=== PATIENT | male | born 1950 | race Two or more races ===

== ENCOUNTER 2019-02-07 06:52 | Day surgery (SDC) | payer OTHER ==
[2019-02-06 11:21] LABS: Absolute Lymphocytes (CBC) 2.3 K/uL (0.7-4.9); Basophils % 0.6 % (0-1.3); Eosinophils % 2.6 % (0-4.4); Hematocrit 40.2 % (39.6-49.0); Lymphocytes % 31.4 % (15.3-44.8); MPV 10.3 fL (7.6-11.3); Monocytes % 8.2 % (3.3-12.3); RBC Red Blood Cell Count 4.73 M/uL (4.33-5.43)
--- OUTSIDE RECORDS SUMMARY | 2019-02-07 06:57 | XMS REPORT | Clinical Summary ---
:1950 Author Organization [facility] Address [address] [place] [address] Care Team Providers Name Role Phone Aster Monique DO Primary Care Provider Allergies Active Allergy Reactions Severity Noted Date Comments Aspirin GI Intolerance Low 10/31/2018 Medications Medication Sig Dispensed Refills Start Date End Date Status ranitidine Take 150 mg by 0 Active (ZANTAC) 150 MG mouth 2 (two) tablet times a day. fluPHENAZine Inject 0.5 mg 0 10/21/2018 Active (PROLIXIN) 2.5 into the mg/mL injection shoulder, thigh, or buttocks every 30 (thirty) days. psyllium seed, Take 5 mL by 0 Active with dextrose, mouth 2 (two) (FIBER ORAL) times a day. Mix in 8 ounce of water magnesium Take by mouth 0 12/24/2018 Discontinued hydroxide 400 mg/5 as needed. mL suspension diltiazem Take 1 tablet 120 tablet 0 11/07/2018 11/07/2018 Discontinued (CardIZEM) 60 MG (60 mg total) tablet by mouth every 6 (six) hours for 30 days. polyethylene Take 17 g by 30 packet 0 11/08/2018 12/08/2018 glycol (MIRALAX) mouth daily 17 gram packet for 30 days. amoxicillin-pot Take 1 tablet 8 tablet 0 11/07/2018 11/11/2018 clavulanate by mouth 2 (AUGMENTIN) (two) times a 875-125 mg per day for 4 tablet days. aspirin (ECOTRIN) Take 1 tablet 30 tablet 0 11/07/2018 12/07/2018 81 MG enteric (81 mg total) coated tablet by mouth daily for 30 days. diltiazem Take 1 tablet 120 tablet 0 11/07/2018 12/07/2018 (CardIZEM) 60 MG (60 mg total) tablet by mouth every 6 (six) hours for 30 days. Active Problems Problem Noted Date Adenomatous polyp of transverse colon 11/19/2018 Acute respiratory failure with hypoxia 11/02/2018 Colonic mass 11/02/2018 Atrial fibrillation with RVR 11/02/2018 Sepsis 11/01/2018 Schizophrenia Encounters Date Type Specialty Care Team Description 01/06/2019 Office Visit General Surgery Alon Marie, Adenomatous polyp of transverse colon (Primary Dx) 12/24/2018 Anesthesia Event General Surgery Nilam Mondragon MD 12/24/2018 Surgery General Surgery Alon Marie, LAPAROSCOPIC RIGHT MD COLECTOMY 12/24/2018 - Hospital Encounter General Internal Alon Marie, Adenomatous polyp 12/29/2018 Medicine MD delong transverse colon 12/24/2018 Prep for Surgery General Surgery Alon Marie MD 12/18/2018 Transcribe Orders General Surgery Alon Marie, Adenomatous polyp of transverse colon (Primary Dx) 11/19/2018 Office Visit General Surgery Alon Marie, Adenomatous polyp of transverse colon (Primary Dx) 11/07/2018 Patient Outreach Quality Ashlie Wei RN 11/05/2018 Surgery Gastroenterology Angella, COLONOSCOPY with MD Jose A biopsy 11/05/2018 Anesthesia Event Gastroenterology Yaa Zimmerman MD 10/31/2018 - Hospital Encounter General Internal WaliKaitlin Colonic mass 11/07/2018 Medicine MD Rick (Primary Dx) after 02/06/2018 Family History Medical History Relation Name Comments No Known Problems Brother No Known Problems Father No Known Problems Maternal Grandfather No Known Problems Maternal Grandmother No Known Problems Mother No Known Problems Other No Known Problems Paternal Grandfather No Known Problems Paternal Grandmother No Known Problems Sister Relation Name Status Comments Brother Father Maternal Grandfather Maternal Grandmother Mother Other Paternal Grandfather Paternal Grandmother Sister Social History Tobacco Use Types Packs/Day Years Used Date Never Smoker Smokeless Tobacco: Never Used Alcohol Use Drinks/Week oz/Week Comments No Alcohol Habits Answer Date Recorded How often do you have a drink containing alcohol? Never 11/01/2018 How many drinks containing alcohol do you have on a typical Not asked day when you are drinking? How often do you have six or more drinks on one occasion? Not asked Sex Assigned at Date Recorded Not on file Job Start Date Occupation Industry Not on file Not on file Not on file Travel History Travel Start Travel End No recent travel history available. Last Filed Vital Signs Vital Sign Reading Time Taken Blood Pressure 132/79 12/29/2018 11:56 AM CDT Pulse 73 12/29/2018 11:56 AM CDT Temperature 36.1 C (97 F) 12/29/2018 11:56 AM CDT Respiratory Rate 18 12/29/2018 11:56 AM CDT Oxygen Saturation 97% 12/29/2018 11:56 AM CDT Inhaled Oxygen Concentration - - Weight 55.4 kg (122 lb 1.6 oz) 12/29/2018 4:05 AM CDT Height 160 cm (5' 3") 12/24/2018 12:19 PM CDT Body Mass Index 21.63 12/24/2018 12:19 PM CDT Plan of Treatment Date Type Specialty Care Team Description 02/10/2019 Office [place] [address] [address] [phone] Health Maintenance Due Date Last Done Comments COLONOSCOPY SCREENING 2000 SHINGLES VACCINES (#1) 2000 65+ PNEUMOCOCCAL VACCINE (1 of 2 - PCV13) 2015 INFLUENZA VACCINE 03/20/2019 Implants Implanted Type Area Tightening Machine Operator Device Shelf Model / Identifier Expiration Serial / Date Lot Kit Tour Counselor Cath Xpnsn Local Anes 5x6in On-Q Tour Counselor - [id number] Surgical Right: [facility] 12/18/2019 PM020 A / Implanted: Qty: 1 on 12/24/2018 by Alon Marie MD Implants; Abdomen / Expanders; Extenders; Surgical Wires Explanted Type Area Tightening Machine Operator Device Shelf Model / Identifier Expiration Serial / Date Lot Kit Tour Counselor Cath Xpnsn Local Anes 5x6in On-Q Tour Counselor - [id number] Surgical Left : [facility] 12/18/2019 PM020 A / Implanted: Qty: 1 Implants; Abdomen / Explanted: Qty: 1 on 12/24/2018 by Alon Marie MD Expanders; Extenders; Surgical Wires Procedures Procedure Name Priority Date/Time Associated Comments Diagnosis ESTIMATED GFR Routine 12/28/2018 5:35 Results for this AM CDT procedure are in the results section. PHOSPHORUS LEVEL Routine 12/28/2018 5:35 Results for this AM CDT procedure are in the results section. MAGNESIUM LEVEL Routine 12/28/2018 5:35 Results for this AM CDT procedure are in the results section. IONIZED CALCIUM Routine 12/28/2018 5:35 Results for this AM CDT procedure are in the results section. HC COMPLETE BLD COUNT Routine 12/28/2018 5:35 Results for this W/AUTO DIFF AM CDT procedure are in the results section. BASIC METABOLIC PANEL Routine 12/28/2018 5:35 Results for this AM CDT procedure are in the results section. B NATRIURETIC PEPTIDE Routine 12/27/2018 9:15 Results for this PM CDT procedure are in the results section. CARCINOEMBRYONIC ANTIGEN Routine 12/27/2018 8:45 Results for this (CEA) PM CDT procedure are in the results section. XR CHEST 1 VW PORTABLE Routine 12/27/2018 5:50 Results for this PM CDT procedure are in the results section. ESTIMATED GFR Routine 12/27/2018 5:40 Results for this AM CDT procedure are in the results section. IONIZED CALCIUM Routine 12/27/2018 5:40 Results for this AM CDT procedure are in the results section. PHOSPHORUS LEVEL Routine 12/27/2018 5:40 Results for this AM CDT procedure are in the results section. MAGNESIUM LEVEL Routine 12/27/2018 5:40 Results for this AM CDT procedure are in the results section. BASIC METABOLIC PANEL Routine 12/27/2018 5:40 Results for this AM CDT procedure are in the results section. HC COMPLETE BLD COUNT Routine 12/27/2018 5:40 Results for this W/AUTO DIFF AM CDT procedure are in the results section. THYROID STIMULATING STAT 12/26/2018 1:20 Results for this HORMONE AM CDT procedure are in the results section. HEPATIC FUNCTION PANEL STAT 12/26/2018 1:20 Results for this AM CDT procedure are in the results section. ECG 12-LEAD STAT 12/26/2018 1:01 Results for this AM CDT procedure are in the results section. TROPONIN Routine 12/26/2018 12:54 Results for this AM CDT procedure are in the results section. ESTIMATED GFR Routine 12/26/2018 12:54 Results for this AM CDT procedure are in the results section. IONIZED CALCIUM Routine 12/26/2018 12:54 Results for this AM CDT procedure are in the results section. PHOSPHORUS LEVEL Routine 12/26/2018 12:54 Results for this AM CDT procedure are in the results section. MAGNESIUM LEVEL Routine 12/26/2018 12:54 Results for this AM CDT procedure are in the results section. BASIC METABOLIC PANEL Routine 12/26/2018 12:54 Results for this AM CDT procedure are in the results section. CBC WITH PLATELET AND Routine 12/26/2018 12:54 Results for this DIFFERENTIAL AM CDT procedure are in the results section. POC GLUCOSE Routine 12/25/2018 10:24 Results for this AM CDT procedure are in the results section. ESTIMATED GFR Routine 12/25/2018 6:05 Results for this AM CDT procedure are in the results section. PHOSPHORUS LEVEL Routine 12/25/2018 6:05 Results for this AM CDT procedure are in the results section. MAGNESIUM LEVEL Routine 12/25/2018 6:05 Results for this AM CDT procedure are in the results section. BASIC METABOLIC PANEL Routine 12/25/2018 6:05 Results for this AM CDT procedure are in the results section. POC GLUCOSE Routine 12/25/2018 4:38 Results for this AM CDT procedure are in the results section. MANUAL DIFFERENTIAL Routine 12/25/2018 4:35 Results for this AM CDT procedure are in the results section. CBC WITH PLATELET AND Routine 12/25/2018 4:35 Results for this DIFFERENTIAL AM CDT procedure are in the results section. POC GLUCOSE Routine 12/25/2018 12:29 Results for this AM CDT procedure are in the results section. POC GLUCOSE Routine 12/24/2018 9:05 Results for this PM CDT procedure are in the results section. HEMOGLOBIN & HEMATOCRIT Routine 12/24/2018 5:28 Results for this PM CDT procedure are in the results section. POC GLUCOSE Routine 12/24/2018 4:36 Results for this PM CDT procedure are in the results section. POC GLUCOSE Routine 12/24/2018 12:57 Results for this PM CDT procedure are in the results section. BRAF, PCR Routine 12/24/2018 10:18 Results for this AM CDT procedure are in the results section. SURGICAL PATHOLOGY Routine 12/24/2018 9:28 Results for this REQUEST AM CDT procedure are in the results section. SURGICAL PATHOLOGY Routine 12/24/2018 9:28 Results for this REQUEST AM CDT procedure are in the results section. SURGICAL PATHOLOGY Routine 12/24/2018 9:28 Results for this REQUEST AM CDT procedure are in the results section. SURGICAL PATHOLOGY Routine 12/24/2018 9:28 Results for this REQUEST AM CDT procedure are in the results section. URINALYSIS SCREEN AND Timed 12/24/2018 8:01 Adenomatous polyp Results for this MICROSCOPY, WITH REFLEX AM CDT of transverse colon procedure are in TO CULTURE the results section. URINE CULTURE Timed 12/24/2018 8:01 Results for this AM CDT procedure are in the results section. IN AN ELECTIVE Routine 12/24/2018 7:59 ENDOTRACHEAL AIRWAY AM CDT Procedure Note - Nate Colón CRNA - 12/24/2018 7:59 AM CDT Airway Date/Time: 12/24/2018 7:47 AM Performed by: Nate Colón CRNA Authorized by: Familia Sen MD Location: OR Urgency: Elective Difficult Airway: No Anesthesiologist: Familia Sen MD Resident/BUILDING AND CONSTRUCTION MANAGER/AA: Nate Colón CRNA Performed by: resident/BUILDING AND CONSTRUCTION MANAGER/AA Preoxygenated with 100% O2: Yes C-spine Precautions Maintained Throughout: Yes Mask Ventilation: Easy mask Final Airway Type: Endotracheal airway Final Endotracheal Airway: ETT Cuffed: Yes Technique Used: Direct laryngoscopy Devices/Methods Used in Placement: Intubating stylet Insertion Site: Oral Blade Type: Wagner Laryngoscope Blade/Videolaryngoscope Blade Size: 2 ETT Size (mm): 7.5 Cuff at minimum occlusion pressure: Yes Measured from: Lips ETT to Lips (cm): 23 Placement Verified by: CO2 detection, direct visualization and equal breath sounds Laryngoscopic view: Grade I - full view of glottis Rapid Sequence Induction (RSI): No Modified RSI: No Number of Attempts at Approach: 1 Atraumatic intubation. All oral structures intact and unchanged. POC GLUCOSE Routine 12/24/2018 6:43 AM Results for this CDT procedure are in the results section. ESTIMATED GFR Routine 12/24/2018 6:40 AM Results for this CDT procedure are in the results section. TYPE AND SCREEN Routine 12/24/2018 6:40 AM Results for this CDT procedure are in the results section. PROTHROMBIN TIME WITH INR Routine 12/24/2018 6:40 AM Results for this CDT procedure are in the results section. PARTIAL THROMBOPLASTIN Routine 12/24/2018 6:40 AM Results for this TIME (PTT) CDT procedure are in the results section. COMPREHENSIVE METABOLIC Routine 12/24/2018 6:40 AM Results for this PANEL CDT procedure are in the results section. HC COMPLETE BLD COUNT Routine 12/24/2018 6:40 AM Results for this W/AUTO DIFF CDT procedure are in the results section. ESTIMATED GFR Routine 11/07/2018 4:47 AM Results for this CDT procedure are in the results section. BASIC METABOLIC PANEL Routine 11/07/2018 4:47 AM Results for this CDT procedure are in the results section. HC COMPLETE BLD COUNT Routine 11/07/2018 4:47 AM Results for this W/AUTO DIFF CDT procedure are in the results section. POC GLUCOSE Routine 11/06/2018 8:52 PM Results for this CDT procedure are in the results section. POC GLUCOSE Routine 11/06/2018 4:05 PM Results for this CDT procedure are in the results section. POC GLUCOSE Routine 11/06/2018 12:03 PM Results for this CDT procedure are in the results section. POC GLUCOSE Routine 11/06/2018 8:31 AM Results for this CDT procedure are in the results section. POC GLUCOSE Routine 11/05/2018 8:37 PM Results for this CDT procedure are in the results section. POC GLUCOSE Routine 11/05/2018 3:58 PM Results for this CDT procedure are in the results section. CARCINOEMBRYONIC ANTIGEN Routine 11/05/2018 12:25 PM Results for this (CEA) CDT procedure are in the results section. POC GLUCOSE Routine 11/05/2018 11:23 AM Results for this CDT procedure are in the results section. SURGICAL PATHOLOGY REQUEST Routine 11/05/2018 9:48 AM Results for this CDT procedure are in the results section. COLONOSCOPY 11/05/2018 8:25 AM Colonic mass CDT ECG 12-LEAD STAT 11/05/2018 6:44 AM Results for this CDT procedure are in the results section. MANUAL DIFFERENTIAL Routine 11/05/2018 6:25 AM Results for this CDT procedure are in the results section. ESTIMATED GFR Routine 11/05/2018 6:25 AM Results for this CDT procedure are in the results section. MAGNESIUM LEVEL Routine 11/05/2018 6:25 AM Results for this CDT procedure are in the results section. PHOSPHORUS LEVEL Routine 11/05/2018 6:25 AM Results for this CDT procedure are in the results section. CBC WITH PLATELET AND Routine 11/05/2018 6:25 AM Results for this DIFFERENTIAL CDT procedure are in the results section. BASIC METABOLIC PANEL Routine 11/05/2018 6:25 AM Results for this CDT procedure are in the results section. CARCINOEMBRYONIC ANTIGEN Routine 11/05/2018 6:25 AM Results for this (CEA) CDT procedure are in the results section. POC GLUCOSE Routine 11/04/2018 9:09 PM Results for this CDT procedure are in the results section. POC GLUCOSE Routine 11/04/2018 4:19 PM Results for this CDT procedure are in the results section. POC GLUCOSE Routine 11/04/2018 11:40 AM Results for this CDT procedure are in the results section. POC GLUCOSE Routine 11/04/2018 7:49 AM Results for this CDT procedure are in the results section. MANUAL DIFFERENTIAL Routine 11/04/2018 6:01 AM Results for this CDT procedure are in the results section. ESTIMATED GFR Routine 11/04/2018 6:01 AM Results for this CDT procedure are in the results section. MAGNESIUM LEVEL Routine 11/04/2018 6:01 AM Results for this CDT procedure are in the results section. IONIZED CALCIUM Routine 11/04/2018 6:01 AM Results for this CDT procedure are in the results section. PROTHROMBIN TIME WITH INR Routine 11/04/2018 6:01 AM Results for this CDT procedure are in the results section. PHOSPHORUS LEVEL Routine 11/04/2018 6:01 AM Results for this CDT procedure are in the results section. BASIC METABOLIC PANEL Routine 11/04/2018 6:01 AM Results for this CDT procedure are in the results section. CBC WITH PLATELET AND Routine 11/04/2018 6:01 AM Results for this DIFFERENTIAL CDT procedure are in the results section. XR CHEST 1 VW PORTABLE Routine 11/04/2018 5:36 AM Results for this CDT procedure are in the results section. POC GLUCOSE Routine 11/03/2018 8:29 PM Results for this CDT procedure are in the results section. POC GLUCOSE Routine 11/03/2018 3:29 PM Results for this CDT procedure are in the results section. POC GLUCOSE Routine 11/03/2018 11:46 AM Results for this CDT procedure are in the results section. POC GLUCOSE Routine 11/03/2018 7:24 AM Results for this CDT procedure are in the results section. XR CHEST 1 VW PORTABLE Routine 11/03/2018 6:41 AM Results for this CDT procedure are in the results section. MANUAL DIFFERENTIAL Routine 11/03/2018 5:35 AM Results for this CDT procedure are in the results section. ESTIMATED GFR Routine 11/03/2018 5:35 AM Results for this CDT procedure are in the results section. MAGNESIUM LEVEL Routine 11/03/2018 5:35 AM Results for this CDT procedure are in the results section. IONIZED CALCIUM Routine 11/03/2018 5:35 AM Results for this CDT procedure are in the results section. PROTHROMBIN TIME WITH INR Routine 11/03/2018 5:35 AM Results for this CDT procedure are in the results section. PHOSPHORUS LEVEL Routine 11/03/2018 5:35 AM Results for this CDT procedure are in the results section. VITAMIN B12 LEVEL Routine 11/03/2018 5:35 AM Results for this CDT procedure are in the results section. TOTAL IRON BINDING Routine 11/03/2018 5:35 AM Results for this CAPACITY CDT procedure are in the results section. RETICULOCYTE COUNT Routine 11/03/2018 5:35 AM Results for this CDT procedure are in the results section. SERUM ELECTROPHORESIS Routine 11/03/2018 5:35 AM Results for this CDT procedure are in the results section. FOLATE LEVEL Routine 11/03/2018 5:35 AM Results for this CDT procedure are in the results section. FERRITIN LEVEL Routine 11/03/2018 5:35 AM Results for this CDT procedure are in the results section. COMPREHENSIVE METABOLIC Routine 11/03/2018 5:35 AM Results for this PANEL CDT procedure are in the results section. CBC WITH PLATELET AND Routine 11/03/2018 5:35 AM Results for this DIFFERENTIAL CDT procedure are in the results section. POC GLUCOSE Routine 11/02/2018 4:15 PM Results for this CDT procedure are in the results section. ECHOCARDIOGRAM 2D COMPLETE Routine 11/02/2018 3:25 PM Results for this W MMODE SPECTRAL COLOR CDT procedure are in DOPPLER ([id number]) the results section. POC GLUCOSE Routine 11/02/2018 11:13 AM Results for this CDT procedure are in the results section. PARTIAL THROMBOPLASTIN Routine 11/02/2018 8:15 AM Results for this TIME (PTT) CDT procedure are in the results section. POC GLUCOSE Routine 11/02/2018 7:04 AM Results for this CDT procedure are in the results section. ECG 12-LEAD STAT 11/02/2018 5:41 AM Results for this CDT procedure are in the results section. PARTIAL THROMBOPLASTIN Routine 11/02/2018 4:20 AM Results for this TIME (PTT) CDT procedure are in the results section. ESTIMATED GFR Routine 11/02/2018 4:20 AM Results for this CDT procedure are in the results section. PROTHROMBIN TIME WITH INR Routine 11/02/2018 4:20 AM Results for this CDT procedure are in the results section. PHOSPHORUS LEVEL Routine 11/02/2018 4:20 AM Results for this CDT procedure are in the results section. BASIC METABOLIC PANEL Routine 11/02/2018 4:20 AM Results for this CDT procedure are in the results section. HC COMPLETE BLD COUNT Routine 11/02/2018 4:20 AM Results for this W/AUTO DIFF CDT procedure are in the results section. IONIZED CALCIUM Routine 11/02/2018 4:20 AM Results for this CDT procedure are in the results section. MAGNESIUM LEVEL Routine 11/02/2018 4:20 AM Results for this CDT procedure are in the results section. XR CHEST 1 VW PORTABLE Routine 11/02/2018 2:57 AM Results for this CDT procedure are in the results section. PARTIAL THROMBOPLASTIN Routine 11/02/2018 12:20 AM Results for this TIME (PTT) CDT procedure are in the results section. POC GLUCOSE Routine 11/01/2018 9:04 PM Results for this CDT procedure are in the results section. ANTI XA, UNFRACTIONATED Routine 11/01/2018 6:15 PM Results for this CDT procedure are in the results section. PARTIAL THROMBOPLASTIN Routine 11/01/2018 6:15 PM Results for this TIME (PTT) CDT procedure are in the results section. POC GLUCOSE Routine 11/01/2018 5:35 PM Results for this CDT procedure are in the results section. TROPONIN Routine 11/01/2018 1:50 PM Results for this CDT procedure are in the results section. CREATINE KINASE, TOTAL Routine 11/01/2018 1:50 PM Results for this (CPK) CDT procedure are in the results section. LACTIC ACID LEVEL Routine 11/01/2018 1:50 PM Results for this CDT procedure are in the results section. POC GLUCOSE Routine 11/01/2018 12:33 PM Results for this CDT procedure are in the results section. GRAM STAIN Routine 11/01/2018 9:50 AM Results for this CDT procedure are in the results section. URINE CULTURE Routine 11/01/2018 9:50 AM CDT PARTIAL THROMBOPLASTIN Routine 11/01/2018 9:40 AM Results for this TIME (PTT) CDT procedure are in the results section. STREPTOCOCCUS PNEUMONIAE Routine 11/01/2018 9:40 AM Results for this URINARY ANTIGEN CDT procedure are in the results section. POC GLUCOSE Routine 11/01/2018 8:03 AM Results for this CDT procedure are in the results section. POC GLUCOSE Routine 11/01/2018 7:01 AM Results for this CDT procedure are in the results section. MANUAL DIFFERENTIAL STAT 11/01/2018 6:26 AM Results for this CDT procedure are in the results section. CBC WITH PLATELET AND STAT 11/01/2018 6:26 AM Results for this DIFFERENTIAL CDT procedure are in the results section. PARTIAL THROMBOPLASTIN Routine 11/01/2018 6:26 AM Results for this TIME (PTT) CDT procedure are in the results section. TROPONIN Timed 11/01/2018 6:26 AM Results for this CDT procedure are in the results section. POC GLUCOSE Routine 11/01/2018 4:57 AM Results for this CDT procedure are in the results section. XR CHEST 1 VW PORTABLE Routine 11/01/2018 4:25 AM Results for this CDT procedure are in the results section. GRAM STAIN Routine 11/01/2018 4:21 AM Results for this CDT procedure are in the results section. URINE CULTURE Routine 11/01/2018 4:21 AM Results for this CDT procedure are in the results section. URINALYSIS SCREEN AND Routine 11/01/2018 4:00 AM Results for this MICROSCOPY, WITH REFLEX TO CDT procedure are in CULTURE the results section. LIPID PANEL Routine 11/01/2018 3:38 AM Results for this CDT procedure are in the results section. AMYLASE LEVEL Routine 11/01/2018 3:38 AM Results for this CDT procedure are in the results section. PHOSPHORUS LEVEL Routine 11/01/2018 3:38 AM Results for this CDT procedure are in the results section. T4, FREE Routine 11/01/2018 3:38 AM Results for this CDT procedure are in the results section. THYROID STIMULATING Routine 11/01/2018 3:38 AM Results for this HORMONE CDT procedure are in the results section. ESTIMATED GFR Routine 11/01/2018 3:38 AM Results for this CDT procedure are in the results section. TROPONIN STAT 11/01/2018 3:38 AM Results for this CDT procedure are in the results section. MAGNESIUM LEVEL Routine 11/01/2018 3:38 AM Results for this CDT procedure are in the results section. COMPREHENSIVE METABOLIC Routine 11/01/2018 3:38 AM Results for this PANEL CDT procedure are in the results section. PREALBUMIN LEVEL Routine 11/01/2018 3:38 AM Results for this CDT procedure are in the results section. URIC ACID LEVEL Routine 11/01/2018 3:38 AM Results for this CDT procedure are in the results section. PARTIAL THROMBOPLASTIN Routine 11/01/2018 3:38 AM Results for this TIME (PTT) CDT procedure are in the results section. PROTHROMBIN TIME WITH INR Routine 11/01/2018 3:38 AM Results for this CDT procedure are in the results section. BLOOD CULTURE, AEROBIC & Routine 11/01/2018 3:38 AM Results for this ANAEROBIC CDT procedure are in the results section. ESTIMATED GFR Routine 11/01/2018 3:10 AM Results for this CDT procedure are in the results section. AMYLASE LEVEL Routine 11/01/2018 3:10 AM Results for this CDT procedure are in the results section. B NATRIURETIC PEPTIDE Routine 11/01/2018 3:10 AM Results for this CDT procedure are in the results section. CREATINE KINASE, TOTAL Routine 11/01/2018 3:10 AM Results for this (CPK) CDT procedure are in the results section. COMPREHENSIVE METABOLIC Routine 11/01/2018 3:10 AM Results for this PANEL CDT procedure are in the results section. HEMOGLOBIN A1C Routine 11/01/2018 3:10 AM Results for this CDT procedure are in the results section. LACTIC ACID LEVEL Routine 11/01/2018 3:10 AM Results for this CDT procedure are in the results section. LIPASE LEVEL Routine 11/01/2018 3:10 AM Results for this CDT procedure are in the results section. LIPID PANEL Routine 11/01/2018 3:10 AM Results for this CDT procedure are in the results section. MAGNESIUM LEVEL Routine 11/01/2018 3:10 AM Results for this CDT procedure are in the results section. PHOSPHORUS LEVEL Routine 11/01/2018 3:10 AM Results for this CDT procedure are in the results section. POC GLUCOSE Routine 11/01/2018 12:47 AM Results for this CDT procedure are in the results section. URINALYSIS SCREEN AND STAT 11/01/2018 12:25 AM Results for this MICROSCOPY, WITH REFLEX TO CDT procedure are in CULTURE the results section. URINE CULTURE STAT 11/01/2018 12:25 AM Results for this CDT procedure are in the results section. PREPARE RBC Routine 11/01/2018 12:20 AM CDT PARTIAL THROMBOPLASTIN STAT 11/01/2018 12:20 AM Results for this TIME (PTT) CDT procedure are in the results section. TYPE AND SCREEN Routine 11/01/2018 12:20 AM Results for this CDT procedure are in the results section. CARCINOEMBRYONIC ANTIGEN Routine 11/01/2018 12:20 AM Results for this (CEA) CDT procedure are in the results section. B NATRIURETIC PEPTIDE Routine 11/01/2018 12:20 AM Results for this CDT procedure are in the results section. BETA HYDROXYBUTYRATE STAT 11/01/2018 12:20 AM Results for this CDT procedure are in the results section. LACTIC ACID LEVEL Timed 11/01/2018 12:20 AM Results for this CDT procedure are in the results section. POC GLUCOSE Routine 10/31/2018 10:41 PM Results for this CDT procedure are in the results section. CT CHEST WO CONTRAST STAT 10/31/2018 10:15 PM Results for this ABDOMEN WO CONTRAST PELVIS CDT procedure are in WO CONTRAST the results section. POC GLUCOSE Routine 10/31/2018 9:42 PM Results for this CDT procedure are in the results section. XR ABDOMEN 1 VW STAT 10/31/2018 9:29 PM Results for this CDT procedure are in the results section. XR CHEST 1 VW PORTABLE STAT 10/31/2018 9:29 PM Results for this CDT procedure are in the results section. ECG 12-LEAD STAT 10/31/2018 9:22 PM Results for this CDT procedure are in the results section. MANUAL DIFFERENTIAL STAT 10/31/2018 8:55 PM Results for this CDT procedure are in the results section. TROPONIN STAT 10/31/2018 8:55 PM Results for this CDT procedure are in the results section. ESTIMATED GFR STAT 10/31/2018 8:55 PM Results for this CDT procedure are in the results section. LACTIC ACID LEVEL Timed 10/31/2018 8:55 PM Results for this CDT procedure are in the results section. ARTERIAL BLOOD GAS STAT 10/31/2018 8:55 PM Results for this CDT procedure are in the results section. PROTHROMBIN TIME WITH INR STAT 10/31/2018 8:55 PM Results for this CDT procedure are in the results section. COMPREHENSIVE METABOLIC STAT 10/31/2018 8:55 PM Results for this PANEL CDT procedure are in the results section. CBC WITH PLATELET AND STAT 10/31/2018 8:55 PM Results for this DIFFERENTIAL CDT procedure are in the results section. BLOOD CULTURE, AEROBIC & Routine 10/31/2018 8:55 PM Results for this ANAEROBIC CDT procedure are in the results section. after 02/06/2018 Results Estimated GFR (12/28/2018 5:35 AM CDT)Only the most recent of13 resultswithin the time period is included. Pathologist [facility] Estimated GFR >=90 mL/min/1.73 [facility] Comment: m2 [place] CatergoryUnitsInterpretation [facility] G1 >=90 Normal or high G2 60-89Mildly decreased [id number] to moderately decreased [id number] to severely decreased G4 15-29Severely decreased G5 <15Kidney failure The eGFR was calculated using the Chronic Kidney Disease Epidemiology Collaboration (CKD-EPI) equation. Interpretation is based on recommendations of the National Kidney Foundation-Kidney Disease Outcomes Quality Initiative (NKF-KDOQI) published in 2014. Specimen Plasma specimen Performing Organization Address City/State/Zipcode Phone Number [facility] DEPARTMENT OF PATHOLOGY [address] [place] [address] AND GENOMIC MEDICINE [facility] [address] CBC with platelet and differential (12/28/2018 5:35 AM CDT)Only the most recent of12 resultswithin the time period is included. WBC 6.7 4.5 - 11.0 k/uL [facility] RBC 4.44 4.40 - 6.00 [facility] m/uL [facility] HGB 11.9 (L) 14.0 - 18.0 [facility] g/dL [facility] HCT 37.0 (L) 41.0 - 51.0 % [facility] MCV 83.3 82.0 - 100.0 fL [facility] MCH 26.8 (L) 27.0 - 34.0 pg [facility] MCHC 32.2 31.0 - 37.0 [facility] g/dL [facility] RDW - SD 42.7 37.0 - 55.0 fL [facility] MPV 11.6 (H) 6.9 - 11.0 fL [facility] Platelet count 190 150 - 400 K/uL [facility] Nucleated RBC 0.00 /100 WBC [facility] Neutrophils 70.2 (H) 39.0 - 69.0 % [facility] Lymphocytes 19.6 (L) 25.0 - 45.0 % [facility] Monocytes 8.2 0.0 - 10.0 % [facility] Eosinophils 1.5 0.0 - 5.0 % [facility] Basophils 0.1 0.0 - 1.0 % [facility] Immature granulocytes 0.4 0.0 - 1.0 % [facility] Specimen Blood Performing Organization Address City/State/Zipcode Phone Number [facility] DEPARTMENT OF PATHOLOGY [address] [place] [address] [place] [address] HOSPITAL Phosphorus level (12/28/2018 5:35 AM CDT)Only the most recent of10 resultswithin the time period is included. Phosphorus 2.6 2.4 - 4.5 mg/dL [facility] Specimen Plasma specimen Performing Organization Address City/State/Zipcode Phone Number [facility] DEPARTMENT OF PATHOLOGY [address] [place] [address] [place] [address] HOSPITAL Magnesium level (12/28/2018 5:35 AM CDT)Only the most recent of10 resultswithin the time period is included. Magnesium 2.0 1.6 - 2.4 mg/dL [facility] Specimen Plasma specimen Performing Organization Address City/State/Zipcode Phone Number [facility] DEPARTMENT OF PATHOLOGY [address] [place] [address] Ionized calcium (12/28/2018 5:35 AM CDT)Only the most recent of6 resultswithin the time period is included. pH 7.40 [facility] Ionized calcium 1.09 (L) 1.11 - 1.32 [facility] mmol/L [facility] Specimen Plasma specimen Performing Organization Address City/[facility] Phone Number [facility] DEPARTMENT OF PATHOLOGY [address] [place] [address] Basic metabolic panel (12/28/2018 5:35 AM CDT)Only the most recent of8 resultswithin the time period is included. Sodium 138 135 - 148 mEq/L [facility] Potassium 3.4 (L) 3.5 - 5.0 mEq/L [facility] Chloride 101 98 - 112 mEq/L [facility] CO2 25 24 - 31 mEq/L [facility] Anion gap 12@ANIO 7 - 15 mEq/L [facility] BUN 7 (L) 8 - 23 mg/dL [facility] Creatinine 0.62 (L) 0.70 - 1.20 mg/dL [facility] Glucose 106 (H) 65 - 99 mg/dL [facility] Calcium 8.3 (L) 8.8 - 10.2 mg/dL [facility] Specimen Plasma specimen Performing Organization Address City/[facility]ode Phone Number [facility] DEPARTMENT OF PATHOLOGY [address] [place] [address] [place] [address] HOSPITAL B natriuretic peptide (12/27/2018 9:15 PM CDT)Only the most recent of3 resultswithin the time period is included. BNP 128 (H) 0 - 100 pg/mL [facility] Specimen Blood Performing Organization Address City/State/Zipcode Phone Number [facility] DEPARTMENT OF PATHOLOGY [address] [place] [address] AND GENOMIC MEDICINE [facility] [address] [place] [address] HOSPITAL Carcinoembryonic antigen (CEA) (12/27/2018 8:45 PM CDT)Only the most recent of4 resultswithin the time period is included. CEA 43.0 (H) 0.0 - 3.8 [facility] Comment: ng/mL [facility] Reference range for heavy smokers:0.0 - 5.5 ng/mL The ADOP Kenia 8000 CEA immunoassay was used. Results obtained with different assay methods or kits should not be used interchangeably and may be different. Specimen Serum Performing Organization Address [facility] Cent[facility]ode Phone Number [facility] DEPARTMENT OF PATHOLOGY AND [address] [place] [id number] [place] [address] XR Chest 1 Vw Portable (12/27/2018 5:50 PM CDT)Only the most recent of6 resultswithin the time period is included. Specimen Narrative Performed At EXAMINATION:XR CHEST 1 VW PORTABLE [facility] CLINICAL HISTORY:sob COMPARISON:November 04 IMPRESSION: 1. The heart and pulmonary vasculature are within normal limits. 2. No infiltrate or effusion is demonstrated. 3. There is no acute osseous pathology. 4. If suspicion persists, follow-up nonportable PA and lateral imaging may be helpful. [id number] Procedure Note Interface, Radiology Results Incoming - 12/27/2018 5:55 PM CDT EXAMINATION: XR CHEST 1 VW PORTABLE CLINICAL HISTORY: sob COMPARISON: November 04 IMPRESSION: 1. The heart and pulmonary vasculature are within normal limits. 2. No infiltrate or effusion is demonstrated. 3. There is no acute osseous pathology. 4. If suspicion persists, follow-up nonportable PA and lateral imaging may be helpful. [id number] Performing Organization Address City/State/Zipcode Phone Number [facility] [address] [place] [phone] Thyroid stimulating hormone (12/26/2018 1:20 AM CDT)Only the most recent of2 resultswithin the time period is included. Pathologist [facility] TSH 0.88 0.27 - 4.20 uIU/mL [facility] Specimen Plasma specimen Performing Organization Address City/[facility] Centercode Phone Number [facility] DEPARTMENT OF PATHOLOGY [id number] [place] [address] Hepatic function panel (12/26/2018 1:20 AM CDT) [facility] Albumin 3.2 (L) 3.5 - 5.0 g/dL [facility] Total bilirubin 0.5 0.2 - 1.2 mg/dL [facility] Bilirubin direct <0.2 0.0 - 0.3 mg/dL [facility] Alkaline phosphatase 45 40 - 129 U/L [facility] Protein 6.1 (L) 6.3 - 8.3 g/dL [facility] ALT 21 5 - 50 U/L [facility] AST 29 10 - 50 U/L [facility] Specimen Plasma specimen Performing Organization Address City/[facility]/Zipcode Phone Number [facility] DEPARTMENT OF PATHOLOGY [id number] [place] [address] ECG 12 lead (12/26/2018 1:01 AM CDT)Only the most recent of4 resultswithin the time period is included. Pathologist [facility] Ventricular rate 159 [facility] Atrial rate 163 [facility] QRSD interval 82 [facility] QT interval 270 [facility] QTC interval 439 [facility] QRS axis 1 84 [facility] T wave axis -70 [facility] EKG impression Atrial fibrillation with rapid ventricular response-Marked ST abnormality, possible inferior subendocardial injury-Abnormal ECG-In automated comparison with ECG of 05-NOV-2018 06:44,-Atrial fibrillation [facility] MUSE has replaced Sinus rhythm-Vent. rate has increased BY72 BPM-ST now depressed in Inferior leads-ST now depressed in Anterolateral leads-T wave inversion now evident in Inferior leads-Nonspecific T wave abnormality now evident in Lateral leads-Electro nically Signed By Rene Hinkle MD ([id number]) on 12/27/2018 9:38:43 AM Specimen Narrative Performed At Performing Organization Address City/State/Zipcode Phone Number [facility] [address] [place] [address] Troponin (12/26/2018 12:54 AM CDT)Only the most recent of5 resultswithin the time period is included. Troponin 0.006 0.000 - 0.040 [facility] Comment: ng/mL [facility] changed methodology effective: HOSPITAL 12/24/2018 at 10:00 am The new method has a 99th percentile cutoff of 0.040 ng/mL Specimen Plasma specimen Performing Organization Address City/[facility]/Zipcode Phone Number [facility] DEPARTMENT OF PATHOLOGY [id number] [place] [address] POC glucose (12/25/2018 10:24 AM CDT)Only the most recent of34 resultswithin the time period is included. Pathologist [facility] POC glucose 125 (H) 65 - 99 mg/dL [facility] Comment: [facility] RN Notified Meter ID: [id number] Occupational Hygienist: Fidencio Zhang Specimen Performing Organization Address City/[facility] Centercode Phone Number [facility] DEPARTMENT OF PATHOLOGY [address] [place] [address] [place] [address] HOSPITAL Manual differential (12/25/2018 4:35 AM CDT)Only the most recent of6 resultswithin the time period is included. Manual differential PERFORMED [facility] Neutrophils 91.0 (H) 39.0 - 69.0 % [facility] Lymphocytes 8.0 (L) 25.0 - 45.0 % [facility] Monocytes 2.0 0.0 - 10.0 % [facility] Eosinophils 0.0 0.0 - 5.0 % [facility] Basophils 0.0 0.0 - 1.0 % [facility] Reactive lymphocytes Few [facility] Platelet slide review Kareen adequate [facility] Ovalocytes Moderate [facility] Specimen Performing Organization Address City/State/Zipcode Phone Number [facility] DEPARTMENT OF PATHOLOGY [address] [place] [address] AND GENOMIC MEDICINE [facility] [id number] [place] [address] HOSPITAL Hemoglobin & hematocrit (12/24/2018 5:28 PM CDT) HGB 12.5 (L) 14.0 - 18.0 g/dL [facility] HCT 38.6 (L) 41.0 - 51.0 % [facility] Specimen Blood Performing Organization Address City/State/Zipcode Phone Number [facility] DEPARTMENT OF PATHOLOGY [phone] [place] [address] BRAF, PCR (12/24/2018 10:18 AM CDT) BRAF, PCR Wild Type [facility] BRAF, PCR See link below for [facility] Lab HOSPITAL ReportComment: Specimen Narrative Performed At METHODOLOGY: [facility] For surgical specimens, manual microdissection was performed on block B4 (50% tumor). Specimens with the minimum of 50% tumor cells in a microdissection target are accepted for the analysis. DNA was amplified with primers flanking the reported gene sequences. DNA sequences were determined on the Lazarus Effect MassARRAY using MALDI-TOF mass spectrometry. Performing Organization Address City/State/Zipcode Phone Number [facility] DEPARTMENT OF PATHOLOGY AND [id number] Surgical pathology request (12/24/2018 9:28 AM CDT)Only the most recent of5 resultswithin the time period is included. [facility] DEPARTMENT OF PATHOLOGY AND GENOMIC MEDICINE Surgical pathology See link below for [facility] DEPARTMENT OF report PDF Lab Report PATHOLOGY AND GENOMIC MEDICINE Result status This is Supplemental [facility] DEPARTMENT OF Report for PATHOLOGY AND [id number] GENOMIC MEDICINE Specimen Performing Organization Address City/State/Zipcode Phone Number [facility] DEPARTMENT OF PATHOLOGY [phone] [place] [address] AND [facility] Urinalysis screen and microscopy, with reflex to culture (12/24/2018 8:01 AM CDT)Only the most recent of3 resultswithin the time period is included. Specimen site Catheterized [facility] Color, UA Straw [facility] Appearance, UA Clear [facility] Specific gravity, 1.003 1.001 - 1.030 [facility] pH, UA 7.0 5.0 - 9.0 [facility] Protein, UA Negative Negative [facility] Glucose, UA Negative Negative [facility] Ketones, UA Trace (A) Negative [facility] Bilirubin, UA Negative Negative [facility] Blood, UA Large (A) Negative [facility] Nitrite, UA Negative Negative [facility] Urobilinogen, UA <2.0 <2.0 E.U./dL [facility] Leukocyte esterase, Negative Negative [facility] WBC, UA 2 (H) 0 - 1 /HPF [facility] RBC, UA 31 (H) 0 - 5 /HPF [facility] Bacteria, UA None seen None seen [facility] Yeast, UA None seen [facility] Yeast with None seen [facility] pseudohyphae, UA [facility] Specimen Urine - Urine, catheter Performing Organization Address City/[facility]/Zipcode Phone Number [facility] DEPARTMENT OF PATHOLOGY [address] [place] [address] [place] [address] HOSPITAL Urine culture (12/24/2018 8:01 AM CDT)Only the most recent of3 resultswithin the time period is included. Urine culture SEE COMMENTComment: [facility] Bacteriuria screen [facility] negative. Specimen Performing Organization Address City/State/Zipcode Phone Number [facility] DEPARTMENT OF PATHOLOGY [address] [place] [address] Partial thromboplastin time, activated (12/24/2018 6:40 AM CDT)Only the most recent of9 resultswithin the time period is included. PTT 31.8 23.0 - 36.0 [facility] Comment: [facility] PTT therapeutic range for unfractionated heparin is HOSPITAL 61.0-112.0 seconds which corresponds to Anti-Xa 0.3-0.7 U/ml. Specimen Blood Performing Organization Address City/[facility]/Zipcode Phone Number [facility] DEPARTMENT OF PATHOLOGY [address] [place] [address] Prothrombin time with INR (12/24/2018 6:40 AM CDT)Only the most recent of6 resultswithin the time period is included. Pathologist [facility] Prothrombin time 12.9 11.5 - 14.5 [facility] INR 1.0 [facility] Comment: [facility] International Normalized Ratio (INR) is a [facility] monitoring tool for patients who are stable on oral anticoagulant therapy. An INR of 2.0-3.0 is suggested for deep vein thrombosis/pulmonary embolism. Specimen Blood Performing Organization Address City/[facility] Cent[facility]ode Phone Number [facility] DEPARTMENT OF PATHOLOGY [address] [place] [address] [place] [address] HOSPITAL Type and screen (12/24/2018 6:40 AM CDT)Only the most recent of2 resultswithin the time period is included. Pathologist [facility] ABO grouping O [facility] Rh type POS [facility] Antibody screen (gel) NEG [facility] Specimen Blood Performing Organization Address City/[facility]/Zipcode Phone Number [facility] DEPARTMENT OF PATHOLOGY [address] [place] [address] Comprehensive metabolic panel (12/24/2018 6:40 AM CDT)Only the most recent of5 resultswithin the time period is included. Sodium 131 (L) 135 - 148 mEq/L [facility] Potassium 4.0 3.5 - 5.0 mEq/L [facility] Chloride 94 (L) 98 - 112 mEq/L [facility] CO2 24 24 - 31 mEq/L [facility] Anion gap 13@ANIO 7 - 15 mEq/L [facility] BUN 8 8 - 23 mg/dL [facility] Creatinine 0.71 0.70 - 1.20 [facility] mg/dL [facility] Glucose 105 (H) 65 - 99 mg/dL [facility] Calcium 9.1 8.8 - 10.2 mg/dL [facility] Protein 7.9 6.3 - 8.3 g/dL [facility] Albumin 4.4 3.5 - 5.0 g/dL [facility] A/G ratio 1.3 0.7 - 3.8 [facility] Alkaline phosphatase 66 40 - 129 U/L [facility] AST 36 10 - 50 U/L [facility] ALT 27 5 - 50 U/L [facility] Total bilirubin 0.7 0.2 - 1.2 mg/dL [facility] Specimen Plasma specimen Performing Organization Address City/[facility]/Zipcode Phone Number [facility] DEPARTMENT OF PATHOLOGY [address] [place] [address] Total iron binding capacity (11/03/2018 5:35 AM CDT) Iron level 50 (L) 59 - 158 ug/dL [facility] Iron binding capacity 162 (L) 260 - 460 ug/dL [facility] % Saturation 30.9 20.0 - 40.0 % [facility] Specimen Plasma specimen Performing Organization Address City/[facility]/Zipcode Phone Number [facility] DEPARTMENT OF PATHOLOGY [address] [place] [address] Reticulocyte count (11/03/2018 5:35 AM CDT) Retic %, auto 0.6 0.5 - 2.1 % [facility] Retic absolute, auto 0.0241 0.0220 - 0.1260 [facility] m/uL [facility] Specimen Blood Performing Organization Address City/State/Zipcode Phone Number [facility] DEPARTMENT OF PATHOLOGY [address] [place] [address] AND GENOMIC MEDICINE [facility] [address] [place] [address] HOSPITAL Serum electrophoresis (11/03/2018 5:35 AM CDT) Protein 5.9 (L) 6.3 - 8.3 [facility] Comment: g/dL [facility] 4.6-7.0 g/dL [facility]OSPITAL 1 week 4.4-7.6 g/dL 7 months-1year5.1-7.3 g/dL 1-2 years5.6-7.5 g/dL >3 years6.0-8.0 g/dL 18-150 6.3-8.3 g/dL [facility] albumin 3.07 (L) 4.00 - 5.30 [facility] g/dL [facility] SPE alpha 1 0.36 (H) 0.10 - 0.25 [facility] g/dL [facility] SPE alpha 2 0.98 (H) 0.58 - 0.84 [facility] g/dL [facility] SPE beta 0.73 0.50 - 1.10 [facility] g/dL [facility] SPE gamma 0.76 0.60 - 1.30 [facility] g/dL [facility] SPE extended See Comment [facility] interpretation Comment: [facility] Total protein and albumin are decreased while the concentrations of [facility] alpha-1 globulins and alpha-2 globulins are increased indicating an acute phase response to infection, inflammation or tissue injury. SPE interpretation See CommentComment: [facility] Santosh Ledbetter, PhD; [facility] Howard Wagner, PhD; [facility] Arnold Greene MD, PhD Specimen Serum Performing Organization Address City/[facility]/Zipcode Phone Number [facility] DEPARTMENT OF PATHOLOGY AND [address] [place] [address] [address] Folate level (11/03/2018 5:35 AM CDT) Folate >20.0 4.8 - 24.2 ng/mL [facility] Specimen Serum Performing Organization Address City/[facility] Cent[facility]ode Phone Number [facility] DEPARTMENT OF PATHOLOGY AND [address] [place] [address] [address] Ferritin level (11/03/2018 5:35 AM CDT) Ferritin level 756 (H) 30 - 400 ng/mL [facility] Specimen Plasma specimen Performing Organization Address City/[facility]/Zipcode Phone Number [facility] DEPARTMENT OF PATHOLOGY AND [address] [place] [address] [address] Vitamin B12 level (11/03/2018 5:35 AM CDT) Vitamin B12 >1600 (H) 211 - 946 [facility] Comment: pg/mL HOSPITAL Significant overlap exists between normal and deficiency states. However, most patients with deficiencies will have Serum B12 <200 pg/mL. Specimen Serum Performing Organization Address [facility] Centercode Phone Number [facility] DEPARTMENT OF PATHOLOGY AND [address] [place] [phone] [address] Echocardiogram complete w contrast and 3D if needed (11/02/2018 3:25 PM CDT) Velocity Ratio (V1/V2) 0.90 m/s [facility] IVS,d 0.85 cm [facility] EF 84.07 % [facility] Ascending aorta 2.30 cm [facility] LVPWD,d 1.08 cm [facility] AoV Mean PG 2.61 mmHg [facility] AV LVOT peak gradient 3.44 mmHg [facility] MV valve area p 1/2 method 7.51 cm2 [facility] PV Pk Grad 0.94 mmHg [facility] E/A ratio 44.00 [facility] E wave decelartion time 101.06 msec [facility] LVOT Vmax 0.93 m/s [facility] LVOT VTI 0.16 m [facility] RVOT Vmax 0.56 m/s [facility] AoV Peak PG 4.20 mmHg [facility] MV Peak E Lonnie 0.88 m/s [facility] MV stenosis pressure 1/2 time 29.31 ms [facility] MV Peak A Lonnie 0.02 m/s [facility] Ao Root Diameter 3.38 cm [facility] AoV Vmax 1.03 m/s HM [facility] IVS/LVPW,2D 0.78 HM [facility] Left Atrium Dimension Anterior 3.88 cm HM [facility] LA Area d A4C 10.83 cm2 HM [facility] LV,d 4.43 cm HM [facility] LV,s 2.09 cm HM [facility] PV VMAX 0.48 m/s HM [facility] RVSP (TR) 27.74 mmHg HM [facility] TR Vpeak 2.38 mm/s HM [facility] MV E A ratio 39.91 [facility] TR pk grad 19.60 mmHg HM [facility] RVSP 27.74 mmHg HM [facility] Ao Root Diameter 3.38 cm [facility] LV SYS VOL 14.22 ml HM [facility] LV REYES VOL 89.28 ml HM [facility] LV SV Teich 2D 75.06 ml [facility] LV Vol s Teich PSAX 14.22 ml HM [facility] RVOT pk grad 1.25 mmHg HM [facility] AoV Vmn 0.78 [facility] LV FS Cube 2D 52.88 [facility] LV FS Teich 2D 52.88 [facility] AoV VTI 0.19 m [facility] LV EF,2D 89.54 % [facility] MV AE ratio 0.03 [facility] LVOT Vmn 0.51 [facility] LA Vol d MOD A4C 25.40 ml HM [facility] LVOT mean grad 1.37 mmHg HM [facility] MAX Pred HR 151.90 [facility] 85 of MPHR 129.11 [facility] Calc MPHR 151.90 bpm [facility] LV SV Cube 2D 78.04 ml HM [facility] LV vol d cube 2D 87.16 ml [facility] LV vol s cube 2D 9.12 ml [facility] MV Decel slope 8.67 m/s2 [facility] Pred Exer Dur R1 7.46 [facility] Pred METS R1 7.78 [facility] Specimen Narrative Performed At HM [facility] 1.Left ventricular size is normal and Left ventricular systolic function is normal 2.Left ventricular ejection fraction is approximately 50 - 55%. 3.Normal right ventricular size and function. 4.Mild mitral valve regurgitation. 5.Mild tricuspid valve regurgitation. 6.No pericardial effusion seen 7.All standard echocardiographic views were obtained. Study quality is adequate. 8 . Underlying rhythm is atrial fibrillation Performing Organization Address City/State/Zipcode Phone Number [facility] [address] [place] [address] Anti Xa, unfractionated (11/01/2018 6:15 PM CDT) Anti Xa, <0.10Comment: U/mL [place] unfractionated Therapeutic Range: [facility] 0.30 - 0.70 U/mL [facility] Specimen Blood Performing Organization Address City/[facility]/Zipcode Phone Number [facility] DEPARTMENT OF PATHOLOGY [address] [place] [address] Lactic acid level (11/01/2018 1:50 PM CDT)Only the most recent of4 resultswithin the time period is included. [facility] Lactic acid 2.4 (H) 0.5 - 2.2 mmol/L [facility] Specimen Plasma specimen Performing Organization Address City/[facility]/Zipcode Phone Number [facility] DEPARTMENT OF PATHOLOGY [address] [place] [address] Creatine kinase, total (CPK) (11/01/2018 1:50 PM CDT)Only the most recent of2 resultswithin the time period is included. [facility] Creatine kinase 826 (H) 39 - 308 U/L [facility] Specimen Plasma specimen Performing Organization Address [facility] Phone Number [facility] DEPARTMENT OF PATHOLOGY [address] [place] [address] [place] [address] HOSPITAL Gram stain (11/01/2018 9:50 AM CDT)Only the most recent of2 resultswithin the time period is included. [facility] Gram stain result No WBC's or organisms seen. [facility] Comment: [facility] Specimen Information Specimen Source: Urine Specimen Site: Clean catch Specimen Urine Performing Organization Address City/[facility]/Zipcode Phone Number [facility] DEPARTMENT OF PATHOLOGY AND [address] [place] [phone] [address] Streptococcus pneumoniae urinary antigen (11/01/2018 9:40 AM CDT) Strep pneumo Negative for Streptococcus pneumoniae antigen. [facility] urinary Ag Comment: HOSPITAL Specimen Information Specimen Source: Urine Specimen Site: Random void Specimen Urine - Random void Performing Organization Address City/[facility]/Zipcode Phone Number [facility] DEPARTMENT OF PATHOLOGY AND [address] [place] [phone] [address] Blood culture, aerobic & anaerobic (11/01/2018 3:38 AM CDT)Only the most recent of2 resultswithin the time period is included. [facility] Blood culture No growth after 5 days of incubation. [facility] isolate Comment: HOSPITAL Specimen Information Specimen Source: Blood Specimen Site: Hand, right Specimen Blood - Hand, right Performing Organization Address City/[facility]ode Phone Number [facility] DEPARTMENT OF PATHOLOGY AND [address] [place] [address] [address] Uric acid level (11/01/2018 3:38 AM CDT) [facility] Uric acid 2.6 (L) 3.4 - 7.0 mg/dL [facility] Specimen Plasma specimen Performing Organization Address City/[facility]ode Phone Number [facility] DEPARTMENT OF PATHOLOGY [address] [place] [address] T4, free (11/01/2018 3:38 AM CDT) Pathologist [facility] T4, free 1.3 0.9 - 1.7 ng/dL [facility] Specimen Plasma specimen Performing Organization Address City/[facility]/Zipcode Phone Number [facility] DEPARTMENT OF PATHOLOGY [id number] [place] [address] AND [facility] [phone] [place] [address] Prealbumin level (11/01/2018 3:38 AM CDT) [facility] Prealbumin 6 (L) 16 - 32 mg/dL [facility] Specimen Serum Performing Organization Address City/[facility]/Zipcode Phone Number [facility] DEPARTMENT OF PATHOLOGY AND [address] [place] [phone] [address] Amylase level (11/01/2018 3:38 AM CDT)Only the most recent of2 resultswithin the time period is included. Amylase 27 13 - 73 U/L [facility] Specimen Plasma specimen Performing Organization Address City/State/Zipcode Phone Number [facility] DEPARTMENT OF PATHOLOGY [phone] [place] [address] [place] [address] HOSPITAL Lipid panel (11/01/2018 3:38 AM CDT)Only the most recent of2 resultswithin the time period is included. Cholesterol 93 0 - 199 [place] mg/dL [facility] Triglycerides 62 0 - 149 [place] mg/dL [facility] HDL cholesterol 34 (L) 40 - 99,999 [place] mg/dL [facility] LDL cholesterol 52 0 - 99 mg/dL [facility] Lipid panel See below [place] interpretation Comment: [facility] Total Cholesterol (mg/dL) [facility] <200 Desirable 581-325Cpmawwuvjy-fahf >=240High Triglycerides (mg/dL) <150 Normal 946-515Klgmoenvlf-rcsp 200-499High >=500Very high HDL Cholesterol (mg/dL) <40Low (male) <50Low (female) LDL Cholesterol (mg/dL) <100 Optimal 100-129Near or above optimal 461-138Tdqvrzqhbh-yjtb 160-189High >=190Very high Risk Catergories that modify LDL goals. Risk CatergoriesLDL goal (mg/dL) CHD and CHD risk equivalent<100 (10-year risk >20%) Multiple (2+) risk factors <130 (10-year risk=<20%) 0-1 risk factors <160 (<10-year risk) Defining levels of lipids in metabolic syndrome Triglycerides>=150 mg/dL HDL Cholesterol Men<40 mg/dL Women<50 mg/dL Non-HDL cholesterol is a second target for therapy in persons with high triglycerides (>=200 mg/dL) Specimen Plasma specimen Performing Organization Address [facility]/Zipcode Phone Number [facility] DEPARTMENT OF PATHOLOGY [address] [place] [address] AND [facility] [phone] [place] [address] Lipase level (11/01/2018 3:10 AM CDT) Lipase 23 13 - 60 U/L [facility] Specimen Plasma specimen Performing Organization Address City/[facility]/Zipcode Phone Number [facility] DEPARTMENT OF PATHOLOGY [phone] [place] [address] Hemoglobin A1c (11/01/2018 3:10 AM CDT) Hemoglobin A1C 5.6 4.0 - 6.0 % [facility] Comment: [facility] Less than 6% - Goal of therapy for Type II Diabetes Less than 7%-Goal of therapy for Type I Diabetes Less than 8%-Acceptable control for Type I or Type II Diabetes Greater than 8%-Unacceptable control; action indicated. ([id number]) Specimen Blood Performing Organization Address City/[facility]/Zipcode Phone Number [facility] DEPARTMENT OF PATHOLOGY [address] [place] [address] Beta hydroxybutyrate (11/01/2018 12:20 AM CDT) Beta hydroxybutyrate 0.53 (H) 0.02 - 0.27 [facility] mmol/L [facility] Specimen Blood Performing Organization Address City/[facility]/Zipcode Phone Number [facility] DEPARTMENT OF PATHOLOGY [address] [place] [address] Chest Wo Contrast Abdomen Wo Contrast Pelvis Wo Contrast (10/31/2018 10:15 PM CDT) Specimen Narrative Performed At EXAMINATION:CT CHEST WO CONTRAST ABDOMEN WO CONTRAST PELVIS WO [facility] CONTRAST CLINICAL HISTORY:sepsisabd pain and distension severe constipationpls obtain include lung TECHNIQUE: Multiple axial images of the chest, abdomen, and pelvis were obtained without intravenous contrast. The lack of intravenous contrast reduces the sensitivity of detecting solid organ disease. Sagittal and coronal computerized reformatted images were obtained. CT imaging was performed with iterative reconstruction techniques and/or automated exposure control to reduce radiation dose. COMPARISON:None. FINDINGS: Chest: 1. There are bilateral symmetric areas of septal smooth interstitial thickening primarily in the upper lungs, peribronchial thickening (likely thickening of the axial interstitium), mild bibasilar dependent compressive atelectasis, and small bilateral symmetric pleural effusions. 2.There are mildly prominent mediastinal lymph nodes, for example a precarinal 2.2 x 1.4 cm node and additional paratracheal nodes. Mildly prominent but generally subcentimeter supraclavicular lymph nodes are present. 3.The heart size is normal. There is no pericardial effusion. Abdomen and Pelvis: 1. There is excreted contrast in the kidneys and urinary bladder, which implies recent contrast administration although no contrast enhanced examination is seen in the patient's electronic medical chart. This may have been done at an outside institution. There is no hydronephrosis. Some areas of cortical contrast retention in the left kidney are present. There is a 3.5 cm exophytic cyst in the anterior left upper renal pole. The urinary bladder is decompressed. 2.There is a cluster of enlarged lymph nodes in the ileocolic mesentery (images 159-167). There is masslike thickening of the cecum. This is suspicious for an underlying neoplasm, although assessment is suboptimal without contrast. 3.The unenhanced liver, spleen, pancreas, gallbladder, and adrenals are grossly normal. 4.No bowel obstruction is seen. The stomach is unremarkable. The appendix is not seen. 5.There is no ascites. Skeletal: No acute or aggressive skeletal finding. 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 Consider repeat examination with IV and oral contrast when feasible. 2.Pulmonary interstitial edema and small bilateral pleural effusions. 3.Nonspecific mediastinal lymphadenopathy. [facility]-[id number] Procedure Note [facility], Radiology Results - 10/31/2018 10:37 PM CDT EXAMINATION: CT CHEST WO CONTRAST ABDOMEN WO CONTRAST PELVIS WO CONTRAST CLINICAL HISTORY: sepsis abd pain and distension severe constipation pls obtain include lung TECHNIQUE: Multiple axial images of the chest, abdomen, and pelvis were obtained without intravenous contrast. The lack of intravenous contrast reduces the sensitivity of detecting solid organ disease. Sagittal and coronal computerized reformatted images were obtained. CT imaging was performed with iterative reconstruction techniques and/or automated exposure control to reduce radiation dose. COMPARISON: None. FINDINGS: Chest: 1. There are bilateral symmetric areas of septal smooth interstitial thickening primarily in the upper lungs, peribronchial thickening (likely thickening of the axial interstitium), mild bibasilar dependent compressive atelectasis, and small bilateral symmetric pleural effusions. 2. There are mildly prominent mediastinal lymph nodes, for example a precarinal 2.2 x 1.4 cm node and additional paratracheal nodes. Mildly prominent but generally subcentimeter supraclavicular lymph nodes are present. 3. The heart size is normal. There is no pericardial effusion. Abdomen and Pelvis: 1. There is excreted contrast in the kidneys and urinary bladder, which implies recent contrast administration although no contrast enhanced examination is seen in the patient's electronic medical chart. This may have been done at an outside institution. There is no hydronephrosis. Some areas of cortical contrast retention in the left kidney are present. There is a 3.5 cm exophytic cyst in the anterior left upper renal pole. The urinary bladder is decompressed. 2. There is a cluster of enlarged lymph nodes in the ileocolic mesentery ( images 159-167). There is masslike thickening of the cecum. This is suspicious for an underlying neoplasm, although assessment is suboptimal without contrast. 3. The unenhanced liver, spleen, pancreas, gallbladder, and adrenals are grossly normal. 4. No bowel obstruction is seen. The stomach is unremarkable. The appendix is not seen. 5. There is no ascites. Skeletal: No acute or aggressive skeletal finding. IMPRESSION: 1. 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 Consider repeat examination with IV and oral contrast when feasible. 2. Pulmonary interstitial edema and small bilateral pleural effusions. 3. Nonspecific mediastinal lymphadenopathy. [facility]-[id number] Performing Organization Address City/State/Zipcode Phone Number [facility] [address] [place] [address] XR Abdomen 1 Vw (10/31/2018 9:29 PM CDT) Specimen Narrative Performed At EXAMINATION:XR ABDOMEN 1 VW [facility] CLINICAL HISTORY:Abd painunspecified COMPARISON:None. IMPRESSION: Nonspecific bowel gas pattern. Mildly prominent loops both small bowel and colon. No evidence of obstruction. [facility]-[id number] Procedure Note Hm Interface, Radiology Results Incoming - 10/31/2018 9:37 PM CDT EXAMINATION: XR ABDOMEN 1 VW CLINICAL HISTORY: Abd pain unspecified COMPARISON: None. IMPRESSION: Nonspecific bowel gas pattern. Mildly prominent loops both small bowel and colon. No evidence of obstruction. [facility]-[id number] Performing Organization Address City/[facility]/Zipcode Phone Number [facility] [address] [place] [address] Arterial blood gas (10/31/2018 8:55 PM CDT) pH, arterial 7.43 7.35 - 7.45 [facility] pCO2, arterial 26 (L) 35 - 45 mmHg [facility] pO2, arterial 73 (L) 80 - 90 mmHg [facility] Bicarbonate, 17.1 (L) 21.0 - 28.0 [facility] arterial mmol/L [facility] Base excess, -6 (L) -2 - 2 mEq/L [facility] O2 saturation, 95 95 - 100 % [facility] Specimen Blood Performing Organization Address City/[facility] Phone Number [facility] DEPARTMENT OF PATHOLOGY [address] [place] [address] AND [facility] [address] [place] [address] HOSPITAL after 02/06/2018 Insurance Payer Benefit Plan / Subscriber ID Effective Dates Phone Address Type Group MEDICARE MEDICARE PART A xxxxxxxxxxx 2012-Present [place], [place] Medicare AND B Advance Directives Patient has advance care planning documents, and code status on file. For more information, please contact:[place] [address] Code Status Date Activated Date Inactivated Comments Full Code 12/24/2018 10:42 AM 12/29/2018 8:16 PM Code Status decision reached by: Patient
--- OUTSIDE RECORDS SUMMARY | 2019-02-07 06:57 | XMS REPORT ---
:1950 [facility] Address [address] [place] [address] Care Team Providers Name Role Phone Unavailable Unavailable Unavailable Problems This patient has no known problems. Allergies, Adverse Reactions, Alerts This patient has no known allergies or adverse reactions. Medications This patient has no known medications. Encounters Start End Encounter Admission Attending Care Care Encounter Date/Time Date/Time Type Type Clinicians Facility Department ID 2018-12-05 2018-12-05 Outpatient [facility] [id number] 12:40:00 12:40:00
--- OUTSIDE RECORDS SUMMARY | 2019-02-07 06:57 | XMS REPORT | Continuity of Care Document ---
:1950 Author Organization Interface Problems Problem Status Onset Classification Date Comments Source Date Reported NEW Active [facility] PT/CLEARANCE/ [facility] Mass of colon Active Problem 12/07/2018 [facility] Preoperative Active Problem 12/07/2018 [facility] ENCNTR FOR Active [facility] GENERAL ADULT Medical MEDICAL EXAM W/ Center Medications Medication Details Route Status Patient Ordering Order Source Instructions Provider Date fluPHENAZine 12.5 Active 12/06/19 [facility] decanoate 25 mg=0.5 mL, 19 Medical mg/mL IM, every Center injectable month., 0 solution Refill(s) Ranitidine 0 Active 12/06/19 [facility] Refill(s) [facility] Allergies, Adverse Reactions, Alerts Substance Category Reaction Severity Reaction Status Date Comments Source type Reported Immunizations Immunization Date Given Site Status Last Updated Comments Source Results Order Results Value Reference Date Interpretation Comments Source Name Range Vital Signs Vital Sign Value Date Comments Source Encounters Location Location Encounter Encounter Reason Attending ADM DC Status Source Details Type Number For Provider Date Date Visit Outpatient [id number] [place] 12/05 12/06 [facility] [place] Procedures Procedure Code Date Perfomer Comments Source
[2019-02-07] MEDS ORDERED: Ringers Lactate 1,000 ML IV ONE (07:29)
[2019-02-07] MEDS ORDERED: CEFAZOLIN/SWI 1gm 1 GM/10 ML SYR ONE (07:30)
[2019-02-07] MEDS: HEPARIN 5000 UNIT/ML 1 ML VIAL ONE ×2 (07:33→09:09)
[2019-02-07] MEDS ORDERED: NS 0.9% VIAL 20 ML ONE (07:34)
[2019-02-07] MEDS ORDERED: LIDOCAINE 1% 20 ML MDV ONE (07:35)
[2019-02-07] MEDS ORDERED: PROPOFOL 200 MG/20 ML VIAL IV ONE ×2 (07:46→09:25)
[2019-02-07] MEDS ORDERED: MIDAZOLAM HCL 2 MG/2 ML INJ ONE (07:46)
[2019-02-07] MEDS ORDERED: FENTANYL CITR 100 MCG/2 ML ONE (07:46)
[2019-02-07] MEDS ORDERED: LIDOCAINE 2% MPF 5 ML VIAL ONE (07:46)
--- NOTE | 2019-02-07 09:52 | RAD REPORT ---
EXAM DESCRIPTION: RAD - Fluoroscopy <1 Hour - 02/07/2019 9:31 am FINDINGS: A total of 4 portable C-arm views were submitted from a fluoroscopic assisted right-sided venous access catheter placement. No suspicious or unexpected finding. Fluoro time was 0.5 minutes.
--- NOTE | 2019-02-07 10:24 | RAD REPORT ---
EXAM DESCRIPTION: RAD - Chest Single View - 02/07/2019 10:02 am CLINICAL HISTORY: Right-sided Port-A-Cath COMPARISON: None. TECHNIQUE: AP portable chest image was obtained 0959 hours . FINDINGS: Right-sided Port-A-Cath has been placed. Tip is in good position mid SVC. There is no pneu mothorax. No acute lung parenchymal process. Heart and vasculature are normal. No pleural fluid collection. No acute bony abnormality seen. No acute aortic findings suspected. IMPRESSION: Right-sided Port-A-Cath in good position. No pneumothorax.
--- NOTE | 2019-02-07 13:17 | OP ---
Date of Procedure: 02/07/2019 Surgeon: Boaz Keene MD Able Bodied Watchman: ALEX Hall. Preoperative Diagnosis: Colon cancer. Postoperative Diagnosis: Colon cancer. Procedures: Placement of right internal jugular Port-A-Cath, interpretation of fluoroscopy, and util ization of Doppler device to locate the internal jugular vein. Estimated Blood Loss: Minimal. Specimen: None. Findings: Normal anatomy. Anesthesia: MAC. Complications: None. Disposition: The patient tolerated the procedure in stable condition, taken to the Recovery in good general condition. Procedure In Detail: The patient was brought to the OR and placed in supine position. MAC anesthesi a was begun. The patient was prepped and draped in usual sterile fashion. Doppler device was used t o identify the right internal jugular vein. An 18-gauge needle was used to access it after lidocaine 1% was infiltrated locally, and then guide wire passed, position confirmed with fluoroscopy. Then, a 3 cm counterincision was made. Pocket created and tunneling device was used to tunnel the catheter between the 2 wounds and catheter attached to the Port-A-Cath device. Port-A-Cath device attached t o the subcutaneous tissue with the 3-0 Vicryl, then tip of the catheter was in the SVC region close t o the atrium. Subsequently, the catheter was flushed with heparin and packed with heparin with good blood flow and then 3-0 chromic was used to approximate the subcutaneous tissue and close the skin. Sterile dressing was applied. The patient was awakened and recovery room in good general condition. Chest x-ray has been ordered. If the chest x-ray is okay, the patient will be discharged to home. EUN/TRICIA Voice ID: [id number] Report ID: [id number]
--- NOTE | 2019-02-07 13:20 | DS ---
Date of Discharge: 02/07/2019 Disposition: Home. Condition: Stable. Discharge Instructions: Resume home medications and diet. Activity as tolerated. No heavy lifting. Remove outer dressing in 2 days. Shower. Keep wound clean and dry. Keep Steri-Strips on at all t imes. [facility]. Follow up in my office in 2 weeks. Tylenol No. 3 on e tablet p.o. q.4 p.r.n. pain. EUN/TRICIA Voice ID: [id number] Report ID: [id number]
== END 2019-02-07 11:20 | disposition home or self-care (01) ==
LOC: OR 06:52
PROVIDERS: ATTEND Surgery
PROC: 02HV33Z Insertion of Infusion Device into Superior Vena Cava, Percutaneous Approach (ICD-10-PCS; 2019-02-07)
PROC: 0JH63XZ Insertion of Tunneled Vascular Access Device into Chest Subcutaneous Tissue and Fascia, Percutaneous Approach (ICD-10-PCS; principal; 2019-02-07 08:45)
DX: C18.9 Malignant neoplasm of colon, unspecified (principal)
CPT/HCPCS: 36561; 85025; 36415; 71045; J2704 ×2; J1644 ×2; J2250; J3010; J0690; C1788; 76000

== ENCOUNTER 2022-09-08 01:49 | Inpatient (IN) | payer OTHER ==
--- OUTSIDE RECORDS SUMMARY | 2022-09-08 01:52 | XMS REPORT | Continuity of Care Document ---
:[address] [facility] t Address 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 4-02 st transverse transverse 00:00: Ho spita colon colon 00 l Acute Acute Disease Active Methodi respirator respirator 3-16 st y failure y failure 00:00: Hosp fransico with with 00 l hypoxia hypoxia Colonic Colonic Disease Active Methodi mass mass 3-16 st 00:00: Hospita 00 l Atrial Atrial Disease Active Methodi fibrillati fibrillati 3-16 st on with on with 00:00: Hospita RVR RVR 00 l Sepsis Sepsis Disease Active Methodi 3-15 st 00:00: Hospita 00 l Preoperati Problem Active 2018-12-07 M emoria ve state Preoperati 22:15:19 l (finding) ve state Yoselyn nn (finding) Active Problem 12/07/2018 [facility] ENCNTR FOR ENCNTR Diagnosis Active 2018-12-05 Memoria GENERAL FOR 12:52:00 l ADULT [facility] MEDICAL ADULT EXAM W/ MEDICAL EXAM W/ Active [facility] Schizophre Schizophre Disease Active M ethodi maryana maryana st Hospita l Allergies, Adverse Reactions, Alerts Allergy Allergy Status Severity Reaction(s) Onset Inactive Treating Comm ents Source Name Type Date Date Clinician Aspirin Propensi Active GI Methodi ty to Intolerance 3-14 st adverse 00:00: Hospita reaction 00 l s to drug Family History Family Member Diagnosis Comments Start Date Stop Date Source Paternal grandmother No Known Problems [facility] Natural sister No Known Problems Met [facility] Natural brother No Known Problems [facility] Natural father No Known Problems Met [facility] Maternal grandfather No Known Problems [facility] Maternal grandmother No Known Problems [facility] Natural mother No Known Problems Met [facility] Other No Known Problems [facility] Paternal grandfather No Known Problems [facility] Social History Social Habit Start Date Stop Date Quantity Comments Source History [facility] Drinks History [facility] Alcohol intake 2018-12-27 2018-12-27 Current Buddhist 00:00:00 00:00:00 non-drinker of Hospital alcohol (finding) History [facility] 2018-12-24 2018-12-24 1 Buddhist Alcohol Frequency 00:00:00 00:00:00 Hospita l Tobacco use and 2018-11-01 2018-11-01 Smokeless tobacco Me [facility]od[facility] exposure 00:00:00 00:00:00 non-user Hospital Sex Ass[birth year] At [birth year] [facility] 00:00:00 00:00:00 Hospital Smoking Status Start Date Stop Date Source Social History [facility] Medications Ordered Filled Start Stop Current Ordering Indication Dosage Frequency Signature Comments Components Source Medication Medication Date Date Medication? Clinician (SIG) Name Name ranitidine Yes 150mg Q.5D Take 150 Me thodi (ZANTAC) 5-[address] 150 MG 16:16: mouth 2 Hospita tablet 53 (two) l times a day. psyllium Yes 5mL Q.5D Take 5 mL Meth aurelio seed, with 5-[address] dextrose, 16:16: (two) Hospita (FIBER 53 times a l ORAL) day. Mix in 8 ounce of water fluPHENAZin 2019-0 Yes 12.5 mg = M emoria e decanoate 4-18 0.5 mL, l 25 mg/mL 18:00: IM, every Herm miriam injectable 00 month., 0 solution Refill(s) Ranitidine 2019-0 Yes 0 Memoria 4-18 Refill(s) l 18:00: [address] 00 fluPHENAZin 2019-0 Yes .5mg Q30D Inject 0.5 Methodi e 3-[address] (PROLIXIN) 00:00: the Hospita 2.5 mg/mL 00 shoulder, l injection thigh, or buttocks every 30 (thirty) days. Procedures This patient has no known procedures. Plan of Care Planned Activity Planned Date Details Comments Source Future Scheduled 2022-08-05 COVID-19 VACCINE (#1) [facility] Test 21:14:43 [code = COVID-19 VACCINE (#1)] Future Scheduled 2022-08-05 COLONOSCOPY SCREENING [facility] Test 21:14:43 [code = COLONOSCOPY SCREENING] Future Scheduled 2022-08-05 SHINGLES VACCINES (1 [facility] Test 21:14:43 of 2) [code = SHINGLES VACCINES (1 of 2)] Future Scheduled 2022-08-05 65+ PNEUMOCOCCAL [facility] Test 21:14:43 VACCINE (1 - PCV) [code = 65+ PNEUMOCOCCAL VACCINE (1 - PCV)] Future Scheduled 2022-08-05 INFLUENZA VACCINE [facility] Test 21:14:43 [code = INFLUENZA VACCINE] Encounters Start End Encounter Admission Attending Care Care Encounter Source Date/Time Date/Time Type Type Clinicians Facility Department ID 2018-12-05 2018-12-06 Outpatient nullFlavo [id number] Memoria 17:40:00 04:59:00 r Community 00 l Cardiology Yoselyn nn [place] 2018-12-05 2018-12-05 Outpatient Wickramasin [facility] [id number] 12:40:00 23:59:00 ghe, 00 Sasrutha Adela 2018-12-05 2018-12-05 Outpatient [facility] CAR [id number] [facility] 12:40:00 12:40:00 Results This patient has no known results.
[2022-09-08] MEDS ORDERED: METOPROLOL TARTRATE 5 MG/5 ML INJ IV ONE (02:24)
[2022-09-08 02:29] LABS: Urine Blood Trace-lysed (Negative); Urine Glucose Negative (Negative); Urine Protein 3+ (Negative); Urine Specific Gravity 1.015 (1.005-1.030)
[2022-09-08 02:34] LABS: Absolute Lymphocytes (CBC) 2.2 K/uL (0.7-4.9); Hematocrit 33.6 % (39.6-49.0); Lymphocytes % 38.3 % (15.3-44.8); MCV 85.5 fL (80-100); MPV 7.5 fL (7.6-11.3); Protime INR 0.86; RBC Red Blood Cell Count 3.93 M/uL (4.33-5.43)
[2022-09-08 02:42] LABS: Calcium Oxalate Crystals- Ur Few /HPF (None Seen); Urine Bacteria <20 /HPF (<20); Urine Mucus Slight /HPF (None Seen); Urine RBC <5 /HPF (None Seen)
[2022-09-08 02:55] LABS: Albumin 2.6 g/dL (3.4-5.0); Bilirubin Direct 0.1 mg/dL (0-0.2); Bilirubin Total 0.3 mg/dL (0.2-1.0); Magnesium 2.5 mg/dL (1.6-2.4); Potassium 3.8 mmol/L (3.5-5.1); Protein, Total 6.3 g/dL (6.4-8.2); Troponin High Sensitivity 13.8 pg/mL (<58.9)
[2022-09-08 03:04] LABS: Thyroid Stimulating Hormone 4.63 uIU/mL (0.358-3.740)
[2022-09-08 03:13] LABS: SARS-COV-2 RT PCR NEGATIVE (NEGATIVE)
[2022-09-08] MEDS ORDERED: DIGOXIN 0.25 MG/ML AMP ONE (03:24)
--- NOTE | 2022-09-08 03:30 | ER ---
Nurse's Notes [facility] Name: Nir Spangler Age: 71 yrs Sex: Male : 1950 Arrival Date: 09/08/2022 Time: 01:51 Bed 7 Private MD: Diagnosis: Persistent atrial fibrillation-new onset, with RVR;Aphasia;Cerebral infarction, unspecified-NOT A TnK CANDIDATE;Weakness-ON CHEMO, COLON CANCER;Acute kidney failure, unspecified-ON CHRONIC Presentation: 09/08 02:06 Chief complaint: EMS states: Pt called EMS for being altered and high heart rate. jb4 Initial heart rate was in the 180's. Was given 24mg of Adenosine in total, and a total of 15mg of Diltiazem and 350ml on NS. Coronavirus screen: At this time, the client does not indicate any symptoms associated with coronavirus-19. Ebola Screen: No symptoms or risks identified at this time. Initial Sepsis Screen: Does the patient meet any 2 criteria? Altered Mental Status. HR > 90 bpm. Yes Does the patient have a suspected source of infection? No. Patient's initial sepsis screen is negative. Risk Assessment: Do you want to hurt yourself or someone else? Patient reports no desire to harm self or others. Onset of symptoms was September 08, 2022. Transition of care: patient was not received from another setting of care. 02:06 Method Of Arrival: EMS: [facility] jb4 02:06 Acuity: AWAIS 2 jb4 Historical: - Allergies: 02:09 Aspirin; jb4 - PMHx: 02:09 Colon Cancer; jb4 - Family history:: not pertinent. Assessment: 02:09 General: Appears in no apparent distress. comfortable, Behavior is calm, cooperative, jb4 appropriate for age. Pain: Denies pain. Neuro: Level of Consciousness is awake, alert, obeys commands, Oriented to person, place. Cardiovascular: Patient's skin is warm and dry. Respiratory: Airway is patent Respiratory effort is even, unlabored, Respiratory pattern is regular, symmetrical. GI: : No signs and/or symptoms were reported regarding the genitourinary system. EENT: No signs and/or symptoms were reported regarding the EENT system. Derm: Skin is intact, Skin is pink, warm \T\ dry. Musculoskeletal: Circulation, motion, and sensation intact. Range of motion: intact in all extremities. Vital Signs: 02:06 BP 140 / 107; Pulse 135; Resp 19; Temp 97.1(TE); Pulse Ox 100% on R/A; Weight 55.79 kg jb4 (R); Height 5 ft. 4 in. (162.56 cm); 02:30 BP 134 / 102; Pulse 92; Resp 24; Pulse Ox 100% on R/A; jb4 03:47 Weight 54.07 kg (M); jb4 03:47 Body Mass Index 20.46 (54.07 kg, 162.56 cm) jb4 ED Course: 01:51 Patient arrived in ED. la1 01:58 Luis Dolan MD is Attending Physician. chucky 02:08 Triage completed. jb4 02:09 Arm band placed on right wrist. jb4 02:14 Inserted saline lock: 20 gauge in right forearm, using aseptic technique. Blood pf1 collected. 02:24 XRAY Chest (1 view) In Process Unspecified. EDMS 03:09 Head Brain Wo Cont CT In Process Unspecified. EDMS 03:20 Jaime Eastman, QUAN is Primary Nurse. jb4 03:26 Randy Madison MD is Hospitalizing Provider. chucky Administered Medications: 02:24 Drug: Lopressor (metoprolol) 5 mg Route: IVP; Site: right forearm; pf1 03:44 Follow up: Response: No adverse reaction; Marked relief of symptoms jb4 02:31 Drug: Lopressor (metoprolol) 5 mg Route: IVP; Site: right forearm; pf1 03:44 Follow up: Response: No adverse reaction; Marked relief of symptoms jb4 03:31 Drug: Digoxin 0.5 mg Route: IVP; Site: left antecubital; jb4 03:58 Drug: Heparin (DE Drip) 12 units/kg/hr - (HEParin 43385 units, D5W 500 ml) jb4 {Co-Signature: pf1 (Yoli dubois RN).} Route: IV; Rate: calculated rate; Site: right forearm; 03:58 Drug: Lopressor (metoprolol TARTRATE) 50 mg Route: PO; jb4 04:06 Drug: NS 0.9% 1000 ml Route: IV; Rate: 1 bolus; Site: left forearm; jb4 04:06 Drug: foLIC Acid 1 mg Route: IVPB; Site: left femoral; jb4 Outcome: 03:30 Decision to Hospitalize by Provider. chucky 09:18 Patient left the ED. Signatures: Dispatcher [employer] EDLuis Cabrera MD MD cha Smirch, Shelby, RN RN ss Bruno Albright, SUPERVISOR PAIRING AND INSPECTING-C SUPERVISOR PAIRING AND INSPECTING-Cla1 Jaime Eastman RN RN jb4 Yoli dubois RN RN pf1 Yoli dubois RN pf1
--- NOTE | 2022-09-08 03:31 | EDPHYS ---
Physician Documentation [facility] Name: Nir Spangler Age: 71 yrs Sex: Male : 1950 Arrival Date: 09/08/2022 Time: 01:51 Bed 7 Private MD: ED Physician Luis Dolan HPI: 09/08 03:16 This 71 yrs old Male presents to ER via EMS with complaints of speech changes chucky 8pm, fast hr. 03:16 The patient presents with a history of irregular heart beat, heart racing. Context: The chucky symptoms occur at rest. Onset: The symptoms/episode began/occurred just prior to arrival. Duration: The patient or guardian reports a single episode, that is still ongoing. Modifying factors: The symptoms are aggravated by nothing. The symptoms are alleviated by nothing. The patient presents with confusion, decreased mental status. Onset: The symptoms/episode began/occurred at 20:00. Possible causes: CVA or TIA. Associated signs and symptoms: Pertinent positives: confusion, gait abnormality, lightheadedness. Current symptoms: In the emergency department the patient's symptoms are unchanged from the initial presentation. Historical: - Allergies: 02:09 Aspirin; jb4 - PMHx: 02:09 Colon Cancer; jb4 - Family history:: not pertinent. ROS: 03:16 Constitutional: Negative for fever, chills, and weight loss, Eyes: Negative for injury, chucky pain, redness, and discharge, ENT: Negative for injury, pain, and discharge, Neck: Negative for injury, pain, and swelling, Respiratory: Negative for shortness of breath, cough, wheezing, and pleuritic chest pain, Abdomen/GI: Negative for abdominal pain, nausea, vomiting, diarrhea, and constipation, Back: Negative for injury and pain, : Negative for injury, bleeding, discharge, and swelling, MS/Extremity: Negative for injury and deformity, Skin: Negative for injury, rash, and discoloration, Allergy/Immunology: Negative for hives, rash, and allergies, Endocrine: Negative for neck swelling, polydipsia, polyuria, polyphagia, and marked weight changes, Hematologic/Lymphatic: Negative for swollen nodes, abnormal bleeding, and unusual bruising. 03:16 Cardiovascular: Positive for palpitations. 03:16 Neuro: Positive for hearing loss, speech changes, weakness. 03:22 Neuro: Positive for left side weak per when he woke up at minnight, when he woke chucky up at 8pm from prior nap , speech wsa not right and wasn't acting right , ate ok abd went back to bed. Exam: 03:16 Constitutional: This is a well developed, well nourished patient who is awake, alert, chucky and in no acute distress. Head/Face: Normocephalic, atraumatic. Eyes: Pupils equal round and reactive to light, extra-ocular motions intact. Lids and lashes normal. Conjunctiva and sclera are non-icteric and not injected. Cornea within normal limits. Periorbital areas with no swelling, redness, or edema. ENT: Nares patent. No nasal discharge, no septal abnormalities noted. Tympanic membranes are normal and external auditory canals are clear. Oropharynx with no redness, swelling, or masses, exudates, or evidence of obstruction, uvula midline. Mucous membranes moist. Neck: Trachea midline, no thyromegaly or masses palpated, and no cervical lymphadenopathy. Supple, full range of motion without nuchal rigidity, or vertebral point tenderness. No Meningismus. Chest/axilla: Normal chest wall appearance and motion. Nontender with no deformity. No lesions are appreciated. Respiratory: Lungs have equal breath sounds bilaterally, clear to auscultation and percussion. No rales, rhonchi or wheezes noted. No increased work of breathing, no retractions or nasal flaring. Abdomen/GI: Soft, non-tender, with normal bowel sounds. No distension or tympany. No guarding or rebound. No evidence of tenderness throughout. Back: No spinal tenderness. No costovertebral tenderness. Full range of motion. Skin: Warm, dry with normal turgor. Normal color with no rashes, no lesions, and no evidence of cellulitis. MS/ Extremity: Pulses equal, no cyanosis. Neurovascular intact. Full, normal range of motion. Psych: Awake, alert, with orientation to person, place and time. Behavior, mood, and affect are within normal limits. 03:16 Cardiovascular: Rate: tachycardic, actual rate is 129 bpm, Rhythm: irregularly irregular, Pulses: Pulses are 4+ in bilateral radial, brachial, femoral, popliteal, posterior tibial and and dorsalis pedis arteries.. Edema: is not appreciated, JVD: is not appreciated. 03:16 ECG was reviewed by the Attending Physician. 06:04 ECG was reviewed by the Attending Physician. chucky Vital Signs: 02:06 BP 140 / 107; Pulse 135; Resp 19; Temp 97.1(TE); Pulse Ox 100% on R/A; Weight 55.79 kg jb4 (R); Height 5 ft. 4 in. (162.56 cm); 02:30 BP 134 / 102; Pulse 92; Resp 24; Pulse Ox 100% on R/A; jb4 03:47 Weight 54.07 kg (M); jb4 03:47 Body Mass Index 20.46 (54.07 kg, 162.56 cm) jb4 MDM: 01:58 Patient medically screened. chucky 06:02 Differential diagnosis: arrythmia, dehydration. Differential Diagnosis: CVA, chucky electrolyte abnormality, alcohol intoxication, hypoglycemia, pneumonia, sepsis, TIA, volume depletion. Data reviewed: vital signs, nurses notes, lab test result(s), EKG, radiologic studies, CT scan, plain films. Consideration of Admission/Observation Patient was admitted/placed on observation. Management of patient was discussed with the following: Hospitalist: CHIQUIS zapata. Independent interpretation of the following test(s) in the Emergency Department EKG: See my EKG interpretation above Rhythm Strip Interpretation Rate: 124BPM Rhythm: irregularly irregular. Test considered but Not performed: MRI: na. Care significantly affected by the following chronic conditions: colon cancer, deaf. 09/08 01:51 Order name: Basic Metabolic Panel; Complete Time: 03:24 09/08 01:51 Order name: CBC with Diff; Complete Time: 03:24 09/08 01:51 Order name: LFT's; Complete Time: 03:24 09/08 01:51 Order name: Magnesium; Complete Time: 03:24 09/08 01:51 Order name: NT PRO-BNP; Complete Time: 03:24 09/08 01:51 Order name: PT-INR; Complete Time: 03:24 09/08 01:51 Order name: Troponin HS; Complete Time: 03:24 09/08 01:51 Order name: TSH; Complete Time: 03:24 09/08 01:51 Order name: Blood Culture Adult (2) 09/08 01:51 Order name: Lactate w/ 2H reflex if indic.; Complete Time: 03:24 09/08 01:51 Order name: Urine Microscopic Only; Complete Time: 03:24 ne09/08 01:57 Order name: COVID-19/FLU A+B; Complete Time: 03:24 ne09/08 02:29 Order name: Urine Dipstick-Ancillary; Complete Time: 03:24 [facility] 09/08 03:07 Order name: T4 Free; Complete Time: 03:24 [facility] 09/08 01:51 Order name: XRAY Chest (1 view) ne09/08 01:52 Order name: Head Brain Wo Cont CT [facility] 09/08 06:15 Order name: Urinalysis [facility] 09/08 07:08 Order name: Ptt, Activated [facility] 09/08 07:15 Order name: Troponin High Sensitivity [facility] 09/08 07:15 Order name: Lipid Profile [facility] 09/08 07:42 Order name: [facility] 09/08 07:43 Order name: [facility] 09/08 08:43 Order name: PTT, Activated Partial Thromb [facility] 09/08 01:51 Order name: EKG; Complete Time: 01:52 09/08 01:51 Order name: Cardiac monitoring; Complete Time: 02:10 09/08 01:51 Order name: EKG - Nurse/Tech; Complete Time: 02:10 09/08 01:51 Order name: IV Saline Lock; Complete Time: 02:10 09/08 01:51 Order name: Labs collected and sent; Complete Time: 02:17 ne09/08 01:51 Order name: O2 Per Protocol; Complete Time: 02:10 09/08 01:51 Order name: O2 Sat Monitoring; Complete Time: 02:10 09/08 01:51 Order name: Urine Dipstick-Ancillary (obtain specimen); Complete Time: 02:37 ne EC:16 Rate is 129 beats/min. Rhythm is irregularly irregular. QRS [place] is Normal. NC interval chucky is normal. QRS interval is normal. QT interval is normal. No Q waves. T waves are Normal. Clinical impression: Atrial Fibrillation and No evidence of ischemia. Interpreted by me. Reviewed by me. 06:04 Rate is 73 beats/min. Rhythm is regular. QRS [place] is Normal. NC interval is normal. QRS chucky interval is normal. QT interval is normal. T waves are Normal. No ST changes noted. Clinical impression: Normal ECG and No evidence of ischemia. Interpreted by me. Reviewed by me. Administered Medications: 02:24 Drug: Lopressor (metoprolol) 5 mg Route: IVP; Site: right forearm; pf1 03:44 Follow up: Response: No adverse reaction; Marked relief of symptoms jb4 02:31 Drug: Lopressor (metoprolol) 5 mg Route: IVP; Site: right forearm; pf1 03:44 Follow up: Response: No adverse reaction; Marked relief of symptoms jb4 03:31 Drug: Digoxin 0.5 mg Route: IVP; Site: left antecubital; jb4 03:58 Drug: Heparin (MO Drip) 12 units/kg/hr - (HEParin 57270 units, D5W 500 ml) jb4 {Co-Signature: pf1 (Yoli dubois RN).} Route: IV; Rate: calculated rate; Site: right forearm; 03:58 Drug: Lopressor (metoprolol TARTRATE) 50 mg Route: PO; jb4 04:06 Drug: NS 0.9% 1000 ml Route: IV; Rate: 1 bolus; Site: left forearm; jb4 04:06 Drug: foLIC Acid 1 mg Route: IVPB; Site: left femoral; jb4 Disposition Summary: 09/08/22 03:30 Hospitalization Ordered Hospitalization Status: Inpatient Admission chucky Provider: Randy Madison cha Condition: Fair chucky Problem: new chucky Symptoms: have improved chucky Bed/Room Type: Standard chucky Location: Telemetry/MedSurg (Inpatient)(09/08/22 07:44) eb Room Assignment: 201(09/08/22 07:44) eb Diagnosis - Persistent atrial fibrillation - new onset, with RVR chucky - Aphasia chucky - Cerebral infarction, unspecified - NOT A TnK CANDIDATE chucky - Weakness - ON CHEMO, COLON CANCER chucky - Acute kidney failure, unspecified - ON CHRONIC chucky Forms: - Medication Reconciliation Form chucky - SBAR form chucky Signatures: Dispatcher [employer] Luis Welsh MD MD cha Attema, Lee, FNP-C FNP-Cla1 Dacia Feldman RN RN Jaime Eastman RN RN jb4 Shital Garay Pamala, RN RN pf1 Yoli dubois RN pf1 Corrections: (The following items were deleted from the chart) : 03:30 Telemetry/MedSurg (Inpatient) [facility] cg 04: 03:30 [facility] cg 07:44 04:14 [facility] ER [facility] cg eb :44 04:14 [facility]
[2022-09-08] MEDS ORDERED: METOPROLOL TAR 50 MG TAB ONE (03:44)
[2022-09-08] MEDS ORDERED: HEPARIN/D5W 25,000 UNIT/500 ML BAG IV ONE (03:44)
[2022-09-08] MEDS: HEPARIN/D5W 25,000 UNIT/500 ML BAG IV SCH ×2 (03:58→10:00)
[2022-09-08] MEDS ORDERED: FOLIC ACID 5 MG/ML VIAL ONE (04:03)
[2022-09-08] MEDS ORDERED: NA CHLORIDE 0.9% 1,000 ML ONE ×2 (04:03→05:55)
--- NOTE | 2022-09-08 04:23 | P.HP ---
Certification for Inpatient Patient admitted to: Inpatient With expected LOS: >2 Midnights Patient will require the following post-hospital care: None Practitioner: I am a practitioner with admitting privileges, knowledge of patient current condition, hospital course, and medical plan of care. Services: Services provided to patient in accordance with Admission requirements found in Title 42 Section 412.3 of the Code of Federal Regulations Patient History Date of Service: 09/08/22 Reason for admission: New onset A. fib, AMS History of Present Illness: 71-year-old male with history of colon cancer on chemotherapy, schizophrenia presents emergency department with rapid heart rate, altered mental status. His reports that he was last normal at 6 PM on 09/07/2022, he took a nap and when he woke up at 8 she noticed that his speech was different, he ate some food and went back to sleep, woke up again around midnight and she noticed that he was having difficulty understanding what was going on, speech was different and he was having trouble walking, she feels as if she noted some left-sided weakness at that time. EMS was called and patient was brought to the emergency department, during transport it was noted that patient was in A. fib RVR, he was given a total of 12 of adenosine and 15 mg of Cardizem IV. Further evaluation in the emergency department revealed labs significant for creatinine 2.16 GFR 32 magnesium 2.5 BNP 2763 TSH 4[address] head showed no acute intracranial hemorrhage or large territorial infarction, moderate supratentorial ventriculomegaly disproportionate to background volume loss with mild sulcal crowding at the vertex, findings can be seen in the setting of normal pressure hydrocephalus in the appropriate clinical setting, extensive chronic microvascular ischemic changes. Chest x-ray is negative for acute findings. Patient still in A. fib but rate has improved to around 110-120. ED provider wishes treatment for further evaluation and management of new onset A. fib, suspected ischemic CVA, acute kidney injury. He was started on heparin drip in the ED, also received IV metoprolol, p.o. metoprolol. Allergies aspirin Adverse Reaction (Verified 02/06/19 09:25) stomach problems Home Medications: Fluphenazide 25 mg IM ONCE 02/06/19 raNITIdine HCl [Acid Control] 150 mg PO DAILY 02/06/19 - Past Medical/Surgical History -: Colon cancer on chemo -: Schizophrenia -: Anemia -: Colon cancer surgery Psychosocial/ Personal History: Patient lives at home with his - Family History Family History: Reviewed- Non-Contributory - Social History Smoking Status: Never smoker Alcohol use: No CD- Drugs: No Caffeine use: Yes Place of Residence: Home Review of Systems is unable to be obtained (Patient unable to understand, hearing aid not working very hard of hearing.) Physical Examination - Physical Exam General: Alert, In no apparent distress, Other (Unable to assess orientation, patient hearing aid malfunctioning, unable to understand.) HEENT: Atraumatic, PERRLA, Mucous membr. moist/pink, EOMI, Sclerae nonicteric Neck: Supple, 2+ carotid pulse no bruit, No LAD, Without JVD or thyroid abnormality Respiratory: Clear to auscultation bilaterally, Normal air movement Cardiovascular: Regular rate/rhythm, Normal S1 S2 Capillary refill: <2 Seconds Gastrointestinal: Normal bowel sounds, No tenderness Musculoskeletal: No tenderness Integumentary: No rashes Neurological: Normal speech ( reports speech is back to baseline), Normal strength at 5/5 x4 extr (Moving all extremities), Normal tone, Normal affect - Studies Laboratory Data (last 24 hrs) 09/08/22 02:14: PT 9.5, INR 0.86 09/08/22 02:14: WBC 5.80, Hgb 10.8 L, Hct 33.6 L, Plt Count 259 09/08/22 02:14: Sodium 140, Potassium 3.8, BUN 30 H, Creatinine 2.16 H, Glucose 118 H, Magnesium 2.5 H, Total Bilirubin 0.3, AST 25, ALT 33, Alkaline Phosphatase 89 Assessment and Plan - Plan Assessment: New onset atrial fibrillation with rapid ventricular response AMS, aphasia, gait instability-rule out CVA BILLIE on CKD 3 Hypertension History of colon cancer on chemotherapy Schizophrenia Plan: New onset atrial fibrillation with rapid ventricular response Continue heparin drip, echocardiogram ordered. Continue oral Lopressor, monitor on telemetry. TSH elevated, free T4 normal. No known history of atrial fibrillation. [id number] is 2. AMS, aphasia, gait instability-rule out CVA Difficult to assess fully given his inability to hear currently, it appears that his hearing aid is malfunctioning. He is moving all of his extremities, passed his swallow screen. MRI, echo, carotid Doppler, PT/OT, speech therapy ordered. BILLIE on CKD 3 Nephrology consult, renal ultrasound, continue IV fluids Hypertension Continue home medications, hold losartan given BILLIE History of colon cancer on chemotherapy Outpatient management with Dr. Cardona, last chemo was on Sunday the per . Schizophrenia Continue home meds. DVT PPX: Heparin drip Code status: Full Discharge Plan: Home Plan to discharge in: Greater than 2 days - Advance Directives Does patient have a Living Will: No Does patient have a Durable POA for Healthcare: No - Code Status/Comfort Care Code Status Assessed: Yes (Full code) Critical Care: No Time Spent Managing Pts Care (In Minutes): 70
[2022-09-08] MEDS ORDERED: ONDANSETRON 4 MG/2 ML VIAL IV PRN (04:39)
[2022-09-08] MEDS: NA CHLORIDE 0.9% 1,000 ML IV SCH ×4 (05:00→23:24)
[2022-09-08 05:15] VITALS: BMI 20.5
[2022-09-08 06:14] LABS: Specific Gravity 1.006 (1.005-1.030); Urine Bacteria <20 /HPF (<20); Urine Bilirubin NEGATIVE (Negative); Urine Blood Negative (Negative); Urine Clarity Clear (Clear); Urine Color Colorless (Yellow); Urine Glucose TRACE (Negative); Urine Protein 3+ (Negative); Urine RBC <5 /HPF (None Seen); Urine Urobilinogen Normal (Normal); Urine pH 7.5 (5.0-7.0)
[2022-09-08 07:15] LABS: Troponin High Sensitivity 31.7 pg/mL (<58.9)
--- NOTE | 2022-09-08 07:41 | RAD REPORT ---
EXAM DESCRIPTION: US - Renal Ultrasound-Complete - 09/08/2022 5:36 am CLINICAL HISTORY: Acute renal insufficiency COMPARISON: None FINDINGS: The right kidney measures 11 cm with a normal echotexture. A 1.2 centimeter cyst The left kidney measures cm with a normal echotexture. 3.6 centimeter cyst extends off of the left ki dney Mild right hydronephrosis. No gross abnormality of bladder IMPRESSION: Mild right hydronephrosis.
--- NOTE | 2022-09-08 07:43 | RAD REPORT ---
EXAM DESCRIPTION: USCarotid Artery Bilateral09/08/2022 5:36 am CLINICAL HISTORY: Confusion/possible CVA COMPARISON: None FINDINGS: The velocity of the right internal carotid artery equals 113 cm/sec. The right ICA/CCA rat io 2.3 The velocity of the left internal carotid artery equals 115 cm/sec. The left ICA/CCA ratio 1.4 Minimal plaque in the carotid arteries The vertebral arteries demonstrate antegrade flow IMPRESSION: Mild plaque within the carotid arteries without evidence of a hemodynamically significan t stenosis NASCET criteria used. Mild 0-49% stenosis Moderate 50-69% stenosis Severe 70-99% stenosis
[2022-09-08] MEDS ORDERED: POTASSIUM 25 MEQ EFFERV TAB PO ONE (08:00)
[2022-09-08] MEDS ORDERED: LOSARTAN POTASSIUM 50 MG TABLET PO SCH (09:00)
[2022-09-08 09:23] VITALS: O2SAT 100
[2022-09-08] MEDS: FOLIC ACID 1 MG TABLET PO SCH (09:59)
--- NOTE | 2022-09-08 10:20 | RAD REPORT ---
EXAM DESCRIPTION: MRI - Brain Wo Cont - 09/08/2022 7:50 am CLINICAL HISTORY: Confusion/alteration of consciousness COMPARISON: Head CT September 08, 2022 TECHNIQUE: Axial, sagittal, and coronal magnetic resonance images of the brain were obtained. FINDINGS: Moderate signal within periventricular and deep white matter matter. Diffusion-weighted/ADC mapping does not reveal evidence of acute infarction. Mild prominence of the ventricles. An extra-axial fluid collection is not noted. Fluid within the sinuses/mastoids is not seen IMPRESSION: Moderate signal within periventricular and deep white matter may indicate ischemic bunn es secondary to small vessel disease Mild prominence of the ventricles probably related to cerebral atrophy. Normal pressure hydrocephalus is considered less likely but should be correlated clinically.
--- NOTE | 2022-09-08 15:02 | P.CNS ---
Date of Consult: 09/08/22 Reason for Consult: BILLIE Requesting Physician: Randy Madison Chief Complaint: New onset A. fib, AMS History of Present Illness: 71M w/ PMHx of CKD2, baseline SCr 1.2 as of Mar 2022, colon cancer on chemotherapy, Htn, & schizophrenia who p/w palpitations & AMS found to be in new-onset rapid afib. Head CT showed no acute intracranial hemorrhage, r/o normal pressure hydrocephalus. HF now better controlled. BP on high side. Receiving IV fluid. Referred to Nephrology for BILLIE. SCr on adm at 2.2. Urinalysis showed heavy proteinuria. Has massive proteinuria 17g on random UPCR. Urine chem non-prerenal. Renal US unremarkable. Allergies aspirin Adverse Reaction (Verified 02/06/19 09:25) stomach problems Home Medications: Fluphenazide 25 mg IM ONCE 02/06/19 Docusate Sodium [Stool Softener] 1 tab PO DAILY 09/08/22 Esomeprazole Magnesium 1 tab PO DAILY 09/08/22 Hydralazine HCl 1 tab PO BID 09/08/22 Losartan Potassium 1 tab PO DAILY 09/08/22 Metoprolol Succinate 1 tab PO DAILY 09/08/22 Potassium Chloride 1 tab PO DAILY 09/08/22 - Past Medical/Surgical History -: Colon cancer on chemo -: Schizophrenia -: Anemia -: Colon cancer surgery Psychosocial/ Personal History: Patient lives at home with his - Social History Alcohol use: No CD- Drugs: No Caffeine use: Yes Place of Residence: Home Review of Systems General: Unremarkable Eyes: Unremarkable ENT: Unremarkable Respiratory: Unremarkable Cardiovascular: Palpitations Gastrointestinal: Unremarkable Genitourinary: Unremarkable Musculoskeletal: Unremarkable Integumentary: Unremarkable Neurological: Unremarkable Lymphatics: Unremarkable Physical Examination Temp Pulse Resp BP Pulse Ox 97.6 F 67 16 182/96 H 99 09/08/22 11:46 09/08/22 11:46 09/08/22 11:46 09/08/22 11:46 09/08/22 11:46 General: Other (Appears as his stated age) HEENT: Atraumatic, Normocephalic Neck: Supple Respiratory: Other (Symmetric chest expansion) Cardiovascular: No rubs, No murmurs Gastrointestinal: Soft and benign Musculoskeletal: No clubbing Integumentary: No warmth Neurological: Normal tone Lymphatics: No axilla or inguinal lymphadenopathy Urinary: Other (No bladder distention) External genitalia: Deferred Rectal: Deferred Laboratory Data (last 24 hrs) 09/08/22 02:14: PT 9.5, INR 0.86 09/08/22 02:14: WBC 5.80, Hgb 10.8 L, Hct 33.6 L, Plt Count 259 09/08/22 02:14: Sodium 140, Potassium 3.8, BUN 30 H, Creatinine 2.16 H, Glucose 118 H, Magnesium 2.5 H, Total Bilirubin 0.3, AST 25, ALT 33, Alkaline Phosphatase 89 Conclusions/Impression: # BILLIE 2/2 CRS1 from rapid afib SCr on adm at 2.2 Urinalysis showed heavy proteinuria Has massive proteinuria 17g on random UPCR Urine chem non-prerenal Renal US unremarkable BNP sig elevated CPK wnl, no rhabo Roebling po fluid intake, strictly low Na diet < 2g/d HR control # Proteinuric CKD2 Baseline SCr 1.2 as of Mar 2022 CKD likely 2/2 Htn nephrosclerosis. Proteinuria likely r/t underlying malignancy # Massive proteinuria No hx of DM. Hx of colon cancer on chemotherapy. F/u Dr. Cardona. F/u proteinuria workup # Afib w/ RVR, new onset On heparin gtt & lopressor Per other services # Htn BP above goal BP meds adjusted Dc IV fluid # AMS, aphasia Head CT no bleed, ? normal pressure hydrocephalus Stroke workup ongoing # Schizophrenia Cont home meds
[2022-09-08 16:32] LABS: UR PROTEIN 406.6 mg/dL (<11.9); Urine Protein/Creatinine Ratio 16.94 ratio (<0.15)
--- NOTE | 2022-09-08 17:31 | EKG ---
Test Date: 2022-09-08 Test Time: 02:00:59 Tipping Machine Operator Automatic: LEE ANN MEASUREMENT RESULTS: Intervals: Rate: 129 TX: QRSD: 86 QT: 264 QTc: 386 [place]: P: TX: QRS: 57 T: -3 INTERPRETIVE STATEMENTS: Atrial fibrillation with rapid ventricular response with premature ventricular or aberrantly conducted complexes Nonspecific ST abnormality, probably digitalis effect Abnormal QRS-T angle, consider primary T wave abnormality Abnormal ECG No previous ECG available for comparison Electronically Signed On 09-08-22 17:30:10 MEASURER MACHINE by Roberto Tillman
--- NOTE | 2022-09-08 17:31 | EKG ---
Test Date: 2022-09-08 Test Time: 05:36:19 Saddle Stitcher: RV MEASUREMENT RESULTS: Intervals: Rate: 73 NM: 134 QRSD: 76 QT: 338 QTc: 372 [place]: P: 59 NM: 134 QRS: 73 T: 62 INTERPRETIVE STATEMENTS: Normal sinus rhythm Normal ECG Compared to ECG 09/08/2022 02:00:59 Atrial fibrillation no longer present Ventricular premature complex(es) no longer present ST (T wave) deviation no longer present T-wave abnormality no longer present Electronically Signed On 09-08-22 17:29:57 MILK COLLECTOR by Roberto Tillman
--- NOTE | 2022-09-08 18:57 | CON ---
Reason For Consultation: Consultation called because of altered mental status. History Of Present Illness: Mr. Spangler is a 71-year-old patient with history of colon canc er, currently on chemotherapy. Last dose was 2 days ago. He is being seen by Dr. Danielson. A lso, history of hypertension, comes in with confusion. The patient's daughter is at the bedside and gave information. [place] is not the primary language, and she provided translation. The patient ap parently took a nap on the afternoon of , woke up around 8 and his son noted speech was different . He was able to eat, go back to sleep and woke up again around midnight and had more difficulty wit h comprehension and trouble with his balance and there was left-sided weakness. [facility] brought the patient to [facility], where he was found to be in atrial fibrillation wi th rapid ventricular response. He was treated with adenosine and Cardizem intravenously. He was als o found to be dehydrated and elevated creatinine of 2.16. His head CT scan showed no acute ischemic or hemorrhagic change. However, the study did show significant small-vessel ischemic disease with ve ntriculomegaly in proportion to the increase to the loss of volume. However, the radiologist did sug gest possibility of NPH. Subsequent brain MRI ruled out the presence of an acute ischemic stroke and showed extensive chronic small-vessel ischemic disease with most likely cause of the ventriculomegal y and much less likely normal-pressure hydrocephalus. The patient's daughter reports he did not have any gait difficulties or bladder control problems, whi ch would have been hallmarks of normal-pressure hydrocephalus, but he has had no significant problems with his ability to communicate and no significant dementia aside from mild memory loss. Since hosp italization, he did receive IV hydration and has noticed that he is back to his baseline level of fun ction. Laboratory Data: His blood count with differential is essentially unremarkable except for slightly l ow hemoglobin. INR 0.86. Chemistries did show today creatinine 2.16. Beta natriuretic peptide elev ated to 2763, calcium slightly low at 8.3, magnesium is slightly elevated at 2.5. Lactic acid 1.2. His TSH is slightly elevated of 4.63 with normal free T4 of 1.34. HDL cholesterol 76, LDL 73. His c holesterol to HDL ratio is 2.18. Urinalysis showed a trace blood, 3+ protein, trace glucose. COVID- 19 test plus influenza A RNA testing negative. Past Medical History: As noted above, in addition to the possibility of schizophrenia, although the patient's daughter denies any psychiatric history. He does have colon cancer and is on chemo. Surgical History: Colon cancer, partial resection. Social History: The patient lives at home with . He does drink tea and coffee, but 1 cup a day and does drink water during the day. Denies tobacco per the daughter. Family History: Noncontributory. Review of Systems: He did not have fevers, chills, nausea, vomiting, myalgias, arthralgias, rash, headache, weight bunn e. Physical Examination: Vital Signs: Blood pressure 182/96, pulse 67, respiratory rate 16, temperature 97.9, oxygen saturati on 99% to 100%. Weight 119 pounds, height 5 feet 4 inches, BMI 20. General: Mr. Spangler is resting in bed. He is in no significant distress. HEENT: He is normocephalic, atraumatic. His sclerae are anicteric. Oropharynx is moist. Neck: Supple. Chest: Clear. Heart: Irregularly irregular. Abdomen: Soft. Extremities: Show no significant edema or cyanosis. Neurological: On cranial nerves, he has no obvious deficits there. Motor: He is symmetric in the a nam and legs. Sensation is symmetric. Coordination is intact. He is being evaluated for his gait b y the physical therapist. In terms of his ability to follow instructions, he did require some repeat ed instructions because of poor hearing to eventually do tasks that crossed the midline such as take the right index finger and touch his left ear, which he eventually did once he heard what was instruc lashanda. Also, he was instructed to move both arms and legs, and he did so equally well without any rest rictions, and he was oriented to place and situation. Assessment: Mr. Spangler is a 71-year-old patient with atrial fibrillation with rapid ventricular resp onse, possible etiology for his transient altered mental status. He also is dehydrated with elevated creatinine as one of the possibility there. He does not have any evidence of an ongoing infection. Plan: 1.Continue with hydration. 2.He should be on aspirin 81 mg daily as he has significant small-vessel ischemic disease, which cou ld be a contributing factor to early vascular dementia. 3.May consider donepezil or memantine or galantamine. 4.After discharge from the hospital, he needs followup with Dr. Treviño for a formal cognitive eval uation. TENISHA/TRICIA Voice ID: [id number] Report ID: [id number]
--- NOTE | 2022-09-08 19:48 | CON ---
Date of Consultation: 09/08/2022 Reason For Consultation: New onset atrial fibrillation and altered mental status. History Of Present Illness: This is a 71-year-old male with history of colon cancer and chemotherapy and acid reflux disease who presented to the emergency room due to altered mental status that starte d yesterday and shuffling gait and slurred speech. In the ER, he was found to be in atrial fibrillat ion with rapid ventricular response. He was given adenosine and Cardizem and he apparently converted into sinus rhythm. He has no known cardiac history or cardiac disease before. Past Medical History: As outlined above in HPI. Medications: Refer to reconciliation sheet for detailed list. Allergies: ASPIRIN. Family History: No premature coronary artery disease or cancer. Social History: He does not smoke or drink. Does not use any drugs. Review of Systems: All systems reviewed and they were negative except as mentioned in HPI. Physical Examination: Vital Signs: Temperature is 97.6, pulse 67, breathing at 16, blood pressure 182/96, and saturating 9 9%. General: A pleasant elderly male, in no apparent distress. Head And Neck: Pupils are equal and reactive to light. Intact eye movements. No JVD. No cervical lymphadenopathy. Neck is supple. Thyroid is not enlarged. Lungs: Clear to auscultation bilaterally. No rhonchi, wheezing, or crackles. No accessory muscle u se. Heart: Regular rate and rhythm. No extra sounds. Abdomen: Soft, nontender. Bowel sounds positive. No organomegaly. No masses or hernia. No rigidi ty or rebound. Extremities: No clubbing or cyanosis. Intact pulses. Skin: No rash noted. Neuro: Alert, awake, and oriented x3. No new focal deficits appreciated. Lymph Nodes: No cervical or axillary lymphadenopathy. Investigations: His BUN is 30 and creatinine is 2.1. Troponin x3 are negative and NT-proBNP is 2763 . His hemoglobin is 10.8 and brain MRI showed questionable ischemic changes due to small vessel dise ase. Assessment/recommendation: 1.Atrial fibrillation with rapid ventricular response. At this moment, he is in sinus rhythm. I re commend to continue metoprolol and recommend full anticoagulation as he just had a stroke, which coul d be atrial fibrillation related or likely it is atrial fibrillation related. I agree with IV hepari n. However, his creatinine is elevated, so he will need Coumadin unless the creatinine elevation is transient and it improves. Please obtain echocardiogram. 2.Acute renal failure. On reviewing his previous labs, back in April, his creatinine was normal , so this patient's altered mental condition could be due to infectious etiology and this is being wo rked up. Recommend gentle IV fluid hydration and reassess labs in the morning. 3.Elevated NT-proBNP, suggestive of history of congestive heart failure. Obtain an echo. SR/MODL Voice ID: [id number] Report ID: [id number]
--- NOTE | 2022-09-08 20:37 | RAD REPORT ---
EXAM DESCRIPTION: RAD - Chest Single View - 09/08/2022 2:22 am CLINICAL HISTORY: 71 years, Male, SOB COMPARISON: None. FINDINGS: Single view of the chest was obtained portable. No prior films are available for compariso n. There is a right IJ venous port in place. The lung volume is slightly decreased. The heart is in t he upper normal size. There is intimal aortic arch ossification. The pulmonary vasculature is normal distribution. Slight prominence of the right hilum could be vascular in nature lymphadenopathy cannot be excluded. No significant pleural effusions. The rest of the soft tissue and bony structures dem onstrate to be unremarkable. IMPRESSION: Slight prominence of the right hilum could be vascular in nature lymphadenopathy cannot be excluded. Right IJ venous port in place. Electronically signed by: Guilherme Monroe MD 09/08/2022 2:32 AM EVENTS AND PROMOTIONS ASSISTANT Due to temporary technical issues with the PACS/Fluency reporting system, reports are being signed by the in house radiologists without review as a courtesy to insure prompt reporting. The interpreting radiologist is fully responsible for the content of the report.
--- NOTE | 2022-09-08 20:38 | RAD REPORT ---
EXAM DESCRIPTION: CT - Head Brain Wo Cont - 09/08/2022 6:14 am CLINICAL HISTORY: 71 years Male Mental status change, unknown cause COMPARISON: None TECHNIQUE: Noncontrast CT head. This exam was performed according to our departmental dose-optimization program, which includes autom ated exposure control, adjustment of the mA and/or kV according to patient size and/or use of iterati ve reconstruction technique.. FINDINGS: Parenchyma: No acute hemorrhage, large territorial infarction, or mass effect. Scattered a nd confluent hypodense lesions are present in the white matter, likely chronic small vessel ischemic changes. Mild diffuse cortical volume loss. Bilateral basal ganglia mineralization. Ventricles and extra-axial spaces: Moderate supratentorial ventriculomegaly, disproportionate to back ground of volume loss. Mild sulcal crowding at the vertex. Visualized paranasal sinuses: Clear. Mastoid air cells: Clear. Bones: No acute focal abnormality. Additional comment: Bilateral lens surgery. IMPRESSION: 1. No acute intracranial hemorrhage or large territorial infarction. 2. Moderate supratentorial ventriculomegaly, disproportionate to background of volume loss, with mi ld sulcal crowding at the vertex. Findings can be seen in setting of normal pressure hydrocephalus in the appropriate clinical setting. 3. Extensive chronic microvascular ischemic changes. If concern for acute infarct exists, recommend dedicated MRI. Electronically signed by: Tammy Barney MD 09/08/2022 3:23 AM [facility] Due to temporary technical issues with the PACS/Fluency reporting system, reports are being signed by the in house radiologists without review as a courtesy to insure prompt reporting. The interpreting radiologist is fully responsible for the content of the report.
[2022-09-08] MEDS: ATORVASTATIN 40 MG TAB PO SCH (21:53)
[2022-09-08] MEDS: DOCUSATE NA 100 MG CAP PO SCH (21:53)
[2022-09-08] MEDS: METOPROLOL TAR 50 MG TAB PO SCH (21:53)
[2022-09-09 04:48] LABS: Absolute Lymphocytes (CBC) 1.9 K/uL (0.7-4.9); Hematocrit 27.8 % (39.6-49.0); Lymphocytes % 39.1 % (15.3-44.8); MCV 86.1 fL (80-100); MPV 7.9 fL (7.6-11.3); RBC Red Blood Cell Count 3.23 M/uL (4.33-5.43)
[2022-09-09 05:20] LABS: Magnesium 2.2 mg/dL (1.6-2.4); Potassium 4.1 mmol/L (3.5-5.1)
--- NOTE | 2022-09-09 07:28 | P.PN ---
Date of Service: 09/09/22 Subjective: no acute events overnight feels better, closer to normal no new/worsening complaints ROS: A complete review of systems was performed and is negative except as mentioned above Physical Exam: Gen: NAD, hard of hearing, pleasant HEENT: normal conjunctiva, sclera anicteric CV: regular rate & rhythm, no edema Pulm: non-labored respirations, clear bilaterally Abd: soft, non-tender, non-distended Neuro: normal speech, normal affect, moves all extremities, hard of hearing vitals reviewed Problem List New onset atrial fibrillation with rapid ventricular response AMS, aphasia, gait instability-rule out CVA BILLIE on CKD 3 Hypertension History of colon cancer on chemotherapy Schizophrenia New onset atrial fibrillation with rapid ventricular response back to sinus rhythm heparin drip -> eliquis on 09/09 contine PO lopressor cardiology consulted BILLIE on CKD improved nephrology consulted renal U/S with right hydronephrosis, no obvious obstruction HTN titrate meds as needed h/o colon cancer on chemotherapy; carcinomatous Outpatient management with Dr. Cardona, last chemo was on Sunday the per . Schizophrenia Continue home meds. VTE: eliquis Code: full Dispo: home, ~24hrs
[2022-09-09] MEDS: NA CHLORIDE 0.9% 1,000 ML IV SCH (07:40)
[2022-09-09] MEDS: FOLIC ACID 1 MG TABLET PO SCH (09:06)
[2022-09-09] MEDS: HYDRALAZINE HCL 25 MG TABLET PO SCH ×2 (09:06→21:05)
[2022-09-09] MEDS: METOPROLOL TAR 50 MG TAB PO SCH ×2 (09:06→21:05)
[2022-09-09 17:36] LABS: Hepatitis B Core Ab, Total Nonreactive (Nonreactive); Hepatitis B surface AG Interp. Nonreactive (Nonreactive); Hepatitis C Virus Ab Nonreactive (Nonreactive)
[2022-09-09 17:40] LABS: Hepatitis B Surface Ab - Quant < 3.10 mIU/mL (<8.0)
[2022-09-09] MEDS: APIXABAN 2.5 MG TABLET PO SCH ×2 (17:55→21:05)
--- NOTE | 2022-09-09 18:45 | PN ---
Date of Progress Note: 09/09/2022 Subjective: Seen by bedside. Doing clinically well. No tachycardia. Review of Systems: No chest pain, shortness of breath, orthopnea, cough, nausea, vomiting, diarrhea. All other systems reviewed and they were negative. Physical Examination: Vital Signs: Reviewed. Head and Neck: Pupils are equal, reactive to light. Intact eye movements. No JVD. No cervical lym phadenopathy. Neck is supple. Thyroid is not enlarged. Lungs: Clear to auscultation bilaterally. No rhonchi, wheezing, or crackles. No accessory muscle u se. Heart: Regular rate and rhythm. No extra sounds. Abdomen: Soft, nontender. Bowel sounds positive. No organomegaly. No masses or hernia. No rigidi ty or rebound. Extremities: No edema, clubbing, or cyanosis. Intact pulses. Skin: No rash. Neurologic: Alert, awake, oriented x3. No acute focal deficits appreciated. Investigations: BUN is 29, creatinine 1.98, and 3 sets of cardiac enzymes are negative. Assessment And Recommendations: 1.Atrial fibrillation, paroxysmal, converted to sinus rhythm. Continues to be in sinus rhythm. Con tinue metoprolol 50 mg twice a day and full anticoagulation. 2.Acute altered mental status, possible cerebrovascular accident due to atrial fibrillation. The pa tient needs to be fully anticoagulated. Once creatinine improves, to be placed on Eliquis. 3.Dyslipidemia. Continue statin. SR/MODL Voice ID: [id number] Report ID: [id number]
--- NOTE | 2022-09-09 19:44 | RAD REPORT ---
EXAM DESCRIPTION: CT - Stone Protocol - 09/09/2022 7:13 pm CLINICAL HISTORY: hydronephrosis BILLIE COMPARISON: Abdomen Pelvis W Contrast dated 07/31/2022; Renal Ultrasound-Complete dated 09/08/2022; Abdomen Pelvis W Contrast dated 01/31/2022 TECHNIQUE: Axial 3 mm thick images were obtained without oral or IV contrast. The [id number] span s the entirety of the system including uppermost abdomen and lung bases. All CT scans are performed using dose optimization technique as appropriate and may include automated exposure control or mA/KV adjustment according to patient size. FINDINGS: No obstructive hydrocephalus is present. No calcifications in the collecting systems. Ther e is fullness of each renal pelvis is believed to be variant and matches the July 31 imaging. N o suspicious renal masses. Isodense masses and pyelonephritis are not excluded on a stone protocol CT scan. Exophytic 4.6 centimeter upper pole left renal cyst seen. No adrenal masses are identified. Ur inary bladder shows no asymmetric wall thickening or mass. No bladder calculi. Liver is abnormal with date nodular capsule contour. Ascites is present adjacent to the liver capsule a focal lesion is not seen on noncontrast imaging. No pancreatic process seen. A small splenule is. Gallbladder is mostly contracted. The small gallstones present. No biliary tree dilatation. Large amount of fluid is present filling the stomach. No gastric wall thickening or mass identifiable . No dilated large or small bowel loop. Colon stool volume is moderate. Motion limits detail. No bulky lymphadenopathy or suspicious mass lesion. No omental thickening identifiable. No free air o r pneumatosis. Additional small amounts of free fluid are seen in the low pelvis. Disc and bone degenerative changes are present. No clearly pathologic bone process. IMPRESSION: No obstructing calculi are present. Dilatation of each renal pelvis dates back to at [facility] January 2022 the may be normal variation for the patient. Nodular liver capsule contour with adjacent ascites. This has been reported previously to be carcinom atosis. Cirrhosis or diffuse hepatic parenchymal disease can also give this appearance. Isodense masses and pyelonephritis are not excluded on stone protocol technique.
[2022-09-09] MEDS ORDERED: AMLODIPINE 5 MG TAB PO ONE (20:18)
[2022-09-09] MEDS: DOCUSATE NA 100 MG CAP PO SCH (21:04)
[2022-09-09] MEDS: ATORVASTATIN 40 MG TAB PO SCH (21:05)
[2022-09-09] MEDS ORDERED: ALBUTEROL 2.5 MG/3 ML NEB SOL NEB PRN (22:00)
--- NOTE | 2022-09-10 01:42 | PN ---
Date of Progress Note: 09/09/2022 Subjective: Acute kidney injury, nonoliguric, associated with multiple medical problems including hi story of angiotensin receptor elder. The patient has nonoliguric urine output. Electrolytes are s table. There is no metabolic acidosis. He is 71-year-old man with history of chronic kidney disease stage 2, baseline serum creatinine of 1.2 as of March 2022, history of colon cancer on chemotherapy , hypertension, schizophrenia. The patient is admitted because of altered mental status and was foun d to have new onset of rapid atrial fibrillation. CT scan of the head showed no acute intracranial c hanges. Heart failure now is better controlled and blood pressure is somewhat elevated. Patient rec eived IV fluids for acute kidney injury. On arrival to the hospital, serum creatinine level was 2.2 and over last 24 hours has slightly improved, although there is no significant improvement of renal f unction. Review of Systems: Patient denies fever, chills. Physical Examination: Lungs: Clear to auscultation bilaterally. Heart: S1, S2. Abdomen: Soft. Extremities: No edema. Impression And Plan: 1.Acute kidney injury, cardiorenal syndrome from rapid atrial fibrillation. Serum creatinine was up to 2.2. Urinalysis showed severe proteinuria, which may correspond with monoclonal gammopathy of un known significance versus severe nephrotic syndrome secondary to glomerulonephritis. The patient may need a kidney biopsy when stable. Patient will need to be off anticoagulation when biopsy is to be done. Currently, patient may need anticoagulation for atrial fibrillation, so biopsy may be schedule d outpatient. Plan is to check urine protein electrophoresis, immunofixation. 2.Proteinuric chronic kidney disease stage 2. Possible etiology includes hypertensive nephroscleros is and likely proteinuria is related to underlying malignancy and may be a manifestation from membran ous glomerulonephritis in setting of underlying malignancy. Massive proteinuria. 3.History of colon cancer on chemotherapy. The patient will follow up with Hematology. 4.Atrial fibrillation, on heparin drip and Lopressor. Further recommendation by primary team. 5.Altered mental status, aphasia, there is no bleeding on the CT scan of the head. 6.Hypertension. Continue blood pressure medication. Discontinue IV fluids and monitor fluid intake and fluid balance. EB/MODL Voice ID: [id number] Report ID: [id number]
[2022-09-10 06:19] LABS: Absolute Lymphocytes (CBC) 1.6 K/uL (0.7-4.9); Hematocrit 28.5 % (39.6-49.0); Lymphocytes % 37.9 % (15.3-44.8); MCV 85.9 fL (80-100); MPV 7.4 fL (7.6-11.3); RBC Red Blood Cell Count 3.32 M/uL (4.33-5.43)
[2022-09-10 06:40] LABS: Albumin 1.8 g/dL (3.4-5.0); Bilirubin Total 0.3 mg/dL (0.2-1.0); Phosphorus 3.1 mg/dL (2.5-4.9); Potassium 3.6 mmol/L (3.5-5.1); Protein, Total 4.8 g/dL (6.4-8.2); Uric Acid 4.3 mg/dL (3.5-7.2)
[2022-09-10] MEDS: HYDRALAZINE HCL 25 MG TABLET PO SCH (08:12)
[2022-09-10] MEDS: METOPROLOL TAR 50 MG TAB PO SCH (08:12)
[2022-09-10] MEDS: FOLIC ACID 1 MG TABLET PO SCH (08:12)
[2022-09-10] MEDS: APIXABAN 2.5 MG TABLET PO SCH (08:12)
[2022-09-10] MEDS ORDERED: AMLODIPINE 5 MG TAB PO SCH (09:00)
[2022-09-10] MEDS ORDERED: POTASSIUM CL SA 10 MEQ TAB PO ONE (09:00)
[2022-09-10 09:19] VITALS: BP 162/86; TEMP 98.4
[2022-09-10 23:18] LABS: RPR (Rapid Plasma Reagin) NON-REACT (NON-REACT)
--- NOTE | 2022-09-11 08:06 | ECHO ---
HEIGHT: 5 ft 4 in WEIGHT: 119 lb 3.263 oz DATE OF STUDY: 09/08/[address]: Bruno Albright NP 2-DIMENSIONAL: YES M.MODE: YES DOPPLER: YES COLOR FLOW: YES TDS: PORTABLE: YES DEFINITY: BUBBLE STUDY: DIAGNOSIS: NEW ONSET ATRIAL FIBRILLATION CARDIAC HISTORY: CATHERIZATION: NO SURGERY: NO PROSTHETIC VALVE: NO PACEMAKER: NO MEASUREMENTS (cm) DIASTOLIC (NORMALS) SYSTOLIC (NORMALS) IVSd 1.0 (0.6-1.2) LA Diam 2.0 (1.9-4.0) LVEF 54% LVIDd 3.6 (3.5-5.7) LVIDs 2.6 (2.0-3.5) %FS 27% LVPWd 1.2 (0.6-1.2) Ao Diam 3.0 (2.0-3.7) 2 DIMENSIONAL ASSESSMENT: RIGHT ATRIUM: NORMAL LEFT ATRIUM: NORMAL RIGHT VENTRICLE: NORMAL LEFT VENTRICLE: NORMAL TRICUSPID VALVE: MILD TRICUSPID REGURGITATION MITRAL VALVE: MILD MITRAL REGURGITATION PULMONIC VALVE: NORMAL AORTIC VALVE: NORMAL PERICARDIAL EFFUSION: NONE AORTIC ROOT: NORMAL LEFT VENTRICULAR WALL MOTION: NORMAL DOPPLER/COLOR FLOW: SEE BELOW COMMENTS: 1. NORMAL LEFT VENTRICULAR EJECTION FRACTION 55-60% 2. NORMAL WALL MOTION 3. NORMAL DIASTOLIC FUNCTION 4. MILD MITRAL REGURGITATION 5. MILD TRICUSPID REGURGITATION TECHNOLOGIST: NATHAN CAMERON
[2022-09-12 12:21] LABS: KAPPA LIGHT CHAIN, FREE SERUM 37.7 mg/L (3.3-19.4)
[2022-09-12 12:48] LABS: HIV AG/AB 4TH GEN Non-reactive (Non-reactive)
== END 2022-09-10 11:30 | disposition home or self-care (01) | DRG 309 ==
LOC: ER 01:49 → ERHOLD 04:03 → 2ND 08:32
PROVIDERS: ADMIT Hospitalist; ATTEND Hospitalist
DX: I48.19 Other persistent atrial fibrillation (principal); C18.9 Malignant neoplasm of colon, unspecified; N17.9 Acute kidney failure, unspecified; R47.01 Aphasia; I12.9 Hypertensive chronic kidney disease with stage 1 through stage 4 chronic kidney disease, or unspecified chronic kidney disease; N18.30 Chronic kidney disease, stage 3 unspecified; F20.9 Schizophrenia, unspecified; E86.0 Dehydration; E78.5 Hyperlipidemia, unspecified; K21.9 Gastro-esophageal reflux disease without esophagitis; R80.9 Proteinuria, unspecified; Z88.6 Allergy status to analgesic agent; Z90.49 Acquired absence of other specified parts of digestive tract; Z85.038 Personal history of other malignant neoplasm of large intestine; Z79.899 Other long term (current) drug therapy; Z20.822 Contact with and (suspected) exposure to COVID-19
CPT/HCPCS: 0240U; 36415; 70450; 70551; 71045; 74176; 76377; 76770; 80048; 80053; 80061; 80076; 81001; 81003; 81015; 82306; 82550; 82570; 83036; 83520; 83605; 83735; 83880; 83935; 83970; 84100; 84132; 84156; 84165; 84166; 84300; 84439; 84443; 84484; 84550; 85025; 85610; 85730; 86038; 86334; 86592; 86704; 86706; 86803; 87040; 87340; 87389; 92523; 92610; 93005; 93306; 93880; 97112; 97116; 97161; 97165; 97530; 99285; A4216; J0461; J0640; J1100; J1160; J1200; J1453; J1642; J1644; J2469; J7030; J7050; J7060; J7613; J9190; J9206; Q5118

== ENCOUNTER 2022-09-21 16:00 | Inpatient (IN) | payer OTHER ==
--- OUTSIDE RECORDS SUMMARY | 2022-09-21 16:04 | XMS REPORT | Continuity of Care Document ---
:1950 Author Organization [facility] t Address [address] [place] [address] Care Team Providers Name Role Phone Aster Monique DO Primary Care Physician Alex Felipe Attending Clinician [phone] Problems Condition Condition Condition Status Onset Resolution Last Treating Co mments Source Name Details Category Date Date Treatment Clinician Date NEW NEW Diagnosis Active 2018-12-05 Mem oria PT/CLEARAN PT/CLEARAN 4-05 12:52:00 l CE/ CE/ 00:00: Rolando Active 00 11/22/2018 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 ENCNTR FOR ENCNTR Diagnosis Active 2018-12-05 [facility] GENERAL FOR 12:52:00 l ADULT [facility] MEDICAL ADULT EXAM W/ MEDICAL EXAM W/ Active [facility] Allergies, Adverse Reactions, Alerts Allergy Allergy Status Severity Reaction(s) Onset Inactive Treating Comm ents Source Name Type Date Date Clinician Aspirin Propensi Active GI Methodi ty to Intolerance 3-14 st adverse 00:00: Hospita reaction 00 l s to drug Family History Family Member Diagnosis Comments Start Date Stop Date Source Natural sister No Known Problems Met [facility] Natural brother No Known Problems [facility] Natural father No Known Problems Met [facility] Maternal grandfather No Known Problems [facility] Maternal grandmother No Known Problems [facility] Natural mother No Known Problems Met [facility] Other No Known Problems [facility] Paternal grandfather No Known Problems [facility] Paternal grandmother No Known Problems [facility] Social History Social Habit Start Date Stop Date Quantity Comments Source History [facility] Drinks History [facility] Alcohol intake 2018-12-27 2018-12-27 Current Islam 00:00:00 00:00:00 non-drinker of Hospital alcohol (finding) History [facility] 2018-12-24 2018-12-24 1 Islam Alcohol Frequency 00:00:00 00:00:00 Hospita l Tobacco use and 2018-11-01 2018-11-01 Smokeless tobacco [facility] exposure 00:00:00 00:00:00 non-user Hospital Sex Ass[birth year] At [birth year] [facility] 00:00:00 00:00:00 Hospital Smoking Status Start Date Stop Date Source Social History [facility] Medications Ordered Filled Start Stop Current Ordering [...] day. Mix in 8 ounce of water ranitidine 2019-0 Yes 150mg Q.5D Take 150 Me thodi (ZANTAC) 5-[address] 150 MG 16:16: mouth 2 Hospita tablet 53 (two) l times a day. psyllium 2019-0 Yes 5mL Q.5D Take 5 mL Meth [...] 0 Memoria 4-18 Refill(s) l 18:00: Rolando fluPHENAZin 2019-0 Yes 12.5 mg = M [...] thigh, or buttocks every 30 (thirty) days. fluPHENAZin 2019-0 Yes .5mg Q30D Inject 0.5 Methodi e 3-[address] (PROLIXIN) 00:00: the Hospita 2.5 mg/mL 00 shoulder, l injection thigh, or buttocks every 30 (thirty) days. Procedures This patient has no known procedures. Plan of Care Planned Activity Planned Date Details Comments Source Future Scheduled 2022-09-21 COVID-19 VACCINE (#1) [facility] Test 16:03:25 [code = COVID-19 VACCINE (#1)] Future Scheduled 2022-09-21 COLONOSCOPY SCREENING [facility] Test 16:03:25 [code = COLONOSCOPY SCREENING] Future Scheduled 2022-09-21 SHINGLES VACCINES (1 Met [facility] Test 16:03:25 of 2) [code = SHINGLES VACCINES (1 of 2)] Future Scheduled 2022-09-21 65+ PNEUMOCOCCAL [facility] Hospital Test 16:03:25 VACCINE (1 - PCV) [code = 65+ PNEUMOCOCCAL VACCINE (1 - PCV)] Future Scheduled 2022-09-21 INFLUENZA VACCINE [facility] Test 16:03:25 [code = INFLUENZA VACCINE] Future Scheduled 2022-08-05 COVID-19 VACCINE (#1) [facility] Hospital Test 21:14:43 [code = COVID-19 VACCINE (#1)] Future Scheduled 2022-08-05 COLONOSCOPY SCREENING [facility] Test 21:14:43 [code = COLONOSCOPY SCREENING] Future Scheduled 2022-08-05 SHINGLES VACCINES (1 Met [facility] Test 21:14:43 of 2) [code = SHINGLES VACCINES (1 of 2)] Future Scheduled 2022-08-05 65+ PNEUMOCOCCAL Methodi [facility] Test 21:14:43 VACCINE (1 - PCV) [code = 65+ PNEUMOCOCCAL VACCINE (1 - PCV)] Future Scheduled 2022-08-05 INFLUENZA VACCINE [facility] Test 21:14:43 [code = INFLUENZA VACCINE] Encounters Start End Encounter Admission Attending Care Care Encounter Source Date/Time Date/Time Type Type Clinicians Facility Department ID 2018-12-05 2018-12-06 Outpatient nullFlavo [id number] Memoria 17:40:00 04:59:00 r Community 00 l Cardiology [facility] 2018-12-05 2018-12-06 Outpatient nullFlavo [id number] Memoria 17:40:00 04:59:00 r Community 00 l Cardiology [facility] 2018-12-05 2018-12-05 Outpatient Wickramasin [facility] [id number] 12:40:00 23:59:00 ghe, 00 Alex Chapman 2018-12-05 2018-12-05 Outpatient [facility] [id number] [facility] 12:40:00 12:40:00 Results This patient has no known results.
--- NOTE | 2022-09-21 16:40 | RAD REPORT ---
EXAM DESCRIPTION: RAD - Chest Single View - 09/21/2022 4:33 pm CLINICAL HISTORY: generalized weakness Chest pain. COMPARISON: Chest Single View dated 09/08/2022; Chest Single View dated 02/07/2019 FINDINGS: Portable technique limits examination quality. Mildly prominent interstitial lung markings. The heart is normal in size. No displaced fractures.Righ t port catheter in place. IMPRESSION: Mild interstitial pulmonary edema or viral infection suspected.
[2022-09-21 16:42] LABS: Absolute Lymphocytes (CBC) 1.5 K/uL (0.7-4.9); Hematocrit 29.1 % (39.6-49.0); Lymphocytes % 23.2 % (15.3-44.8); MCV 83.8 fL (80-100); MPV 8.4 fL (7.6-11.3); RBC Red Blood Cell Count 3.47 M/uL (4.33-5.43)
[2022-09-21 16:46] LABS: Protime INR 0.99
[2022-09-21] MEDS ORDERED: PROMETHAZINE INJ 25 MG/ML AMP ONE (16:48)
[2022-09-21] MEDS ORDERED: FUROSEMIDE 20 MG/ 2ML VIAL ONE (16:49)
[2022-09-21 17:04] LABS: ALT/SGPT 40 U/L (16-61); AST/SGOT 38 U/L (15-37); Albumin 2.2 g/dL (3.4-5.0); Alkaline Phosphatase 86 U/L (45-117); BUN Blood Urea Nitrogen 45 mg/dL (7-18); Bicarbonate 22 mmol/L (21-32); Bilirubin Total 0.2 mg/dL (0.2-1.0); Glomerular Filtration Rate 31 ml/min (=/>90); Glucose Level 117 mg/dL (74-106); Magnesium 2.2 mg/dL (1.6-2.4); NT PRO-BNP 4008 pg/mL (<125); Potassium 4.7 mmol/L (3.5-5.1); Protein, Total 6.1 g/dL (6.4-8.2); Sodium Level 120 mmol/L (136-145); Troponin High Sensitivity 11.2 pg/mL (<58.9)
[2022-09-21 17:05] LABS: Bilirubin Direct < 0.1 mg/dL (0-0.2)
[2022-09-21 17:09] LABS: SARS-COV-2 RT PCR NEGATIVE (NEGATIVE)
--- NOTE | 2022-09-21 17:21 | RAD REPORT ---
EXAM DESCRIPTION: CT - Head Brain Wo Cont - 09/21/2022 5:15 pm CLINICAL HISTORY: generalized weakness, hx of colon ca COMPARISON: Head Brain Wo Cont dated 09/08/2022; Brain Wo Cont dated 09/08/2022 TECHNIQUE: All CT scans are performed using dose optimization technique as appropriate and may inclu de automated exposure control or mA/KV adjustment according to patient size. FINDINGS: No intracranial hemorrhage, hydrocephalus or extra-axial fluid collection.Moderate general ized brain atrophy is present with moderate periventricular and deep white matter chronic microvascul ar ischemic changes.No areas of brain edema or evidence of midline shift. The paranasal sinuses and mastoids are clear. The calvarium is intact. IMPRESSION: No acute intracranial abnormality.
--- NOTE | 2022-09-21 17:29 | EDPHYS ---
Physician Documentation [facility] Name: Nir Spangler Age: 71 yrs Sex: Male : 1950 Arrival Date: 09/21/2022 Time: 16:00 Bed 6 Private MD: ED Physician Chi Suggs HPI: 09/21 16:22 This 71 yrs old Male presents to ER via EMS with complaints of General Weakness. snw 16:22 Nausea, vomiting, generalized edema, and generalized weakness. Pt had chemo per right snw upper chest carlos cath on . Access dc'd today. Pt states he is generally weak and noted pt has a tremor to the left greater than right side of the body. Onset: The symptoms/episode began/occurred acutely. Historical: - Allergies: 16:03 Aspirin; kc6 - PMHx: 16:03 colon cancer; Hypertensive disorder; Hypercholesterolemia; Atrial fibrillation; kc6 - Immunization history:: Client reports receiving the 2nd dose of the Covid vaccine, Flu vaccine is up to date. - Social history:: Smoking status: Patient denies any tobacco usage or history of. ROS: 16:46 Constitutional: Negative for fever, chills, and weight loss, Eyes: Negative for injury, snw pain, redness, and discharge, ENT: Negative for injury, pain, and discharge, Neck: Negative for injury, pain, and swelling, Cardiovascular: Negative for chest pain, palpitations, and edema, Respiratory: Negative for shortness of breath, cough, wheezing, and pleuritic chest pain, Abdomen/GI: Negative for abdominal pain, diarrhea, and constipation, +N/V Back: Negative for injury and pain, : Negative for injury, bleeding, discharge, and swelling, MS/Extremity: Negative for injury and deformity, + generalized weakness, + edema Skin: Negative for injury, rash, and discoloration, Neuro: Negative for headache, weakness, numbness, tingling, and seizure, Psych: Negative for depression, anxiety, suicide ideation, homicidal ideation, and hallucinations. Exam: 16:44 Constitutional: This is a well developed, well nourished patient who is awake, alert, snw and in no acute distress. Head/Face: Normocephalic, atraumatic. Eyes: Pupils equal round and reactive to light, extra-ocular motions intact. Lids and lashes normal. Conjunctiva and sclera are non-icteric and not injected. Cornea within normal limits. Periorbital areas with no swelling, redness, or edema. ENT: Nares patent. No nasal discharge, no septal abnormalities noted. Tympanic membranes are normal and external auditory canals are clear. Oropharynx with no redness, swelling, or masses, exudates, or evidence of obstruction, uvula midline. Mucous membranes moist. Neck: Trachea midline, no thyromegaly or masses palpated, and no cervical lymphadenopathy. Supple, full range of motion without nuchal rigidity, or vertebral point tenderness. No Meningismus. Chest/axilla: Normal chest wall appearance and motion. Nontender with no deformity. No lesions are appreciated. Cardiovascular: Regular rate and rhythm with a normal S1 and S2. No gallops, mild murmurs, no rubs. Normal PMI, no JVD. No pulse deficits. +anasarca Respiratory: Lungs have equal breath sounds bilaterally, clear to auscultation and percussion. No rales, rhonchi or wheezes noted. No increased work of breathing, no retractions or nasal flaring. 16:44 Back: No spinal tenderness. No costovertebral tenderness. Full range of motion. Skin: Warm, dry with normal turgor. Normal color with no rashes, no lesions, and no evidence of cellulitis. MS/ Extremity: Pulses equal, no cyanosis. Neurovascular intact. Full, normal range of motion. Neuro: Awake and alert, GCS 15, oriented to person, place, time, and situation. Cranial nerves II-XII grossly intact. Motor strength 5/5 in all extremities. Sensory grossly intact. Cerebellar exam normal. Normal gait. Psych: Awake, alert, with orientation to person, place and time. Behavior, mood, and affect are within normal limits. 16:44 Abdomen/GI: Inspection: distension, that is moderate, Bowel sounds: normal, in all quadrants. Vital Signs: 16:01 BP 142 / 77; Pulse 71; Resp 20 S; Temp 97.9(O); Pulse Ox 100% on R/A; Weight 55.79 kg kc6 (R); Height 5 ft. 4 in. (162.56 cm) (R); Pain 0/10; 17:00 BP 146 / 80; Pulse 71; Resp 20 S; Pulse Ox 100% on R/A; Pain 0/10; kc6 17:55 BP 142 / 93; Pulse 73; Resp 15 S; Pulse Ox 98% on R/A; kc6 19:49 BP 155 / 95; Pulse 74; Resp 14; Temp 98.5; Pulse Ox 96% on R/A; Pain 0/10; pf1 16:01 Body Mass Index 21.11 (55.79 kg, 162.56 cm) kc6 MDM: 16:08 Patient medically screened. snw 17:17 Differential Diagnosis altered mental status, sepsis, electrolyte derangement. Data snw reviewed: vital signs, nurses notes. Management of patient was discussed with the following: Hospitalist: Pt will be admitted to Dr. Randy Madison. Care significantly affected by the following chronic conditions: Hypertension, Congestive Heart Failure, Cancer, Chronic Kidney Disease. Counseling: I had a detailed discussion with the patient and/or guardian regarding: the historical points, exam findings, and any diagnostic results supporting the discharge/admit diagnosis, the presence of at least one elevated blood pressure reading (>120/80) during this emergency department visit, lab results, radiology results, the need for further work-up and treatment in the hospital. 09/21 16:03 Order name: Basic Metabolic Panel; Complete Time: 17:13 snw 09/21 16:03 Order name: CBC with Diff; Complete Time: 16:48 snw 09/21 16:03 Order name: LFT's; Complete Time: 17:13 snw 09/21 16:03 Order name: Magnesium; Complete Time: 17:13 snw 09/21 16:03 Order name: NT PRO-BNP; Complete Time: 17:13 snw 09/21 16:03 Order name: PT-INR; Complete Time: 16:48 snw 09/21 16:03 Order name: Troponin HS; Complete Time: 17:13 snw 09/21 16:06 Order name: COVID-19/FLU A+B; Complete Time: 17:13 snw 09/21 17:38 Order name: Osmolality, Serum; Complete Time: 19:29 la1 09/21 17:38 Order name: Urine Sodium Random; Complete Time: 18:46 la1 09/21 17:38 Order name: Urine Potassium Random; Complete Time: 18:46 la1 09/21 18:07 Order name: Urine Osmolality; Complete Time: 19:29 la09/21 18:30 Order name: Urine Dipstick-Ancillary; Complete Time: 18:36 EDMS 09/21 16:03 Order name: XRAY Chest (1 view); Complete Time: 16:41 snw 09/21 16:03 Order name: EKG; Complete Time: 16:04 snw 09/21 16:03 Order name: Cardiac monitoring; Complete Time: 16:07 snw 09/21 16:03 Order name: EKG - Nurse/Tech; Complete Time: 16:43 snw 09/21 16:03 Order name: IV Saline Lock; Complete Time: 16:36 snw 09/21 16:03 Order name: Labs collected and sent; Complete Time: 16:36 snw 09/21 16:03 Order name: O2 Per Protocol; Complete Time: 16:07 snw 09/21 16:03 Order name: O2 Sat Monitoring; Complete Time: 16:07 snw 09/21 16:03 Order name: CT Head Brain w Cont w 09/21 16:06 Order name: Intake and Output; Complete Time: 16:34 snw 09/21 17:15 Order name: Head Brain Wo Cont; Complete Time: 17:28 EDMS 09/21 18:06 Order name: CT Abd/Pelvis - Without Contrast in09/21 18:50 Order name: CT; Complete Time: 18:57 EDMS EC:44 Rhythm is regular. NJ interval is shortened. ST Segment is depressed in leads V4, V5, snw V6. Clinical impression: NSR w/ Non-specific ST/T Changes. Administered Medications: 16:52 Drug: Phenergan (promethazine) 12.5 mg Route: IM; Site: right deltoid; kc6 17:57 Follow up: Response: No adverse reaction; Nausea is decreased kc6 16:52 Drug: Lasix (furosemide) 20 mg Route: IVP; Site: right antecubital; kc6 17:56 Follow up: Response: No adverse reaction kc6 Disposition: 19:18 Co-signature as Attending Physician, Chi TURNER was immediately available on-site ms3 in the Emergency Department for consultation in the care of the patient. Disposition Summary: 09/21/22 17:28 Hospitalization Ordered Hospitalization Status: Inpatient Admission snw Provider: Randy Madison snw Location: Telemetry/MedSurg (Inpatient) snw Condition: Fair snw Problem: an acute exacerbation snw Symptoms: are unchanged snw Bed/Room Type: Standard snw Room Assignment: 204(09/21/22 19:26) eb1 Diagnosis - Hypo-osmolality and hyponatremia - s/p chemo for colon ca snw - Hypertensive heart and chronic kidney disease without heart failure, with stage 1 snw through stage 4 chronic kidney disease, or unspecified chronic kidney disease - Muscle weakness (generalized) snw Forms: - Medication Reconciliation Form snw - SBAR form snw Signatures: Dispatcher [employer] EDMS Larissa Gross, RICO-C [employer] EXPEDITER-Csnw Hoa Cerrato RN RN ss Bruno Albright FNP-C [employer] EXPEDITER-Cla1 Keerthi Griggs RN RN eb1 Chi Suggs DO DO ms3 Mariana Huffman RN RN kc6 Corrections: (The following items were deleted from the chart) 17:15 16:07 Head Brain W Cont ordered. EDMS EDMS 18:03 17:39 Osmolality, Urine ordered. EDMS EDMS 18:26 18:06 Moralez ordered. la1 ph 19:03 17:28 snw ss 19:26 19:03 231 ss eb1
--- NOTE | 2022-09-21 17:29 | ER ---
Nurse's Notes [facility] Name: Nir Spangler Age: 71 yrs Sex: Male : 1950 Arrival Date: 09/21/2022 Time: 16:00 Bed 6 Private MD: Diagnosis: Hypo-osmolality and hyponatremia-s/p chemo for colon ca;Hypertensive heart and chronic kidney disease without heart failure, with stage 1 through stage 4 chronic kidney disease, or unspecified chronic kidney disease;Muscle weakness (generalized) Presentation: 09/21 16:01 Chief complaint: EMS states: tremors and generalized weakness that began last night. kc6 stated the client has also had some N/V. Coronavirus screen: Vaccine status: Patient reports receiving the 2nd dose of the covid vaccine. Ebola Screen: No symptoms or risks identified at this time. Initial Sepsis Screen: Does the patient meet any 2 criteria? No. Patient's initial sepsis screen is negative. Does the patient have a suspected source of infection? No. Patient's initial sepsis screen is negative. Risk Assessment: Do you want to hurt yourself or someone else? Patient reports no desire to harm self or others. Onset of symptoms was September 20, 2022. 16:01 Method Of Arrival: EMS: [facility] kc6 16:01 Acuity: AWAIS 3 kc6 Triage Assessment: 16:03 General: Appears in no apparent distress. comfortable, Behavior is calm, cooperative, kc6 appropriate for age. Pain: Denies pain. EENT: No signs and/or symptoms were reported regarding the EENT system. Neuro: Ferreira Agitation-Sedation Scale (RASS): 0 - Alert and Calm Level of Consciousness is awake, alert, obeys commands, Oriented to person, place, time, situation, Appropriate for age. Cardiovascular: Heart tones S1 S2 present Capillary refill < 3 seconds Edema is 2+ to OZ upper and lower extremities. Respiratory: Airway is patent Trachea midline Respiratory effort is even, unlabored, Respiratory pattern is regular, symmetrical, Breath sounds are clear bilaterally. GI: Abdomen is distended, Bowel sounds present X 4 quads. Abd is soft and non tender X 4 quads. Reports nausea, vomiting, Patient currently denies diarrhea. : No signs and/or symptoms were reported regarding the genitourinary system. Derm: No signs and/or symptoms reported regarding the dermatologic system. Skin is intact, Skin is pink, warm \T\ dry. Musculoskeletal: No signs and/or symptoms reported regarding the musculoskeletal system. Circulation, motion, and sensation intact. Capillary refill < 3 seconds, Range of motion: intact in all extremities. Historical: - Allergies: 16:03 Aspirin; kc6 - PMHx: 16:03 colon cancer; Hypertensive disorder; Hypercholesterolemia; Atrial fibrillation; kc6 - Immunization history:: Client reports receiving the 2nd dose of the Covid vaccine, Flu vaccine is up to date. - Social history:: Smoking status: Patient denies any tobacco usage or history of. Screenin:06 [facility] ED Fall Risk Assessment (Adult) History of falling in the last 3 months, kc6 including since admission No falls in past 3 months (0 pts) Confusion or Disorientation No (0 pts) Intoxicated or Sedated No (0 pts) Impaired Gait No (0 pts) Mobility Assist Device Used No (0 pt) Altered Elimination No (0 pt) Score/Fall Risk Level 0 - 2 = Low Risk Oriented to surroundings, Maintained a safe environment, Educated pt \T\ family on fall prevention, incl call for assistance when getting out of bed, Assessed \T\ reinforced patient's understanding of fall precautions, Hourly rounding (assess needs \T\ fall precautionary measures) done. Abuse screen: Denies threats or abuse. Denies injuries from another. Nutritional screening: No deficits noted. Tuberculosis screening: No symptoms or risk factors identified. Assessment: 16:01 Reassessment: please see triage assessment. kc6 17:00 Reassessment: Patient appears in no apparent distress at this time. No changes from 6 previously documented assessment. Patient and/or family updated on plan of care and expected duration. Pain level reassessed. Patient is alert, oriented x 3, equal unlabored respirations, skin warm/dry/pink. 17:55 Reassessment: Patient appears in no apparent distress at this time. No changes from kc6 previously documented assessment. Patient and/or family updated on plan of care and expected duration. Pain level reassessed. Patient is alert, oriented x 3, equal unlabored respirations, skin warm/dry/pink. 18:45 Reassessment: Patient appears in no apparent distress at this time. No changes from 6 previously documented assessment. Patient and/or family updated on plan of care and expected duration. Pain level reassessed. Patient is alert, oriented x 3, equal unlabored respirations, skin warm/dry/pink. Vital Signs: 16:01 BP 142 / 77; Pulse 71; Resp 20 S; Temp 97.9(O); Pulse Ox 100% on R/A; Weight 55.79 kg kc6 (R); Height 5 ft. 4 in. (162.56 cm) (R); Pain 0/10; 17:00 BP 146 / 80; Pulse 71; Resp 20 S; Pulse Ox 100% on R/A; Pain 0/10; kc6 17:55 BP 142 / 93; Pulse 73; Resp 15 S; Pulse Ox 98% on R/A; kc6 19:49 BP 155 / 95; Pulse 74; Resp 14; Temp 98.5; Pulse Ox 96% on R/A; Pain 0/10; pf1 16:01 Body Mass Index 21.11 (55.79 kg, 162.56 cm) [facility] ED Course: 16:00 Patient arrived in ED. ph 16:00 Brittany Rodriguez, RN is Primary Nurse. ph 16:01 Primary Nurse role handed off by Brittany Rodriguez RN kc6 16:01 Mariana Huffman, QUAN is Primary Nurse. kc6 16:01 Larissa Gross FNP-C is PHCP. snw 16:01 Chi Suggs DO is Attending Physician. snw 16:03 Triage completed. kc6 16:03 Arm band placed on. kc6 16:06 Patient has correct armband on for positive identification. Bed in low position. Call [facility] light in reach. Side rails up X2. Adult w/ patient. 16:28 COVID-19/FLU A+B Sent. kc6 16:35 XRAY Chest (1 view) In Process Unspecified. EDMS 17:15 Head Brain Wo Cont In Process Unspecified. EDMS 17:24 Randy Madison MD is Hospitalizing Provider. snw 19:00 No provider procedures requiring assistance completed. Inserted saline lock: 20 gauge pf1 in right antecubital area, using aseptic technique. ,using aseptic technique. inserted on . 19:49 Patient admitted, IV remains in place. pf1 Administered Medications: 16:52 Drug: Phenergan (promethazine) 12.5 mg Route: IM; Site: right deltoid; kc6 17:57 Follow up: Response: No adverse reaction; Nausea is decreased kc6 16:52 Drug: Lasix (furosemide) 20 mg Route: IVP; Site: right antecubital; kc6 17:56 Follow up: Response: No adverse reaction kc6 Medication: 19:48 VIS not applicable for this client. pf1 Output: 18:29 Urine: 500ml (Voided); Total: 500ml. ph Outcome: 17:28 Decision to Hospitalize by Provider. snw 19:48 Admitted to Med/surg accompanied by tech, via stretcher, room 231, with chart, Report pf1 called to Jerome 19:48 Condition: stable 19:48 Instructed on the need for admit, Demonstrated understanding of instructions. 19:57 Patient left the ED. ll3 Signatures: Dispatcher [employer] EDMS Larissa Gross, RICO-C ORCHARD PRUNER-Brittany Carvajal RN RN ph Loubet, Lynsea, RN RN ll3 Mariana Huffman RN RN kc6 Yoli dubois RN RN pf1 Corrections: (The following items were deleted from the chart) 17:04 16:59 Reassessment: Patient appears in no apparent distress at this time. No changes kc6 from previously documented assessment. Patient and/or family updated on plan of care and expected duration. Pain level reassessed. Patient is alert, oriented x 3, equal unlabored respirations, skin warm/dry/pink. kc6
[2022-09-21 18:30] LABS: Urine Blood Trace-lysed (Negative); Urine Glucose Negative (Negative); Urine Protein 3+ (Negative)
--- NOTE | 2022-09-21 18:49 | RAD REPORT ---
EXAM DESCRIPTION: CT - Abdomen Pelvis Wo Contrast - 09/21/2022 6:34 pm CLINICAL HISTORY: Abdominal pain. Abdominal pain, acute, nonlocalized COMPARISON: [facility] Protocol dated 09/09/2022 TECHNIQUE: CT imaging of the abdomen and pelvis was performed without contrast. Solid organ, bowel a nd vascular assessment is limited due to lack of IV and oral contrast. All CT scans are performed using dose optimization technique as appropriate and may include automated exposure control or mA/KV adjustment according to patient size. FINDINGS: Small nodular densities right lower lobe. The liver, spleen, pancreas, adrenal glands and right kidney are within normal limits for a limited n on-contrast examination.4 cm left renal cyst. Cholelithiasis. Mild ascites. Large amount of stool is present colon. Nonvisualized appendix. The osseous structures are within normal limits. IMPRESSION: Mild ascites. Large amount of stool throughout the colon. Cholelithiasis. Small right lung base nodular densities. A limited non-contrast examination was performed as detailed.
[2022-09-21] MEDS ORDERED: ONDANSETRON 4 MG/2 ML VIAL IV PRN (19:44)
--- NOTE | 2022-09-21 20:10 | P.HP ---
Certification for Inpatient Patient admitted to: Inpatient With expected LOS: >2 Midnights Patient will require the following post-hospital care: None Practitioner: I am a practitioner with admitting privileges, knowledge of patient current condition, hospital course, and medical plan of care. Services: Services provided to patient in accordance with Admission requirements found in Title 42 Section 412.3 of the Code of Federal Regulations Patient History Date of Service: 09/21/22 Reason for admission: Hyponatremia History of Present Illness: 71-year-old male with history of atrial fibrillation on chronic anticoagulation, CKD 3, hypertension, colon cancer and schizophrenia presents to the emergency department for generalized weakness, edema. His reports over the course last 24 to 48 hours she has noticed increasing generalized weakness as well as significant swelling of his lower extremities up to the level of his thighs. He was evaluated in the emergency department his labs were significant for sodium of 120 chloride 89 creatinine 2.21 GFR 31 serum osmolality 258 urine osmolality 265 urine sodium 36 urine potassium 39 BNP 4008 chest x-ray showed mild interstitial pulmonary edema or viral infection suspected. CT head was negative for acute finding CT abdomen pelvis without contrast showed mild ascites, large amount of stool throughout the colon, cholelithiasis, small right lung base nodular densities. Patient was given 20 g of IV Lasix in the emergency department, ED provider wishes to admit for further evaluation and management of hyponatremia. I discussed case with nephrology who recommended additional labs, repeat chemistries before further intervention. Allergies aspirin Adverse Reaction (Verified 02/06/19 09:25) stomach problems Home Medications: Fluphenazide 25 mg IM ONCE 02/06/19 Docusate Sodium [Stool Softener] 1 tab PO DAILY 09/08/22 Esomeprazole Magnesium 1 tab PO DAILY 09/08/22 Hydralazine HCl 1 tab PO BID 09/08/22 Potassium Chloride 1 tab PO DAILY 09/08/22 Amlodipine [Norvasc*] 5 mg PO DAILY 30 Days #30 tab 09/10/22 Apixaban [Eliquis *] 2.5 mg PO BID 30 Days #60 tab 09/10/22 Atorvastatin Calcium [Lipitor] 40 mg PO BEDTIME #30 tab 09/10/22 Metoprolol Tartrate [Lopressor*] 50 mg PO BID 30 Days #60 tab 09/10/22 - Past Medical/Surgical History -: Colon cancer on chemo -: Schizophrenia -: Anemia -: Atrial fibrillation on chronic anticoagulation -: Colon cancer surgery Psychosocial/ Personal History: Patient lives at home with his - Social History Smoking Status: Never smoker Alcohol use: No CD- Drugs: No Caffeine use: Yes Place of Residence: Home Review of Systems 10-point ROS is otherwise unremarkable General: Weakness, Malaise Physical Examination - Physical Exam General: Alert, In no apparent distress, Oriented x3, Other (Very hard of hearing) HEENT: Atraumatic, PERRLA, Mucous membr. moist/pink, EOMI, Sclerae nonicteric Neck: Supple, 2+ carotid pulse no bruit, No LAD, Without JVD or thyroid abnormality Respiratory: Clear to auscultation bilaterally, Normal air movement Cardiovascular: Regular rate/rhythm, Normal S1 S2, Edema (3+ pitting edema bilateral lower extremities, anasarca of the lower extremities) Capillary refill: <2 Seconds Gastrointestinal: Normal bowel sounds, No tenderness Musculoskeletal: No tenderness Integumentary: No rashes Neurological: Normal speech, Normal strength at 5/5 x4 extr, Normal tone, Normal affect - Studies Laboratory Data (last 24 hrs) 09/21/22 16:27: PT 10.9, INR 0.99 09/21/22 16:27: WBC 6.40, Hgb 9.5 L, Hct 29.1 L, Plt Count 319 09/21/22 16:27: Sodium 120 L, Potassium 4.7, BUN 45 H, Creatinine 2.21 H, Glucose 117 H, Magnesium 2.2, Total Bilirubin 0.2, AST 38 H, ALT 40, Alkaline Phosphatase 86 Assessment and Plan - Plan Assessment: Hyponatremia Elevated BNP, pedal edema, anasarca Atrial fibrillation on chronic anticoagulation therapy Colon cancer on chemotherapy BILLIE on CKD 3 Schizophrenia Hypertension Hyperlipidemia Plan: Hyponatremia Given 20mg IV Lasix in the emergency department, will repeat chemistry 4 hours a fter dose of IV Lasix. Case discussed with nephrology, additional labs ordered. Follow repeat chemistry. Medications could be contributing including Fluphenazine or patients chemo agent. Appreciate further input from nephrology. Elevated BNP, pedal edema, anasarca Will repeat echocardiogram, last echo with normal EF. Cardiology consulted, continue IV Lasix. Atrial fibrillation on chronic anticoagulation therapy Continue metoprolol, Eliquis. Colon cancer on chemotherapy Outpatient management BILLIE on CKD 3 Nephrology consulted, continue treatment as above. Schizophrenia Patient last had injection of fluphenazine on 09/14/2022 Hypertension Hyperlipidemia Continue home meds. DVT PPX:Continue eliquis Code status:Full Discharge Plan: Home Plan to discharge in: 72 Hours - Advance Directives Does patient have a Living Will: No Does patient have a Durable POA for Healthcare: No - Code Status/Comfort Care Code Status Assessed: Yes (Full code) Critical Care: No Time Spent Managing Pts Care (In Minutes): 70
[2022-09-21] MEDS: APIXABAN 2.5 MG TABLET PO SCH (21:10)
[2022-09-21] MEDS: ATORVASTATIN 40 MG TAB PO SCH (21:10)
[2022-09-21] MEDS: METOPROLOL TAR 50 MG TAB PO SCH (21:10)
[2022-09-21 21:31] LABS: Potassium 4.3 mmol/L (3.5-5.1)
[2022-09-21 21:32] LABS: Uric Acid 4.9 mg/dL (3.5-7.2)
[2022-09-21 21:35] LABS: Thyroid Stimulating Hormone 4.4 uIU/mL (0.358-3.740)
[2022-09-21 22:51] VITALS: BMI 21.1
[2022-09-22 01:33] LABS: Potassium 4.2 mmol/L (3.5-5.1)
[2022-09-22 04:34] LABS: Absolute Lymphocytes (CBC) 1.2 K/uL (0.7-4.9); Hematocrit 26.1 % (39.6-49.0); Lymphocytes % 25.6 % (15.3-44.8); MCV 83.9 fL (80-100); MPV 7.8 fL (7.6-11.3); RBC Red Blood Cell Count 3.11 M/uL (4.33-5.43)
[2022-09-22 04:49] LABS: Magnesium 2.4 mg/dL (1.6-2.4); Phosphorus 4.8 mg/dL (2.5-4.9); Potassium 4.2 mmol/L (3.5-5.1)
[2022-09-22] MEDS ORDERED: FUROSEMIDE 40 MG/4 ML VIAL IV SCH (09:00)
[2022-09-22] MEDS: APIXABAN 2.5 MG TABLET PO SCH ×2 (09:40→20:32)
[2022-09-22] MEDS: AMLODIPINE 5 MG TAB PO SCH (09:40)
[2022-09-22] MEDS: FUROSEMIDE 20 MG/ 2ML VIAL IV SCH ×2 (09:41→17:04)
[2022-09-22] MEDS: METOPROLOL TAR 50 MG TAB PO SCH ×2 (09:41→20:32)
[2022-09-22 10:03] LABS: Potassium 3.9 mmol/L (3.5-5.1)
--- NOTE | 2022-09-22 12:32 | P.CNS ---
Date of Consult: 09/22/22 Reason for Consult: hyponatremia, renal failure Requesting Physician: Randy Madison Chief Complaint: Hyponatremia History of Present Illness: 71M w/ PMHx of CKD2, baseline SCr 1.2 as of Mar 2022, colon cancer on chemotherapy, nephrotic range proteinuria, Htn, & schizophrenia who p/w generalized weakness & progressive BLE edema over the past couple of days. He has BILLIE. SCr 2.2 on adm, today same. He has hyponatremia w/ serum Na 120 on adm, improved to 125 today. Allergies aspirin Adverse Reaction (Verified 02/06/19 09:25) stomach problems Home Medications: Fluphenazide 25 mg IM ONCE 02/06/19 Docusate Sodium [Stool Softener] 1 tab PO DAILY 09/08/22 Esomeprazole Magnesium 1 tab PO DAILY 09/08/22 Hydralazine HCl 1 tab PO BID 09/08/22 Potassium Chloride 1 tab PO DAILY 09/08/22 Apixaban [Eliquis *] 2.5 mg PO BID 30 Days #60 tab 09/10/22 Atorvastatin Calcium [Lipitor] 40 mg PO BEDTIME #30 tab 09/10/22 Metoprolol Tartrate [Lopressor*] 50 mg PO BID 30 Days #60 tab 09/10/22 Amlodipine [Norvasc*] 5 mg PO DAILY 09/21/22 - Past Medical/Surgical History Diabetic: No -: Colon cancer on chemo -: Schizophrenia -: Anemia -: Atrial fibrillation on chronic anticoagulation -: Colon cancer surgery Psychosocial/ Personal History: Patient lives at home with his - Social History Alcohol use: No CD- Drugs: No Caffeine use: Yes Place of Residence: Home Review of Systems General: Weakness Eyes: Unremarkable ENT: Unremarkable Respiratory: Unremarkable Cardiovascular: Edema Gastrointestinal: Unremarkable Genitourinary: Unremarkable Musculoskeletal: Pedal edema Integumentary: Unremarkable Neurological: Unremarkable Physical Examination Temp Pulse Resp BP Pulse Ox 97.9 F 68 16 128/69 99 09/22/22 08:00 09/22/22 09:41 09/22/22 08:00 09/22/22 09:41 09/22/22 08:00 General: In no apparent distress HEENT: Atraumatic, Normocephalic Neck: Supple Respiratory: Other (symmetric chest expansion) Cardiovascular: No rubs, No murmurs Gastrointestinal: Soft and benign Musculoskeletal: No clubbing, Swelling Integumentary: No warmth Neurological: Normal speech, Normal tone Urinary: Other (no bladder distention) External genitalia: Deferred Rectal: Deferred Laboratory Data (last 24 hrs) 09/21/22 16:27: PT 10.9, INR 0.99 09/21/22 16:27: WBC 6.40, Hgb 9.5 L, Hct 29.1 L, Plt Count 319 09/21/22 16:27: Sodium 120 L, Potassium 4.7, BUN 45 H, Creatinine 2.21 H, Glucose 117 H, Magnesium 2.2, Total Bilirubin 0.2, AST 38 H, ALT 40, Alkaline Phosphatase 86 Conclusions/Impression: # Hyponatremia 2/2 high ADH state from afib/CRS1 + renal dysfxn + low solute intake Serum Na 120 on adm, improved to 125 today BNP sig elevated at 4008 continue by mouth Lasix same dose Encourage by mouth solid food intake at least half a plate 3 times a day Restrict by mouth fluid intake to less than 1.5 L per day for now # BILLIE 2/2 prerenal state/ATN from prolonged prerenal +/- CRS1 from afib SCr on adm at 2.2 Urinalysis showed heavy proteinuria Has massive proteinuria 17g on random UPCR Renal US unremarkable BNP sig elevated Spencer po fluid intake, strictly low Na diet < 2g/d HR control # Proteinuric CKD2 Baseline SCr 1.2 as of Mar 2022 CKD likely 2/2 Htn nephrosclerosis. Proteinuria likely r/t underlying malignancy Monitor renal panel # Massive proteinuria No hx of DM. Hx of colon cancer undergoing chemotherapy. F/u Dr. Cardona. F/u proteinuria workup # Afib AC & HR control per other services F/u TTE # Htn Cont current med regimen # Schizophrenia Cont home meds
[2022-09-22 13:53] LABS: Potassium 4.1 mmol/L (3.5-5.1)
[2022-09-22 16:43] LABS: Potassium 4.1 mmol/L (3.5-5.1)
[2022-09-22 16:47] LABS: Potassium 4.1 mmol/L (3.5-5.1)
--- NOTE | 2022-09-22 18:04 | CON ---
Reason For Consultation: Evaluate for possible heart failure. History Of Present Illness: This is a 71-year-old male with history of atrial fibrillation on antico agulation, chronic kidney disease, hypertension, colon cancer, schizophrenia, presented with generali zed weakness and lower extremity edema. He was found to have low sodium at 120 with elevated creatin ine. He was in the hospital recently. His creatinine was 1.75, which is worsened since last er. He had lower extremity edema, so was started on some IV fluids and his sodium is nicely coming u p. Past Medical History: As outlined above in the HPI. Medications: Refer reconciliation sheet for detailed list. Allergies: NO KNOWN DRUG ALLERGIES. Family History: No premature coronary artery disease or cancer. Social History: Does not smoke or drink. Does not use any drugs. Review of Systems: All systems reviewed and they are negative except as mentioned in HPI. Physical Examination: Vital Signs: Reviewed. Head and Neck: Pupils are equal, reactive to light. Intact eye movements. No JVD. No cervical lym phadenopathy. Neck is supple. Thyroid is not enlarged. Lungs: Clear to auscultation bilaterally. No rhonchi, wheezing, or crackles. No accessory muscle u se. Heart: Regular rate and rhythm. No extra sounds. Abdomen: Soft, nontender. Bowel sounds positive. No organomegaly. No masses or hernia. No rigidi ty or rebound. Extremities: No edema, clubbing, or cyanosis. Intact pulses. Skin: No rashes. Neurologic: Alert, awake, oriented x3. No acute focal deficits appreciated. Lymph Nodes: No cervical or axillary lymphadenopathy. Investigations: NT-ProBNP is 4008. Troponins negative. Sodium 124, BUN 41, creatinine 2.2. His he moglobin is 8.6. Assessment/recommendation: 1.Lower extremity edema, elevated NT-proBNP. Definitely there is a component of either chronic flui d retention or diastolic heart failure. He had an echo recently this past month and even diastolic f unction appeared to be normal and normal ejection fraction. So, at this point, this patient will gladys efit from a long-term diuretic therapy and use of probably 40 mg of Lasix by mouth daily. Monitor el ectrolytes, BUN, and creatinine. 2.Hypertension. Blood pressure is controlled. Continue current management. 3.History of atrial fibrillation. Continue Eliquis and metoprolol. 4.Dyslipidemia. Continue statin. 5.Hyponatremia. This is improving. The patient is being followed by Nephrology. /TRICIA Voice ID: [id number] Report ID: [id number]
--- NOTE | 2022-09-22 19:40 | P.PN ---
Date of Service: 09/22/22 Subjective: feels better ambulated in hallway swelling improving, eating ok no chest pain, no nausea/vomiting generalized weakness ROS: A complete review of systems was performed and is negative except as mentioned above Physical Exam: Gen: NAD, alert, hard of hearing, pleasant HEENT: normal conjunctiva, sclera anicteric CV: regular rate & rhythm, 1+ bilateral lower extremity edema in legs Pulm: non-labored respirations, + expiratory wheeze Abd: soft, non-tender, non-distended Neuro: normal speech, normal affect, generalized weakness, hard of hearing vitals reviewed Problem List Hyponatremia Elevated BNP, pedal edema, anasarca Atrial fibrillation on chronic anticoagulation therapy Colon cancer on chemotherapy BILLIE on CKD 3 Schizophrenia Hypertension Hyperlipidemia unclear exact etiology of hyponatremia reports patient was avoiding all salt, possibly low solute intake, ?SIADH, possible from chemo, ?fluphenazine (09/14/22) no new medications that typically cause / increase risk of hyponatremia noted s/p IV lasix 20mg in ED with some slow improvement, continued on 20mg BID continued improvement this AM nephrology consulted for assistance echo ordered afib on chronic anticoagulation therapy continue metoprolol, eliquis undergoing chemotherapy for colon cancer avoid nephrotoxic meds monitor BP, adjust meds as needed VTE: home eliquis Code: full Dispo: home, ~2 days home health, PT
[2022-09-22] MEDS: ATORVASTATIN 40 MG TAB PO SCH (20:32)
[2022-09-22 21:03] LABS: Potassium 3.8 mmol/L (3.5-5.1)
[2022-09-23 01:53] LABS: Potassium 3.8 mmol/L (3.5-5.1)
[2022-09-23 05:12] LABS: Absolute Lymphocytes (CBC) 1.6 K/uL (0.7-4.9); Hematocrit 26.6 % (39.6-49.0); Lymphocytes % 34.9 % (15.3-44.8); MPV 8.9 fL (7.6-11.3); RBC Red Blood Cell Count 3.17 M/uL (4.33-5.43)
[2022-09-23 05:20] LABS: Potassium 3.5 mmol/L (3.5-5.1)
[2022-09-23] MEDS: AMLODIPINE 5 MG TAB PO SCH (08:36)
[2022-09-23] MEDS: APIXABAN 2.5 MG TABLET PO SCH (08:37)
[2022-09-23] MEDS: FUROSEMIDE 20 MG/ 2ML VIAL IV SCH (08:37)
[2022-09-23] MEDS: METOPROLOL TAR 50 MG TAB PO SCH (08:37)
[2022-09-23] MEDS ORDERED: POTASSIUM 25 MEQ EFFERV TAB PO ONE (12:30)
--- NOTE | 2022-09-23 12:35 | PN ---
Date of Progress Note: 09/23/2022 Subjective: The patient was admitted with hyponatremia, anasarca. The patient has been diuresed. S odium gradually improved from 120 to 128, appropriate rise. Swelling has significantly improved. Ye t, his kidney function did not improve. The patient's baseline creatinine 1.2 in the last couple of admissions, still the same. The patient had questionable hydronephrosis on the CT. Physical Examination: Vital Signs: When I saw the patient; blood pressure 104/69, pulse of 85, afebrile. The patient had good urine output of 2500, negative of 1 L. Chest: Clear to auscultation. Heart: S1, S2. Regular. Systolic murmur. Abdomen: Soft, nontender. Extremities: Trace edema. Neurologic: Alert. No focality. Laboratory Data: Sodium 128, potassium 3.5, bicarb 23, BUN 40, creatinine 2.1, GFR 32, calcium of 8. The patient's serology in the previous admission was negative. Serum protein electrophoresis was n egative. Anti-ALP2 was not done. Current Medications: The patient on include; 1.Lasix 20 mg. 2.Amlodipine 5 mg. 3.Eliquis. 4.Atorvastatin. 5.Zofran. 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 I am going to go ahead and arrange for kidney biopsy for the patient and we will follow up the patient. We will discuss with primary regarding the anticoagulation to be held around the biopsy as the patient has atrial fibrillation. 2.Hyponatremia secondary to dilutional secondary to nephrotic range proteinuria. I am going to cont inue current dose of Lasix. 3.Anasarca secondary to nephrotic range of proteinuria, recovered. Continue Lasix 20 b.i.d. I am g oing to switch the patient to oral. 4.Colon cancer as by primary. 5.Hypokalemia. We will supplement. YONATHAN/TRICIA Voice ID: [id number] Report ID: [id number]
--- NOTE | 2022-09-23 16:30 | P.PN ---
Date of Service: 09/23/22 Subjective: feeling much better diuresing, swelling improved no new/worsening symptoms eating well ROS: A complete review of systems was performed and is negative except as mentioned above Physical Exam: Gen: NAD, alert, hard of hearing, pleasant HEENT: normal conjunctiva, sclera anicteric CV: regular rate & rhythm, trace-1+ bilateral lower extremity edema in legs Pulm: non-labored respirations, +mild expiratory wheeze transmitted from upper airway Abd: soft, non-tender, non-distended Neuro: normal speech, normal affect, generalized weakness, hard of hearing vitals reviewed Problem List Hyponatremia Elevated BNP, pedal edema, anasarca Atrial fibrillation on chronic anticoagulation therapy Colon cancer on chemotherapy BILLIE on CKD 3 Schizophrenia Hypertension Hyperlipidemia unclear exact etiology of hyponatremia reports patient was avoiding all salt, possibly low solute intake, ?SIADH, possible from chemo, ?fluphenazine (09/14/22) no new medications that typically cause / increase risk of hyponatremia noted s/p IV lasix 20mg in ED with some slow improvement, continued on lasix continued improvement nephrology consulted for assistance echo ordered afib on chronic anticoagulation therapy continue metoprolol, eliquis undergoing chemotherapy for colon cancer avoid nephrotoxic meds monitor BP, adjust meds as needed restart PPI, colace, kcl replacement VTE: home eliquis Code: full Dispo: home, ~1-2 days home health, PT
[2022-09-23] MEDS: FUROSEMIDE 20 MG TABLET PO SCH (17:03)
[2022-09-23] MEDS ORDERED: ACETAMINOPHEN 500 MG TAB PO PRN (17:53)
[2022-09-23] MEDS: ATORVASTATIN 40 MG TAB PO SCH (20:52)
[2022-09-23] MEDS ORDERED: METOPROLOL TAR 25 MG TAB PO SCH (21:00)
[2022-09-24] MEDS: PANTOPRAZOLE 40MG TABLET PO SCH (05:10)
[2022-09-24 06:18] LABS: Potassium 3.5 mmol/L (3.5-5.1)
[2022-09-24 06:26] LABS: Absolute Lymphocytes (CBC) 2.2 K/uL (0.7-4.9); Hematocrit 26.2 % (39.6-49.0); Lymphocytes % 44.1 % (15.3-44.8); MCV 84.3 fL (80-100); MPV 8.7 fL (7.6-11.3); RBC Red Blood Cell Count 3.11 M/uL (4.33-5.43)
--- NOTE | 2022-09-24 06:30 | P.PN ---
Date of Service: 09/24/22 Subjective: while in afib, pt with 17 ~3sec pauses within 2 hr period overnight converted to sinus overnight, no further pauses thus far metop decreased patient asymptomatic, feels near baseline ROS: A complete review of systems was performed and is negative except as mentioned above Physical Exam: Gen: NAD, alert, hard of hearing, pleasant HEENT: normal conjunctiva, sclera anicteric CV: regular rate & rhythm, trace bilateral lower extremity edema in legs Pulm: non-labored respirations, diminished bilaterally at bases Abd: soft, non-tender, non-distended Neuro: normal speech, normal affect, generalized weakness, hard of hearing vitals reviewed Problem List Hyponatremia Elevated BNP, pedal edema, anasarca Atrial fibrillation on chronic anticoagulation therapy Colon cancer on chemotherapy BILLIE on CKD 3 Schizophrenia Hypertension Hyperlipidemia unclear exact etiology of hyponatremia BILLIE on CKD3 reports patient was avoiding all salt, possibly low solute intake, ?SIADH, possible from chemo, ?fluphenazine (09/14/22) no new medications that typically cause / increase risk of hyponatremia noted s/p IV lasix 20mg in ED with some slow improvement, continued on lasix continued improvement nephrology consulted, recommend renal biopsy - hold anticoagulation afib on chronic anticoagulation therapy Sinus pauses 3 x 3-4 sec pauses on 09/23 -> decreased metoprolol to 25mg BID from 50mg after discussion with cardiology overnight had 17 more pauses while in afib. no further after converted to sinus. decreased metop to 12.5mg patient will need pacemaker at some point echo ordered eliquis held for biopsy undergoing chemotherapy for colon cancer avoid nephrotoxic meds monitor BP, adjust meds as needed restarted PPI, colace, kcl replacement VTE: hold for biopsy Code: full Dispo: home, ~1-2 days home health, PT
[2022-09-24] MEDS: POTASSIUM CL SA 10 MEQ TAB PO SCH (08:39)
[2022-09-24] MEDS: DOCUSATE NA 100 MG CAP PO SCH (08:39)
[2022-09-24] MEDS: METOPROLOL TAR 25 MG TAB PO SCH ×2 (08:40→20:38)
[2022-09-24] MEDS: FUROSEMIDE 20 MG TABLET PO SCH ×2 (08:40→17:49)
[2022-09-24] MEDS ORDERED: ENOXAPARIN 30 MG/0.3 ML SQ SCH (09:00)
[2022-09-24] MEDS: AMLODIPINE 5 MG TAB PO SCH (09:00)
--- NOTE | 2022-09-24 12:58 | PN ---
Date of Progress Note: 09/24/2022 Subjective: The patient was admitted with acute kidney injury, hyponatremia, nephrotic range of prot einuria. The patient's kidney function did not improve. The patient's sodium has been improved sign ificantly that we will switch the patient to oral. Physical Examination: Vital Signs: Blood pressure 105/62, pulse of 73. The patient had good urine output of 1100, but les s than night before. Chest: Clear to auscultation. Heart: S1, S2. Regular. Abdomen: Soft, nontender. Extremity: Trace edema. Neurologic: Alert. No focality. Laboratory Data: Hemoglobin 8.5. Sodium 125, potassium 3.5, bicarb 26, BUN 40, creatinine 2.1, GFR of 32, calcium 7.3, magnesium 2.4. Current Medications: The patient on include; 1.Lovenox. 2.Amlodipine 5 mg. 3.Atorvastatin. 4.Metoprolol. 5.Tylenol. 6.Lasix 20 b.i.d. 7.Pantoprazole. 8.Zofran. Assessment And Plan: 1.Acute kidney injury, unknown etiology, with nephrotic range of proteinuria, normal sized kidney or differential diagnosis of. 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 Given no other explanation for his worsening kidney function, we will proceed with the kidney biopsy tomorrow and we will follow up. 3.Hypertension, currently blood pressure on the lower side. I am going to discontinue amlodipine. 4.Hyponatremia, possible dilutional, secondary to nephrotic range of proteinuria. Increase Lasix 40 mg b.i.d. We will send for uric acid and urine electrolyte, again discontinue amlodipine and we carlyle l follow up. 5.Nephrotic range of proteinuria. Serology negative with the presence of acute kidney injury. We w ill proceed with kidney biopsy as above. Unfortunately could not start YSABEL inhibitor or ARB given th e blood pressure currently and the worsening kidney function. 6.Deconditioning. Continue PT, OT. 7.Atrial fibrillation. Hold anticoagulation for preparation for kidney biopsy. YONATHAN/TRICIA Voice ID: [id number] Report ID: [id number]
[2022-09-24] MEDS: ATORVASTATIN 40 MG TAB PO SCH (20:38)
[2022-09-25] MEDS: METOPROLOL TAR 25 MG TAB PO SCH ×2 (05:15→20:36)
[2022-09-25] MEDS: PANTOPRAZOLE 40MG TABLET PO SCH (05:15)
--- NOTE | 2022-09-25 06:49 | P.PN ---
Date of Service: 09/25/22 Subjective: back in afib overnight plan for renal biopsy when IR able to ROS: A complete review of systems was performed and is negative except as mentioned above Physical Exam: Gen: NAD, alert, hard of hearing, pleasant HEENT: normal conjunctiva, sclera anicteric CV: regular rate & rhythm, trace bilateral lower extremity edema in legs Pulm: non-labored respirations, diminished bilaterally at bases Abd: soft, non-tender, non-distended Neuro: normal speech, normal affect, generalized weakness, hard of hearing vitals reviewed Problem List Hyponatremia Elevated BNP, pedal edema, anasarca Atrial fibrillation on chronic anticoagulation therapy Colon cancer on chemotherapy BILLIE on CKD 3 Schizophrenia Hypertension Hyperlipidemia unclear exact etiology of hyponatremia BILLIE on CKD3 reports patient was avoiding all salt, possibly low solute intake, ?SIADH, possible from chemo, ?fluphenazine (09/14/22) no new medications that typically cause / increase risk of hyponatremia noted s/p IV lasix 20mg in ED with some slow improvement, continued on lasix continued improvement nephrology consulted, recommend renal biopsy - hold anticoagulation IR reports too busy today, but will try afib on chronic anticoagulation therapy Sinus pauses 3 x 3-4 sec pauses on 09/23 -> decreased metoprolol to 25mg BID from 50mg after discussion with cardiology overnight had 17 more pauses while in afib. no further after converted to sinus. decreased metop to 12.5mg; but will increase1 now in afiin patient will need pacemaker at some point echo ordered eliquis held for biopsy undergoing chemotherapy for colon cancer avoid nephrotoxic meds monitor BP, adjust meds as needed restarted PPI, colace, kcl replacement VTE: hold for biopsy Code: full Dispo: home, ~1-2 days home health, PT
[2022-09-25 07:03] LABS: Potassium 3.4 mmol/L (3.5-5.1); Uric Acid 5.1 mg/dL (3.5-7.2)
[2022-09-25 07:06] LABS: Specific Gravity 1.005 (1.005-1.030); Urine Bacteria None Seen /HPF (<20); Urine Bilirubin NEGATIVE (Negative); Urine Blood Trace (Negative); Urine Clarity Clear (Clear); Urine Color Colorless (Yellow); Urine Glucose TRACE (Negative); Urine Protein 2+ (Negative); Urine RBC <5 /HPF (None Seen); Urine Urobilinogen Normal (Normal)
[2022-09-25] MEDS: POTASSIUM CL SA 10 MEQ TAB PO SCH (09:00)
[2022-09-25] MEDS: FUROSEMIDE 20 MG TABLET PO SCH (09:00)
[2022-09-25] MEDS: DOCUSATE NA 100 MG CAP PO SCH ×2 (09:00→20:36)
[2022-09-25 13:33] LABS: Hematocrit 29.2 % (39.6-49.0); MCV 84.3 fL (80-100); MPV 8.2 fL (7.6-11.3); RBC Red Blood Cell Count 3.46 M/uL (4.33-5.43)
[2022-09-25] MEDS ORDERED: NACHLORIDE 0.45% 1,000 ML IV SCH (14:00)
[2022-09-25 15:05] LABS: Potassium 4.2 mmol/L (3.5-5.1)
[2022-09-25] MEDS: ATORVASTATIN 40 MG TAB PO SCH (20:36)
[2022-09-26] MEDS: PANTOPRAZOLE 40MG TABLET PO SCH (05:25)
[2022-09-26 05:45] LABS: Absolute Lymphocytes (CBC) 1.7 K/uL (0.7-4.9); Hematocrit 26.9 % (39.6-49.0); Lymphocytes % 38.9 % (15.3-44.8); MCV 83.5 fL (80-100); MPV 7.6 fL (7.6-11.3); RBC Red Blood Cell Count 3.22 M/uL (4.33-5.43)
--- NOTE | 2022-09-26 05:53 | PN ---
Date of Progress Note: 09/25/2022 Subjective: Acute kidney injury, nephrotoxic range of proteinuria, possible MGUS. The patient was a dmitted with acute kidney injury, was found to have severe hyponatremia. Sodium level has gradually improved over last several days. Patient is started on Lasix for volume control. He developed some extremity edema. Renal function overall has worsened over the last several months. Patient had work up done to rule out monoclonal gammopathy of unknown significance, and results are abnormal. Patient will need further workup including a renal biopsy. Review of Systems: Denies fever, chills. Physical Examination: Lungs: Clear to auscultation bilaterally. Heart: S1-S2. Abdomen: Soft. Extremities: Edema present. Impression And Plan: 1.Acute on chronic kidney injury associated with proteinuria. Renal ultrasound did not show hydrone phrosis. 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 2.Hypertension. Blood pressure was elevated. Plan is to resume Norvasc 2.5 mg daily. 3.Hyponatremia. Lasix was increased to control fluid overload. Monitor electrolytes. Patient deve loped severe hyponatremia likely multiple etiologies including low solute intake and fluid overload, which was contributory factors. of proteinuria. Patient started an angiotensin receptor elder because of worsening of the renal function, acute kidney injury. 4.Atrial fibrillation. The patient currently off anticoagulation. Further medication from primary team. FAYE/MODL Voice ID: [id number] Report ID: [id number]
[2022-09-26 06:14] LABS: Albumin 1.9 g/dL (3.4-5.0); Bilirubin Total 0.1 mg/dL (0.2-1.0); Potassium 3.3 mmol/L (3.5-5.1); Protein, Total 4.7 g/dL (6.4-8.2)
[2022-09-26] MEDS ORDERED: MIDAZOLAM HCL 2 MG/2 ML INJ ONE ×2 (08:25→08:26)
[2022-09-26] MEDS ORDERED: FENTANYL CITR 100 MCG/2 ML ONE ×2 (08:25→08:26)
[2022-09-26] MEDS ORDERED: NA CHLORIDE 0.9% 1,000 ML ONE (08:25)
[2022-09-26] MEDS ORDERED: NALOXONE HCL 2 MG/2 ML VIAL ONE (08:25)
[2022-09-26 08:32] VITALS: O2SAT 98
[2022-09-26] MEDS: AMLODIPINE 2.5 MG TAB PO SCH (11:59)
[2022-09-26] MEDS: METOPROLOL TAR 25 MG TAB PO SCH ×2 (12:00→20:43)
[2022-09-26] MEDS: DOCUSATE NA 100 MG CAP PO SCH (12:01)
--- NOTE | 2022-09-26 13:02 | RAD REPORT ---
EXAM DESCRIPTION: CT - Renal Biopsy CT - 09/26/2022 10:05 am CLINICAL HISTORY: RENAL DISEASEacute kidney disease COMPARISON: Abdomen Pelvis Wo Contrast dated 09/21/2022 TECHNIQUE: Patient presents for image guided renal biopsy. The patient's prior imaging studies were reviewed. Patient had no contraindicated allergy or medication history. Blood pressure was within acc eptable range. Patient was off Eliquis therapy for 3 days prior to this procedure. PT/ PTT/INR studie s and platelet values within acceptable range. The procedure, risks and alternatives to the procedure were discussed with the patient and the patien t's . After answering all questions, both oral and written consent were obtained. IV access and physiologic monitors were in place. Patient was monitored throughout the procedure by [facility] personnel. Patient was placed in a prone position on the CT table. Lower pole of the left kidney was selected fo r biopsy. Conscious sedation: Versed at 2.0 milligrams IV, fentanyl 100 micrograms IV. The skin was prepped and draped in the usual sterile fashion. Skin and deeper tissues down to the kid perfecto were anesthetized with 1% lidocaine. Under CT guidance, a 17 gauge introducer needle was it band stent placed at the posteroinferior margin of the left kidney. Positioning tuck multiple attempts. Th e patient had repeated movement that alter the positioning of the introducer needle. Once the patient could be subtle interposition, the needle was once again placed at the posteroinferior margin of the left kidney. An 18 gauge biopsy needles were advanced through the introducer needle and 2 core biops ies of the lower pole left kidney were obtained. Biopsy needle is believed of traverse the kidney. Fi rmness of the renal tissue could be felt through the biopsy needle. Biopsy specimens were given to pathology for further assessment. Introducer needle was withdrawn. Dir ect pressure was applied to the puncture site. Hemostasis was obtained. Post biopsy imaging showed on ly trace amounts of hemorrhage in the retroperitoneal fat at the biopsy site. The patient tolerated procedure well without complication. Vital signs were stable throughout the pro cedure. Patient was transferred back to the floor for continued care. IMPRESSION: CT-guided renal biopsy as detailed.
--- NOTE | 2022-09-26 13:38 | PN ---
Date of Progress Note: 09/26/2022 Subjective: The patient admitted with acute kidney injury, nephrotic range of proteinuria. The tiffany ent is scheduled for biopsy today. Physical Examination: Vital Signs: Blood pressure 140/77, pulse of 68. Chest: Clear to auscultation. Heart: S1, S2. Regular. Abdomen: Soft, nontender. Extremities: No edema. Neuro: Alert. Pleasantly confused. Laboratory Data: Hemoglobin 8.8. Sodium 134, potassium 3.3, bicarb 25, BUN 30, creatinine 1.8, calc ium 7.7. Current Medications: The patient is on include amlodipine, atorvastatin, metoprolol, pantoprazole. Assessment And Plan: 1.Acute kidney injury with nephrotic range of proteinuria. Follow up biopsy. 2.Hyponatremia secondary to nephrotic range of proteinuria, recovered, resolved. Continue current t reatment. 3.Ascites as by primary. 4.Chronic kidney disease with acute kidney injury as above. 5.Colon cancer as by Hematology. 6.Atrial fibrillation as by primary. HIRA Voice ID: [id number] Report ID: [id number]
--- NOTE | 2022-09-26 15:38 | PN ---
Date of Progress Note: 09/25/2022 Subjective: The patient was seen by bedside. Doing clinically well. He has been running slow on me toprolol and metoprolol dose was cut down to 12.5 mg twice a day. Review of Systems: No chest pain, shortness of breath, orthopnea, cough, nausea, vomiting, diarrhea. All other systems reviewed and they were negative. Physical Examination: Vital Signs: Reviewed. Head and Neck: Pupils are equal, reactive to light. Intact eye movements. No JVD. No cervical lym phadenopathy. Neck is supple. Thyroid is not enlarged. Lungs: Clear to auscultation bilaterally. No rhonchi, wheezing, or crackles. No accessory muscle u se. Heart: Regular rate and rhythm. No extra sounds. Abdomen: Soft, nontender. Bowel sounds positive. No organomegaly. No masses or hernia. No rigidi ty or rebound. Extremities: No clubbing or cyanosis. Intact pulses. Skin: No rash. Neurologic: Alert, awake, oriented x3. No acute focal deficits appreciated. Investigations: His BUN 26, creatinine 2.18. Assessment And Recommendations: 1.Atrial fibrillation. Rate is controlled. Metoprolol was cut down to 12.5 due to short pauses. W e will monitor. If he goes back into atrial fibrillation, we will need to increase the metoprolol. 2.Dyslipidemia. Continue statin. 3.Congestive heart failure. Appears to be euvolemic and off Lasix. SR/MODL Voice ID: [id number] Report ID: [id number]
--- NOTE | 2022-09-26 15:44 | PN ---
Date of Progress Note: 09/26/2022 Subjective: The patient seen by bedside. Doing clinically well. Does not have any chest pain or sh ortness of breath. He is in sinus rhythm, controlled on metoprolol 25 mg twice a day. Review of Systems: No chest pain, shortness of breath, orthopnea, cough, nausea, vomiting, diarrhea. All other systems reviewed and they were negative. Physical Examination: Vital Signs: Reviewed. Head and Neck: Pupils are equal, reactive to light. Intact eye movements. No JVD. No cervical lym phadenopathy. Neck is supple. Thyroid is not enlarged. Lungs: Clear to auscultation bilaterally. No rhonchi, wheezing, or crackles. No accessory muscle u se. Heart: Regular rate and rhythm. No extra sounds. Abdomen: Soft, nontender. Bowel sounds positive. No organomegaly. No masses or hernia. No rigidi ty or rebound. Extremities: No edema, clubbing, or cyanosis. Intact pulses. Skin: No rash. Neurologic: Alert, awake, oriented x3. No acute focal deficits appreciated. Investigations: Labs reviewed. BUN 30, creatinine 0.86. Assessment And Recommendations: 1.Acute on chronic renal failure. It is improving. Continue current management. 2.Atrial fibrillation, rate is controlled. He is in sinus in fact. Recommend to add Eliquis 2.5 mg twice a day and continue metoprolol 25 mg twice a day. The patient can be released to follow up as outpatient. 3.Dyslipidemia. Continue statin. SR/MODL Voice ID: [id number] Report ID: [id number]
--- NOTE | 2022-09-26 18:19 | P.PN ---
Subjective Date of Service: 09/26/22 Chief Complaint: Hyponatremia Patient has no new complaints. Status post kidney biopsy today. Physical Examination - Vital Signs Temperature: 97.6 F Blood Pressure: 157/81 Pulse: 61 Respirations: 16 Pulse Ox (%): 98 Assessment And Plan - Plan Physical Exam: Gen: NAD, alert. CV: regular rate & rhythm, trace bilateral lower extremity edema in legs Pulm: non-labored respirations, diminished bilaterally at bases Abd: soft, non-tender, non-distended Neuro: normal speech, normal affect. vitals reviewed Problem List Hyponatremia Elevated BNP, pedal edema, anasarca Atrial fibrillation on chronic anticoagulation therapy Colon cancer on chemotherapy BILLIE on CKD 3 Schizophrenia Hypertension Hyperlipidemia unclear exact etiology of hyponatremia. Possible SIADH BILLIE on CKD3 continued on lasix continued improvement nephrology is following. Patient with proteinuria and hypoalbuminemia. Status post renal biopsy today avoid nephrotoxic meds afib on chronic anticoagulation therapy Patient was experiencing sinus pauses. Has been in and out of A-fib Cardiology following. Metoprolol initially increased to 50 mg twice daily. Now cut back to 25 mg twice daily. Resume Eliquis 2.5 mg twice daily. Colon cancer Patient is not an active cancer treatment for colon cancer VTE: Eliquis Code: full Dispo: home health with PT
[2022-09-26] MEDS: ATORVASTATIN 40 MG TAB PO SCH (20:43)
[2022-09-27] MEDS: PANTOPRAZOLE 40MG TABLET PO SCH (07:32)
[2022-09-27] MEDS: AMLODIPINE 2.5 MG TAB PO SCH (08:39)
[2022-09-27 08:40] VITALS: BP 136/76
[2022-09-27] MEDS: DOCUSATE NA 100 MG CAP PO SCH (08:40)
[2022-09-27] MEDS: METOPROLOL TAR 25 MG TAB PO SCH (08:40)
[2022-09-27 09:01] VITALS: TEMP 98.6
--- NOTE | 2022-09-27 12:16 | P.DS ---
Admission Date: 09/21/22 Discharge Date: 09/27/22 Disposition: ROUTINE DISCHARGE Discharge Condition: FAIR Reason for Admission: Hyponatremia Brief History of Present Illness: 71-year-old male with history of atrial fibrillation on chronic anticoagulation, CKD 3, hypertension, colon cancer and schizophrenia presented to the emergency department for generalized weakness, edema. His reported that over the course 24 to 48 hours she noticed increasing generalized weakness as well as significant swelling of his lower extremities up to the level of his thighs. He was evaluated in the emergency department and his labs were significant for sodium of 120 chloride 89 creatinine 2.21, GFR 31, serum osmolality 258, urine osmolality 265, urine sodium 36, urine potassium 39, BNP 4008. Chest x-ray showed mild interstitial pulmonary edema or viral infection suspected. CT head was negative for acute finding. CT abdomen pelvis without contrast showed mild ascites, large amount of stool throughout the colon, cholelithiasis, small right lung base nodular densities. Patient was given 20 g of IV Lasix in the emergency department and patient admitted for further management. Hospital Course: Diagnosis Hyponatremia Elevated BNP, pedal edema, anasarca Atrial fibrillation on chronic anticoagulation therapy Colon cancer on chemotherapy BILLIE on CKD 3 Schizophrenia Hypertension Hyperlipidemia Patient admitted to the medical floor and the following problems addressed. Hyponatremia unclear etiology of hyponatremia. Possible SIADH versus increased renal loss. BILLIE on CKD3/anasarca Seen by nephrology Patient treated with Lasix therapy Hyponatremia improved. Patient noted to have nephrotic range proteinuria and hypoalbuminemia Status post renal biopsy per nephrology recommendation. Anasarca improved with the Lasix. Patient will follow-up with nephrology as an outpatient regarding biopsy result afib on chronic anticoagulation therapy Patient was experiencing sinus pauses. Has been in and out of A-fib Seen by cardiology Metoprolol initially increased to 50 mg twice daily. Now cut back to 25 mg twice daily. Eliquis held briefly for kidney biopsy and resumed after the biopsy. Colon cancer Patient is on active cancer treatment for colon cancer. He will follow-up with his oncologist for decision regarding further chemotherapy. VTE: Eliquis Code: full Dispo: home health with PT Vital Signs/Physical Exam: Temp Pulse Resp BP Pulse Ox 98.6 F 63 16 136/76 97 09/27/22 08:00 09/27/22 08:40 09/27/22 08:00 09/27/22 08:40 09/27/22 08:00 General: In no apparent distress HEENT: Mucous membr. moist/pink Neck: JVD not distended Respiratory: Clear to auscultation bilaterally, Normal air movement Cardiovascular: No edema, Regular rate/rhythm, Normal S1 S2 Gastrointestinal: Soft and benign, Non-distended, No tenderness Musculoskeletal: No swelling Integumentary: No rashes, No cyanosis Neurological: Normal strength at 5/5 x4 extr Laboratory Data at Discharge: WBC 4.40 K/uL (4.3-10.9) 09/26/22 05:29 Hgb 8.8 g/dL (13.6-17.9) L 09/26/22 05:29 Hct 26.9 % (39.6-49.0) L 09/26/22 05:29 Plt Count 275 K/uL (152-406) 09/26/22 05:29 PT 10.9 SECONDS (9.5-12.5) 09/21/22 16:27 INR 0.99 09/21/22 16:27 Sodium 134 mmol/L (136-145) L 09/26/22 05:29 Potassium 3.3 mmol/L (3.5-5.1) L D 09/26/22 05:29 BUN 30 mg/dL (7-18) H 09/26/22 05:29 Creatinine 1.86 mg/dL (0.70-1.30) H 09/26/22 05:29 Glucose 97 mg/dL (74-106) 09/26/22 05:29 Uric Acid 5.1 mg/dL (3.5-7.2) 09/25/22 06:14 Phosphorus 4.8 mg/dL (2.5-4.9) 09/22/22 04:25 Magnesium 2.3 mg/dL (1.6-2.4) 09/24/22 19:44 Total Bilirubin 0.1 mg/dL (0.2-1.0) L 09/26/22 05:29 AST 24 U/L (15-37) 09/26/22 05:29 ALT 31 U/L (16-61) 09/26/22 05:29 Alkaline Phosphatase 82 U/L (45-117) 09/26/22 05:29 Home Medications: Fluphenazide 25 mg IM ONCE 02/06/19 Docusate Sodium [Stool Softener] 1 tab PO DAILY 09/08/22 Esomeprazole Magnesium 1 tab PO DAILY 09/08/22 Potassium Chloride 1 tab PO DAILY 09/08/22 Apixaban [Eliquis *] 2.5 mg PO BID 30 Days #60 tab 09/10/22 Atorvastatin Calcium [Lipitor] 40 mg PO BEDTIME #30 tab 09/10/22 Amlodipine [Norvasc*] 2.5 mg PO DAILY #30 tab 09/27/22 Metoprolol Tartrate [Lopressor*] 25 mg PO BID #60 tab 09/27/22 New Medications: Metoprolol Tartrate [Lopressor*] 25 mg PO BID #60 tab Amlodipine [Norvasc*] 2.5 mg PO DAILY #30 tab Diet: AHA Activity: Ad jared Followup: Leidy Schmitt MD [ACTIVE - CAN ADMIT] - 1 Week Roberto Tillman MD [ACTIVE - CAN ADMIT] - 1-2 Weeks Unknown,U [Primary Care Provider] - 1-2 Weeks Time spent managing pt's care (in minutes): 35
--- NOTE | 2022-09-27 14:56 | PN ---
Date of Progress Note: 09/27/2022 Subjective: The patient was admitted with hyponatremia, anasarca, treated with diuresis. Sodium nor malized. Edema has been resolved. The patient found to have also elevation in PC ratio with worseni ng kidney function. The patient undergone kidney biopsy, tolerated very well. Physical Examination: Vital Signs: Blood pressure 136/76, pulse of 63, afebrile. Chest: Clear to auscultation. Heart: S1, S2. Systolic murmur. Abdomen: Soft, nontender. Extremity: No edema. Neurologic: Alert. No focality. Pleasantly confused. Laboratory Data: Hemoglobin 8.8. Sodium 134, potassium 3.3, bicarb 25, BUN 30, creatinine 1.8, calc ium 7.7, albumin 1.9. Corrected calcium is 9.3. Current Medications: The patient on include amlodipine 2.5 mg, atorvastatin 40 mg, metoprolol 25 b.i .d., Tylenol, pantoprazole, Zofran. Assessment And Plan: 1.Acute kidney injury with nephrotic range of proteinuria, plateaued, nonoliguric, no hyperkalemia, status post kidney biopsy. The patient's kidney function stabilized, okay to be discharged. Tolerat ing the biopsy. We will follow up biopsy results as outpatient. 2.Hyponatremia, dilutional, secondary to nephrotic range of proteinuria. Responded to the Lasix. W e will continue current dose. 3.Ascites secondary to nephrotic. We will follow up with primary. Continue diuresis. 4.Colon cancer as by Oncology. 5.Hypokalemia, status post supplement, resolved. IHRA Voice ID: [id number] Report ID: [id number]
--- NOTE | 2022-10-03 17:41 | EKG ---
Test Date: 2022-09-24 Test Time: 05:36:36 Mixing Tank Operator: CARLOS MEASUREMENT RESULTS: Intervals: Rate: 66 MI: 156 QRSD: 78 QT: 398 QTc: 417 [place]: P: 68 MI: 156 QRS: 64 T: 47 INTERPRETIVE STATEMENTS: Normal sinus rhythm Normal ECG Compared to ECG 09/24/2022 05:35:41 No significant changes Electronically Signed On 10-03-22 17:24:38 CARDIOLOGY ASSOCIATE by Roberto Tillman
--- NOTE | 2022-10-03 17:41 | EKG ---
Test Date: 2022-09-24 Test Time: 05:35:41 Manager Income Tax: CARLOS MEASUREMENT RESULTS: Intervals: Rate: 66 AK: 152 QRSD: 80 QT: 400 QTc: 419 [place]: P: 61 AK: 152 QRS: 51 T: 35 INTERPRETIVE STATEMENTS: Normal sinus rhythm Normal ECG Compared to ECG 09/23/2022 17:00:36 Atrial fibrillation no longer present Electronically Signed On 10-03-22 17:24:41 CHIEF ENGINEER'S HELPER by Roberto Tillman
--- NOTE | 2022-10-03 17:42 | EKG ---
Test Date: 2022-09-23 Test Time: 17:00:36 Small Business Sales Representative: SILVANA MEASUREMENT RESULTS: Intervals: Rate: 87 PA: QRSD: 86 QT: 356 QTc: 428 [place]: P: PA: QRS: 70 T: 58 INTERPRETIVE STATEMENTS: Atrial fibrillation Abnormal ECG Compared to ECG 09/21/2022 16:41:45 Sinus rhythm no longer present Short PA interval no longer present ST (T wave) deviation no longer present Electronically Signed On 10-03-22 17:25:15 REMELT FURNACE EXPEDITER by Roberto Tillman
--- NOTE | 2022-10-03 17:51 | EKG ---
Test Date: 2022-09-21 Test Time: 16:41:45 Alley Worker: LINDSEY MEASUREMENT RESULTS: Intervals: Rate: 72 ID: [id number] QRSD: 86 QT: 380 QTc: 416 [place]: P: 48 ID: [id number] QRS: 77 T: 64 INTERPRETIVE STATEMENTS: Sinus rhythm with short ID Possible Left atrial enlargement ST abnormality, possible digitalis effect Abnormal ECG Compared to ECG 09/08/2022 05:36:19 Short ID interval now present ST (T wave) deviation now present Electronically Signed On 10-03-22 17:29:51 LICENSED PRACTICAL VOCATIONAL NURSE by Roberto Tillman
== END 2022-09-27 13:41 | disposition home health service (06) | DRG 643 ==
LOC: ER 16:00 → ERHOLD 18:09 → 2ND 19:24
PROVIDERS: ADMIT Hospitalist; ATTEND Hospitalist
PROC: 0TB13ZX Excision of Left Kidney, Percutaneous Approach, Diagnostic (ICD-10-PCS; principal; 2022-09-26)
DX: E22.2 Syndrome of inappropriate secretion of antidiuretic hormone (principal); N17.0 Acute kidney failure with tubular necrosis; R18.8 Other ascites; C18.9 Malignant neoplasm of colon, unspecified; I50.32 Chronic diastolic (congestive) heart failure; I13.0 Hypertensive heart and chronic kidney disease with heart failure and stage 1 through stage 4 chronic kidney disease, or unspecified chronic kidney disease; N02.2 Recurrent and persistent hematuria with diffuse membranous glomerulonephritis; N18.30 Chronic kidney disease, stage 3 unspecified; E78.5 Hyperlipidemia, unspecified; F20.9 Schizophrenia, unspecified; E87.6 Hypokalemia; I48.91 Unspecified atrial fibrillation; R80.9 Proteinuria, unspecified; Z88.6 Allergy status to analgesic agent; Z79.01 Long term (current) use of anticoagulants; Z85.038 Personal history of other malignant neoplasm of large intestine; Z79.899 Other long term (current) drug therapy; Z20.822 Contact with and (suspected) exposure to COVID-19
CPT/HCPCS: 0240U; 36415; 50200; 70450; 71045; 74176; 80048; 80051; 80053; 80076; 81001; 81003; 82533; 82550; 83735; 83880; 83930; 83935; 84100; 84132; 84300; 84439; 84443; 84484; 84550; 85025; 85027; 85610; 88300; 93005; 96367; 96372; 96374; 96375; 96413; 96415; 96416; 96417; 96523; 97110; 97116; 97161; 99285; A4216; J0461; J0640; J1100; J1200; J1453; J1642; J1650; J1940; J2250; J2310; J2405; J2469; J2550; J3010; J7030; J7050; J7060; J9190; J9206; Q5106; Q5118

== ENCOUNTER 2023-03-03 20:44 | Inpatient (IN) | payer OTHER ==
--- OUTSIDE RECORDS SUMMARY | 2023-03-03 20:48 | XMS REPORT | Continuity of Care Document ---
:1950 Author Organization [facility] t Address [address] [place] [address] Care Team Providers Name Role Phone Aster Monique DO Primary Care Physician Alex Felipe Attending Clinician Problems Condition Condition Condition Status Onset Resolution Last Treating Co mments Source Name Details Category Date Date Treatment Clinician Date NEW NEW Diagnosis Active 2018-12-05 Mem oria PT/CLEARAN PT/CLEARAN 4-05 12:52:00 l CE/ CE/ 00:00: Rolando Active 00 11/22/2018 [facility] Adenomatou Adenomatou Disease Active M ethodi s [...] 3-15 st 00:00: Hospita 00 l Preoperati Preoperat Problem Active 2018-12-07 Dmitriyoria ve state mikaela state 22:15:19 l (finding) (finding) Herm miriam Active Problem 12/07/2018 [facility] ENCNTR FOR ENCNTR Diagnosis Active 2018-12-05 Memoria GENERAL FOR 12:52:00 l ADULT GENERAL [place] MEDICAL ADULT EXAM W/ MEDICAL EXAM W/ Active [facility] Schizophre Schizophre Disease Active M ethodi maryana [...] Source Natural sister No Known Problems Met [facility] Natural brother No Known Problems [facility] Natural father No Known Problems Met [facility] Maternal grandfather No Known Problems [facility] Maternal grandmother No Known Problems [facility] Natural mother No Known Problems Met [facility] Other No Known Problems [facility] Paternal grandfather No Known Problems [facility] Paternal grandmother No Known Problems [facility] Social History Social Habit Start Date Stop Date Quantity Comments Source History [facility] Alcohol Std Drinks Hospit al History [facility] Alcohol Binge Hospital Gender identity [facility] orientation [facility] of Social 2019-04-10 2019-04-[address] function 00:00:00 00:00:00 Hospital Alcohol intake 2018-12-27 2018-12-27 Current Yarsanism 00:00:00 00:00:00 non-drinker of Hospital alcohol (finding) History SDOH 2018-12-24 2018-12-24 1 Yars[facility]ism Alcohol Frequency 00:00:00 00:00:00 Hospita l Tobacco use and 2018-11-01 2018-11-01 Smokeless Yarsanism exposure 00:00:00 00:00:00 tobacco non-user Hospital Sex Assigned At [birth year] Yarsanism 00:00:00 00:00:00 Hospital Smoking Status Start Date Stop Date Source Social History [facility] Medications Ordered Filled Start Stop Current Ordering [...] day. Mix in 8 ounce of water Ranitidine 2019-0 Yes 0 Memoria 4-18 Refill(s) l 18:00: fluPHENAZin 2019-0 Yes 12.5 mg = M emoria e decanoate 4-18 0.5 mL, l 25 mg/mL 18:00: IM, every Herm miriam injectable 00 month., 0 solution Refill(s) Ranitidine 2019-0 Yes 0 Memoria 4-18 Refill(s) l 18:00: fluPHENAZin 2019-0 Yes 12.5 mg = M emoria e decanoate 4-18 0.5 mL, l 25 mg/mL 18:00: IM, every Herm miriam injectable 00 month., 0 solution Refill(s) fluPHENAZin 2019-0 Yes 12.5 mg = M emoria e decanoate 4-18 0.5 mL, l 25 mg/mL 18:00: IM, every Herm miriam injectable month., 0 solution Refill(s) Ranitidine 2019-0 Yes 0 Memoria 4-18 Refill(s) l 18:00: fluPHENAZin 2019-0 Yes .5mg Q30D Inject 0.5 [...] Planned Date Details Comments Source Future Scheduled 2023-02-03 [facility] Test 21:24:50 malignant neoplasm of colon (procedure) [code = 085833219] Future Scheduled 2023-02-03 [facility] Test 21:24:50 malignant neoplasm of colon (procedure) [code = 560446662] Future Scheduled 2023-02-03 [facility] Test 21:24:50 malignant neoplasm of colon (procedure) [code = 797422161] Future Scheduled 2023-02-03 COVID-19 VACCINE (#1) [facility] Hospital Test 21:24:50 [code = COVID-19 VACCINE (#1)] Future Scheduled 2023-02-03 [facility] for [facility] Test 21:24:50 malignant neoplasm of colon (procedure) [code = 602168742] Future Scheduled 2023-02-03 [facility] for [facility] Test 21:24:50 malignant neoplasm of colon (procedure) [code = 376810875] Future Scheduled 2023-02-03 SHINGLES VACCINES (1 [facility] 21:24:50 of 2) [code = SHINGLES VACCINES (1 of 2)] Future Scheduled 2023-02-03 65+ [facility]OC[facility] [facility] Test 21:24:50 VACCINE (1 - PCV) [code = 65+ PNEUMOCOCCAL VACCINE (1 - PCV)] Future Scheduled 2023-02-03 INFLUENZA VACCINE [facility] Test 21:24:50 [code = INFLUENZA VACCINE] Future Scheduled 2022-09-21 COVID-19 VACCINE (#1) [facility] Test 16:03:25 [code = COVID-19 VACCINE (#1)] Future Scheduled 2022-09-21 COLONOSCOPY SCREENING [facility] Test 16:03:25 [code = COLONOSCOPY SCREENING] Future Scheduled 2022-09-21 SHINGLES VACCINES (1 [facility] Test 16:03:25 of 2) [code = SHINGLES VACCINES (1 of 2)] Future Scheduled 2022-09-21 65+ [facility]OCOCCAL [facility] Test 16:03:25 VACCINE (1 - PCV) [code = 65+ PNEUMOCOCCAL VACCINE (1 - PCV)] Future Scheduled 2022-09-21 INFLUENZA VACCINE [facility] Test 16:03:25 [code = INFLUENZA VACCINE] Future Scheduled 2022-08-05 COVID-19 VACCINE (#1) [facility] Test 21:14:43 [code = COVID-19 VACCINE (#1)] Future Scheduled 2022-08-05 COLONOSCOPY SCREENING [facility] Test 21:14:43 [code = COLONOSCOPY SCREENING] Future Scheduled 2022-08-05 SHINGLES VACCINES (1 [facility] Test 21:14:43 of 2) [code = SHINGLES VACCINES (1 of 2)] Future Scheduled 2022-08-05 65+ [facility]OCOCCAL [facility] Test 21:14:43 VACCINE (1 - PCV) [code = 65+ PNEUMOCOCCAL VACCINE (1 - PCV)] Future Scheduled 2022-08-05 INFLUENZA VACCINE [facility] Test 21:14:43 [code = INFLUENZA VACCINE] Encounters Start End Encounter Admission Attending Care Care Encounter Source Date/Time Date/Time Type Type Clinicians Facility Department ID 2018-12-05 2018-12-06 Outpatient nullFlavo [id number] [facility] 17:40:00 04:59:00 r [facility] 00 l Cardiology Yoselyn Hamilton 2018-12-05 2018-12-06 Outpatient nullFlavo [id number] [facility] 17:40:00 04:59:00 r Community 00 l Cardiology Yoselyn Hamilton 2018-12-05 2018-12-05 Outpatient Wickramasin [facility] [id number] 12:40:00 23:59:00 ghe, 00 Sasrubethanya Adela 2018-12-05 2018-12-05 Outpatient [facility] [id number] [facility] 12:40:00 12:40:00 Results This patient has no known results.
[2023-03-03] MEDS ORDERED: NA CHLORIDE 0.9% 1,000 ML ONE (22:09)
[2023-03-03 22:29] LABS: Absolute Lymphocytes (CBC) 1.4 K/uL (0.7-4.9); Hematocrit 31.5 % (39.6-49.0); MCV 83.3 fL (80-100); MPV 7.3 fL (7.6-11.3); RBC Red Blood Cell Count 3.78 M/uL (4.33-5.43)
[2023-03-03 22:43] LABS: Specific Gravity 1.011 (1.005-1.030); Urine Bacteria <20 /HPF (<20); Urine Bilirubin NEGATIVE (Negative); Urine Blood 1+ (Negative); Urine Clarity Turbid (Clear); Urine Color Light-Yellow (Yellow); Urine Glucose 1+ (Negative); Urine Mucus Slight /HPF (None Seen); Urine Protein 3+ (Negative); Urine RBC <5 /HPF (None Seen); Urine Urobilinogen Normal (Normal); Urine pH 6.5 (5.0-7.0)
[2023-03-03 22:49] LABS: Albumin 2.7 g/dL (3.4-5.0); Bilirubin Total 0.6 mg/dL (0.2-1.0); Magnesium 2.7 mg/dL (1.6-2.4); Potassium 4.3 mEq/L (3.5-5.1); Protein, Total 6.7 g/dL (6.4-8.2)
--- NOTE | 2023-03-04 01:57 | ER ---
Nurse's Notes [facility] Name: Nir Spangler Age: 72 yrs Sex: Male : 1950 Arrival Date: 03/03/2023 Time: 20:44 Bed 14 Private MD: Diagnosis: Weakness;Hypo-osmolality and hyponatremia;Colon cancer on chemotherapy Presentation: 03/03 20:55 Chief complaint: EMS states: "We were called for weakness. says he was running a vc1 fever but he wouldn't let us take a temperature or start an IV.". Chief complaint: Spouse and/or significant other states: He last had chemo on Sunday, yesterday he had diarrhea and today he feels weak. He was running a fever when I checked his neck but his body wasn't. Coronavirus screen: Vaccine status: Patient reports receiving the 2nd dose of the covid vaccine. Plus 2 boosters At this time, the client does not indicate any symptoms associated with coronavirus-19. Ebola Screen: Patient negative for fever greater than or equal to 101.5 degrees Fahrenheit, and additional compatible Ebola Virus Disease symptoms Patient denies exposure to infectious person. Patient denies travel to an Ebola-affected area in the 21 days before illness onset. No symptoms or risks identified at this time. Initial Sepsis Screen: Does the patient meet any 2 criteria? RR > 20 per min. No. Patient's initial sepsis screen is negative. Does the patient have a suspected source of infection? No. Patient's initial sepsis screen is negative. Risk Assessment: Do you want to hurt yourself or someone else? Patient reports no desire to harm self or others. Onset of symptoms was March 02, 2023. 20:55 Method Of Arrival: EMS: [facility] vc1 20:55 Acuity: AWAIS 3 vc1 Triage Assessment: 21:04 General: Appears in no apparent distress. comfortable, Behavior is calm. Pain: Denies vc1 pain. EENT: No deficits noted. No signs and/or symptoms were reported regarding the EENT system. Neuro: Level of Consciousness is awake, Oriented to person, Reports weakness reported by . Cardiovascular: No deficits noted. Respiratory: Airway is patent Respiratory effort is even, unlabored, Respiratory pattern is symmetrical, tachypnea. GI: No deficits noted. : No deficits noted. Derm: Skin temperature is cool. Musculoskeletal: No deficits noted. No signs and/or symptoms reported regarding the musculoskeletal system. Historical: - Allergies: 21:03 Aspirin; vc1 - PMHx: 21:03 Atrial fibrillation; colon cancer; Hypercholesterolemia; Hypertensive disorder; vc1 - PSHx: 21:03 right chest port access; vc1 - Immunization history:: Client reports receiving the 2nd dose of the Covid vaccine. - Social history:: Smoking status: Patient denies any tobacco usage or history of. Screenin:05 [facility] ED Fall Risk Assessment (Adult) History of falling in the last 3 months, vc1 including since admission No falls in past 3 months (0 pts) Confusion or Disorientation No (0 pts) Intoxicated or Sedated No (0 pts) Impaired Gait No (0 pts) Mobility Assist Device Used No (0 pt) Altered Elimination No (0 pt) Score/Fall Risk Level 0 - 2 = Low Risk Oriented to surroundings, Maintained a safe environment, Educated pt \\T\\ family on fall prevention, incl call for assistance when getting out of bed. Abuse screen: Denies threats or abuse. Nutritional screening: No deficits noted. Tuberculosis screening: No symptoms or risk factors identified. Assessment: 22:41 Reassessment: Patient and/or family updated on plan of care and expected duration. Pain vc1 level reassessed. General: Appears in no apparent distress. Behavior is calm, drowsy. Neuro: Level of Consciousness is lethargic, Oriented to person. 03/04 00:00 Reassessment: No changes from previously documented assessment. Patient and/or family vc1 updated on plan of care and expected duration. Pain level reassessed. 01:00 Reassessment: No changes from previously documented assessment. Patient and/or family vc1 updated on plan of care and expected duration. Pain level reassessed. Patient denies pain at this time. 02:35 Reassessment: No changes from previously documented assessment. Patient and/or family vc1 updated on plan of care and expected duration. Pain level reassessed. Patient denies pain at this time. Vital Signs: 03/03 20:55 BP 107 / 94; Pulse 85; Resp 24; Temp 96.9(A); Pulse Ox 100% ; Weight 52.62 kg; Pain vc1 0/10; 22:00 BP 133 / 87; Pulse 81; Resp 20; Pulse Ox 100% ; vc1 23:24 BP 127 / 89; Pulse 79; Resp 15; Pulse Ox 100% ; vc1 03/04 00:00 BP 123 / 71; Pulse 79; Resp 18; Pulse Ox 100% ; vc1 01:36 BP 138 / 77; Pulse 82; Resp 21; Pulse Ox 100% ; vc1 03/03 20:55 Pain Scale: Adult vc1 ED Course: 03/03 20:50 Patient arrived in ED. sb4 20:50 Myra Balderas PA-C is PHCP. sb4 20:50 Elmer Renner MD is Attending Physician. sb4 20:55 Duyen Reyes, QUAN is Primary Nurse. vc1 21:03 Triage completed. vc1 21:05 Arm band placed on right wrist. vc1 21:05 Patient has correct armband on for positive identification. Placed in gown. Call light vc1 in reach. Client placed on continuous cardiac and pulse oximetry monitoring. NIBP monitoring applied. 21:10 Missed attempt(s): 22 gauge in right antecubital area. Bleeding controlled, band aid vc1 applied, catheter tip intact. 21:14 Radiology exam delayed due to lab results not completed at this time. (BUN/Creatinine) eh4 IV insertion attempt and/or patient not having appropriate IV at this time. 21:15 Missed attempt(s): 24 gauge in right forearm. Bleeding controlled, band aid applied, vc1 catheter tip intact. 22:25 Inserted saline lock: 20 gauge in left antecubital area, using aseptic technique. Blood kd3 collected. 22:39 Blood Culture Adult (2) Sent. vc1 22:39 Lactate w/ 2H reflex if indic. Sent. vc1 22:39 Urine Osmolality Sent. vc1 22:39 Osmolality, Serum Sent. vc1 22:40 Magnesium Sent. vc1 22:40 CMP Sent. vc1 22:40 Lipase Sent. vc1 22:40 Urinalysis w/ reflexes Sent. vc1 23:24 Abdomen In Process Unspecified. EDMS 03/04 00:55 US Abdomen Limited In Process Unspecified. EDMS 01:55 Yo Perdomo is Hospitalizing Provider. sb4 02:36 No provider procedures requiring assistance completed. Patient admitted, IV remains in vc1 place. 02:37 Provided Education on: Need for admit. vc1 Administered Medications: 03/03 22:40 Drug: NS 0.9% IV 1000 ml Route: IV; Rate: 1 bolus; Site: left antecubital; vc1 23:40 Follow up: IV Status: Completed infusion; IV Intake: 1000ml vc1 Medication: 21:06 VIS not applicable for this client. vc1 Intake: 23:40 IV: 1000ml; Total: 1000ml. vc1 Outcome: 03/04 01:56 Decision to Hospitalize by Provider. sb4 02:36 Admitted to Tele accompanied by tech, via stretcher, room 411, with chart, Report vc1 called to QUAN Rodrigues 02:36 Condition: good 02:36 Instructed on the need for admit. 02:59 Patient left the ED. vc1 Signatures: Dispatcher [employer] Jackie Waldron RN RN kd3 Duyen Reyes RN RN vc1 Yumiko Rodriguez 4 Myra Balderas, PA-C PA-Pamella sb4 Corrections: (The following items were deleted from the chart) 01:36 00:00 Reassessment: No changes from previously documented assessment. Patient and/or vc1 family updated on plan of care and expected duration. Pain level reassessed. Patient is alert, oriented x 3, equal unlabored respirations, skin warm/dry/pink. vc1 02:36 02:36 IV discontinued, intact, bleeding controlled, No redness/swelling at site. vc1 Pressure dressing applied, vc1
--- NOTE | 2023-03-04 01:57 | EDPHYS ---
Physician Documentation [facility] Name: Nir Spangler Age: 72 yrs Sex: Male : 1950 Arrival Date: 03/03/2023 Time: 20:44 Bed 14 Private MD: ED Physician Elmer Renner HPI: 03/03 22:24 This 72 yrs old Male presents to ER via EMS with complaints of diarrhea, weakness.sb4 22:24 72 year old male with PMH of afib on eliquis, colon cancer on active chemotherapy, sb4 hypertension, hyperlipidemia presents via EMS with with complaints of diarrhea and generalized weakness. Patient's states that he had a few episodes of diarrhea yesterday and today she noticed that he was very weak and felt warm. Historical: - Allergies: 21:03 Aspirin; vc1 - PMHx: 21:03 Atrial fibrillation; colon cancer; Hypercholesterolemia; Hypertensive disorder; vc1 - PSHx: 21:03 right chest port access; vc1 - Immunization history:: Client reports receiving the 2nd dose of the Covid vaccine. - Social history:: Smoking status: Patient denies any tobacco usage or history of. ROS: 22:24 Cardiovascular: Negative for chest pain, palpitations, and edema, Respiratory: Negative sb4 for shortness of breath, cough, wheezing, and pleuritic chest pain, MS/Extremity: Negative for injury and deformity, Skin: Negative for injury, rash, and discoloration. 22:24 Constitutional: Positive for fatigue, fever, Negative for body aches, chills. 22:24 Abdomen/GI: Positive for diarrhea, Negative for abdominal pain, nausea, vomiting, black/tarry stool. 22:24 All other systems are negative. Exam: 22:24 Constitutional: This is a well developed, well nourished patient who is awake, alert, sb4 and in no acute distress. Head/Face: Normocephalic, atraumatic. Eyes: Extra-ocular motions intact. Periorbital areas with no swelling, redness, or edema. Cardiovascular: Regular rate and rhythm with a normal S1 and S2. Respiratory: Lungs have equal breath sounds bilaterally, clear to auscultation and percussion. No rales, rhonchi or wheezes noted. No increased work of breathing, no retractions or nasal flaring. Abdomen/GI: Soft, non-tender, no distension. Skin: Warm, dry with normal turgor. Normal color with no rashes, no lesions, and no evidence of cellulitis. MS/ Extremity: Pulses equal, no cyanosis. Neurovascular intact. Full, normal range of motion. Neuro: Awake and alert, GCS 15, oriented to person, place, time, and situation. Cranial nerves II-XII grossly intact. Motor strength 5/5 in all extremities. Sensory grossly intact. Cerebellar exam normal. Normal gait. Vital Signs: 20:55 BP 107 / 94; Pulse 85; Resp 24; Temp 96.9(A); Pulse Ox 100% ; Weight 52.62 kg; Pain vc1 0/10; 22:00 BP 133 / 87; Pulse 81; Resp 20; Pulse Ox 100% ; vc1 23:24 BP 127 / 89; Pulse 79; Resp 15; Pulse Ox 100% ; vc1 03/04 00:00 BP 123 / 71; Pulse 79; Resp 18; Pulse Ox 100% ; vc1 01:36 BP 138 / 77; Pulse 82; Resp 21; Pulse Ox 100% ; vc1 03/03 20:55 Pain Scale: Adult vc1 MDM: 03/03 20:50 Patient medically screened. sb4 22:24 Differential Diagnosis altered mental status, sepsis, flu, hyponatremia, cdiff, sb4 colitis, gastroenteritis, meningitis. 03/04 01:53 Data reviewed: vital signs, nurses notes, lab test result(s), radiologic studies, I sb4 have discussed the patient's presentation/case with the attending Emergency Department Physician; and as a result, I will admit patient. Consideration of Admission/Observation Patient was admitted/placed on observation. Historians other than the Patient: Spouse/Significant Other: . External Records Reviewed: Inpatient record: [facility]. Care significantly affected by the following chronic conditions: Hypertension, colon cancer, afib. Counseling: I had a detailed discussion with the patient and/or guardian regarding: the historical points, exam findings, and any diagnostic results supporting the discharge/admit diagnosis, lab results, radiology results, the need for further work-up and treatment in the hospital. 03/03 20:51 Order name: CBC with Diff; Complete Time: 22:38 sb4 03/03 20:51 Order name: CMP; Complete Time: 22:52 sb4 03/03 20:51 Order name: Lipase; Complete Time: 22:52 sb4 03/03 20:51 Order name: Urinalysis w/ reflexes; Complete Time: 22:48 sb4 03/03 20:51 Order name: Magnesium; Complete Time: 22:52 sb4 03/03 20:51 Order name: Urine Sodium Random; Complete Time: 22:35 sb4 03/03 20:51 Order name: Osmolality, Serum; Complete Time: 23:00 sb4 03/03 20:51 Order name: Urine Osmolality; Complete Time: 23:00 sb4 03/03 22:21 Order name: Lactate w/ 2H reflex if indic.; Complete Time: 22:59 sb4 03/03 22:21 Order name: Blood Culture Adult (2) sb4 03/04 02:12 Order name: CBC with Automated Diff EDMS 03/04 02:12 Order name: CBC with Automated Diff EDMS 03/04 02:12 Order name: CBC with Automated Diff EDMS 03/04 02:12 Order name: Comprehensive Metabolic Panel EDMS 03/04 02:12 Order name: Comprehensive Metabolic Panel EDMS 03/04 02:12 Order name: Comprehensive Metabolic Panel EDMS 03/04 02:12 Order name: Magnesium EDMS 03/04 02:12 Order name: Magnesium EDMS 03/04 02:12 Order name: Magnesium EDMS 03/04 02:12 Order name: Phosphorus EDMS 03/04 02:12 Order name: Phosphorus EDMS 03/04 02:12 Order name: Phosphorus EDMS 03/04 02:12 Order name: Stool Culture EDMS 03/04 02:12 Order name: Urinalysis w/ reflexes EDMS 03/04 02:12 Order name: Ova and Parasites EDMS 03/03 22:59 Order name: Abdomen EDMS 03/04 00:00 Order name: US Abdomen Limited sb4 03/04 02:12 Order name: Physical Therapy Consult EDMS 03/04 02:12 Order name: Heart Healthy EDMS 03/03 20:51 Order name: IV Saline Lock; Complete Time: 22:40 sb4 03/03 20:51 Order name: Labs collected and sent; Complete Time: 22:40 sb4 Administered Medications: 03/03 22:40 Drug: NS 0.9% IV 1000 ml Route: IV; Rate: 1 bolus; Site: left antecubital; vc1 23:40 Follow up: IV Status: Completed infusion; IV Intake: 1000ml vc1 Disposition: 03/04 04:59 Co-signature as Attending Physician, Elmer Renner MD I reviewed the patient's care rt provided by the Advanced Practice Provider and agree with the diagnosis and treatment plan. Disposition Summary: 03/04/23 01:56 Hospitalization Ordered Hospitalization Status: Observation sb4 Provider: Yo Perdomo sb4 Location: Telemetry/MedSurg (observation) sb4 Condition: Fair sb4 Problem: new sb4 Symptoms: are unchanged sb4 Bed/Room Type: Standard sb4 Room Assignment: 411(03/04/23 02:14) kd3 Diagnosis - Weakness sb4 - Hypo-osmolality and hyponatremia sb4 - Colon cancer on chemotherapy sb4 Forms: - Medication Reconciliation Form sb4 - SBAR form sb4 Signatures: Dispatcher [employer] EDJackie Umaña RN RN kd3 Duyen Reyes RN RN vc1 Myra Balderas, PA-C PA-C sb4 Elmer Renner MD MD rt Corrections: (The following items were deleted from the chart) 03/03 22:59 20:52 Abdomen Pelvis W Con+CT.RAD.BRZ ordered. EDUT EDUT 03/04 02:14 01:56 sb4 kd3
--- NOTE | 2023-03-04 02:01 | P.HP ---
Certification for Inpatient Patient admitted to: Observation With expected LOS: <2 Midnights Patient will require the following post-hospital care: None Practitioner: I am a practitioner with admitting privileges, knowledge of patient current condition, hospital course, and medical plan of care. Services: Services provided to patient in accordance with Admission requirements found in Title 42 Section 412.3 of the Code of Federal Regulations Patient History Date of Service: 03/04/23 Reason for admission: Diarrhea History of Present Illness: 72-year-old male with a past medical history of CKD stage III, schizophrenia, A-fib, on Eliquis, colon cancer on chemotherapy, hypertension, hyperlipidemia, presents to the emergency room with diarrhea and weakness. reports being treated for colon cancer on chemotherapy. is at bedside and reports several loose stools for 2 days. reports she game 6 immodium, denies loose stool today. she reports associated with generalized weakness and feeling warm today. He denies nausea, vomiting, fever, chills, cough, shortness of breath chest pain, abdominal pain, dysuria, edema. Plan to admit for hyponatremia, diarrhea, generalized weakness, neutrophilia on chemotherapy. Laboratory evaluation CMP sodium 130, acute on chronic kidney injury creatinine 2.54, BUN 33, estimated GFR 26, urine sodium less than 15, CBC microcytic anemia hemoglobin 9.7, 31.5, no left shift, Ultrasound of the abdomen ordered, CT of the abdomen pending Allergies aspirin Adverse Reaction (Verified 02/06/19 09:25) stomach problems Home Medications: Fluphenazide 25 mg IM ONCE 02/06/19 Docusate Sodium [Stool Softener] 1 tab PO DAILY 09/08/22 Esomeprazole Magnesium 1 tab PO DAILY 09/08/22 Potassium Chloride 1 tab PO DAILY 09/08/22 Apixaban [Eliquis *] 2.5 mg PO BID 30 Days #60 tab 09/10/22 Atorvastatin Calcium [Lipitor] 40 mg PO BEDTIME #30 tab 09/10/22 Amlodipine [Norvasc*] 2.5 mg PO DAILY #30 tab 09/27/22 Furosemide [Lasix] 20 mg PO DAILY #30 tab 09/27/22 Metoprolol Tartrate [Lopressor*] 25 mg PO BID #60 tab 09/27/22 - Past Medical/Surgical History Diabetic: No -: Colon cancer on chemo -: Schizophrenia -: Anemia -: Atrial fibrillation on chronic anticoagulation -: Colon cancer surgery Psychosocial/ Personal History: Patient lives at home with his - Social History Smoking Status: Never smoker Alcohol use: No CD- Drugs: No Caffeine use: Yes Review of Systems 10-point ROS is otherwise unremarkable Physical Examination - Physical Exam General: Alert, In no apparent distress, Oriented x3, Cooperative HEENT: Atraumatic, Normocephalic, PERRLA Neck: Supple, 2+ carotid pulse no bruit, JVD not distended Respiratory: Clear to auscultation bilaterally, Normal air movement Cardiovascular: No edema, Normal pulses, Regular rate/rhythm, Normal S1 S2 Capillary refill: <2 Seconds Gastrointestinal: Normal bowel sounds, Soft and benign Musculoskeletal: No clubbing, No swelling Integumentary: No rashes, No breakdown Neurological: Normal speech, Normal strength at 5/5 x4 extr, Cranial nerves 3-12 intact - Studies Laboratory Data (last 24 hrs) 03/03/23 22:17: Sodium 130 L, Potassium 4.3, BUN 33 H, Creatinine 2.54 H, Glucose 99, Magnesium 2.7 H, Total Bilirubin 0.6, AST 18, ALT 27, Alkaline Phosphatase 84, Lipase 19 03/03/23 22:17: WBC 4.10 L, Hgb 9.7 L, Hct 31.5 L, Plt Count 216 Assessment and Plan - Plan Assessment plan Colon cancer treated with chemotherapy Acute on chronic kidney injury baseline CKD stage III Hyponatremia Deconditioning secondary colon cancer on chemo she is A-fib on Eliquis Essential hypertension Hyperlipidemia Microcytic anemia Schizophrenia DVT prophylaxis continue home Eliquis Assessment plan Colon cancer treated with chemotherapy Followed by Dr. Cardona Acute on chronic kidney injury likely worsened by diarrhea acute on chronic kidney injury creatinine 2.54, BUN 33, estimated GFR 26, urine sodium less than 15, CT of the abdomen, ultrasound of the abdomen pending Consider nephrology consult if labs do not improve Hyponatremia CMP sodium 130, A-fib RVR on Eliquis Continue home metoprolol, Eliquis Deconditioning secondary colon cancer on chemo PT eval for generalized weakness Essential hypertension Controlled Hyperlipidemia Continue home medications Microcytic anemia BC microcytic anemia hemoglobin 9.7, 31.5, no left shift, DVT prophylaxis continue home Eliquis Diet cardiac Full code DVT continue home Eliquis Discharge Plan: Home Plan to discharge in: 24 Hours - Advance Directives Does patient have a Living Will: No Does patient have a Durable POA for Healthcare: No - Code Status/Comfort Care Code Status Assessed: Yes Code Status: Full Code Physician Review: Patient Assessed, Agree with Above Assessment and Plan Critical Care: No Time Spent Managing Pts Care (In Minutes): 55
[2023-03-04] MEDS ORDERED: CIPROFLOXACIN 400mg IV 400 MG/200 ML BAG IV SCH ×2 (02:10→21:00)
[2023-03-04] MEDS ORDERED: ACETAMINOPHEN 500 MG TAB PO PRN (02:10)
[2023-03-04] MEDS ORDERED: APIXABAN 2.5 MG TABLET PO SCH (02:22)
[2023-03-04] MEDS ORDERED: ATORVASTATIN 40 MG TAB PO SCH (02:23)
[2023-03-04] MEDS: METRONIDAZOLE 500mg IVPB 500 MG/100 ML BAG IV SCH ×3 (03:42→16:43)
[2023-03-04] MEDS: NA CHLORIDE 0.9% 1,000 ML IV SCH ×2 (03:42→16:43)
[2023-03-04 05:04] LABS: Hematocrit 30.1 % (39.6-49.0); Lymphocytes % 24.6 % (15.3-44.8); MPV 7.7 fL (7.6-11.3); RBC Red Blood Cell Count 3.58 M/uL (4.33-5.43)
[2023-03-04 05:19] LABS: Albumin 2.4 g/dL (3.4-5.0); Bilirubin Total 0.4 mg/dL (0.2-1.0); Magnesium 2.6 mg/dL (1.6-2.4); Phosphorus 3.3 mg/dL (2.5-4.9); Potassium 4.5 mEq/L (3.5-5.1); Protein, Total 5.9 g/dL (6.4-8.2)
[2023-03-04] MEDS ORDERED: PANTOPRAZOLE 40MG TABLET PO SCH (06:30)
[2023-03-04 08:11] LABS: Anisocytosis 1+; Blood Morphology Comment NOTED (NOT SEEN); Platelet Estimate ADEQ; White Blood Cell Scan OK (OK)
[2023-03-04] MEDS ORDERED: AMLODIPINE 2.5 MG TAB PO SCH (09:00)
--- NOTE | 2023-03-04 10:22 | RAD REPORT ---
EXAM DESCRIPTION: CT - Abdomen Pelvis Wo Contrast - 03/04/2023 7:09 am CLINICAL HISTORY: The patient is 72 years old and is Male; diarrhea, fever TECHNIQUE: Axial computed tomography images of the abdomen and pelvis without intravenous contrast. Sagittal and coronal reformatted images were created and reviewed. This CT exam was performed usi ng one or more of the following dose reduction techniques: automated exposure control, adjustment o f the mA and/or kV according to patient size, and/or use of iterative reconstruction technique. COMPARISON: CT abdomen pelvis December 19, 2022 FINDINGS: LUNG BASES: Compressive atelectasis within the lung bases is noted. PLEURAL SPACE: Small bilateral pleural effusions are present. ABDOMEN: LIVER: Interval increase in the fluid throughout the abdomen and pelvis is noted. Scalloping of t he border of the liver is noted with apparent loculated fluid along the lesser curvature of the stoma ch. GALLBLADDER AND BILE DUCTS: The gallbladder is distended with a few calcified gallstones. Mild bi liary dilatation is present. PANCREAS: Unremarkable. No ductal dilation. SPLEEN: Unremarkable. ADRENALS: Unremarkable. No mass. KIDNEYS AND URETERS: Large exophytic left renal cyst is present. No follow-up imaging is recommen ded. There is no hydronephrosis or hydroureter of either kidney. No obstructing renal or ureteral joana culus is seen. STOMACH AND BOWEL: The stomach is decompressed. The small bowel is grossly normal in caliber. Sto ol and air are present throughout colon. Postsurgical change of the right colon is present. Focal m asslike thickening involving the sigmoid colon is present. PELVIS: APPENDIX: Surgically absent. BLADDER: A Moralez catheter is present within a decompressed bladder. No stones. REPRODUCTIVE: Unremarkable as visualized. ABDOMEN and PELVIS: INTRAPERITONEAL SPACE: Unremarkable. No free air. No significant fluid collection. BONES/JOINTS: No acute fracture. Minimal degenerative change. No lytic or blastic lesions. SOFT TISSUES: The soft tissues are normal. VASCULATURE: Atherosclerosis of the vasculature is present. No abdominal aortic aneurysm. LYMPH NODES: Unremarkable. No enlarged lymph nodes. IMPRESSION: 1. Masslike mucosal thickening involving the sigmoid colon. While findings could be se condary to an area of inflammation, underlying mass is within the differential. Further evaluation is recommended. 2. Progression of peritoneal carcinomatosis. 3. Distended gallbladder with cholelithiasis. 4. Chronic findings as detailed above. Electronically signed by: Fernanda Nation MD 03/03/2023 11:56 PM CDT Due to temporary technical issues with the PACS/Fluency reporting system, reports are being signed by the in house radiologists without review as a courtesy to insure prompt reporting. The interpreting radiologist is fully responsible for the content of the report.
--- NOTE | 2023-03-04 11:18 | RAD REPORT ---
EXAM DESCRIPTION: US - Abdomen Exam Limited - 03/04/2023 12:54 am CLINICAL HISTORY: The patient is 72 years old and is Male; diarrhea, gallstones TECHNIQUE: Real-time ultrasound of the right upper quadrant with image documentation. COMPARISON: No relevant prior studies available. FINDINGS: GALLBLADDER: The gallbladder is distended. Gallstones are present within the gallbladder . A gallstone is noted within the neck of the gallbladder. COMMON BILE DUCT: The common bile duct is dilated measuring up to 1.0 cm. No stones. PANCREAS: Unremarkable as visualized. IMPRESSION: 1. Cholelithiasis with mild gallbladder wall thickening which can be seen with acute c holecystitis. 2. Dilated common bile duct. No evidence of choledocholithiasis. Electronically signed by: Fernanda Nation MD 03/04/2023 1:34 AM CDT Due to temporary technical issues with the PACS/Fluency reporting system, reports are being signed by the in house radiologists without review as a courtesy to insure prompt reporting. The interpreting radiologist is fully responsible for the content of the report.
[2023-03-04] MEDS: APIXABAN 2.5 MG TABLET PO SCH ×2 (12:26→21:48)
[2023-03-04] MEDS: METOPROLOL TAR 25 MG TAB PO SCH ×2 (12:26→21:48)
[2023-03-04] MEDS: AMLODIPINE 2.5 MG TAB PO SCH (12:27)
--- NOTE | 2023-03-04 14:07 | P.PN ---
Date of Service: 03/04/23 Patient seen and examined. He is awake and alert. Serum creatinine trended down slightly. Urine looks concentrated. Diagnosis Acute on chronic kidney disease stage III. Chronic atrial fibrillation History of colon cancer on chemotherapy. Plan: Continue IV hydration and monitor renal function. Resume home medications. Activity as tolerated Imodium as needed for diarrhea.
[2023-03-04] MEDS ORDERED: LOPERAMIDE HCL 2 MG CAPSULE PO PRN (14:08)
[2023-03-04] MEDS: ATORVASTATIN 40 MG TAB PO SCH (21:48)
[2023-03-05] MEDS ORDERED: METOPROLOL TARTRATE 5 MG/5 ML INJ IV ONE (00:21)
[2023-03-05] MEDS: METOPROLOL TARTRATE 5 MG/5 ML INJ IV PRN (00:29)
[2023-03-05] MEDS: NA CHLORIDE 0.9% 1,000 ML IV SCH ×3 (01:09→19:00)
[2023-03-05] MEDS: DILTIAZEM INJ 125 MG/25 ML 125 MG in NA CHLORIDE 0.9% 100 ML IV SCH ×2 (02:14→10:15)
[2023-03-05] MEDS ORDERED: NA CHLORIDE 0.9% 100 ML ONE ×2 (02:14)
[2023-03-05] MEDS ORDERED: dilTIAZem HCL 25 MG/5 ML VIAL IV ONE (02:15)
[2023-03-05] MEDS ORDERED: PANTOPRAZOLE 40MG TABLET PO ONE (08:48)
[2023-03-05] MEDS: METOPROLOL TAR 25 MG TAB PO SCH (09:00)
[2023-03-05] MEDS: AMLODIPINE 2.5 MG TAB PO SCH (09:00)
[2023-03-05] MEDS: ESOMEPRAZOLE MAGNESIUM 20 MG PO SCH (12:16)
[2023-03-05] MEDS ORDERED: SODIUM CHLORIDE 0.9% 10ML INJ IV PRN (13:20)
--- NOTE | 2023-03-05 13:30 | RAD REPORT ---
EXAM DESCRIPTION: CT - Abdomen Pelvis Wo Contrast - 03/05/2023 1:07 pm CLINICAL HISTORY: Abdominal pain COMPARISON: March 03, 2023 TECHNIQUE: Computed axial tomography of the abdomen and pelvis was obtained. IV and oral contrast we re not requested. All CT scans are performed using dose optimization technique as appropriate and may include automated exposure control or mA/KV adjustment according to patient size. FINDINGS: The evaluation of solid organs, vessels and bowel is limited secondary to the lack of con trast administration. Dilatation of stomach, small and large bowel. Rectal wall thickening. The distal sigmoid colon is decompressed. Stable ascites and peritoneal carcinomatosis Small bilateral pleural effusions Liver, spleen, pancreas and adrenals grossly normal. Left renal cyst. Moralez catheter within the bladder IMPRESSION: Dilatation of stomach, small and large bowel. Rectal wall thickening could be secondary to mass or incomplete distention. Given that the distal sig moid colon is decompressed the patient probably has an adynamic ileus rather than obstruction. Miles r, if the patient's symptoms persist followup abdominal plain film series would be recommended
--- NOTE | 2023-03-05 13:50 | P.PN ---
Subjective Date of Service: 03/05/23 Chief Complaint: Diarrhea Patient developed rapid atrial fibrillation. He was started on Cardizem drip and transferred to the ICU for close monitoring. Patient noted to have distended abdomen this morning. Nursing staff report he vomited once last night and [address] abdomen and pelvis done this morning shows adynamic ileus. Physical Examination - Vital Signs Temperature: 99.7 F Blood Pressure: 123/92 Pulse: 168 Respirations: 16 Pulse Ox (%): 97 Assessment And Plan - Plan Physical Exam General: Alert, In no apparent distress, Oriented x3, Cooperative Neck: Supple, JVD not distended Respiratory: Clear to auscultation bilaterally, Normal air movement Cardiovascular: No edema, Normal pulses, irregular rhythm, normal rate normal S1 S2 Gastrointestinal: Distended, nontender, hypoactive bowel sounds. Integumentary: No rashes, No breakdown Neurological: Normal speech, Normal strength at 5/5 x4 extr, Cranial nerves 3-12 intact Diagnosis Adynamic Rapid atrial fibrillation Colon cancer treated with chemotherapy Acute on chronic kidney injury baseline CKD stage III Hyponatremia Deconditioning secondary colon cancer on chemo she is Essential hypertension Hyperlipidemia Microcytic anemia Schizophrenia Plan: Adynamic ileus Patient vomited 3 times since last night. Patient has ileus involving the stomach, small bowel and large bowel. Inserting NG tube to suction Monitor and optimize electrolytes, keep potassium greater than 4. General surgery consulted, Dr. Keene informed. Repeat KUB tomorrow Empiric IV Cipro and Flagyl Keep n.p.o. Give home medications IV. Colon cancer treated with chemotherapy Followed by Dr. Cardona Acute on chronic kidney injury likely worsened by diarrhea Secondary to dehydration. Monitor renal function. Hyponatremia CMP sodium 130, IV normal saline A-fib RVR on Eliquis Continue Cardizem drip due to n.p.o. status. Heparin drip Hold Eliquis Hold oral metoprolol. Deconditioning secondary colon cancer on chemo PT eval for generalized weakness Essential hypertension Controlled Hyperlipidemia Continue home medications Chronic anemia Secondary to malignancy. Monitor and transfuse as needed for hemoglobin less than 7 DVT prophylaxis: Eliquis Diet cardiac Full code DVT continue home Eliquis
--- NOTE | 2023-03-05 14:31 | RAD REPORT ---
EXAM DESCRIPTION: RAD - Abdomen 1 View (KUB) - 03/05/2023 2:18 pm CLINICAL HISTORY: Device placement nasogastric tube placement FINDINGS: The tip of a nasogastric tube lies within the lateral aspect of the junction of the gastr ic fundus body
[2023-03-05] MEDS: HEPARIN/D5W 25,000 UNIT/500 ML BAG IV SCH (14:49)
--- NOTE | 2023-03-05 15:41 | EKG ---
Test Date: 2023-03-05 Test Time: 00:22:55 Registered Nurse Obstetrics: Leatha MEASUREMENT RESULTS: Intervals: Rate: 152 [place]: QRSD: 82 QT: 312 QTc: 496 [place]: P: AK: QRS: 63 T: -61 INTERPRETIVE STATEMENTS: Atrial fibrillation with rapid ventricular response ST & T wave abnormality, consider anterior ischemia or digitalis effect Abnormal ECG Compared to ECG 09/24/2022 05:36:36 ST (T wave) deviation now present Possible ischemia now present Sinus rhythm no longer present Electronically Signed On 03-05-23 15:41:00 CDT by Roberto Tillman
[2023-03-05] MEDS: METRONIDAZOLE 500mg IVPB 500 MG/100 ML BAG IV SCH (16:39)
[2023-03-05 17:05] LABS: Absolute Lymphocytes (CBC) 3.4 K/uL (0.7-4.9); Lymphocytes % 56.7 % (15.3-44.8); MCV 83.6 fL (80-100); MPV 7.9 fL (7.6-11.3); RBC Red Blood Cell Count 4.06 M/uL (4.33-5.43)
--- NOTE | 2023-03-05 17:05 | P.CNS ---
Date of Consult: 03/05/23 Reason for consult: Abdominal pain and distention History of present illness: Patient is a 72-year-old gentleman with multiple medical problems who I diarrhea the last couple of days and was given multiple doses of Imodium. Patient does have colon cancer and is being treated with chemotherapy. Patient was on the regular floor and went into A-fib with RVR and was transferred to the ICU. On evaluation patient was found to have a distended abdomen and NG tube was placed and a CAT scan was done which showed ileus. I was consulted patient states that he feels much better. Patient's abdominal girth has gotten significantly better as well. Patient denies sore throat, runny nose, cough, headaches, dizziness, chest pain, fever or chills. Review of systems: Otherwise unremarkable Past medical history: Colon cancer, chronic A-fib on anticoagulation and schizophrenia Past surgical history: Colon cancer surgery/details of which patient does not know Allergies: Aspirin Social history: Patient denies smoking or drinking alcohol Family history: Noncontributory Vital signs: Stable, afebrile Physical exam: Awake, alert and oriented x3 Head and neck exam: No masses Chest: Clear Heart: S1-S2 Abdomen: Soft, mild distention, hypoactive bowel syndrome, nontender and no evidence of peritonitis or abdominal wall hernia appreciated Extremity: Neurovascular intact, nontender Neuro: Nonfocal Diagnostic data: CT reviewed with the radiologist and laboratory data reviewed in this admission Assessment: Likely ileus, doubt small bowel obstruction at this time. Patient's probably reacted to the Imodium with the distention and RVR Plan/recommendation: N.p.o., NG tube, IV fluid, IV antibiotics, serial abdominal exam follow up x-ray in the morning. At this time, there is no need for surgical intervention. We will follow this patient closely. CC:
[2023-03-05 17:06] LABS: Anisocytosis 1+; Blood Morphology Comment NOTED (NOT SEEN); Ovalocytes 1+; Platelet Estimate ADEQ; Platelets, Giant FEW; Poikilocytosis 1+
[2023-03-05 17:26] LABS: Albumin 2.1 g/dL (3.4-5.0); Bilirubin Total 0.5 mg/dL (0.2-1.0); Magnesium 2.5 mg/dL (1.6-2.4); Phosphorus 3.8 mg/dL (2.5-4.9); Potassium 4.1 mEq/L (3.5-5.1); Protein, Total 5.8 g/dL (6.4-8.2)
--- NOTE | 2023-03-05 18:05 | CON ---
Date of Consultation: 03/05/2023 Reason For Consultation: Atrial fibrillation with rapid ventricular response. History Of Present Illness: A 72-year-old male with history of chronic kidney disease, atrial fibril lation, colon cancer, hypertension, dyslipidemia, presented with diarrhea and generalized weakness. He went into AFib with RVR. Started on Cardizem drip and converted to sinus rhythm. He is still hav ing some nausea and abdominal distention. Past Medical History: As outlined above in HPI. Medications: Refer to reconciliation sheet for detailed list. Allergies: ASPIRIN. Family History: No premature coronary artery disease or cancer. Social History: Does not smoke or drink. Does not use any drugs. Review of Systems: All systems reviewed and they were negative except what mentioned in HPI. Physical Examination: Vital Signs: Reviewed. Head and Neck: Pupils are equal, reactive to light. Intact eye movements. No JVD. No cervical lym phadenopathy. Neck is supple. Thyroid is not enlarged. Lungs: Clear to auscultation bilaterally. No rhonchi, wheezing, or crackles. No accessory muscle u se. Heart: Regular rate and rhythm. No extra sounds. Abdomen: Soft, distended. Bowel sounds are diminished. Extremities: No edema, clubbing, or cyanosis. Intact pulses. Skin: No rash. Neurologic: Alert, awake. No acute focal deficits appreciated. Investigations: BUN is 31, creatinine 2.5, and hemoglobin is 9.3. Assessment And Recommendations: 1.Atrial fibrillation, converted to sinus rhythm. Start him on metoprolol 25 mg twice a day by mout h. Once he is able to take medications by mouth for the interim, we will continue to do a Cardizem d rip at the lowest dose to keep him out of atrial fibrillation and he will need anticoagulation Eliqui s 2.5 mg twice a day once he is able to take medications by mouth. 2.Dyslipidemia. Continue statin. SR/MODL Voice ID: [id number] Report ID: [id number]
[2023-03-05] MEDS: ATORVASTATIN 40 MG TAB PO SCH (19:32)
[2023-03-05] MEDS: CIPROFLOXACIN 400mg IV 400 MG/200 ML BAG IV SCH (20:56)
[2023-03-06] MEDS: METRONIDAZOLE 500mg IVPB 500 MG/100 ML BAG IV SCH ×3 (01:42→17:27)
[2023-03-06] MEDS: DILTIAZEM INJ 125 MG/25 ML 125 MG in NA CHLORIDE 0.9% 100 ML IV SCH (01:42)
[2023-03-06 05:41] LABS: Potassium 3.8 mEq/L (3.5-5.1)
[2023-03-06 05:45] LABS: Absolute Lymphocytes (CBC) 1.2 K/uL (0.7-4.9); Hematocrit 26.2 % (39.6-49.0); Lymphocytes % 30.9 % (15.3-44.8); MCV 83.7 fL (80-100); MPV 7.5 fL (7.6-11.3); RBC Red Blood Cell Count 3.13 M/uL (4.33-5.43)
[2023-03-06] MEDS: NA CHLORIDE 0.9% 1,000 ML IV SCH ×2 (06:37→17:28)
--- NOTE | 2023-03-06 06:59 | P.PN ---
Date of Service: 03/06/23 Subjective: doing okay today, remains in normal sinus rhythm No BM since ~sunday per family; but has urge to go abdomen feels softer, NGT placed yesterday no acute events overnight afebrile ROS: 10 point ROS as noted above, otherwise negative Physical Exam: GEN: Alert, oriented, NAD, NGT in place HEENT: Normal conjunctiva, sclera anicteric CV: Regular rate and rhythm, no edema Pulm: Nonlabored respirations on room air ABD: Soft, mild distention, hypoactive bowel syndrome Neuro: Normal speech, normal affect NGT in place vitals reviewed Problem List: Adynamic Ileus A-fib RVR, paroxysmal BILLIE on CKD3 Hyponatremia Colon cancer treated with chemotherapy Deconditioning secondary colon cancer on chemo she is Hypertension Hyperlipidemia Microcytic anemia secondary to chemo Schizophrenia Adynamic ileus CT abdomen (03/05): Dilatation of stomach, small and large bowel. Rectal wall thickening could be secondary to mass or incomplete distention. Given that the distal sigmoid colon is decompressed the patient probably has an adynamic ileus rather than obstruction KUB (03/06): Mildly dilated small bowel has become less organized and has slightly diminished in caliber. Air is present throughout mildly dilated colon. This most likely represents an adynamic ileus General surgery consulted, Dr. Keene No surgical intervention warranted at this time Serial Abdominal exams advance diet to sips of water and ice chips 03/06 clamp NGT 03/06 Blood cultures: NGTD Continue Empiric IV Cipro and Flagyl (03/05-) Afebrile with no leukocytosis A-fib RVR, paroxysmal Monitor on telemetry Cardiology following Continue Cardizem drip d/t NPO transition to PO metoprolol once taking PO, stop[i Heparin drip Hold Eliquis BILLIE on CKD3 Secondary to dehydration Monitor renal function Hyponatremia CMP sodium 130 IV normal saline Colon cancer treated with chemotherapy Followed by Dr. Cardona Deconditioning secondary to colon cancer on chemo PT consulted for generalized weakness Hypertension Hyperlipidemia Continue home medications Microcytic anemia, chronic Secondary to chemo Transfuse if hgb < 7 VTE: heparin drip Code: Full Dispo: Home, ~2-3 days
[2023-03-06] MEDS ORDERED: KCL 20 MEQ/100 mL IVPB 20 MEQ/100 ML BAG IV ONE (07:00)
--- NOTE | 2023-03-06 07:11 | RAD REPORT ---
EXAM DESCRIPTION: RAD - Abdomen 1 View (KUB) - 03/06/2023 4:57 am CLINICAL HISTORY: Abdomen pain FINDINGS: Mildly dilated small bowel has become less organized and has slightly diminished in calibe r. Air is present throughout mildly dilated colon. This most likely represents an adynamic ileus. A nasogastric tube has been placed into the distal stomach.
[2023-03-06] MEDS: PANTOPRAZOLE 40MG TABLET PO SCH (09:00)
[2023-03-06] MEDS: ESOMEPRAZOLE MAGNESIUM 20 MG PO SCH (09:00)
[2023-03-06] MEDS: CIPROFLOXACIN 400mg IV 400 MG/200 ML BAG IV SCH ×2 (09:41→20:16)
[2023-03-06 09:46] LABS: Anisocytosis 1+; Blood Morphology Comment NOTED (NOT SEEN); Ovalocytes 1+; Platelet Estimate ADEQ
[2023-03-06] MEDS: PANTOPRAZOLE 40 MG INJ IVP SCH (14:12)
--- NOTE | 2023-03-06 15:44 | PN ---
Date of Progress Note: 03/06/2023 Subjective: The patient is awake, alert, passing gas, ambulating with physical therapy. No nausea o r vomiting. 200 cc out of the NG tube. Objective: Vital Signs: Stable, afebrile. Abdomen: Revealed to be slightly distended with no peritonitis, no tenderness. Bowel sounds are, ho wever, present. Laboratory Data: Shows white count 2.9, H and H 8.2 and 26.2 and platelets 176. Chemistry reviewed. He does have chronic renal insufficiency, which is stable. KUB reviewed shows improving ileus thro ughout the mildly dilated colon. No evidence of obstruction. Assessment: Ileus, improving slowly. Recommendations: Clamp the NG tube and start sips of clear liquids and slowly advance as tolerated. Possible discharge in a day or 2. /MODL Voice ID: [id number] Report ID: [id number]
[2023-03-06] MEDS: ATORVASTATIN 40 MG TAB PO SCH (20:08)
[2023-03-06] MEDS: METOPROLOL TARTRATE 5 MG/5 ML INJ IV PRN (21:21)
[2023-03-06] MEDS: HEPARIN/D5W 25,000 UNIT/500 ML BAG IV SCH (23:13)
[2023-03-07] MEDS: NA CHLORIDE 0.9% 1,000 ML IV SCH ×2 (01:00→07:35)
[2023-03-07] MEDS: METRONIDAZOLE 500mg IVPB 500 MG/100 ML BAG IV SCH ×3 (01:41→17:24)
[2023-03-07] MEDS: ONDANSETRON 4 MG/2 ML VIAL IV PRN ×2 (02:23→21:54)
[2023-03-07 04:48] LABS: Absolute Lymphocytes (CBC) 0.4 K/uL (0.7-4.9); Hematocrit 26.9 % (39.6-49.0); Lymphocytes % 12.3 % (15.3-44.8); MCV 83.7 fL (80-100); MPV 7.2 fL (7.6-11.3); RBC Red Blood Cell Count 3.21 M/uL (4.33-5.43)
[2023-03-07 05:05] LABS: Albumin 1.8 g/dL (3.4-5.0); Bilirubin Total 0.4 mg/dL (0.2-1.0); Magnesium 2.2 mg/dL (1.6-2.4); Potassium 3.9 mEq/L (3.5-5.1); Protein, Total 5.1 g/dL (6.4-8.2)
--- NOTE | 2023-03-07 06:48 | P.PN ---
Date of Service: 03/07/23 Subjective: went back into a-fib overnight, with HR in 110s-130s; HR improved to 80-90s with lopressor IV x1; but still in afib no BM yet, +flatus nausea with vomiting continues per patient report ~25ml residual from NGT overnight ROS: 10 point ROS as noted above, otherwise negative Physical Exam: GEN: Alert, oriented, NAD, NGT in place HEENT: Normal conjunctiva, sclera anicteric CV: Irregularly Irregular rate and rhythm, no edema Pulm: Nonlabored respirations on room air ABD: Soft, mild distention, hypoactive bowel sounds Neuro: Normal speech, normal affect NGT in place vitals reviewed Problem List: Adynamic Ileus A-fib RVR, paroxysmal BILLIE on CKD3a Hyponatremia Colon cancer treated with chemotherapy Deconditioning secondary colon cancer on chemo Hypertension Hyperlipidemia Microcytic anemia secondary to chemo ; iron deficiency Schizophrenia Adynamic ileus CT abdomen (03/05): Dilatation of stomach, small and large bowel. Rectal wall thickening could be secondary to mass or incomplete distention. Given that the distal sigmoid colon is decompressed the patient probably has an adynamic ileus rather than obstruction KUB (03/06): Mildly dilated small bowel has become less organized and has slightly diminished in caliber. Air is present throughout mildly dilated colon. This most likely represents an adynamic ileus General surgery consulted, Dr. Keene No surgical intervention warranted at this time Serial Abdominal exams advance diet to sips of water and ice chips 03/06 clamp NGT 03/06 - ~25ml residual from NGT overnight awaiting BM to dc NGT Blood cultures: NGTD Continue Empiric IV Cipro and Flagyl (03/05-) Afebrile with no leukocytosis A-fib RVR, paroxysmal Monitor on telemetry Cardiology following Continue Cardizem drip transition to PO metoprolol once taking PO, stop IV Heparin drip while NPO restart home eliquis once taking PO 03/07 - went into afib overnight, with HR in 110s-130s HR improved to 80-90s with metoprolol remains in a-fib today BILLIE on CKD3a suspect secondary to dehydration Nephrology consulted 03/07 Monitor renal function continue IVF Hyponatremia improved Colon cancer treated with chemotherapy Deconditioning secondary to colon cancer on chemo Followed by Dr. Cardona in office PT consulted for generalized weakness Hypertension Hyperlipidemia Continue home medications Microcytic anemia, chronic; secondary to chemo ; iron deficiency Secondary to chemo Transfuse if hgb < 7 VTE: heparin drip Code: Full Dispo: Home, ~2-3 days pending further improvement, improved heart rate/rhythm continue ICU level of care
[2023-03-07] MEDS: DILTIAZEM INJ 125 MG/25 ML 125 MG in NA CHLORIDE 0.9% 100 ML IV SCH (07:35)
[2023-03-07] MEDS: CIPROFLOXACIN 400mg IV 400 MG/200 ML BAG IV SCH ×2 (08:39→21:54)
[2023-03-07] MEDS: PANTOPRAZOLE 40MG TABLET PO SCH (09:00)
[2023-03-07] MEDS: ESOMEPRAZOLE MAGNESIUM 20 MG PO SCH (09:00)
--- NOTE | 2023-03-07 09:08 | RAD REPORT ---
EXAM DESCRIPTION: RAD - Abdomen 1 View (KUB) - 03/07/2023 9:00 am CLINICAL HISTORY: f/u ileus Pain COMPARISON: Abdomen 1 View (KUB) dated 03/06/2023; Abdomen 1 View (KUB) dated 03/05/2023 FINDINGS: Diffuse distention with air of large and small bowel loops is again seen, showing mild imp rovement since yesterday's study. No suspicious calcifications. No significant bony findings. Enteric tube tip is in the stomach. IMPRESSION: Mild improvement in diffuse ileus pattern since yesterday's study.
[2023-03-07] MEDS: PANTOPRAZOLE 40 MG INJ IVP SCH (09:29)
[2023-03-07 10:40] LABS: Protime INR 1.48
[2023-03-07] MEDS ORDERED: BISACODYL 10 MG RECTAL SUPP PR ONE (10:54)
[2023-03-07] MEDS: PHENOL 1.4% ORAL SPRAY 180ML MM PRN (11:26)
--- NOTE | 2023-03-07 12:13 | P.CNS ---
Date of Consult: 03/07/23 Reason for Consult: Renal failure Requesting Physician: Randy Madison Chief Complaint: Diarrhea History of Present Illness: 72M w/ PMHx of CKD3a, schizophrenia, A-fib on Eliquis, colon cancer on chemotherapy, hypertension, & hyperlipidemia, who p/w generalized weakness & diarrhea. He had diarrhea on 03/02/2023, received imodium, now having constipation. He is referred to Nephrology for renal failure & hyponatremia. SCr 2.5 (GFR 26) on adm. Serum Na 130 on adm. Allergies aspirin Adverse Reaction (Verified 02/06/19 09:25) stomach problems Home Medications: Fluphenazide 25 mg IM ONCE 02/06/19 Docusate Sodium [Stool Softener] 1 tab PO DAILY 09/08/22 Esomeprazole Magnesium 1 tab PO DAILY 09/08/22 Potassium Chloride 1 tab PO DAILY 09/08/22 Apixaban [Eliquis *] 2.5 mg PO BID 30 Days #60 tab 09/10/22 Atorvastatin Calcium [Lipitor] 40 mg PO BEDTIME #30 tab 09/10/22 Amlodipine [Norvasc*] 2.5 mg PO DAILY #30 tab 09/27/22 Furosemide [Lasix] 20 mg PO DAILY #30 tab 09/27/22 Metoprolol Tartrate [Lopressor*] 25 mg PO BID #60 tab 09/27/22 - Past Medical/Surgical History Diabetic: No -: Colon cancer on chemo -: Schizophrenia -: Anemia -: Atrial fibrillation on chronic anticoagulation -: Colon cancer surgery Psychosocial/ Personal History: Patient lives at home with his - Social History Alcohol use: No CD- Drugs: No Caffeine use: Yes Place of Residence: Home Review of Systems General: Weakness Eyes: Unremarkable ENT: Unremarkable Respiratory: Unremarkable Cardiovascular: Unremarkable Gastrointestinal: Diarrhea Genitourinary: Unremarkable Integumentary: Unremarkable Neurological: Unremarkable Lymphatics: Unremarkable Physical Examination Temp Pulse Resp BP Pulse Ox 98.3 F 98 H 26 H 126/80 96 03/07/23 08:00 03/07/23 10:00 03/07/23 10:00 03/07/23 10:00 03/07/23 10:00 General: In no apparent distress HEENT: Atraumatic, Normocephalic Neck: Supple Respiratory: Other (symmetric to expansion) Cardiovascular: No rubs, No murmurs Gastrointestinal: Soft and benign, No rebound Musculoskeletal: No clubbing, No swelling Integumentary: No warmth Neurological: Normal speech, Normal tone Urinary: Other (no bladder distention) External genitalia: Deferred Rectal: Deferred Conclusions/Impression: # BILLIE 2/2 rapid afib + prerenal state +/- ATN from prolonged prerenal SCr 2.5 (GFR 26) on adm, remains same today BNP elevated CT showed L renal cyst, otherwise unremarkable Cont IVF HR control # CKD3a presumed to be 2/2 Htn nephrosclerosis Baseline GFR 50s ml/min Monitor renal panel # Hyponatremia Improved Cont isotonic IVF # NAGMA + respi alkalosis Seen on ABG on 03/07 Give isotonic IV bicarb 1 liter only # Adynamic ileus Had diarrhea recently On empiric abx, +NGT Laxatives prn # Afib w/ RVR Per Cardiology # Hx of colon cancer, on chemotx Per Dr. Cardona # Htn Continue current med regimen # Anemia Monitor CBC # Schizophrenia Per other services
[2023-03-07] MEDS ORDERED: WATER FOR INJ,STERILE 1,000 ML with NA BICARB 8.4% 150 MEQ IV SCH ×2 (14:00)
[2023-03-07 14:15] LABS: Arterial Blood Carboxyhemoglob 1.4 % (0-1.5); Blood Gas Oxyhemoglobin 92.6 % (94-97)
[2023-03-07 15:03] LABS: Ferritin 1088.7 ng/mL (26-388)
[2023-03-07 15:51] LABS: UR PROTEIN 506.2 mg/dL (<11.9); Urine Protein/Creatinine Ratio 5.56 ratio (<0.15)
[2023-03-07 15:53] LABS: UR SODIUM < 15 mmol/L (27-287)
--- NOTE | 2023-03-07 18:04 | PN ---
Date of Progress Note: 03/07/2023 Subjective: The patient is awake, alert. He is passing gas, but he has not had a bowel movement. C omplaining of abdominal distention, but no pain. No nausea, vomiting. He does have some irritation of his throat from the NG tube. Objective: His vitals are stable, afebrile. Laboratory Data: Abdominal x-ray reviewed. The ileus is slightly better, but still dilated colon is present. Laboratory data reviewed as well. Assessment: Ileus, slow progress. Recommendations: Encourage ambulation. Continue the NG tube, sips of clear liquids, dulcolax suppos itory, Chloraseptic spray for the throat discomfort. When he starts having bowel movements, his NG t ube can be discontinued and we can start beginning his diet. /MODL Voice ID: [id number] Report ID: [id number]
--- NOTE | 2023-03-07 19:07 | PN ---
Date of Progress Note: 03/07/2023 Subjective: Seen by bedside. Clinically doing okay. He is still not eating and he is in and out of atrial fibrillation. Still on Cardizem drip. Review of Systems: No chest pain or shortness of breath, but has nausea. No vomiting. No diarrhea. No dysuria, polyur ia, or urinary urgency. All other systems reviewed and they were negative. Physical Examination: Vital Signs: Reviewed. Head and Neck: Pupils are equal, reactive to light. Intact eye movements. No JVD. No cervical lym phadenopathy. Neck is supple. Thyroid is not enlarged. Lungs: Clear to auscultation bilaterally. No rhonchi, wheezing, or crackles. No accessory muscle u se. Heart: Regular rate and rhythm. No extra sounds. Abdomen: Distended. Bowel sounds diminished. Extremities: No edema, clubbing, or cyanosis. Intact pulses. Skin: No rash. Neurologic: Alert, awake, oriented x3. No acute focal deficits appreciated. Investigations: BUN 27, creatinine 2.5. Assessment And Recommendations: 1.Atrial fibrillation. He is in sinus now, but in and out of atrial fibrillation. Continue IV Card izem until he is able to take medications by mouth, at what time, switch him to oral metoprolol 25 mg twice a day and he is on IV heparin, which can be switched to Lovenox unless he is going to require surgery soon. Once he is able to take medications by mouth, we will resume Eliquis 2.5 mg twice a da y. 2.Chronic kidney disease, being monitored by Nephrology and this is stable condition. SR/MODL Voice ID: [id number] Report ID: [id number]
[2023-03-07] MEDS: ATORVASTATIN 40 MG TAB PO SCH (21:00)
[2023-03-08] MEDS: METRONIDAZOLE 500mg IVPB 500 MG/100 ML BAG IV SCH ×3 (01:55→17:18)
[2023-03-08] MEDS: NA CHLORIDE 0.9% 1,000 ML IV SCH ×3 (02:00→17:00)
[2023-03-08 04:27] LABS: Hematocrit 23.9 % (39.6-49.0); MCV 82.1 fL (80-100); MPV 7.2 fL (7.6-11.3); RBC Red Blood Cell Count 2.91 M/uL (4.33-5.43)
[2023-03-08 04:46] LABS: Magnesium 2.2 mg/dL (1.6-2.4); Potassium 3.4 mEq/L (3.5-5.1)
[2023-03-08] MEDS: DILTIAZEM INJ 125 MG/25 ML 125 MG in NA CHLORIDE 0.9% 100 ML IV SCH ×2 (06:26→20:24)
--- NOTE | 2023-03-08 06:56 | P.PN ---
Date of Service: 03/08/23 Subjective: ~1L residual from NGT overnight/this morning in and out of a-fib, with HR in 120s-140s; on cardizem drip nausea/vomiting overnight very small/mucous BM per nurse ROS: 10 point ROS as noted above, otherwise negative Physical Exam: GEN: Alert, oriented, NGT in place HEENT: Normal conjunctiva, sclera anicteric CV: Irregularly Irregular rate and rhythm, trace edema Pulm: Nonlabored respirations on room air ABD: Soft, mod distention, hypoactive bowel sounds Neuro: Normal speech, normal affect NGT in place vitals reviewed Problem List: Adynamic Ileus A-fib RVR, paroxysmal BILLIE on CKD3a Hyponatremia Colon cancer treated with chemotherapy Deconditioning secondary colon cancer on chemo Hypertension Hyperlipidemia 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 No significant change in the appearance of air within the colon General surgery consulted, Dr. Keene No surgical intervention at this time; continue medical management Serial Abdominal exams clamp NGT 03/06 - ~1L removed overnight +this morning , NGT placed back to LIWS awaiting BM to dc NGT small bowel series ordered 03/08 Blood cultures: NGTD Continue Empiric IV Cipro and Flagyl (03/05-) Afebrile with no leukocytosis transition IVF to PPN (03/08) A-fib RVR, paroxysmal Monitor on telemetry Cardiology following Continue Cardizem drip transition to PO metoprolol once taking PO, stop IV Heparin drip while NPO restart home eliquis once taking PO 03/07 - went into afib overnight, with HR in 110s-130s 03/08 - in and out of afib, with HR between 100s-140s HR improved to 90-100s with metoprolol BILLIE on CKD3a suspect secondary to dehydration Nephrology consulted 03/07 Monitor renal function transition IVF to PPN (03/08) Hyponatremia improved Colon cancer treated with chemotherapy Deconditioning secondary to colon cancer on chemo Followed by Dr. Cardona in office PT consulted for generalized weakness Hypertension Hyperlipidemia Continue home medications Microcytic anemia, chronic; secondary to chemo ; iron deficiency Secondary to chemo 03/08 - hgb: 8.4 -> 7.6 Transfuse if hgb < 7 VTE: heparin drip Code: Full Dispo: Home, ~2-3 days pending further improvement, improved heart rate/rhythm continue ICU level of care
[2023-03-08] MEDS: ESOMEPRAZOLE MAGNESIUM 20 MG PO SCH (07:00)
[2023-03-08] MEDS: PANTOPRAZOLE 40 MG INJ IVP SCH (08:06)
[2023-03-08] MEDS: CIPROFLOXACIN 400mg IV 400 MG/200 ML BAG IV SCH ×2 (08:07→20:23)
[2023-03-08] MEDS: KCL 20 MEQ/100 mL IVPB 20 MEQ/100 ML BAG IV SCH ×2 (08:07→10:13)
[2023-03-08] MEDS: PANTOPRAZOLE 40MG TABLET PO SCH (08:08)
--- NOTE | 2023-03-08 10:25 | RAD REPORT ---
EXAM DESCRIPTION: RAD - Abdomen 1 View (KUB) - 03/08/2023 10:14 am CLINICAL HISTORY: Abdomen pain FINDINGS: A nasogastric tube is coiled within the stomach. The tip lies within the gastric antrum. No significant change in the dilated small bowel. No significant change in the appearance of air within the colon.
[2023-03-08] MEDS: ONDANSETRON 4 MG/2 ML VIAL IV PRN (10:58)
[2023-03-08] MEDS: PHENOL 1.4% ORAL SPRAY 180ML MM PRN (11:10)
--- NOTE | 2023-03-08 11:42 | PN ---
Date of Progress Note: 03/08/2023 Subjective: The patient has vomiting last night. When the NG tube was clamped, it has put out 600 c c and has put out 550 cc this morning. He has had some mucoid stool, but no solid stool. He states that he is passing gas. He had episode of RVR yesterday and his Cardizem drip has been increased. Objective: Vital Signs: Otherwise stable. He is afebrile. Abdomen: Soft, but distended with hypoactive bowel sounds. No peritonitis. Laboratory Data: Reviewed. Assessment: Ileus. Recommendations: At this time, we will get an abdominal x-ray. If there is no stool in the rectal v winston on the x-ray and he does not anyone to help, then I will recommend getting a small bowel series to make sure the patient does not have a complete obstruction. I would also consider parenteral nutr ition as it has been several days since the patient has eaten well. I will discuss the findings of t he x-ray with Dr. Madison and make further recommendations. EUN/MAKAYLAL Voice ID: [id number] Report ID: [id number]
[2023-03-08] MEDS: HEPARIN/D5W 25,000 UNIT/500 ML BAG IV SCH (12:47)
[2023-03-08] MEDS ORDERED: FUROSEMIDE 40 MG/4 ML VIAL IV ONE (13:50)
--- NOTE | 2023-03-08 15:08 | RAD REPORT ---
EXAM DESCRIPTION: RAD - Chest Single View - 03/08/2023 3:00 pm CLINICAL HISTORY: SOB/FVO Chest pain. COMPARISON: Abdomen 1 View (KUB) dated 03/08/2023; Abdomen 1 View (KUB) dated 03/07/2023; Abdomen 1 Vi ew (KUB) dated 03/06/2023; Abdomen 1 View (KUB) dated 03/05/2023 FINDINGS: Portable technique limits examination quality. The lungs are grossly clear. The heart is normal in size. Enteric tube is noted. There is contrast in the distal aspect of the tube and in the stomach. Right-sided venous catheter has tip in the SVC.
--- NOTE | 2023-03-08 16:13 | RAD REPORT ---
EXAM DESCRIPTION: RAD - Small Bowel Series - 03/08/2023 4:00 pm CLINICAL HISTORY: SBO Abdominal pain COMPARISON: Abdomen Pelvis Wo Contrast dated 03/05/2023 FINDINGS: Nonspecific diffuse distention of large and small bowel noted. Enteric tube is in the stom ach. Contrast is present in the stomach and proximal small bowel. At 4 hours very little if any contr ast progression seen. The findings are most compatible with diffuse ileus. No fluoroscopy was performed. Total images acquired: 5 IMPRESSION: Diffuse adynamic ileus suspected.
[2023-03-08] MEDS ORDERED: MINERAL OIL 30 ML UCUP PO ONE (17:00)
[2023-03-08] MEDS: AA 4.25 %/D5W/ELECTROLYTES 2,000 ML IV SCH (17:19)
[2023-03-08] MEDS: ATORVASTATIN 40 MG TAB PO SCH (20:16)
[2023-03-09] MEDS: METRONIDAZOLE 500mg IVPB 500 MG/100 ML BAG IV SCH ×3 (01:14→16:41)
--- NOTE | 2023-03-09 02:36 | PN ---
Date of Progress Note: 03/08/2023 Chief Complaint: Chronic kidney disease stage 3A, schizophrenia, hypertension. Subjective: Patient is admitted to ICU because of shortness of breath and cough. He has history of atrial fibrillation. He is admitted for acute kidney injury on chronic kidney disease, acute kidney injury is secondary to prerenal state and ATN from prolonged renal state. Serum creatinine level is 2.5. Has not improved during this admission. BNP remains elevated. CT scan showed left renal cyst, otherwise, there is no hydronephrosis. The patient is on IV fluids, although this evening he develo ped some shortness of breath. IV fluids were held and the patient received IV Lasix. The patient wa s found to have hyponatremia and he was started on isotonic fluids. The patient was found to have re spiratory alkalosis seen on ABGs on March 07. Patient recently developed some diarrhea and received antibiotics. He is on NG tube due to ileus. Review of Systems: Denies chest pain, palpitation, although he is complaining of some shortness of breath. Objective: Lungs: Few wheezes. Heart: S1-S2. Abdomen: Soft. Extremities: No edema. Impression: 1.Acute kidney injury secondary to acute tubular necrosis, nonoliguric and severe prerenal state sly ding to acute tubular necrosis. Avoid nephrotoxic medication. The patient completed IV fluids. Con tinue to adjust diuretic as needed. 2.Chronic kidney disease stage 3 secondary to hypertension and benign nephrosclerosis. Baseline GFR 50 mL/minute. Monitor renal panel and avoid nephrotoxic medication. 3.Hyponatremia, improved. The patient was on isotonic fluids and fluids currently on hold because o f some shortness of breath. 4.The patient has history of adynamic ileus. He has an NG tube. Continue to monitor fluid balance. Adjust the electrolyte replacement as needed. EB/MODL Voice ID: [id number] Report ID: [id number]
[2023-03-09 05:16] LABS: Absolute Lymphocytes (CBC) 1.2 K/uL (0.7-4.9); Hematocrit 26.3 % (39.6-49.0); Lymphocytes % 16.7 % (15.3-44.8); MPV 7.8 fL (7.6-11.3); RBC Red Blood Cell Count 3.16 M/uL (4.33-5.43)
[2023-03-09 05:40] LABS: Albumin 1.9 g/dL (3.4-5.0); Bilirubin Total 0.3 mg/dL (0.2-1.0); Magnesium 2.3 mg/dL (1.6-2.4); Potassium 3.5 mEq/L (3.5-5.1)
--- NOTE | 2023-03-09 07:23 | P.PN ---
Date of Service: 03/09/23 Subjective: 1.8L removed since yesterday via NGT no BM, +flatus in normal sinus rhythm, HR in 90-100s, tachypneic otherwise no new / worsening problems ROS: 10 point ROS as noted above, otherwise negative Physical Exam: GEN: Alert, oriented, NGT in place HEENT: Normal conjunctiva, sclera anicteric CV: Irregularly Irregular rate and rhythm, trace edema Pulm: Nonlabored respirations on room air ABD: Soft, mod distention, hypoactive bowel sounds Neuro: Normal speech, normal affect NGT in place vitals reviewed Problem List: Adynamic Ileus A-fib RVR, paroxysmal BILLIE on CKD3a Hyponatremia Colon cancer treated with chemotherapy Deconditioning secondary colon cancer on chemo Hypertension Hyperlipidemia 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 No significant change in the appearance of air within the colon Small bowel series (03/08): Diffuse adynamic ileus suspected. CT abdomen/pelvis (03/09): ordered General surgery consulted, Dr. Keene No surgical intervention at this time; continue medical management Serial Abdominal exams clamp NGT 03/06 - ~1.8L removed overnight +this morning , NGT placed back to LIWS awaiting BM to dc NGT Blood cultures: NGTD change Empiric IV Cipro and Flagyl (03/05-) to zosyn, avoid FQN given afib on 03/09 Afebrile with no leukocytosis transition IVF to PPN (03/08) A-fib RVR, paroxysmal Monitor on telemetry Cardiology following Continue Cardizem drip transition to PO metoprolol once taking PO, stop IV Heparin drip while NPO restart home eliquis once taking PO 03/07 - went into afib overnight, with HR in 110s-130s 03/08 - in and out of afib, with HR between 100s-140s HR improved to 90-100s with metoprolol BILLIE on CKD3a suspect secondary to dehydration Nephrology consulted 03/07 Monitor renal function transition IVF to PPN (03/08) Hyponatremia improved Colon cancer treated with chemotherapy Deconditioning secondary to colon cancer on chemo Followed by Dr. Cardona in office PT consulted for generalized weakness Hypertension Hyperlipidemia Continue home medications Microcytic anemia, chronic; secondary to chemo ; iron deficiency Secondary to chemo monitor H&H. Transfuse if hgb < 7 VTE: heparin drip Code: Full Dispo: Home, ~2-3 days pending further improvement, improved heart rate/rhythm continue ICU level of care
[2023-03-09] MEDS: PANTOPRAZOLE 40 MG INJ IVP SCH (08:52)
[2023-03-09] MEDS: CIPROFLOXACIN 400mg IV 400 MG/200 ML BAG IV SCH (08:53)
--- NOTE | 2023-03-09 08:53 | RAD REPORT ---
EXAM DESCRIPTION: RAD - Abdomen 1 View (KUB) - 03/09/2023 4:48 am CLINICAL HISTORY: Abdomen pain FINDINGS: No contrast is visualized within bowel. Nasogastric tube within the distal stomach. Moderate dilatation of small bowel and mild dilatation of colon is without significant change
[2023-03-09 09:42] LABS: Anisocytosis 2+; Blood Morphology Comment NOTED (NOT SEEN); Platelet Estimate ADEQ; White Blood Cell Scan OK (OK)
[2023-03-09 09:43] LABS: Macrocytosis 1+; Poikilocytosis 1+
--- NOTE | 2023-03-09 14:04 | RAD REPORT ---
EXAM DESCRIPTION: CTAbdomen Pelvis W Contrast - 03/09/2023 1:55 pm CLINICAL HISTORY: Abdominal pain. eval ileus, r/o obstruction / h/o cancer COMPARISON: Abdomen Pelvis W Contrast dated 07/31/2022; Abdomen Pelvis W Contrast dated 2; Abdomen Pelvis W Contrast dated 11/08/2021; Abdomen Pelvis W Contrast dated 08/08/2021; Abdomen 1 View (KUB) dated 03/09/2023; Abdomen Pelvis Wo Contrast dated 03/05/2023 TECHNIQUE: Biphasic CT imaging of the abdomen and pelvis was performed with oral contrast All CT scans are performed using dose optimization technique as appropriate and may include automated exposure control or mA/KV adjustment according to patient size. FINDINGS: Small bilateral pleural effusions slightly greater on the right. Enteric tube coils in the stomach. Cholelithiasis. No liver mass grossly appreciated. The spleen, pancreas and adrenal glands are normal . Prominent left renal cyst. No hydronephrosis. No renal calculus. Mild ascites. Nodularity along the omentum is again seen with soft tissue thickening present. Oral co ntrast material seen within small and large bowel loops. The colon appears somewhat distended. There is no evidence of bowel obstruction. Diffuse adynamic ileus may be present. No evidence of significa nt lymphadenopathy. No lytic or blastic bone lesion. IMPRESSION: There is distension of small bowel and large bowel noted with contrast material and air suggesting diffuse ileus. No free air is seen. Cholelithiasis. Mild ascites and small bilateral pleural effusions.
--- NOTE | 2023-03-09 14:28 | P.PN ---
Subjective Date of Service: 03/09/23 Chief Complaint: Diarrhea Subjective: Other (remains bedbound) Physical Examination - Vital Signs Temperature: 98.1 F Blood Pressure: 130/83 Pulse: 101 Respirations: 24 Pulse Ox (%): 100 - Physical Exam General: Other (chronically ill-appearing) HEENT: Atraumatic, Normocephalic Neck: Supple Respiratory: Other (symmetric chest expansion) Cardiovascular: No rubs, No murmurs Gastrointestinal: Soft and benign, No rebound Musculoskeletal: No clubbing Integumentary: No warmth Neurological: Normal speech, Normal tone Urinary: Other (no bladder distention) External genitalia: Deferred Rectal: Deferred - Studies Microbiology Data (last 24 hrs): 03/03/23 22:32 Blood - Blood Aerobic Blood Culture - Final No growth in 5 days. 03/03/23 22:32 Blood - Blood Anaerobic Blood Culture - Final No growth in 5 days. 03/03/23 22:16 Blood - Blood Aerobic Blood Culture - Final No growth in 5 days. 03/03/23 22:16 Blood - Blood Anaerobic Blood Culture - Final No growth in 5 days. Assessment And Plan - Plan # BILLIE 2/2 rapid afib + prerenal state +/- ATN from prolonged prerenal SCr 2.5 (GFR 26) on adm, at 2.[address] showed L renal cyst, otherwise unremarkable Cont IVF HR control # CKD3a presumed to be 2/2 Htn nephrosclerosis Baseline GFR 50s ml/min Monitor renal panel # Hyponatremia Improved Cont isotonic IVF # Hypokalemia KCl repletion prn # NAGMA + respi alkalosis Seen on ABG on 03/07 Give isotonic IV bicarb 1 liter only # Adynamic ileus Had diarrhea recently On empiric abx, +NGT Laxatives prn # Afib w/ RVR Per Cardiology # Hx of colon cancer, on chemotx Per Dr. Cardona # Htn Continue current med regimen # Anemia Monitor CBC # Schizophrenia Per other services Physician Review: Patient Assessed, Agree with Above Assessment and Plan
[2023-03-09] MEDS: AA 4.25 %/D5W/ELECTROLYTES 2,000 ML, Lipids 20% 250 ML with MULTIVITAMINS INJ 10 ML IV SCH ×3 (16:41)
--- NOTE | 2023-03-09 18:12 | PN ---
Date of Progress Note: 03/09/2023 Subjective: The patient is awake, alert. He did pass a lot of gas this morning. His vital signs ar e stable. He is currently afebrile. His small bowel series showed moderate amount of dilatation thr oughout small bowel and large colon with no advancement of the contrast in the duodenum consistent wi th adynamic ileus. Laboratory Data: Reviewed. White count is normal. There is no left shift. Chemistry reviewed. Pat ient with chronic renal insufficiency. Otherwise unremarkable. His abdomen is distended, hypoactive, but no tenderness and no peritonitis. Assessment: Ileus, etiology unclear. Recommendation: Will continue NG tube at this time. We will also get a CAT scan to make sure there is no obstructing lesion in the stomach that we will do with rectal contrast and make further recomme ndation after the CAT scan was done. The plan of care was discussed in detail with the as well as Dr. Madison. EUN/TRICIA Voice ID: [id number] Report ID: [id number]
[2023-03-09] MEDS: ATORVASTATIN 40 MG TAB PO SCH (21:00)
[2023-03-09] MEDS: PIPER TAZO 3.375 GM in NA CHLORIDE 0.9% 100 ML IV SCH (21:53)
--- NOTE | 2023-03-10 06:45 | P.PN ---
Date of Service: 03/10/23 Subjective: feeling a little better, belly feels slightly softer no BM yet, +increased flatus in normal sinus rhythm with hr in 80-90s; off cardizem drip since yesterday sat up in chair yesterday for ~1 hour no acute events overnight ROS: 10 point ROS as noted above, otherwise negative Physical Exam: GEN: Alert, oriented, NGT in place HEENT: Normal conjunctiva, sclera anicteric CV: Regular rate and rhythm, trace edema Pulm: Nonlabored respirations on room air ABD: Soft, mod distention, hypoactive bowel sounds Neuro: Normal speech, normal affect NGT in place vitals reviewed Problem List: Adynamic Ileus A-fib RVR, paroxysmal BILLIE on CKD3a Hyponatremia Colon cancer treated with chemotherapy Deconditioning secondary colon cancer on chemo Hypertension Hyperlipidemia 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 CT abd/pel (03/09): diffuse ileus; Cholelithiasis; Mild ascites and small bilateral pleural effusions General surgery consulted - Dr. Keene No surgical intervention at this time; continue medical management Serial Abdominal exams NGT to LIWS get xray 03/11 am, if improving can start on tube feeds, +clamp NGT per felisha Blood cultures: No growth Empiric IV Cipro and Flagyl (03/05-03/09) switched to zosyn, avoid FQN given afib on 03/09 Continue Zosyn (03/09-) Afebrile with no leukocytosis transition IVF to PPN (03/08) A-fib RVR, paroxysmal Monitor on telemetry Cardiology following Cardizem drip DC'd 03/09 transition to PO metoprolol 03/10 Heparin drip while NPO restart home eliquis once taking PO 03/08 - in and out of afib, with HR between 100s-140s HR improved to 90-100s with metoprolol f/u EKG BILLIE on CKD3a suspect secondary to dehydration Nephrology consulted 03/07 Monitor renal function transition IVF to PPN (03/08) Hyponatremia improved Colon cancer treated with chemotherapy Deconditioning secondary to colon cancer on chemo Followed by Dr. Pant in office PT consulted for generalized weakness Hypertension Hyperlipidemia Continue home medications Microcytic anemia, chronic; secondary to chemo; iron deficiency Secondary to chemo monitor H&H. Transfuse if hgb < 7 hgb 8.3 -> 7.8 VTE: heparin drip Code: Full Dispo: Home, ~2-3 days pending further improvement, improved heart rate/rhythm continue ICU level of care
[2023-03-10 07:10] LABS: Absolute Lymphocytes (CBC) 1.5 K/uL (0.7-4.9); Hematocrit 25.2 % (39.6-49.0); Lymphocytes % 18.1 % (15.3-44.8); MCV 82.6 fL (80-100); MPV 7.1 fL (7.6-11.3); RBC Red Blood Cell Count 3.05 M/uL (4.33-5.43)
[2023-03-10 07:23] LABS: Albumin 1.7 g/dL (3.4-5.0); Bilirubin Total 0.3 mg/dL (0.2-1.0); Magnesium 2.3 mg/dL (1.6-2.4); Potassium 3.4 mEq/L (3.5-5.1); Protein, Total 4.5 g/dL (6.4-8.2)
[2023-03-10] MEDS: PIPER TAZO 3.375 GM in NA CHLORIDE 0.9% 100 ML IV SCH ×2 (09:18→20:43)
[2023-03-10] MEDS: PANTOPRAZOLE 40 MG INJ IVP SCH (09:18)
[2023-03-10] MEDS: METOPROLOL TAR 25 MG TAB PO SCH ×2 (09:19→17:16)
--- NOTE | 2023-03-10 10:38 | PN ---
Date of Progress Note: 03/10/2023 Subjective: The patient is awake, alert, passing gas. No nausea or vomiting. CT of the abdomen and pelvis reviewed yesterday. Still, the patient has evidence of ileus and bowel obstruction. Laboratory Data: Reviewed. White count is normal. Objective: Vital Signs: Stable. He is afebrile. Abdomen: Much less distended, but still little distended with hypoactive bowel sounds. No tendernes s. No rebound. No rigidity. No guarding. Assessment: Ileus and the patient with multiple medical problems. Recommendations: We will continue the NG tube today and then check an x-ray in the morning and if it is improving, then we can start oral feeds tomorrow and clamp the NG tube. The patient had approxim ately 800 cc of fluid out of the NG tube yesterday, therefore I think 1 more day with the help the mo re time for the ileus to improve. The patient was encouraged to ambulate and then medical management per Nephrology and medical team. EUN/TRICIA Voice ID: [id number] Report ID: [id number]
[2023-03-10] MEDS: AA 4.25 %/D5W/ELECTROLYTES 2,000 ML IV SCH (17:16)
[2023-03-10] MEDS: HEPARIN/D5W 25,000 UNIT/500 ML BAG IV SCH (20:44)
[2023-03-10] MEDS: ATORVASTATIN 40 MG TAB PO SCH (20:44)
--- NOTE | 2023-03-10 23:23 | PN ---
Date of Progress Note: 03/10/2023 Chief Complaint: Acute on chronic kidney injury. Subjective: The patient remains in ICU. He has nonoliguric urine output. He developed acute kidney injury secondary to prerenal state, complicated by ATN from prolonged prerenal state. The patient h as rapid atrial fibrillation leading to prerenal state and hypoperfusion. Serum creatinine level was 2.5 on admission and increased to 2.7 yesterday. BNP remains elevated. CT scan showed left renal c yst. Otherwise, there is no hydronephrosis. The patient is on mild hydration with IV fluids. He de veloped shortness of breath and IV fluids helped. The patient received IV Lasix. Review of Systems: Denies chest pain, palpitation. Objective: Lungs: Few rhonchi. Heart: S1, S2. Abdomen: Soft. Extremities: Minimal edema. Impression: 1.Acute kidney injury. Continue IV fluid hydration. Monitor fluid balance. 2.Chronic kidney disease, stage 3A, presumed secondary to hypertension and benign nephrosclerosis. Baseline GFR 50 mL/minute. 3.Hyponatremia, improved. Continue isotonic IV fluids. 4.Hypokalemia. Potassium chloride treatment for hypokalemia as needed according to lab results. 5.Adynamic ileus. The patient has an NG tube. Management per primary team. 6.Atrial fibrillation with rapid ventricular response on beta- elder. 7.History of colon cancer on chemotherapy per Dr. Cardona of Hematology. EB/MODL Voice ID: [id number] Report ID: [id number]
[2023-03-11 05:30] LABS: Hematocrit 27.6 % (39.6-49.0); MCV 82.6 fL (80-100); MPV 7.3 fL (7.6-11.3); RBC Red Blood Cell Count 3.34 M/uL (4.33-5.43)
[2023-03-11 05:49] LABS: Albumin 1.6 g/dL (3.4-5.0); Bilirubin Total 0.3 mg/dL (0.2-1.0); Potassium 3.3 mEq/L (3.5-5.1); Protein, Total 4.4 g/dL (6.4-8.2)
[2023-03-11] MEDS: METOPROLOL TAR 25 MG TAB PO SCH ×2 (06:19→18:28)
--- NOTE | 2023-03-11 06:50 | P.PN ---
Date of Service: 03/11/23 Subjective: feeling better today no BM yet, +flatus sitting in chair for longer periods of time today remains in sinus rhythm, HR in 70-90s ROS: 10 point ROS as noted above, otherwise negative Physical Exam: GEN: Alert, oriented, NGT in place HEENT: Normal conjunctiva, sclera anicteric CV: Regular rate and rhythm, trace edema Pulm: Nonlabored respirations on room air ABD: Soft, mild distention, hypoactive bowel sounds Neuro: Normal speech, normal affect NGT in place vitals reviewed Problem List: Adynamic Ileus A-fib RVR, paroxysmal BILLIE on CKD3a Hyponatremia Colon cancer treated with chemotherapy Deconditioning secondary colon cancer on chemo Hypertension Hyperlipidemia 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 Keene continue medical management Serial Abdominal exams NGT to LIWS repeat xray 03/12 am, if further improvement can start on clear liquids per felisha Blood cultures: No growth Empiric IV Cipro and Flagyl (03/05-03/09) switched to zosyn, avoid FQN given afib on 03/09 Continue Zosyn (03/09-) Afebrile with no leukocytosis transition IVF to PPN (03/08) A-fib RVR, paroxysmal Monitor on telemetry Cardiology following Cardizem drip DC'd 03/09 transition to PO metoprolol 03/10 Heparin drip while NPO restart home eliquis once taking PO 03/08 - in and out of afib, with HR between 100s-140s HR improved to 90-100s with metoprolol f/u EKG BILLIE on CKD3a suspect secondary to dehydration Nephrology consulted 03/07 Monitor renal function transition IVF to PPN (03/08) Hyponatremia improved Colon cancer treated with chemotherapy Deconditioning secondary to colon cancer on chemo Followed by Dr. Cardona in office PT consulted for generalized weakness Hypertension Hyperlipidemia Continue home medications Microcytic anemia, chronic; secondary to chemo; iron deficiency Secondary to chemo monitor H&H. Transfuse if hgb < 7 hgb 8.3 -> 7.8 VTE: heparin drip Code: Full Dispo: Home, ~2-3 days pending further improvement, improved heart rate/rhythm downgrade from ICU later today
--- NOTE | 2023-03-11 08:17 | RAD REPORT ---
EXAM DESCRIPTION: RAD - Abdomen W Erect - 03/11/2023 8:08 am CLINICAL HISTORY: Follow-up ileus COMPARISON: Abdomen Pelvis Wo Contrast dated 03/09/2023; Abdomen 1 View (KUB) dated 03/09/2023 FINDINGS: NG tube terminates overlying the stomach. Enteric contrast present within the colon. Small bowel dilatation has essentially resolved. IMPRESSION: Improved/resolving ileus.
[2023-03-11] MEDS: PIPER TAZO 3.375 GM in NA CHLORIDE 0.9% 100 ML IV SCH ×2 (08:24→21:19)
[2023-03-11] MEDS: PANTOPRAZOLE 40 MG INJ IVP SCH (08:24)
--- NOTE | 2023-03-11 11:00 | PN ---
Date of Progress Note: 03/11/2023 Subjective: The patient is awake, alert. No complaints. Vitals stable and afebrile. I's and O's r evealed 800 cc out of the NG tube last shift. He is passing gas, but has not had a significant bowel movement. His abdominal x-ray shows marked improvement in the ileus of the small bowel. There is s till some dilatation of the large bowel. Objective: Abdomen: Soft. Still little distended and hypoactive bowel sounds, but there is no tend erness. Laboratory Data: Reviewed. White count is normal. Electrolytes reviewed. Assessment: Prolonged ileus, improving slowly. Recommendations: Continue n.p.o., NG tube, PPN at this time. We will repeat an x-ray tomorrow and w e will await if the ileus is improved further and we will begin clear liquids on the patient. In the meantime, encourage incentive spirometry and ambulation with therapy. /MODL Voice ID: [id number] Report ID: [id number]
[2023-03-11] MEDS ORDERED: D5W IV SCH (14:00)
[2023-03-11] MEDS ORDERED: KCL 20 MEQ/100 mL IVPB 20 MEQ/100 ML BAG IV SCH (14:00)
[2023-03-11] MEDS ORDERED: POTASSIUM CL IV SCH (14:00)
[2023-03-11] MEDS: AA 4.25 %/D5W/ELECTROLYTES 2,000 ML IV SCH (18:29)
[2023-03-11] MEDS: ATORVASTATIN 40 MG TAB PO SCH (21:11)
--- NOTE | 2023-03-12 01:57 | PN ---
Date of Progress Note: 03/11/2023 Chief Complaint: Wlkhu-[id number]-zsnabct kidney injury. History Of Present Illness: The patient was admitted to ICU. He has nonoliguric urine output. He d eveloped acute kidney injury secondary to prerenal state, complicated by ATN from prolonged prerenal state. The patient had rapid atrial fibrillation leading to prerenal state and renal hypoperfusion. Serum creatinine level has been plateauing and was increased up to 2.7 and ranging from 2.[address] scan showed left renal cyst, otherwise there is no hydronephrosis. The patient received Lasix wh en he developed shortness of breath. He is responding to breathing treatments. Review of Systems: Denies chest pain or palpitation. Physical Examination: Lungs: Clear to auscultation bilaterally. Heart: S1 and S2. Extremities: Minimal edema. Impression And Plan: 1.Acute kidney injury. Continue IV fluids for hydration. Monitor fluid balance. 2.Hypokalemia, the patient will receive potassium chloride. The patient currently is on PPN. The p atient previously has hyponatremia and sodium level is trending up. Plan is to adjust PPN. 3.Adynamic ileus. The patient had NG tube and management per primary team. 4.History of colon cancer, on chemotherapy per Dr. Cardona of Hematology. 5.Atrial fibrillation with rapid ventricular response, on beta elder. Continue metoprolol per Car diology. EB/MODL Voice ID: [id number] Report ID: [id number]
[2023-03-12 04:44] VITALS: BMI 20.9
[2023-03-12] MEDS: METOPROLOL TAR 25 MG TAB PO SCH ×2 (05:53→18:33)
[2023-03-12 06:53] LABS: Hematocrit 26.3 % (39.6-49.0); MCV 83.1 fL (80-100); MPV 7.4 fL (7.6-11.3); RBC Red Blood Cell Count 3.17 M/uL (4.33-5.43)
--- NOTE | 2023-03-12 07:02 | P.PN ---
Date of Service: 03/12/23 Subjective: feeling better, stomach feels softer, slowly improving no nausea / no vomiting had a BM today, +flatus getting out of bed more frequently to ambulate/sit on chair ROS: 10 point ROS as noted above, otherwise negative Physical Exam: GEN: Alert, oriented, NGT in place HEENT: Normal conjunctiva, sclera anicteric CV: Regular rate and rhythm, trace edema Pulm: Nonlabored respirations on room air ABD: Soft, mild distention, hypoactive bowel sounds Neuro: Normal speech, normal affect NGT in place vitals reviewed Problem List: Adynamic Ileus A-fib RVR, paroxysmal BILLIE on CKD3a Hyponatremia Colon cancer treated with chemotherapy Deconditioning secondary colon cancer on chemo Hypertension Hyperlipidemia Microcytic anemia secondary to chemo ; iron deficiency Schizophrenia Adynamic ileus CT abd (03/05): likely adynamic ileus CT abd/pel (03/09): diffuse ileus; Cholelithiasis; Mild ascites and small bilateral pleural effusions Xray Abdomen (03/11): Improved/resolving ileus Xray Abdomen (03/12): mild thickening and distention of right-sided bowel loops compared to yesterday. repeat xray in am General surgery consulted - Dr. Keene continue medical management Serial Abdominal exams NGT to LIWS 1 BM 03/12 NGT clamp trial 03/12, +sips of clear liquids Blood cultures: No growth Empiric IV Cipro and Flagyl (03/05-03/09) switched to zosyn, avoid FQN given afib on 03/09 Continue Zosyn (03/09-) Afebrile with no leukocytosis transition IVF to PPN (03/08) A-fib RVR, paroxysmal Monitor on telemetry Cardiology following Cardizem drip DC'd 03/09 transition to PO metoprolol 03/10 Heparin drip while NPO restart home eliquis 03/12; dc heparin drip 03/08 - in and out of afib, with HR between 100s-140s HR improved to 90-100s with metoprolol BILLIE on CKD3a suspect secondary to dehydration Nephrology consulted 03/07 Monitor renal function transition IVF to PPN (03/08) Hyponatremia improved Colon cancer treated with chemotherapy Deconditioning secondary to colon cancer on chemo Followed by Dr. Cardona in office PT consulted for generalized weakness Hypertension Hyperlipidemia Continue home medications Microcytic anemia, chronic; secondary to chemo; iron deficiency Secondary to chemo monitor H&H. Transfuse if hgb < 7 hgb 8.7 -> 8.3 VTE: heparin drip Code: Full Dispo: Home, ~2-3 days pending further improvement, improved heart rate/rhythm, tolerating PO downgraded from ICU yesterday
[2023-03-12 07:03] LABS: Albumin 1.6 g/dL (3.4-5.0); Bilirubin Total 0.3 mg/dL (0.2-1.0); Potassium 3.4 mEq/L (3.5-5.1); Protein, Total 4.5 g/dL (6.4-8.2)
[2023-03-12 07:21] LABS: Blood Morphology Comment NOTED (NOT SEEN); Platelet Estimate ADEQ; White Blood Cell Scan OK (OK)
[2023-03-12 07:22] LABS: Anisocytosis 1+; Hypochromasia 1+
[2023-03-12] MEDS ORDERED: POTASSIUM 25 MEQ EFFERV TAB PO ONE (08:10)
[2023-03-12] MEDS ORDERED: PIPERACIL/TAZO 3.375 GM VIAL IV ONE (09:10)
[2023-03-12] MEDS ORDERED: NA CHLORIDE 0.9% 100 ML ONE (09:12)
[2023-03-12] MEDS: PANTOPRAZOLE 40 MG INJ IVP SCH (09:23)
[2023-03-12] MEDS: PIPER TAZO 3.375 GM in NA CHLORIDE 0.9% 100 ML IV SCH ×2 (09:24→22:09)
[2023-03-12] MEDS ORDERED: HEPARIN/D5W 25,000 UNIT/500 ML BAG IV SCH (10:00)
--- NOTE | 2023-03-12 10:26 | RAD REPORT ---
EXAM DESCRIPTION: RAD - Abdomen W Erect - 03/12/2023 10:11 am CLINICAL HISTORY: Ileus Pain COMPARISON: Abdomen W Erect dated 03/11/2023; Abdomen Pelvis Wo Contrast dated 03/09/2023 FINDINGS: Enteric tube tip is in the stomach. Contrast is present in the colon. Thickened loops of small intestine are noted in the right abdomen, slightly greater than seen on yest erday's study. No free intraperitoneal air. IMPRESSION: Since yesterday's study there has been mild thickening and distention of right-sided bow el loops. Contrast is seen in the colon. Continued follow-up surveillance is recommended, alternative ly CT imaging could be considered to further evaluate this region of the abdomen.
--- NOTE | 2023-03-12 11:27 | PN ---
Date of Progress Note: 03/12/2023 Subjective: The patient is awake and alert, hungry, passing gas. No bowel movement. Objective: Vital Signs: Significant for slightly elevated blood pressure. Otherwise stable and afe brile. Abdomen: Slightly distended and nontender. Hypoactive bowel sounds. Laboratory Data: Reviewed. White count is normal. H and H are stable. An abdominal x-ray reveals mild thickening and distention of the right-sided bowel loops. Contrast is seen, however, in the col on. Continuous surveillance is recommended. Assessment: Prolonged ileus, the patient with multiple medical problems. Recommendations: We will clamp the NG tube and we will see if the patient can tolerate just sips of clear liquids today. Continue ambulation and incentive spirometry. If the patient does not improve significantly within the next 24 hours, consideration should be given to LTAC consultation. EUN/TRICIA Voice ID: [id number] Report ID: [id number]
[2023-03-12] MEDS: AA 4.25 %/D5W/ELECTROLYTES 2,000 ML, Lipids 20% 250 ML with MULTIVITAMINS INJ 10 ML IV SCH ×3 (18:29)
[2023-03-12] MEDS: ATORVASTATIN 40 MG TAB PO SCH (22:09)
[2023-03-13] MEDS: APIXABAN 2.5 MG TABLET PO SCH ×3 (00:19→20:16)
--- NOTE | 2023-03-13 02:24 | PN ---
Date of Progress Note: 03/12/2023 Subjective: Acute on chronic kidney injury. The patient was admitted to ICU. He has nonoliguric ur ine output. He developed acute kidney injury secondary to prerenal state, complicated by ATN from pr olonged prerenal state. The patient has history of rapid atrial fibrillation. CT scan of the abdome n showed left renal cyst. Otherwise, no hydronephrosis. The patient received IV Lasix when he devel oped shortness of breath. He is responding to breathing treatments. He denies complaints today. Physical Examination: Lungs: Clear to auscultation bilaterally. Heart: S1, S2. Abdomen: Soft. Extremities: Minimal edema. Impression And Plan: 1.Acute kidney injury. Continue IV fluids for hydration. Monitor fluid balance. 2.Hypokalemia. The patient will receive potassium chloride. Continue PPN. 3.Adynamic ileus. The patient had NG tube and management for this condition as per primary team. 4.History of colon cancer, on chemotherapy per Dr. Cardona. 5.Atrial fibrillation with rapid ventricular response, on beta elder. Continue metoprolol. EB/MODL Voice ID: [id number] Report ID: [id number]
[2023-03-13] MEDS: METOPROLOL TAR 25 MG TAB PO SCH ×2 (06:22→17:21)
[2023-03-13 06:42] LABS: Hematocrit 24.8 % (39.6-49.0); MCV 82.7 fL (80-100); MPV 7.9 fL (7.6-11.3)
[2023-03-13 07:06] LABS: Albumin 1.5 g/dL (3.4-5.0); Bilirubin Total 0.2 mg/dL (0.2-1.0); Protein, Total 4.5 g/dL (6.4-8.2)
--- NOTE | 2023-03-13 08:10 | RAD REPORT ---
EXAM DESCRIPTION: RAD - Abdomen W Erect - 03/13/2023 7:58 am CLINICAL HISTORY: F/U Ileus COMPARISON: Abdomen W Erect dated 03/12/2023; Abdomen W Erect dated 03/11/2023; Abdomen Pelvis Wo Contrast dated 03/09/2023; Abdomen Pelvis Wo Contrast dated 03/05/2023; Abdomen Pelvis Wo Contrast dated 12/19/2022 FINDINGS/IMPRESSION: Diffuse small bowel dilatation has increased since 03/12/2023 and could reflect worsening ileus. Nonspecific thickened loops of small bowel in the right hemiabdomen are more promin ent could be related to either an enteritis or other etiologies such as hypoproteinemia and anasarca. Gaseous distension of the colon with contrast at the rectum. No evidence of a mechanical bowel obstru ction. NG tube terminates overlying the distal stomach.
[2023-03-13] MEDS ORDERED: PIPERACIL/TAZO 3.375 GM VIAL IV ONE (10:17)
[2023-03-13] MEDS: PIPER TAZO 3.375 GM in NA CHLORIDE 0.9% 100 ML IV SCH ×2 (10:41→20:18)
[2023-03-13] MEDS: PANTOPRAZOLE 40 MG INJ IVP SCH (10:46)
[2023-03-13] MEDS: FUROSEMIDE 20 MG TABLET PO SCH ×2 (10:47→17:21)
[2023-03-13] MEDS ORDERED: NA CHLORIDE 0.9% 100 ML ONE (10:55)
--- NOTE | 2023-03-13 10:56 | PN ---
Date of Progress Note: 03/13/2023 Subjective: Patient is awake and alert. Has had 3 bowel movements since yesterday morning. He is h ungry. Feels better. His NG tube, however, put out 200 cc yesterday evening and none since. Laboratory Data: Reviewed. Objective: Abdomen: Soft, slightly distended but no abnormal bowel sounds and no tenderness at all. Imaging: Abdominal x-ray reviewed and discussed with the radiologist. Essentially it does still parth w an ileus. However, patient could have a patulous small bowel and it is nothing to be concerned abo ut as clinically patient is improving. Assessment: Ileus. The patient with a history of hyponatremia and colon cancer. Recommendations: We will discontinue the NG tube and begin clear liquids and advance his diet slowly . Patient is clinically improving. /MODL Voice ID: [id number] Report ID: [id number]
--- NOTE | 2023-03-13 15:07 | EKG ---
Test Date: 2023-03-09 Test Time: 08:31:35 [employer]: EC MEASUREMENT RESULTS: Intervals: Rate: 94 WI: QRSD: 82 QT: 348 QTc: 435 Brethren: P: WI: QRS: 68 T: -4 INTERPRETIVE STATEMENTS: Accelerated Junctional rhythm ST & T wave abnormality, consider anterior ischemia Abnormal ECG Compared to ECG 03/05/2023 00:22:55 Accelerated junctional rhythm now present Atrial fibrillation no longer present ST (T wave) deviation still present Possible ischemia still present Electronically Signed On 03-13-23 14:59:34 CDT by Roberto Tillman
--- NOTE | 2023-03-13 15:51 | P.PN ---
Subjective Date of Service: 03/13/23 Chief Complaint: Diarrhea Subjective: No new changes Physical Examination - Vital Signs Temperature: 98.5 F Blood Pressure: 153/92 Pulse: 78 Respirations: 16 Pulse Ox (%): 98 - Physical Exam General: Other (chronically ill-appearing) HEENT: Atraumatic, Normocephalic Neck: Supple Respiratory: Other (symmetric chest expansion) Cardiovascular: No rubs, No murmurs Gastrointestinal: Soft and benign, No guarding Musculoskeletal: No clubbing Integumentary: No warmth Neurological: Normal tone Urinary: Other (no bladder distention) External genitalia: Deferred Rectal: Deferred Assessment And Plan - Plan # BILLIE 2/2 rapid afib + prerenal state +/- ATN from prolonged prerenal SCr 2.5 (GFR 26) on adm, improved to 1.[address] showed L renal cyst, otherwise unremarkable Cont IVF/TPN HR control # CKD3a presumed to be 2/2 Htn nephrosclerosis Baseline GFR 50s ml/min Monitor renal panel # Hyponatremia Improved Cont isotonic IVF # Hypokalemia KCl repletion prn # Adynamic ileus Had diarrhea recently On empiric abx NGT removed on 03/13 Receiving TPN # Afib w/ RVR Per Cardiology # Hx of colon cancer, on chemotx Per Dr. Cardona # Htn Continue current med regimen # Anemia Monitor CBC # Schizophrenia Per other services Physician Review: Patient Assessed, Agree with Above Assessment and Plan
[2023-03-13] MEDS ORDERED: FUROSEMIDE 20 MG TABLET PO SCH (17:00)
--- NOTE | 2023-03-13 18:38 | P.PN ---
Subjective Date of Service: 03/13/23 Chief Complaint: Diarrhea reports patient had multiple bowel movements, last one was a large BM. Patient denies abdominal pain. Patient noted to have distended abdomen this morning. He has tolerated clear liquid diet. No vomiting. Physical Examination - Vital Signs Temperature: 97.3 F Blood Pressure: 153/92 Pulse: 78 Respirations: 20 Pulse Ox (%): 96 Assessment And Plan - Plan Physical Exam General: Alert, In no apparent distress, Oriented x3, Cooperative HEENT: NG tube is in place Neck: Supple, JVD not distended Respiratory: Clear to auscultation bilaterally, Normal air movement Cardiovascular: No edema, Normal pulses, irregular rhythm, normal rate normal S1 S2 Gastrointestinal: Mildly distended, nontender, hypoactive bowel sounds. Integumentary: No rashes, No breakdown Neurological: No focal motor deficit vitals reviewed Problem slightly increased bowel dilatation: Adynamic Ileus A-fib RVR, paroxysmal BILLIE on CKD3a Hyponatremia Colon cancer treated with chemotherapy Deconditioning secondary colon cancer on chemo Hypertension Hyperlipidemia Microcytic anemia secondary to chemo ; iron deficiency Schizophrenia Adynamic ileus CT abd (03/05): likely adynamic ileus CT abd/pel (03/09): diffuse ileus; Cholelithiasis; Mild ascites and small bilateral pleural effusions Xray Abdomen (03/11): Improved/resolving ileus Xray Abdomen (03/12): mild thickening and distention of right-sided bowel loops compared to yesterday. General surgery Dr. Keene is following continue medical management Serial Abdominal exams Patient started on clear liquid. Dr. Keene recommend NG tube removal today. KUB suggest slightly increased bowel dilatation Blood cultures: No growth Continue Zosyn (03/09) Afebrile with no leukocytosis Continue PPN until good oral intake. A-fib RVR, paroxysmal Monitor on telemetry Cardiology following Cardizem drip DC'd 03/09 transition to PO metoprolol 03/10 Heparin drip while NPO home eliquis resumed 03/12 and heparin drip discontinued. BILLIE on CKD3a suspect secondary to dehydration Nephrology is following. Monitor renal function transition IVF to PPN (03/08) Hyponatremia improved Colon cancer treated with chemotherapy Deconditioning secondary to colon cancer on chemo Followed by Dr. Cardona in office PT consulted for generalized weakness Hypertension Hyperlipidemia Continue home medications Microcytic anemia, chronic; secondary to chemo; iron deficiency Secondary to chemo monitor H&H. Transfuse if hgb < 7 hgb 8.7 -> 8.3 VTE: Eliquis Code: Full Dispo: Home.
[2023-03-13] MEDS: ATORVASTATIN 40 MG TAB PO SCH (20:16)
[2023-03-13] MEDS: ENSURE CLEAR 200 ML CAN PO SCH (20:17)
[2023-03-14] MEDS: METOPROLOL TAR 25 MG TAB PO SCH ×2 (06:02→17:06)
[2023-03-14] MEDS: PANTOPRAZOLE 40 MG INJ IVP SCH (08:59)
[2023-03-14] MEDS: APIXABAN 2.5 MG TABLET PO SCH ×2 (08:59→20:08)
[2023-03-14] MEDS: PIPER TAZO 3.375 GM in NA CHLORIDE 0.9% 100 ML IV SCH ×2 (08:59→20:12)
[2023-03-14] MEDS: FUROSEMIDE 20 MG TABLET PO SCH ×2 (08:59→17:06)
[2023-03-14] MEDS: ENSURE CLEAR 200 ML CAN PO SCH ×2 (09:00→20:11)
--- NOTE | 2023-03-14 15:43 | P.PN ---
Subjective Date of Service: 03/14/23 Chief Complaint: Diarrhea Subjective: No new changes Physical Examination - Vital Signs Temperature: 98.2 F Blood Pressure: 127/75 Pulse: 73 Respirations: 16 Pulse Ox (%): 99 - Physical Exam General: Other (chronically ill-appearing) HEENT: Atraumatic, Normocephalic Neck: Supple, JVD not distended Respiratory: Other (symmetric chest expansion) Cardiovascular: No rubs, No murmurs Gastrointestinal: Soft and benign, No guarding Musculoskeletal: No clubbing Integumentary: No warmth Neurological: Normal tone Urinary: Other (no bladder distention) External genitalia: Deferred Rectal: Deferred Assessment And Plan - Plan # BILLIE 2/2 rapid afib + prerenal state +/- ATN from prolonged prerenal SCr 2.5 (GFR 26) on adm, improved to 1.[address] showed L renal cyst, otherwise unremarkable On full liquid diet HR control # CKD3a presumed to be 2/2 Htn nephrosclerosis Baseline GFR 50s ml/min Monitor renal panel # Hyponatremia Improved Cont isotonic IVF # Hypokalemia KCl repletion prn # Adynamic ileus Had diarrhea recently On empiric abx NGT removed on 03/13 Full liquid diet # Afib w/ RVR Per Cardiology # Hx of colon cancer, on chemotx Per Dr. Cardona # Htn Continue current med regimen # Anemia Monitor CBC # Schizophrenia Per other services Physician Review: Patient Assessed, Agree with Above Assessment and Plan
--- NOTE | 2023-03-14 15:59 | P.PN ---
Subjective Date of Service: 03/14/23 Chief Complaint: Diarrhea Patient is doing much better today. He was sitting in the chair and eating full liquid diet when I saw him this morning. He denies abdominal pain. No vomiting. NG tube was removed yesterday. Physical Examination - Vital Signs Temperature: 98.2 F Blood Pressure: 127/75 Pulse: 73 Respirations: 16 Pulse Ox (%): 99 Assessment And Plan - Plan Physical Exam General: Alert, In no apparent distress, Oriented x3, Cooperative Respiratory: Clear to auscultation bilaterally, Normal air movement Cardiovascular: No edema, Normal pulses, irregular rhythm, normal rate normal S1 S2 Gastrointestinal: Mildly distended, nontender, hypoactive bowel sounds. Integumentary: No rashes, No breakdown Neurological: No focal motor deficit vitals reviewed Problem slightly increased bowel dilatation: Adynamic Ileus A-fib RVR, paroxysmal BILLIE on CKD3a Hyponatremia Colon cancer treated with chemotherapy Deconditioning secondary colon cancer on chemo Hypertension Hyperlipidemia Microcytic anemia secondary to chemo ; iron deficiency Schizophrenia Adynamic ileus CT abd (03/05): likely adynamic ileus CT abd/pel (03/09): diffuse ileus; Cholelithiasis; Mild ascites and small bilateral pleural effusions Xray Abdomen (03/11): Improved/resolving ileus Xray Abdomen (03/12): mild thickening and distention of right-sided bowel loops compared to yesterday. General surgery Dr. Keene is following continue medical management Serial Abdominal exams Patient is tolerating full liquid diet. NG tube removed. Blood cultures: No growth Continue Zosyn (03/09) Afebrile with no leukocytosis A-fib RVR, paroxysmal Monitor on telemetry Cardiology following Cardizem drip DC'd 03/09 transition to PO metoprolol 03/10 Heart rate is controlled. Patient was on heparin drip. home eliquis resumed 03/12 and heparin drip discontinued. BILLIE on CKD3a suspect secondary to dehydration Nephrology is following. Treated with IV fluid and PPN. Renal function is at baseline. Monitor renal function Hyponatremia improved Colon cancer treated with chemotherapy Deconditioning secondary to colon cancer on chemo Followed by Dr. Cardona in office Continue PT. Hypertension Hyperlipidemia Continue home medications Microcytic anemia, chronic; secondary to chemo; iron deficiency Secondary to chemo monitor H&H. Transfuse if hgb < 7 VTE: Eliquis Code: Full Dispo: Home.
--- NOTE | 2023-03-14 17:00 | PN ---
Date of Progress Note: 03/14/2023 Subjective: Patient is doing well. Tolerating clear liquids, although he does not like Jell-O and b mccarthy. He is ambulating with physical therapy adequately. Objective: Vital Signs: Stable. His T-max is 99.6. Abdomen: Patient had 2 bowel movements today. His abdomen is benign, less distended. No peritoniti s. Assessment: Prolonged ileus, improving slowly. Recommendations: We will order full liquids with patient today and possible discharge is 24-48 hours . Depending on his physical improvement, he may need therapy at home and visiting nurses as well. /MODL Voice ID: [id number] Report ID: [id number]
[2023-03-14] MEDS: ATORVASTATIN 40 MG TAB PO SCH (20:08)
[2023-03-15 05:48] LABS: Absolute Lymphocytes (CBC) 1.6 K/uL (0.7-4.9); Hematocrit 22.4 % (39.6-49.0); Lymphocytes % 34.8 % (15.3-44.8); MCV 83.2 fL (80-100); RBC Red Blood Cell Count 2.69 M/uL (4.33-5.43)
[2023-03-15 06:04] LABS: Potassium 3.9 mEq/L (3.5-5.1)
[2023-03-15] MEDS: METOPROLOL TAR 25 MG TAB PO SCH ×2 (06:08→16:12)
[2023-03-15] MEDS ORDERED: PIPERACIL/TAZO 3.375 GM VIAL IV ONE (08:00)
[2023-03-15] MEDS ORDERED: NA CHLORIDE 0.9% 100 ML ONE (08:10)
[2023-03-15] MEDS: FUROSEMIDE 20 MG TABLET PO SCH ×2 (08:39→16:11)
[2023-03-15] MEDS: PANTOPRAZOLE 40 MG INJ IVP SCH (08:40)
[2023-03-15] MEDS: PIPER TAZO 3.375 GM in NA CHLORIDE 0.9% 100 ML IV SCH ×2 (08:40→20:47)
[2023-03-15] MEDS: ENSURE CLEAR 200 ML CAN PO SCH ×2 (08:40→20:47)
[2023-03-15] MEDS: APIXABAN 2.5 MG TABLET PO SCH ×2 (08:41→20:47)
[2023-03-15] MEDS ORDERED: POTASSIUM 25 MEQ EFFERV TAB PO ONE (09:00)
[2023-03-15] MEDS ORDERED: FUROSEMIDE 40 MG/4 ML VIAL IV ONE (09:58)
--- NOTE | 2023-03-15 10:51 | PN ---
Date of Progress Note: 03/15/2023 Subjective: The patient is awake, alert, tolerating a full liquid diet. Having bowel movements. No nausea or vomiting. Objective: Vital Signs: Stable, afebrile. Abdomen: Slightly distended, but no peritonitis. Positive bowel sounds. Laboratory Data: Reviewed. His H and H are slightly marginal at 7 and 20. Assessment: Ileus, improving. Recommendations: We will slowly advance the diet to a regular diet with emphasis on high fiber. I w ill discuss with Dr. Perdomo regarding the need for blood transfusion prior to discharge, which I anti cipate will occur in the next 24 hours. The patient is clinically improving. /MODL Voice ID: [id number] Report ID: [id number]
--- NOTE | 2023-03-15 16:27 | P.PN ---
Subjective Date of Service: 03/15/23 Chief Complaint: Diarrhea Patient is doing much better today. He was sitting in the chair and eating solid diet. His only complaint today is increased lower extremity swelling. He denies abdominal pain. No vomiting. He ambulated in the hallway with physical therapy today. Physical Examination - Vital Signs Temperature: 97.9 F Blood Pressure: 127/65 Pulse: 74 Respirations: 16 Pulse Ox (%): 98 Assessment And Plan - Plan Physical Exam General: Alert, In no apparent distress, Oriented x3, Cooperative Respiratory: Clear to auscultation bilaterally, Normal air movement Cardiovascular: No edema, Normal pulses, irregular rhythm, normal rate normal S1 S2 Gastrointestinal: Mildly distended, nontender, hypoactive bowel sounds. Integumentary: No rashes, No breakdown Neurological: No focal motor deficit vitals reviewed Problem slightly increased bowel dilatation: Adynamic Ileus A-fib RVR, paroxysmal BILLIE on CKD3a Hyponatremia Colon cancer treated with chemotherapy Deconditioning secondary colon cancer on chemo Hypertension Hyperlipidemia Microcytic anemia secondary to chemo ; iron deficiency Schizophrenia Adynamic ileus CT abd (03/05): likely adynamic ileus CT abd/pel (03/09): diffuse ileus; Cholelithiasis; Mild ascites and small bilateral pleural effusions Xray Abdomen (03/11): Improved/resolving ileus Xray Abdomen (03/12): mild thickening and distention of right-sided bowel loops compared to yesterday. General surgery Dr. Keene is following continue medical management Serial Abdominal exams Patient is tolerating solid diet NG tube removed. Blood cultures: No growth Continue Zosyn (03/09) Afebrile with no leukocytosis. Overall patient is clinically improved. A-fib RVR, paroxysmal Monitor on telemetry Cardiology following Cardizem drip DC'd 03/09 transition to PO metoprolol 03/10 Heart rate is controlled. Patient was on heparin drip. home eliquis resumed 03/12 and heparin drip discontinued. BILLIE on CKD3a suspect secondary to dehydration Nephrology is following. Treated with IV fluid and PPN. Renal function is at baseline. Monitor renal function Hyponatremia improved Colon cancer treated with chemotherapy Deconditioning secondary to colon cancer on chemo Followed by Dr. Cardona in office He has been able to ambulate in the hallway. Continue PT. Hypertension Hyperlipidemia Continue home medications Microcytic anemia, chronic; secondary to chemo; iron deficiency Secondary to chemo. Hemoglobin is down to 7. Repeat H&H today Transfuse if hgb < 7 Acute on chronic diastolic heart failure Home dose Lasix resumed. IV Lasix as needed. VTE: Eliquis Code: Full Dispo: Home.
[2023-03-15 20:01] LABS: Hematocrit 25.5 % (39.6-49.0)
[2023-03-15] MEDS: ATORVASTATIN 40 MG TAB PO SCH (20:47)
[2023-03-15 23:07] VITALS: O2SAT 100
--- NOTE | 2023-03-16 02:00 | PN ---
Date of Progress Note: 03/15/2023 Chief Complaint: Acute kidney injury on chronic kidney disease. Subjective: The patient has advanced chronic kidney disease. The serum creatinine level was fluctua ting and then the patient on arrival to the hospital was found to have elevated creatinine level up t o 2.5. GFR 26. Review of Systems: Denies chest pain, palpitation, although he developed some pretibial edema. Denies redness or extrem ity pain. Physical Examination: Lungs: Clear to auscultation bilaterally. Heart: S1-S2. Abdomen: Soft. Extremities: Slight edema in both legs. Impression And Plan: 1.Acute kidney injury secondary to prerenal state from rapid atrial fibrillation leading to acute tu bular necrosis from prolonged prerenal state. BNP remains elevated. Patient had workup done for acu te kidney injury. CT scan without contrast showed left renal cyst, otherwise is unremarkable. Curre ntly, patient is on liquid diet. He will continue hydration by mouth. 2.Edema. Diuretic as needed. 3.Chronic kidney disease stage IIIA, presumed to benign nephrosclerosis, hypertensive kidney disease . Baseline GFR was 50 mL/minute. 4.Hyponatremia, improved. Patient responded to IV normal saline. 5.Hypokalemia. Continue potassium chloride for hypokalemia. 6.Adynamic ileus. Recently, the patient had diarrhea. Patient is on empiric antibiotics. NG tube was removed. 7.Hypertension. Continue current regimen. 8.History of colon cancer. Patient underwent chemotherapy per Dr. Cardona. FAYE/MAKAYLAL Voice ID: [id number] Report ID: [id number]
[2023-03-16] MEDS: METOPROLOL TAR 25 MG TAB PO SCH (06:29)
[2023-03-16] MEDS: FUROSEMIDE 20 MG TABLET PO SCH (08:51)
[2023-03-16] MEDS: APIXABAN 2.5 MG TABLET PO SCH (08:51)
[2023-03-16] MEDS: PANTOPRAZOLE 40 MG INJ IVP SCH (08:52)
[2023-03-16] MEDS ORDERED: ENSURE ENLIVE 237 ML CAN PO SCH (09:00)
--- NOTE | 2023-03-16 09:13 | P.DS ---
Admission Date: 03/05/23 Discharge Date: 03/16/23 Disposition: AL HOME/HOME HEALTH CARE Discharge Condition: FAIR Reason for Admission: Diarrhea Brief History of Present Illness: 72-year-old male with a past medical history of CKD stage III, schizophrenia, A-fib, on Eliquis, colon cancer on chemotherapy, hypertension, hyperlipidemia, presents to the emergency room with diarrhea and weakness. reports being treated for colon cancer on chemotherapy. is at bedside reported several loose stools for 2 days. reports she gave him immodium which caused the diarrhea to stop. She reported associated generalized weakness and feeling warm.. He denied nausea, vomiting, fever, chills, cough, shortness of breath chest pain, abdominal pain, dysuria, edema. ED laboratory evaluation CMP sodium 130, acute on chronic kidney injury creatinine 2.54, BUN 33, estimated GFR 26, urine sodium less than 15, CBC microcytic anemia hemoglobin 9.7, 31.5, no left shift, Patient admitted for hyponatremia, diarrhea, generalized weakness. Hospital Course: Diagnosis Adynamic Ileus A-fib RVR, paroxysmal BILLIE on CKD3a Hyponatremia Colon cancer treated with chemotherapy Deconditioning secondary colon cancer on chemo Hypertension Hyperlipidemia Microcytic anemia secondary to chemo ; iron deficiency Schizophrenia Adynamic ileus CT abd (03/05): likely adynamic ileus CT abd/pel (03/09): diffuse ileus; Cholelithiasis; Mild ascites and small bilateral pleural effusions Xray Abdomen (03/11): Improved/resolving ileus Xray Abdomen (03/12): mild thickening and distention of right-sided bowel loops compared to yesterday. General surgery Dr. Keene consulted and medical management recommended. NG tube was inserted, there was slow return of bowel function and NG tube subsequently removed. Patient subsequently tolerated clear liquid diet, and diet advancement to solid consistency Blood cultures: No growth Patient treated empirically with IV Zosyn. Afebrile with no leukocytosis. Overall patient is clinically improved, tolerating diet and deemed stable for discharge. A-fib RVR, paroxysmal He developed rapid atrial fibrillation necessitating ICU transfer and treated with Cardizem drip He was seen and evaluated by cardiology. Cardizem drip eventually discontinued and transitioned to PO metoprolol. Heart rate is controlled. Patient was on heparin drip. home eliquis resumed 03/12 and heparin drip discontinued. BILLIE on CKD3a suspect secondary to dehydration Seen by nephrology Treated with IV fluid and PPN. Renal function improved baseline. Hyponatremia improved Colon cancer treated with chemotherapy Deconditioning secondary to colon cancer on chemo Followed by Dr. Cardona in office He has been able to ambulate in the hallway. Patient received PT. He is discharged to home with PT. Hypertension Hyperlipidemia Continued home medications Microcytic anemia, chronic; secondary to chemo; iron deficiency Secondary to chemo. Hemoglobin is down to 7. Repeat H&H today Transfuse if hgb < 7 Acute on chronic diastolic heart failure Treated with Lasix and titrated up to 20 mg twice daily Vital Signs/Physical Exam: Temp Pulse Resp BP Pulse Ox 98.8 F 81 16 139/86 100 03/16/23 08:00 03/16/23 08:51 03/16/23 08:00 03/16/23 08:51 03/16/23 08:00 General: Alert, In no apparent distress, Oriented x3 HEENT: Mucous membr. moist/pink Neck: JVD not distended Respiratory: Clear to auscultation bilaterally, Normal air movement Cardiovascular: Normal S1 S2, Edema (Lower extremities), Irregular heart rate/rhythm Gastrointestinal: Normal bowel sounds, Soft and benign, No tenderness Musculoskeletal: No tenderness Integumentary: No cyanosis Neurological: Normal strength at 5/5 x4 extr Laboratory Data at Discharge: WBC 4.60 thou/uL (4.3-10.9) 03/15/23 05:23 Hgb 7.9 g/dL (13.6-17.9) L D 03/15/23 19:42 Hct 25.5 % (39.6-49.0) L 03/15/23 19:42 Plt Count 221 thou/uL (152-406) 03/15/23 05:23 PT 16.3 SECONDS (9.5-12.5) H 03/07/23 10:10 INR 1.48 03/07/23 10:10 APTT 35.1 SECONDS (24.3-36.9) 03/13/23 06:07 Sodium 139 mEq/L (136-145) 03/16/23 03:31 Potassium 4.0 mEq/L (3.5-5.1) 03/16/23 03:31 BUN 26 mg/dL (7-18) H 03/16/23 03:31 Creatinine 2.25 mg/dL (0.70-1.30) H 03/16/23 03:31 Glucose 99 mg/dL (74-106) 03/16/23 03:31 Phosphorus 3.8 mg/dL (2.5-4.9) 03/05/23 07:40 Magnesium 2.3 mg/dL (1.6-2.4) 03/10/23 06:54 Total Bilirubin 0.2 mg/dL (0.2-1.0) 03/13/23 06:07 AST 23 U/L (15-37) 03/13/23 06:07 ALT 15 U/L (16-61) L 03/13/23 06:07 Alkaline Phosphatase 94 U/L (45-117) D 03/13/23 06:07 Lipase 19 U/L (13-75) 03/03/23 22:17 Home Medications: Fluphenazide 25 mg IM ONCE 02/06/19 Docusate Sodium [Stool Softener] 1 tab PO DAILY 09/08/22 Esomeprazole Magnesium 1 tab PO DAILY 09/08/22 Potassium Chloride 1 tab PO DAILY 09/08/22 Apixaban [Eliquis *] 2.5 mg PO BID 30 Days #60 tab 09/10/22 Atorvastatin Calcium [Lipitor] 40 mg PO BEDTIME #30 tab 09/10/22 Metoprolol Tartrate [Lopressor*] 25 mg PO BID #60 tab 09/27/22 Ensure Enlive 237 ml PO BID #30 can 03/16/23 Furosemide [Lasix*] 20 mg PO BIDL #60 tab 03/16/23 Sennosides [Senokot] 17.2 mg PO BID #120 tab 03/16/23 Tamsulosin [Flomax] 0.4 mg PO BEDTIME #30 cap 03/16/23 New Medications: Ensure Enlive 237 ml PO BID #30 can Tamsulosin [Flomax] 0.4 mg PO BEDTIME #30 cap Furosemide [Lasix*] 20 mg PO BIDL #60 tab Sennosides [Senokot] 17.2 mg PO BID #120 tab Diet: AHA Activity: Fall precautions Followup: Boaz Keene MD [ACTIVE - CAN ADMIT] - (within 2 weeks) Roberto Tillman MD [ACTIVE - CAN ADMIT] - (within 1 month.) Time spent managing pt's care (in minutes): 40
[2023-03-16 12:07] VITALS: BP 143/81; TEMP 97.7
--- NOTE | 2023-03-16 17:05 | PN ---
Date of Progress Note: 03/16/2023 Subjective: Patient is awake, alert, ambulating, tolerating diet, having bowel movements. No pain. No nausea, vomiting. Objective: Vital Signs: Afebrile. Abdomen: Benign and nontender. Assessment: Ileus, resolved. Recommendation: Patient is cleared from surgery for discharged. /MODL Voice ID: [id number] Report ID: [id number]
== END 2023-03-16 13:29 | disposition home health service (06) | DRG 640 ==
LOC: ER 20:44 → ERHOLD 03-04 02:05 → 4TH 03-04 02:19 → 3RD-ICU 03-05 01:39 → OBSVTOIN 03-05 13:33 → 4TH 03-11 19:58
PROVIDERS: ADMIT Internal Medicine; ATTEND Internal Medicine
PROC: 3E0336Z Introduction of Nutritional Substance into Peripheral Vein, Percutaneous Approach (ICD-10-PCS; principal; 2023-03-10)
DX: E87.1 Hypo-osmolality and hyponatremia (principal); I50.33 Acute on chronic diastolic (congestive) heart failure; N17.0 Acute kidney failure with tubular necrosis; C18.9 Malignant neoplasm of colon, unspecified; K56.0 Paralytic ileus; I13.0 Hypertensive heart and chronic kidney disease with heart failure and stage 1 through stage 4 chronic kidney disease, or unspecified chronic kidney disease; E87.4 Mixed disorder of acid-base balance; I48.0 Paroxysmal atrial fibrillation; E78.00 Pure hypercholesterolemia, unspecified; N18.31 Chronic kidney disease, stage 3a; D63.1 Anemia in chronic kidney disease; K59.00 Constipation, unspecified; D50.9 Iron deficiency anemia, unspecified; E86.0 Dehydration; E87.6 Hypokalemia; N28.1 Cyst of kidney, acquired; D64.81 Anemia due to antineoplastic chemotherapy; T45.1X5A Adverse effect of antineoplastic and immunosuppressive drugs, initial encounter; F20.9 Schizophrenia, unspecified; Z88.6 Allergy status to analgesic agent; Z79.01 Long term (current) use of anticoagulants; Z74.01 Bed confinement status; Z79.899 Other long term (current) drug therapy
CPT/HCPCS: 36415; 36600; 71045; 74018; 74019; 74176; 74250; 76705; 80048; 80053; 81001; 82306; 82550; 82570; 82728; 82805; 82947; 83540; 83605; 83690; 83735; 83880; 83930; 83935; 83970; 84100; 84132; 84156; 84300; 84466; 85014; 85018; 85025; 85027; 85610; 85730; 87040; 93005; 96360; 97116; 97161; 97530; 99285; C9113; J0744; J1940; J2405; J2543; J3480; J7030; J7060

== ENCOUNTER 2023-06-07 17:45 | Inpatient (IN) | payer OTHER ==
--- OUTSIDE RECORDS SUMMARY | 2023-06-07 17:48 | XMS REPORT | Continuity of Care Document ---
:1950 Author Organization [facility] t Address [address] [place] [address] Care Team Providers Name Role Phone Aster Monique DO Primary Care Physician Alex Felipe Attending Clinician [phone] Problems Condition Condition Condition Status Onset Resolution Last Treating Co mments Source Name Details Category Date Date Treatment Clinician Date NEW NEW Diagnosis Active 2018-12-05 [facility] PT/CLEARAN PT/CLEARAN 4-05 12:52:00 l CE/ CE/ 00:00: [place] Active 00 11/22/2018 [facility]ly [facility] Adenomatou Adenomatou Disease Active M jud s [...] Schizophre Schizophre Disease Active M jud [facility] Preoperati Preoperat Problem Active 2018-12-07 [facility] ve state mikaela state 22:15:19 l (finding) (finding) Herm miriam Active Problem 12/07/2018 [facility] ENCNTR FOR ENCNTR Diagnosis [facility] 12[facility]52:00 l ADULT GENERAL [place] MEDICAL ADULT EXAM W/ MEDICAL EXAM W/ Active [facility] Allergies, Adverse Reactions, Alerts Allergy Allergy Status Severity Reaction(s) Onset Inactive Treating Comm ents Source Name Type Date Date Clinician Aspirin Propensi Active GI Methodi ty to Intolerance 3-14 st adverse 00:00: Hospita reaction 00 l s to drug Family History Family Member Diagnosis Comments Start Date Stop Date Source Paternal grandfather No Known Problems [facility] Paternal grandmother No Known Problems [facility] Natural sister No Known Problems [facility] Natural brother No Known Problems [facility] Natural father No Known Problems [facility] Maternal grandfather No Known Problems [facility] Maternal grandmother No Known Problems [facility] Natural mother No Known Problems [facility] Other No Known Problems [facility] Social History Social Habit Start Date Stop Date Quantity Comments Source History [facility] Hospit al History [facility] Gender identity [facility] Sexual orientation [facility] History of Social 2019-04-10 2019-04-[address] function 00:00:00 00:00:00 Hospital Alcohol intake 2018-12-27 2018-12-27 Current [facility] 00:00:00 00:00:00 non-drinker of Hospital alcohol (finding) History SDOH 2018-12-24 2018-12-24 1 [facility] Frequency 00:00:00 00:00:00 Hospita l Tobacco use and 2018-11-01 2018-11-01 Smokeless [facility] exposure 00:00:00 00:00:00 tobacco non-user Hospital Sex Assigned At [birth year] [facility] 00:00:00 00:00:00 Hospital Smoking Status Start Date Stop Date Source Social History [facility] Medications Ordered Filled Start Stop Current [...] Yes 0 [facility] 4-18 Refill(s) l 18:00: [place] Ranitidine 2019-0 Yes 0 [facility] 4-18 Refill(s) l 18:00: [place] fluPHENAZin 2019-0 Yes 12.5 mg = M emoria e decanoate 4-18 0.5 mL, l 25 mg/mL 18:00: IM, every Herm miriam injectable month., 0 solution Refill(s) Ranitidine 2019-0 Yes 0 [facility] 4-18 Refill(s) l 18:00: [place] fluPHENAZin 2019-0 Yes 12.5 mg = M emoria e decanoate 4-18 0.5 mL, l 25 mg/mL 18:00: IM, every Herm miriam injectable month., 0 solution Refill(s) Ranitidine 2019-0 Yes 0 [facility] 4-18 Refill(s) l 18:00: [place] fluPHENAZin 2019-0 Yes 12.5 mg = M emoria e decanoate 4-18 0.5 mL, l 25 mg/mL 18:00: IM, every Herm miriam injectable month., 0 solution Refill(s) fluPHENAZin 2019-0 Yes .5mg Q30D Inject 0.5 [...] Planned Date Details Comments Source Future Scheduled 2023-06-02 Screening for [facility] Test 04:42:41 malignant neoplasm of colon (procedure) [code = 384850312] Future Scheduled 2023-06-02 Screening for [facility] Test 04:42:41 malignant neoplasm of colon (procedure) [code = 051365505] Future Scheduled 2023-06-02 Screening for [facility] Test 04:42:41 malignant neoplasm of colon (procedure) [code = 238544379] Future Scheduled 2023-06-02 [facility]-19 [facility] (#[facility] 04:42:41 [code = COVID-19 VACCINE (#1)] Future Scheduled 2023-06-02 Screening for [facility] Test 04:42:41 malignant neoplasm of colon (procedure) [code = 274124350] Future Scheduled 2023-06-02 Screening for [facility] Test 04:42:41 malignant neoplasm of colon (procedure) [code = 237653156] Future Scheduled 2023-06-02 SHINGLES VACCINES (1 [facility] Test 04:42:41 of 2) [code = SHINGLES VACCINES (1 of 2)] Future Scheduled 2023-06-02 RSV VACCINES > 60 YR [facility] Test 04:42:41 (1 - 1-dose 60+ series) [code = RSV VACCINES > 60 YR (1 - 1-dose 60+ series)] Future Scheduled 2023-06-02 65+ [facility] 04:42:41 VACCINE (1 - PCV) [code = 65+ PNEUMOCOCCAL VACCINE (1 - PCV)] Future Scheduled 2023-06-02 [facility]FLUENZA [facility]ACCINE (#[facility] 04:42:41 [code = INFLUENZA VACCINE (#1)] Future Scheduled 2023-02-03 Screening for [facility] Test 21:24:50 malignant neoplasm of colon (procedure) [code = 134605121] Future Scheduled 2023-02-03 Screening for [facility] Test 21:24:50 malignant neoplasm of colon (procedure) [code = 582716268] Future Scheduled 2023-02-03 Screening for [facility] Test 21:24:50 malignant neoplasm of colon (procedure) [code = 984064149] Future Scheduled 2023-02-03 [facility]:24[facility]50 [code = COVID-19 VACCINE (#1)] Future Scheduled 2023-02-03 Screening for [facility] Test 21:24:50 malignant neoplasm of colon (procedure) [code = 938777407] Future Scheduled 2023-02-03 Screening for [facility] Test 21:24:50 malignant neoplasm of colon (procedure) [code = 367171093] Future Scheduled 2023-02-03 SHINGLES VACCINES (1 [facility] Test 21:24:50 of 2) [code = SHINGLES VACCINES (1 of 2)] Future Scheduled 2023-02-03 65+ [facility]OCOCCAL [facility] 21:24:50 VACCINE (1 - PCV) [code = 65+ PNEUMOCOCCAL VACCINE (1 - PCV)] Future Scheduled 2023-02-03 INFLUENZA VACCINE [facility] Test 21:24:50 [code = INFLUENZA VACCINE] Future Scheduled 2022-09-21 COVID-19 VACCINE (#1) [facility] Test 16:03:25 [code = COVID-19 VACCINE (#1)] Future Scheduled 2022-09-21 COLONOSCOPY SCREENING [facility] Test 16:03:25 [code = COLONOSCOPY SCREENING] Future Scheduled 2022-09-21 SHINGLES VACCINES (1 [facility] Test 16:03:25 of 2) [code = SHINGLES VACCINES (1 of 2)] Future Scheduled 2022-09-21 65+ [facility]OCOCCAL [facility] 16:03:25 VACCINE (1 - PCV) [code = 65+ PNEUMOCOCCAL VACCINE (1 - PCV)] Future Scheduled 2022-09-21 INFLUENZA VACCINE [facility] Test 16:03:25 [code = INFLUENZA VACCINE] Future Scheduled 2022-08-05 COVID-19 VACCINE (#1) [facility] Test 21:14:43 [code = COVID-19 VACCINE (#1)] Future Scheduled 2022-08-05 COLONOSCOPY SCREENING [facility] Test 21:14:43 [code = COLONOSCOPY SCREENING] Future Scheduled 2022-08-05 SHINGLES VACCINES (1 [facility] Test 21:14:43 of 2) [code = SHINGLES VACCINES (1 of 2)] Future Scheduled 2022-08-05 65+ [facility]OCOCCAL [facility] Test 21:14:43 VACCINE (1 - PCV) [code = 65+ PNEUMOCOCCAL VACCINE (1 - PCV)] Future Scheduled 2022-08-05 INFLUENZA VACCINE [facility] Test 21:14:43 [code = INFLUENZA VACCINE] Encounters Start End Encounter Admission Attending Care Care Encounter Source Date/Time Date/Time Type Type Clinicians Facility Department ID 2018-12-05 2018-12-06 Outpatient nullFlavo [id number] [facility] 17:40:00 04:59:00 [facility] Cardiology Yoselyn nn Colman 2018-12-05 2018-12-06 Outpatient nullFlavo [id number] [facility] 17:40:00 04:59:00 [facility] 00 l Cardiology Yoselyn Colman 2018-12-05 2018-12-05 Outpatient Wickramasin [facility] [id number] 12:40:00 23:59:00 ghe, 00 Alex Chapman 2018-12-05 2018-12-05 Outpatient [facility] [id number] [facility] 12:40:00 12:40:00 Results This patient has no known results.
--- NOTE | 2023-06-07 18:24 | RAD REPORT ---
[facility] 6[facility]12 pm CLINICAL HISTORY: weak COMPARISON: Chest Single View dated 03/08/2023; Abdomen 1 View (KUB) dated 03/08/2023; Abdomen 1 View (KUB) dated 03/07/2023 TECHNIQUE: Portable AP view of the chest. FINDINGS: Enteric tube removed. The lungs are clear apart from left basilar atelectasis which appear s stable. No pneumothorax or effusion. The cardiomediastinal contours are unremarkable. IMPRESSION: No acute cardiopulmonary process.
[2023-06-07 18:45] LABS: Specific Gravity 1.014 (1.005-1.030); Urine Bacteria <20 /HPF (<20); Urine Bilirubin NEGATIVE (Negative); Urine Blood Trace (Negative); Urine Clarity Extremely Turbid (Clear); Urine Color Yellow (Yellow); Urine Glucose TRACE (Negative); Urine Mucus Slight /HPF (None Seen); Urine Protein 3+ (Negative); Urine RBC <5 /HPF (None Seen); Urine Urobilinogen Normal (Normal); Urine WBC Clump Rare /HPF (None Seen); Urine pH 5.5 (5.0-7.0)
[2023-06-07] MEDS ORDERED: NA CHLORIDE 0.9% 1,000 ML ONE ×2 (19:02→22:51)
[2023-06-07 19:14] LABS: Absolute Lymphocytes (CBC) 1.1 K/uL (0.7-4.9); Hematocrit 29.6 % (39.6-49.0); Lymphocytes % 8.9 % (15.3-44.8); MCV 74.2 fL (80-100); MPV 7.9 fL (7.6-11.3); Platelets 257 thou/uL (152-406); RBC Red Blood Cell Count 3.98 M/uL (4.33-5.43)
[2023-06-07 19:15] LABS: Anisocytosis 2+; Blood Morphology Comment NOTED (NOT SEEN); Platelet Estimate ADEQ; White Blood Cell Scan OK (OK)
[2023-06-07 19:21] LABS: Protime INR 1.49
[2023-06-07 19:35] LABS: Albumin 2.1 g/dL (3.4-5.0); Bilirubin Direct 0.2 mg/dL (0-0.2); Bilirubin Indirect, Calculated 0.2 mg/dL (0.2-0.8); Bilirubin Total 0.4 mg/dL (0.2-1.0); Magnesium 2.7 mg/dL (1.6-2.4); Potassium 4.8 mEq/L (3.5-5.1); Protein, Total 7.3 g/dL (6.4-8.2); Troponin High Sensitivity 9.1 pg/mL (<58.9)
--- NOTE | 2023-06-07 20:07 | EDPHYS ---
Physician Documentation [facility] Name: Nir Spangler Age: 72 yrs Sex: Male : 1950 Arrival Date: 06/07/2023 Time: 17:45 Bed 16 Private MD: ED Physician Blair Rendon HPI: 06/07 18:05 This 72 yrs old Male presents to ER via EMS with complaints of weakness. sp3 18:05 72-year-old male with a history of colon cancer, atrial fibrillation on Eliquis, hyper sp3 lipidemia, hypertension now presents to the ED with chief complaint resolved diarrhea but still lingering weakness since yesterday. Patient had a 4-hour episode of nonbloody nonmucoid diarrhea resolved with Pepto-Bismol yesterday but subsequent to that patient's been feeling weak which is extended into today and therefore his activated EMS to bring him here for further evaluation. Patient has no current symptoms and states he feels okay. He denies headache, neck pain, fever, URI symptoms, chest pain, shortness of breath, abdominal pain, back pain, nausea, vomiting, continued diarrhea, rash, focal deficit, or any other signs or symptoms on ROS at this time.. Historical: - Allergies: 17:58 Aspirin; mb9 - Home Meds: 17:58 Metoprolol Tartrate Oral [Active]; mb9 - PMHx: 17:58 Atrial fibrillation; colon cancer; Hypercholesterolemia; Hypertensive disorder; mb9 - PSHx: 17:58 right chest port access; mb9 - Immunization history:: Adult Immunizations up to date. - Social history:: Smoking status: Patient denies any tobacco usage or history of. ROS: 18:11 Eyes: Negative for injury, pain, redness, and discharge, ENT: Negative for injury, sp3 pain, and discharge, Neck: Negative for injury, pain, and swelling, Cardiovascular: Negative for chest pain, palpitations, and edema, Respiratory: Negative for shortness of breath, cough, wheezing, and pleuritic chest pain, Back: Negative for injury and pain, MS/Extremity: Negative for injury and deformity, Skin: Negative for injury, rash, and discoloration, Neuro: Negative for headache, weakness, numbness, tingling, and seizure, Psych: Negative for depression, anxiety, suicide ideation, homicidal ideation, and hallucinations, Allergy/Immunology: Negative for hives, rash, and allergies, Endocrine: Negative for neck swelling, polydipsia, polyuria, polyphagia, and marked weight changes, 18:11 All other systems are negative, Exam: 18:11 Constitutional: This is a well developed, well nourished patient who is awake, alert, sp3 and in no acute distress. Head/Face: Normocephalic, atraumatic. Eyes: Pupils equal round and reactive to light, extra-ocular motions intact. Lids and lashes normal. Conjunctiva and sclera are non-icteric and not injected. Cornea within normal limits. Periorbital areas with no swelling, redness, or edema. Neck: Trachea midline, no thyromegaly or masses palpated, and no cervical lymphadenopathy. Supple, full range of motion without nuchal rigidity, or vertebral point tenderness. No Meningismus. Chest/axilla: Normal chest wall appearance and motion. Nontender with no deformity. No lesions are appreciated. Cardiovascular: Regular rate and rhythm with a normal S1 and S2. No gallops, murmurs, or rubs. Normal PMI, no JVD. No pulse deficits. Respiratory: Lungs have equal breath sounds bilaterally, clear to auscultation and percussion. No rales, rhonchi or wheezes noted. No increased work of breathing, no retractions or nasal flaring. Abdomen/GI: Soft, non-tender, with normal bowel sounds. No distension or tympany. No guarding or rebound. No evidence of tenderness throughout. Back: No spinal tenderness. No costovertebral tenderness. Full range of motion. Skin: Warm, dry with normal turgor. Normal color with no rashes, no lesions, and no evidence of cellulitis. MS/ Extremity: Pulses equal, no cyanosis. Neurovascular intact. Full, normal range of motion. Neuro: Awake and alert, GCS 15, oriented to person, place, time, and situation. Cranial nerves II-XII grossly intact. Motor strength 5/5 in all extremities. Sensory grossly intact. Cerebellar exam normal. Normal gait. Psych: Awake, alert, with orientation to person, place and time. Behavior, mood, and affect are within normal limits. 19:29 ECG was reviewed by the Attending Physician. EKG demonstrates normal sinus rhythm at 91 sp3 bpm with normal intervals, normal QRS, normal axis, nonspecific diffuse ST subcutaneous without evidence of acute ischemia. Vital Signs: 17:56 BP 105 / 72; Pulse 89; Resp 16; Temp 98.8(O); Pulse Ox 100% on R/A; Weight 61.23 kg; mb9 Height 5 ft. 4 in. ; Pain 0/10; 19:08 BP 98 / 69; Pulse 78; Resp 16; Pulse Ox 100% on R/A; mb9 19:53 BP 119 / 76; Pulse 89; Resp 16; Pulse Ox 100% on R/A; mb9 20:55 BP 107 / 63; Pulse 84; Resp 16; Pulse Ox 99% on R/A; mb9 17:56 Body Mass Index 23.17 (61.23 kg, 162.56 cm) mb9 17:56 Pain Scale: Adult mb9 MDM: 17:54 Patient medically screened. sp3 18:12 Data reviewed: vital signs, nurses notes, diagnostic data from outside facility, old sp3 medical records, lab test result(s), EKG, radiologic studies. ED course: 72-year-old male with generalized weakness status post diarrhea episode yesterday. Differential diagnosis includes dehydration, electrolyte abnormality, and to a much lesser degree acute coronary syndrome, sepsis, functional weakness secondary to multiple pathologies that are present. We will evaluate with laboratory values, EKG, urine analysis and also administer IV fluids. If work-up is negative, we will safely discharge patient home as was communicated with his who is okay with the plan.. 19:55 ED course: Patient with a sodium of 125 and creatinine of 3.2. This represents sp3 hyponatremia and acute on chronic renal failure. Patient is getting IV fluids already. We will admit patient to medicine service for further intervention and correction of abnormalities.. 06/07 17:55 Order name: Basic Metabolic Panel; Complete Time: 19:36 sp3 06/07 17:55 Order name: CBC with Diff; Complete Time: 19:26 sp3 06/07 17:55 Order name: LFT's; Complete Time: 19:36 sp3 06/07 17:55 Order name: Magnesium; Complete Time: 19:36 sp3 06/07 17:55 Order name: NT PRO-BNP; Complete Time: 19:36 sp3 06/07 17:55 Order name: PT-INR; Complete Time: 19:26 sp3 06/07 17:55 Order name: Troponin HS; Complete Time: 19:36 sp3 06/07 17:55 Order name: UAM; Complete Time: 19:26 sp3 06/07 17:55 Order name: Lactate w/ 2H reflex if indic.; Complete Time: 19:36 sp3 06/07 19:16 Order name: CBC Smear Scan; Complete Time: 19:26 EDMS 06/08 07:31 Order name: CBC with Automated Diff EDMS 06/08 07:54 Order name: Basic Metabolic Panel EDMS 06/08 07:54 Order name: Phosphorus EDMS 06/08 07:54 Order name: Magnesium EDMS 06/08 13:06 Order name: Troponin High Sensitivity EDMS 06/08 13:07 Order name: Magnesium EDMS 06/08 13:54 Order name: Basic Metabolic Panel EDMS 06/08 13:54 Order name: NT PRO-BNP EDMS 06/07 17:55 Order name: XRAY Chest (1 view); Complete Time: 19:26 sp3 06/08 09:13 Order name: US EDMS 06/07 17:55 Order name: EKG; Complete Time: 17:55 sp3 06/07 20:29 Order name: CONS Physician Consult EDMS 06/07 17:55 Order name: Cardiac monitoring; Complete Time: 18:00 sp3 06/07 17:55 Order name: EKG - Nurse/Tech; Complete Time: 18:35 sp3 06/07 17:55 Order name: IV Saline Lock; Complete Time: 19:07 sp3 06/07 17:55 Order name: Labs collected and sent; Complete Time: 19:07 sp3 06/07 17:55 Order name: O2 Per Protocol; Complete Time: 18:00 sp3 06/07 17:55 Order name: O2 Sat Monitoring; Complete Time: 18:00 sp3 Administered Medications: 19:07 Drug: NS 0.9% IV 1000 ml IV at 1 bolus Per protocol; 1000 mL bolus Route: IV; Rate: 1 aa5 bolus; Site: left upper arm; 20:55 Follow up: Response: No adverse reaction; IV Status: Completed infusion mb9 06/08 00:59 Drug: Metoprolol IVP 5 mg IVP once; Hold for SBP <100 or HR <60. Route: IVP; Site: left jb4 upper arm; Disposition Summary: 06/07/23 20:06 Hospitalization Ordered Notes: Hospitalization Status: Inpatient Admission sp3 Provider: Corby Patel sp3 Condition: Stable sp3 Problem: an acute exacerbation sp3 Symptoms: have worsened sp3 Bed/Room Type: Standard sp3 Location: Intensive Care Unit(06/08/23 14:31) dw Room Assignment: 2-(06/08/23 14:31) dw Diagnosis - Hyponatremia, dehydration, acute on chronic renal failure sp3 Forms: - Medication Reconciliation Form sp3 - SBAR form sp3 - Leadership Thank You Letter sp3 Signatures: Dispatcher [employer] Shira Purvis RN RN dw Tiffanie Thompson RN RN aa5 Dacia Feldman RN RN Jaime José RN RN jb4 Blair Rendon MD MD sp3 eVsna Chisholm RN RN mb9 Corrections: (The following items were deleted from the chart) 06/07 21:37 20:06 Telemetry/MedSurg (Inpatient) sp3 cg 21:37 20:06 sp3 cg 06/08 14:31 06/07 21:37 [facility] ER HOLD cg dw 06/08 14:31 06/07 21:37 ERHOLD- cg dw
--- NOTE | 2023-06-07 20:07 | ER ---
Nurse's Notes [facility] Name: Nir Spangler Age: 72 yrs Sex: Male : 1950 Arrival Date: 06/07/2023 Time: 17:45 Bed 16 Private MD: Diagnosis: Hyponatremia, dehydration, acute on chronic renal failure Presentation: 06/07 17:56 Chief complaint: EMS states: "toned out for Diarrhea for 2 days, that resolved mb9 yesterday, and weakness. Pt usually able to ambulate at home but unable to since today.". Coronavirus screen: Vaccine status: Patient reports receiving the 2nd dose of the covid vaccine. Ebola Screen: No symptoms or risks identified at this time. Initial Sepsis Screen: Does the patient meet any 2 criteria? No. Patient's initial sepsis screen is negative. Does the patient have a suspected source of infection? No. Patient's initial sepsis screen is negative. Risk Assessment: Do you want to hurt yourself or someone else? Patient reports no desire to harm self or others. Onset of symptoms was June 07, 2023. 17:56 Method Of Arrival: EMS: [facility] mb9 17:56 Acuity: AWAIS 3 mb9 Triage Assessment: 17:58 General: Appears in no apparent distress. Behavior is calm, cooperative. Pain: Denies mb9 pain. EENT: No signs and/or symptoms were reported regarding the EENT system. Neuro: Ferreira Agitation-Sedation Scale (RASS): 0 - Alert and Calm Level of Consciousness is awake, alert, obeys commands, Oriented to person, place, time, situation, Appropriate for age. Cardiovascular: Heart tones S1 S2 present Patient's skin is warm and dry. Respiratory: Airway is patent Respiratory effort is even, unlabored, Respiratory pattern is regular, symmetrical, Breath sounds are clear bilaterally. GI: Abdomen is flat, non-distended, Bowel sounds present X 4 quads. Abd is soft and non tender X 4 quads. Parent/caregiver reports the patient having diarrhea. : No signs and/or symptoms were reported regarding the genitourinary system. Derm: Skin is pink, warm \\T\\ dry. Derm: Musculoskeletal: Range of motion: intact in all extremities, Reports weakness in right arm, left arm, right leg and left leg. Historical: - Allergies: 17:58 Aspirin; mb9 - Home Meds: 17:58 Metoprolol Tartrate Oral [Active]; mb9 - PMHx: 17:58 Atrial fibrillation; colon cancer; Hypercholesterolemia; Hypertensive disorder; mb9 - PSHx: 17:58 right chest port access; mb9 - Immunization history:: Adult Immunizations up to date. - Social history:: Smoking status: Patient denies any tobacco usage or history of. Screenin:59 [facility] ED Fall Risk Assessment (Adult) History of falling in the last 3 months, mb9 including since admission No falls in past 3 months (0 pts) Confusion or Disorientation No (0 pts) Intoxicated or Sedated No (0 pts) Impaired Gait No (0 pts) Mobility Assist Device Used No (0 pt) Altered Elimination No (0 pt) Score/Fall Risk Level 0 - 2 = Low Risk Oriented to surroundings, Maintained a safe environment, Educated pt \\T\\ family on fall prevention, incl call for assistance when getting out of bed. Abuse screen: Denies threats or abuse. Nutritional screening: No deficits noted. Tuberculosis screening: No symptoms or risk factors identified. Assessment: 17:59 Reassessment: see triage assessment. mb9 19:00 Reassessment: No changes from previously documented assessment. Patient and/or family mb9 updated on plan of care and expected duration. Pain level reassessed. Patient is alert, oriented x 3, equal unlabored respirations, skin warm/dry/pink. 20:00 Reassessment: No changes from previously documented assessment. Patient and/or family mb9 updated on plan of care and expected duration. Pain level reassessed. Patient is alert, oriented x 3, equal unlabored respirations, skin warm/dry/pink. 21:00 Reassessment: Report given to QUAN Castle. mb9 Vital Signs: 17:56 BP 105 / 72; Pulse 89; Resp 16; Temp 98.8(O); Pulse Ox 100% on R/A; Weight 61.23 kg; mb9 Height 5 ft. 4 in. ; Pain 0/10; 19:08 BP 98 / 69; Pulse 78; Resp 16; Pulse Ox 100% on R/A; mb9 19:53 BP 119 / 76; Pulse 89; Resp 16; Pulse Ox 100% on R/A; mb9 20:55 BP 107 / 63; Pulse 84; Resp 16; Pulse Ox 99% on R/A; mb9 17:56 Body Mass Index 23.17 (61.23 kg, 162.56 cm) mb9 17:56 Pain Scale: Adult mb9 ED Course: 17:50 Patient arrived in ED. em1 17:50 Blair Rendon MD is Attending Physician. sp3 17:56 Vesna Chisholm RN is Primary Nurse. mb9 17:58 Triage completed. mb9 17:58 Arm band placed on. mb9 17:59 Placed in gown. Bed in low position. Call light in reach. Side rails up X 1. Client mb9 placed on continuous cardiac and pulse oximetry monitoring. NIBP monitoring applied. ekg monitor tech on. 18:00 EKG done, by ED staff, reviewed by Blair Rendon MD. mb9 18:14 XRAY Chest (1 view) In Process Unspecified. EDMS 18:50 Missed attempt(s): 22 gauge in right forearm. Bleeding controlled, band aid applied, aa5 catheter tip intact. 19:00 Initial lab(s) drawn, sent to lab. Inserted saline lock: 22 gauge in left upper arm, aa5 using aseptic technique. Blood collected. 19:09 No provider procedures requiring assistance completed. mb9 20:04 Corby Patel MD is Hospitalizing Provider. sp3 20:55 Patient admitted, IV remains in place. mb9 Administered Medications: 19:07 Drug: NS 0.9% IV 1000 ml IV at 1 bolus Per protocol; 1000 mL bolus Route: IV; Rate: 1 aa5 bolus; Site: left upper arm; 20:55 Follow up: Response: No adverse reaction; IV Status: Completed infusion mb9 06/08 00:59 Drug: Metoprolol IVP 5 mg IVP once; Hold for SBP <100 or HR <60. Route: IVP; Site: left jb4 upper arm; Medication: 06/07 18:00 VIS not applicable for this client. mb9 Outcome: 20:06 Decision to Hospitalize by Provider. sp3 06/08 14:36 Admitted to ICU accompanied by nurse, via stretcher, room 2, on monitor, with chart, me1 Report called to QUAN Osei Condition: stable Instructed on the need for admit, 15:16 Patient left the ED. me1 Signatures: Dispatcher [employer] Arnold Bush em1 Tiffanie Thompson, RN RN aa5 Jaime Eastman RN RN jb4 Blair Rendon MD MD sp3 Vesna Chisholm, RN RN mb9 Farnaz Gore RN RN me1
--- NOTE | 2023-06-07 20:26 | P.HP ---
Certification for Inpatient Patient admitted to: Inpatient With expected LOS: <2 Midnights Patient will require the following post-hospital care: None Practitioner: I am a practitioner with admitting privileges, knowledge of patient current condition, hospital course, and medical plan of care. Services: Services provided to patient in accordance with Admission requirements found in Title 42 Section 412.3 of the Code of Federal Regulations Patient History Date of Service: 06/08/23 Reason for admission: Diarrhea, weakness History of Present Illness: 72-year-old male with a past medical history of colon cancer, atrial fibrillation, on on Eliquis, hyperlipidemia, hypertension, presents to the emergency room with weakness and diarrhea. He reports none bloody mucoid stools over 4 hours. Today. He reports symptoms resolved with Pepto. Reports symptoms started yesterday. Family called EMS due to weakness. He denies chest pain, nausea vomiting, fever, chills,. ER lab evaluation hyponatremia 125, acute renal failure BUN 54 creatinine 3.20, leukocytosis 12.6, microcytic anemia 9.3, 29.6, elevated BNP 2252, chest x-ray left atelectasis bibasilar pelvis stable, no acute processes lactic normal 1.5, EKG A-fib RVR rate 160, troponin normal 9.1 Allergies aspirin Adverse Reaction (Verified 02/06/19 09:25) stomach problems Home Medications: Fluphenazide 25 mg IM ONCE 02/06/19 Docusate Sodium [Stool Softener] 1 tab PO DAILY 09/08/22 Esomeprazole Magnesium 1 tab PO DAILY 09/08/22 Potassium Chloride 1 tab PO DAILY 09/08/22 Apixaban [Eliquis *] 2.5 mg PO BID 30 Days #60 tab 09/10/22 Atorvastatin Calcium [Lipitor] 40 mg PO BEDTIME #30 tab 09/10/22 Metoprolol Tartrate [Lopressor*] 25 mg PO BID #60 tab 09/27/22 Ensure Enlive 237 ml PO BID #30 can 03/16/23 Furosemide [Lasix*] 20 mg PO BIDL #60 tab 03/16/23 Sennosides [Senokot] 17.2 mg PO BID #120 tab 03/16/23 Tamsulosin [Flomax] 0.4 mg PO BEDTIME #30 cap 03/16/23 - Past Medical/Surgical History Diabetic: No -: Colon cancer on chemo -: Schizophrenia -: Anemia -: Atrial fibrillation on chronic anticoagulation -: Colon cancer surgery Psychosocial/ Personal History: Patient lives at home with his - Social History Smoking Status: Never smoker Alcohol use: No CD- Drugs: No Caffeine use: Yes Review of Systems 10-point ROS is otherwise unremarkable Physical Examination - Physical Exam General: Alert, In no apparent distress, Oriented x3, Other (Generalized weakness) HEENT: Atraumatic, Normocephalic Neck: Supple, 2+ carotid pulse no bruit Respiratory: Clear to auscultation bilaterally, Normal air movement Cardiovascular: Other (A-fib RVR), Irregular heart rate/rhythm Capillary refill: <2 Seconds Gastrointestinal: Normal bowel sounds, Non-distended Musculoskeletal: No clubbing, No swelling Neurological: Normal speech, Normal strength at 5/5 x4 extr, Other (Generalized weakness) - Studies Laboratory Data (last 24 hrs) 06/07/23 06/07/23 06/07/23 19:06 19:06 19:06 WBC 12.60 H Hgb 9.3 L Hct 29.6 L Plt Count 257 PT 16.4 H INR 1.49 Sodium 125 L Potassium 4.8 BUN 53 H Creatinine 3.20 H Glucose 91 Magnesium 2.7 H Total Bilirubin 0.4 AST 33 ALT 47 Alkaline Phosphatase 128 H Assessment and Plan - Plan Assessment and plan A-fib RVR on Eliquis Acute on chronic renal failure likely secondary from diarrhea and diuretic use Microcytic anemia Elevated BNP Hyponatremia Hyperlipidemia Hypertension history of colon cancer, Assessment plan atrial fibrillation, on on Eliquis Elevated BNP Admit to ICU, amiodarone drip initiated elevated BNP 2252, EKG A-fib RVR rate 160, troponin normal 9.1 Cardiology consulted, case discussed with Dr Patel Telemetry, as needed Lopressor IV, failed to respond on amiodarone drip with bolus initiated in the emergency room. Resume appropriate home meds Leukocytosis chest x-ray left atelectasis bibasilar pelvis stable, no acute processes lactic normal 1.5, leukocytosis 12.6,lactic normal 1.5, trend WBCs Acute on chronic renal failure likely secondary from diarrhea and diuretic use Hyponatremia Nephrology consult ER lab evaluation hyponatremia 125, acute renal failure BUN 54 creatinine 3.20, Gentle IV fluids, Stool samples Microcytic anemia microcytic anemia 9.3, 29.6, hyperlipidemia hypertension History of colon cancer Resume appropriate home meds Full code DVT Eliquis Diet cardiac Discharge Plan: Home Plan to discharge in: 48 Hours - Advance Directives Does patient have a Living Will: No Does patient have a Durable POA for Healthcare: No - Code Status/Comfort Care Code Status Assessed: Yes Code Status: Full Code Physician Review: Patient Assessed, Agree with Above Assessment and Plan Critical Care: Yes Time Spent Managing Pts Care (In Minutes): 70
[2023-06-07] MEDS: APIXABAN 2.5 MG TABLET PO SCH (21:00)
[2023-06-07] MEDS ORDERED: ATORVASTATIN 40 MG TAB PO SCH (21:00)
[2023-06-07] MEDS ORDERED: NA CHLORIDE 0.9% 1,000 ML IV SCH (21:26)
[2023-06-07] MEDS ORDERED: APIXABAN 5 MG TABLET ONE (22:50)
[2023-06-07] MEDS ORDERED: ATORVASTATIN 40 MG TAB ONE (22:51)
[2023-06-08] MEDS ORDERED: METOPROLOL TAR 25 MG TAB PO ONE (00:42)
[2023-06-08] MEDS ORDERED: ACETAMINOPHEN 500 MG TAB PO PRN (00:43)
[2023-06-08] MEDS: METOPROLOL TARTRATE 5 MG/5 ML INJ IV PRN ×2 (00:49→01:25)
[2023-06-08] MEDS ORDERED: ACETAMINOPHEN 500 MG TAB ONE (01:10)
[2023-06-08] MEDS ORDERED: METOPROLOL TARTRATE 5 MG/5 ML INJ IV ONE ×2 (01:10→01:29)
[2023-06-08] MEDS ORDERED: METOPROLOL TAR 25 MG TAB ONE (01:29)
[2023-06-08] MEDS ORDERED: AMIODARONE HCL 150 MG in D5W 100 ML IV STA ×2 (01:40→01:55)
[2023-06-08] MEDS ORDERED: AMIODARONE HCL 900 MG in Dextrose 5%-Water 482 ML IV SCH ×4 (02:00)
[2023-06-08] MEDS ORDERED: AMIODARONE HCL 150 MG/3 ML INJ IV ONE (02:07)
[2023-06-08] MEDS ORDERED: NA CHLORIDE 0.9% 100 ML ONE (02:07)
[2023-06-08] MEDS ORDERED: AMIODARONE IN DEXTROSE,ISO-OSM 360 MG/200 ML BAG IV ONE (02:07)
[2023-06-08] MEDS ORDERED: NA CHLORIDE 0.9% 250 ML IV ONE ×2 (07:24→07:43)
[2023-06-08 07:30] LABS: Absolute Lymphocytes (CBC) 1.3 K/uL (0.7-4.9); Hematocrit 25.7 % (39.6-49.0); Lymphocytes % 10.3 % (15.3-44.8); MCV 74.2 fL (80-100); MPV 7.8 fL (7.6-11.3); Platelets 243 thou/uL (152-406); RBC Red Blood Cell Count 3.46 M/uL (4.33-5.43)
[2023-06-08] MEDS ORDERED: NA CHLORIDE 0.9% 1,000 ML IV SCH (07:43)
[2023-06-08 07:44] LABS: Magnesium 2.7 mg/dL (1.6-2.4); Phosphorus 5.1 mg/dL (2.5-4.9); Potassium 4.4 mEq/L (3.5-5.1)
[2023-06-08] MEDS ORDERED: PNEUMOCOCCAL VACCINE 0.5 ML IMVAC ONE (08:00)
[2023-06-08] MEDS ORDERED: INFLUENZA VACCINE (for 6+ mo) 0.5 ML DOSE IMVAC ONE (08:00)
[2023-06-08] MEDS ORDERED: SODIUM CHLORIDE 1 GM TAB PO SCH (08:00)
[2023-06-08] MEDS: APIXABAN 2.5 MG TABLET PO SCH ×2 (09:00→22:24)
[2023-06-08] MEDS: PANTOPRAZOLE 40MG TABLET PO SCH (09:00)
[2023-06-08] MEDS ORDERED: METOPROLOL TAR 25 MG TAB PO SCH (09:00)
--- NOTE | 2023-06-08 09:12 | RAD REPORT ---
EXAM DESCRIPTION: US - Renal Ultrasound-Complete - 06/07/2023 11:38 pm CLINICAL HISTORY: Acute renal failure COMPARISON: None FINDINGS: The right kidney measures 10 cm with increased echotexture Limited evaluation of the left kidney. The patient's known cyst is not visualized. The left kidney me asures 9 centimeters increased echotexture Hydronephrosis is not seen. No gross abnormality of bladder IMPRESSION: Increased renal echotexture consistent with parenchymal disease No hydronephrosis
[2023-06-08] MEDS ORDERED: PANTOPRAZOLE 40MG TABLET PO ONE (09:49)
[2023-06-08] MEDS ORDERED: APIXABAN 5 MG TABLET ONE (09:50)
[2023-06-08] MEDS ORDERED: NA CHLORIDE 0.9% 1,000 ML ONE (10:22)
[2023-06-08 13:54] LABS: Potassium 4.7 mEq/L (3.5-5.1)
--- NOTE | 2023-06-08 14:23 | P.CNS ---
Date of Consult: 06/08/23 Reason for Consult: BILLIE, CKD2 Chief Complaint: Diarrhea, weakness History of Present Illness: 72M w/ PMHx of CKD2, schizophrenia, A-fib on Eliquis, colon cancer on chemotherapy, hypertension, & hyperlipidemia, who p/w generalized weakness, diarrhea, & constipation. He has diarrhea and constipation episodes repeatedly. He reports having diarrhe recently but now c/o constipation. He is taking docusate at home. He is referred to Nephrology for BILLIE & hypoNa. SCr 3.2 on adm, received IVF, serum Cr imprpoved to 2.9 today. Serum Na 125 on adm, improved to 130 today. He also had rapid A. fib on admission. He received amiodarone. Heart rate is now controlled. Allergies aspirin Adverse Reaction (Verified 02/06/19 09:25) stomach problems Home Medications: Fluphenazide 25 mg IM ONCE 02/06/19 Docusate Sodium [Stool Softener] 1 tab PO DAILY 09/08/22 Esomeprazole Magnesium 1 tab PO DAILY 09/08/22 Potassium Chloride 1 tab PO DAILY 09/08/22 Apixaban [Eliquis *] 2.5 mg PO BID 30 Days #60 tab 09/10/22 Atorvastatin Calcium [Lipitor] 40 mg PO BEDTIME #30 tab 09/10/22 Metoprolol Tartrate [Lopressor*] 25 mg PO BID #60 tab 09/27/22 Ensure Enlive 237 ml PO BID #30 can 03/16/23 Furosemide [Lasix*] 20 mg PO BIDL #60 tab 03/16/23 Tamsulosin [Flomax] 0.4 mg PO BEDTIME #30 cap 03/16/23 - Past Medical/Surgical History Diabetic: No -: Colon cancer on chemo -: Schizophrenia -: Anemia -: Atrial fibrillation on chronic anticoagulation -: Colon cancer surgery Psychosocial/ Personal History: Patient lives at home with his - Social History Alcohol use: No CD- Drugs: No Caffeine use: Yes Place of Residence: Home Review of Systems General: Weakness Eyes: Unremarkable ENT: Unremarkable Respiratory: Unremarkable Cardiovascular: Unremarkable Gastrointestinal: Diarrhea Genitourinary: Unremarkable Musculoskeletal: Unremarkable Integumentary: Unremarkable Neurological: Unremarkable Lymphatics: Unremarkable Physical Examination Temp Pulse Resp BP Pulse Ox 97.9 F 73 22 H 123/74 99 06/08/23 11:00 06/08/23 13:15 10/20/23 13:15 06/08/23 13:15 06/08/23 13:15 General: Other (chronically ill-appearing) HEENT: Atraumatic, Normocephalic Neck: Supple, JVD not distended Respiratory: Other (symmetric chest expansion) Cardiovascular: No rubs, No murmurs Gastrointestinal: Soft and benign, No rebound Musculoskeletal: No clubbing Integumentary: No warmth Neurological: Normal tone Lymphatics: No axilla or inguinal lymphadenopathy Urinary: Other (no bladder distention) External genitalia: Deferred Rectal: Deferred Laboratory Data (last 24 hrs) 06/07/23 06/07/23 06/07/23 19:06 19:06 19:06 WBC 12.60 H Hgb 9.3 L Hct 29.6 L Plt Count 257 PT 16.4 H INR 1.49 Sodium 125 L Potassium 4.8 BUN 53 H Creatinine 3.20 H Glucose 91 Magnesium 2.7 H Total Bilirubin 0.4 AST 33 ALT 47 Alkaline Phosphatase 128 H Conclusions/Impression: # BILLIE 2/2 CRS1 from rapid afib + prerenal state from acute diarrhea SCr 3.2 on adm, improved to 2.[address] showed L renal cyst, otherwise unremarkable Dc IVF [place] po fluid intake HR control # CKD2 presumed to be 2/2 Htn nephrosclerosis Baseline SCr 1.0-1.2 (GFR 64-80) as of 04/2022 Monitor renal panel # Salt overload BNP sig elevated, 1+ BLE edema Recent TTE showed normal LVEF, gr 1DD Chest CT in 2020 showed no pulmo Htn Dc NS gtt, avoid Na-containing IVF Dc NaCl tabs # Afib w/ RVR Received amiodarone gtt Had hypotension, now resolved HR now controlled Per other services # Hyponatremia Serum Na 125 on adm, improved to 130 today Na overloaded. Dc NS gtt. Avoid Na-containing IVF or NaCl tab. Give Tolvaptan 7.5 mg po x 1 Advised on adeq po solid food intake at least half a plate per meal, tid If po intake is poor, add Ure-Na 15g po bid # Constipation Had diarrhea recently but now resolved Senna po bid + docusate po bid # Hx of colon cancer, on chemotx Per Dr. Cardona # Htn Had hypotension w/ rapid afib. Hypotension now resolved. Continue current med regimen # Anemia Monitor CBC # Schizophrenia Per other services
--- NOTE | 2023-06-08 14:40 | EKG ---
Test Date: 2023-06-08 Test Time: 07:06:02 Facilities Flight Check Pilot: RHYS MEASUREMENT RESULTS: Intervals: Rate: 51 OK: 138 QRSD: 82 QT: 424 QTc: 390 [place]: P: 63 OK: 138 QRS: 78 T: 55 INTERPRETIVE STATEMENTS: Sinus bradycardia Septal infarct, age undetermined Abnormal ECG Compared to ECG 06/08/2023 00:44:45 Myocardial infarct finding now present Atrial fibrillation no longer present ST (T wave) deviation no longer present Possible ischemia no longer present Electronically Signed On 06-08-23 14:39:11 CDT by Roberto Tillman
--- NOTE | 2023-06-08 14:41 | EKG ---
Test Date: 2023-06-07 Test Time: 18:19:33 Jacquard Loom Fixer: MB MEASUREMENT RESULTS: Intervals: Rate: 91 FL: 136 QRSD: 78 QT: 342 QTc: 420 [place]: P: 50 FL: 136 QRS: 65 T: 33 INTERPRETIVE STATEMENTS: Normal sinus rhythm Normal ECG Compared to ECG 03/09/2023 08:31:35 Accelerated junctional rhythm no longer present ST (T wave) deviation no longer present Possible ischemia no longer present Electronically Signed On 06-08-23 14:39:49 CDT by Roberto Tillman
--- NOTE | 2023-06-08 14:41 | EKG ---
Test Date: 2023-06-08 Test Time: 00:44:45 Mat Cleaning Machine Operator: ALP MEASUREMENT RESULTS: Intervals: Rate: 167 [place]: QRSD: 82 QT: 264 QTc: 440 [place]: P: [place]: QRS: 82 T: -55 INTERPRETIVE STATEMENTS: Atrial fibrillation with rapid ventricular response ST & T wave abnormality, consider inferior ischemia Abnormal ECG Compared to ECG 03/09/2023 08:31:35 Accelerated junctional rhythm no longer present ST (T wave) deviation still present Possible ischemia still present Electronically Signed On 06-08-23 14:39:26 CDT by Roberto Tillman
[2023-06-08] MEDS ORDERED: TOLVAPTAN 15 MG TABLET PO ONE (16:15)
[2023-06-08] MEDS: DOCUSATE NA/SENNA CONC 1 TAB PO SCH ×2 (17:07→22:24)
--- NOTE | 2023-06-08 19:51 | CON ---
Date of Consultation: 06/08/2023 Reason For Consultation: Atrial fibrillation with rapid ventricular response. History Of Present Illness: A 72-year-old male with history of colon cancer, atrial fibrillation, dy slipidemia, hypertension, presents to the emergency room with generalized weakness and diarrhea, was found to be in acute renal failure and also in atrial fibrillation with rapid ventricular response. Heart rate 160, started on amiodarone and converted to sinus rhythm. Past Medical History: As outlined above in the HPI. Medications: Refer to reconciliation sheet for detailed list. Allergies: ASPIRIN. Family History: No premature coronary artery disease or cancer. Social History: Does not smoke or drink. Does not use any drugs. Review of Systems: All systems reviewed are negative except mentioned in HPI. Physical Examination: Vital Signs: Reviewed. Head and Neck: Pupils are equal, reactive to light. Intact eye movements. Extremities: No edema, clubbing, or cyanosis. Intact pulses. Skin: No rash. Neurologic: Alert, awake, oriented x3. No focal deficits appreciated. Lymph Nodes: No cervical or axillary lymphadenopathy. Investigations: BUN is 54; creatinine 2.9 and his creatinine baseline is around 1.9-2. NT-proBNP is 4681, and cardiac enzymes are negative. Assessment/recommendations: 1.Atrial fibrillation with rapid ventricular response, converted to sinus rhythm. Once amiodarone l oad is completed, switch to 200 mg by mouth once a day and continue Eliquis at 2.5 mg twice a day. 2.Elevated NT-proBNP. Patient has chronic diastolic heart failure and he is not overloaded at this moment. No need for diuretics. 3.Acute renal failure, probably due to aggressive diarrhea and dehydration. Recommend gentle hydrat ion. 4.Dyslipidemia. Continue statin. Thank you for the consult. SR/MODL Voice ID: [id number] Report ID: [id number]
[2023-06-08] MEDS ORDERED: METOPROLOL TARTRATE 5 MG/5 ML INJ IV STA (20:58)
[2023-06-08] MEDS ORDERED: ONDANSETRON 4 MG/2 ML VIAL IV ONE (21:16)
[2023-06-08 22:05] VITALS: O2SAT 100
--- NOTE | 2023-06-08 22:30 | RAD REPORT ---
EXAM DESCRIPTION: RAD - Abdomen W Erect - 06/08/2023 9:07 pm CLINICAL HISTORY: nausea and vomiting COMPARISON: Abdomen W Erect dated 03/13/2023; Abdomen W Erect dated 03/12/2023; Abdomen Pelvis Wo Contrast dated 03/09/2023 TECHNIQUE: Single AP view of the abdomen. FINDINGS: Stable diffuse small bowel dilation. No appreciable air-fluid levels or pneumatosis. Enter ic tube is no longer visualized. No suspicious calcifications. No significant bony abnormality. IMPRESSION: Stable degree of diffuse small bowel dilation, may suggest ileus or early obstruction.
[2023-06-09 04:56] LABS: Hematocrit 31.6 % (39.6-49.0); Lymphocytes % 8.7 % (15.3-44.8); MCV 73.5 fL (80-100); MPV 8.2 fL (7.6-11.3); Platelets 289 thou/uL (152-406)
[2023-06-09 05:12] LABS: Albumin 1.8 g/dL (3.4-5.0); Bilirubin Total 0.3 mg/dL (0.2-1.0); Phosphorus 7.1 mg/dL (2.5-4.9); Potassium 4.5 mEq/L (3.5-5.1); Protein, Total 7.3 g/dL (6.4-8.2)
[2023-06-09] MEDS: PANTOPRAZOLE 40MG TABLET PO SCH (09:00)
[2023-06-09] MEDS: AMIODARONE HCL 200 MG TAB PO SCH (09:00)
[2023-06-09] MEDS ORDERED: ONDANSETRON 4 MG/2 ML VIAL IV ONE (09:03)
[2023-06-09] MEDS: PANTOPRAZOLE 40 MG INJ IVP SCH ×2 (09:15→20:29)
[2023-06-09] MEDS ORDERED: AMIODARONE HCL 150 MG in D5W 100 ML IV STA (09:18)
[2023-06-09] MEDS: AMIODARONE HCL 900 MG in Dextrose 5%-Water 482 ML IV SCH (10:09)
[2023-06-09] MEDS: DOCUSATE NA/SENNA CONC 1 TAB PO SCH ×2 (11:57→20:29)
[2023-06-09] MEDS: APIXABAN 2.5 MG TABLET PO SCH ×2 (11:57→20:29)
--- NOTE | 2023-06-09 12:04 | P.PN ---
Subjective Date of Service: 06/09/23 Chief Complaint: Diarrhea, weakness 72M w/ PMHx of CKD2, schizophrenia, A-fib on Eliquis, colon cancer on chemotherapy( last course in January, Aborted due to decline in functional status) , hypertension, & hyperlipidemia, who p/w generalized weakness, diarrhea, & constipation. He is referred to Nephrology for BILLIE & hypoNa. SCr 3.2 on adm, Today No overnight events HR >150 NPO, will start gentle hydration Physcial exam : General: Awake, alert, Looks chronically ill, frail Heart: tavhycardia, no murmur Chest: CTAB Abdomen: distended, tense, NT Extremities: no edema. A/P # BILLIE likley due to pre-renal + ischemic TN from rapid Afib Cr 3.2 on adm Renal US: no hydronephrosis will start Gnetle hydration Boody po fluid intake HR control # Afib w/ RVR Received amiodarone gtt Per Cardiology # Hyponatremia Cont Gentle hydration S/P Tolvaptan on 06/08 #Ileus NPO for now will start gentle hydration Consider TPN if no improvement # Hx of advanced colon cancer Oncology follow up # Anemia Monitor CBC # Schizophrenia Per other services Prognosis : guarded to poor Physical Examination - Vital Signs Temperature: 99.4 F Blood Pressure: 146/92 Pulse: 100 Respirations: 20 Pulse Ox (%): 100 Assessment And Plan Physician Review: Patient Assessed, Agree with Above Assessment and Plan
[2023-06-09] MEDS ORDERED: METOPROLOL TARTRATE 5 MG/5 ML INJ IV ONE ×3 (13:04→13:15)
[2023-06-09] MEDS: D5 0.9 NS 1,000 ML IV SCH (14:04)
--- NOTE | 2023-06-09 14:33 | CON ---
Date of Consultation: 06/09/2023 Brief History Of Present Illness: The patient is a 72-year-old male with a past medical histor y colon cancer, atrial fibrillation, on Eliquis with hyperlipidemia, hypertension, who has had multip le episodes of partial bowel obstruction, however, he does have a history of colon cancer, which was status post resection. and patient are unaware of the specific area of his colon which was rese cted. It was done at [facility] with Dr. Marie several years ago. His last colonoscopy wa s over 5 years ago just prior to his surgery and he has not had any since as he has been explained it as metastatic, but under control. He has been receiving chemotherapy via port from Dr. Cardona. He cruz s had multiple episodes of partial bowel obstructions where he will have nausea, vomiting, bloating, distention, firm bowel movements, ultimately given laxatives and then he will have episodes of diarrh ea and then the pain, nausea, and symptoms will resolve. Similarly on this particular occasion, he d id have a similar course whereby he had nausea, vomiting, bloating, abdominal pain, distention. He h ad a bowel movement which was solid on Sunday, followed by a significant liquid bowel movement the next day and since then he has had essentially no bowel movement since . He continues to cruz ve nausea, vomiting, bloating and distention. The is at the bedside during my examination and h elps to interpret. Past Medical History: Significant for cancer treated with chemotherapy, schizophrenia, anemia, atria l fibrillation on chronic anticoagulation, hyperlipidemia, hypertension. Past Surgical History: Includes a partial colectomy of uncertain portion and chemotherapy port place ment. Allergies: TO ASPIRIN. Home Medications: Include budesonide, docusate sodium, omeprazole, potassium chloride, Eliquis, Lipi tor, Lopressor, Ensure, Lasix, Senokot, Flomax. Social History: Denies smoking, alcohol, or recreational drug use. Review of Systems: Ten-point review of systems other than HPI, denies. Physical Examination: General: He is awake, alert, oriented. Psychiatric: Appropriate and conversive. HEENT: Normocephalic. Sclerae icteric. Mucous membranes were moist. Oropharynx clear. Neck: Supple. No JVD. Chest: Normal expansion and excursion. Cardiovascular: Irregular rate, irregular rhythm. Currently appears to be in atrial fibrillation. Heart: Sounds are abnormal in regularity, otherwise unremarkable. Abdomen: Soft with mild global tenderness to palpation. It is tympanic consistent with gaseous dist ention. No rebound. No guarding. No focal peritonitis. He does not have any significant pain even on deep palpation and is mild. He does not guard at all. Musculoskeletal: No clubbing, cyanosis, edema. Skin: Warm and dry. Laboratory Data: Revealed a white blood cell count of 12.7, hemoglobin is 8.2, hematocrit 25.7, plat elet count was 243. His neutrophils 79%. Sodium was 130, potassium 4.7, chloride 104, carbon dioxid e 21, BUN 54, creatinine 3.02, glucose was 97, calcium 7.9. His magnesium was 2.8. AST 64, ALT 65, alkaline phosphatase 169. ProBNP was 4684. His troponin was 14. He has had no abdominal imaging at this point, other than abdominal x-ray on 06/08, which was officially read as stable degree of diffu se small bowel dilatation may suggest ileus or early obstruction. Assessment And Plan: This is a 72-year-old man with a history of metastatic colorectal cancer who pr esents with weakness, fatigue and partial bowel obstruction versus reflux symptoms. 1.IV fluid hydration. 2.Antibiotic coverage. 3.Continue medical management for his multiple medical comorbidities. 4.Dr. Moreno is following for cardiovascular standpoint to ensure patient's atrial fibrillation is man aged. 5.Nephrology following for renal management. 6.When his cardiovascular status is stable enough for patient to undergo a p.o. contrast CT scan, I have recommended a p.o. contrast CT scan of the abdomen pelvis with significant delay to see if we ca n delineate and define the etiology of his blockage. If this is a progression of the cancer intralum inally causing a partial obstruction, we can discuss if it is colonic in source, possible colonoscopy and discussed the possibility of a palliative stent versus other surgical intervention such as diver michelle. I have explained the risks, benefits, and alternatives of the above stated plan. The patient and his agreed to proceed as indicated. No surgical intervention required at this point, as pat ient requires medical management however, I will follow along closely with you for this. JIN/TRICIA Voice ID: [id number] Report ID: [id number]
--- NOTE | 2023-06-09 20:41 | RAD REPORT ---
EXAM DESCRIPTION: CT - Abdomen Pelvis Wo Contrast - 06/09/2023 5:30 pm CLINICAL HISTORY: Ileus vs SBO COMPARISON: Abdomen Pelvis Wo Contrast dated 03/09/2023; Abdomen Pelvis Wo Contrast dated 03/05/20 23; Abdomen Pelvis Wo Contrast dated 03/03/2023; Abdomen Pelvis Wo Contrast dated 12/19/2022 TECHNIQUE: Thin cut axial CT imaging of the abdomen and pelvis was performed without IV contrast. Mu ltiplanar reformats were generated and reviewed. All CT scans are performed using dose optimization technique as appropriate and may include automated exposure control or mA/KV adjustment according to patient size. FINDINGS: Small residual pleural effusions, larger on the right. Underlying pulmonary nodules, large st in the subpleural posterior right lower lobe, measuring 1.2 cm, was probably obscured by the ongoi ng atelectasis on the prior exam. The degree of atelectasis is partially improved. Wall thickening al coty the lower esophagus. . The liver, spleen, adrenal glands, and pancreas show no suspicious findings. Gallbladder shows few sm all stones. Symmetric renal contour, without suspicious parenchymal findings within limits of noncontrast techniq ue. No evidence of radiopaque calculi or hydroureteronephrosis. Markedly dilated small bowel loops, degree of dilation has worsened since the prior exam, with appear ance of abrupt transition in the right lower quadrant, see series 201, images 59 through 61, although the amount of free fluid somewhat limits evaluation. Distal to this, decompressed small bowel loops are appreciated sequelae of proximal colon resection again seen enterocolic anastomosis appreciated i n the left upper quadrant which is patent. Residual contrast in the distal colon. Long segment of apparent bowel wall thickening along the sigmo id measuring at least 10 cm. No evidence of free air or localized collections. There is persistent [id number] ascites, with persistent scalloping of the liver contour anteriorly and laterally, which may indicate underlying lo culation. No bulky adenopathy. Small left inguinal hernia. Ovoid soft tissue nodule along the right anterior ab dominal wall measuring 0.4 cm in thickness, could relate to an omental deposit versus decompressed jamel wel. . The urinary bladder is without significant finding. No suspicious bony findings. IMPRESSION: Markedly dilated small bowel loops, with abrupt transition noted in the right lower quad rant. This is concerning for small bowel obstruction. Xcuu-me-[id number] ascites with suggestion of locule a shepard with resulting scalloping of the margins of the liver. Possible right anterior abdominal peritoneal deposit process decompressed bowel. Improving bilateral pleural effusions. Underlying pulmonary nodules largest is subpleural on the righ t measuring 1.2 cm, probably stable, and were obscured by the larger effusions and adjacent atelectas is on the prior exam. Other findings as above.
--- NOTE | 2023-06-10 02:28 | P.PN ---
Subjective Date of Service: 06/08/23 Patient is doing well no new complaints. Patient's been nauseated today. Patient has some vomiting. Patient was atrial fibrillation with rapid ventricular response. Rate is controlled. Patient with a history of colorectal cancer with carcinomatosis. Long-term prognosis is very poor. Last CEA was elevated. Review of Systems 10-point ROS is otherwise unremarkable Physical Examination - Vital Signs Temperature: 96.9 F Blood Pressure: 149/85 Pulse: 92 Respirations: 30 Pulse Ox (%): 99 - Physical Exam General: Alert, In no apparent distress, Oriented x1 HEENT: Atraumatic, PERRLA, EOMI Neck: Supple, JVD not distended Respiratory: Clear to auscultation bilaterally, Normal air movement Cardiovascular: Irregular heart rate/rhythm Gastrointestinal: No rebound, No guarding, Distended, Tenderness Musculoskeletal: No clubbing, No swelling, No tenderness Neurological: Other ( Generalized weakness. Gait ataxia.) - Studies Medications List Reviewed: Yes Assessment & Plan - Problems (Diagnosis) (1) Atrial fibrillation with RVR Current Visit: Yes Status: Acute (2) Intractable nausea and vomiting Current Visit: Yes Status: Acute (3) Abdominal distension Current Visit: Yes Status: Acute (4) Partial small bowel obstruction Current Visit: Yes Status: Acute (5) Primary colorectal adenocarcinoma Current Visit: Yes Status: Acute (6) Peritoneal carcinomatosis Current Visit: Yes Status: Acute (7) Acute kidney injury superimposed on CKD Current Visit: Yes Status: Acute (8) [place] light chain disease Current Visit: Yes Status: Acute (9) Primary hyperthyroidism Current Visit: Yes Status: Acute (10) Hypoalbuminemia Current Visit: Yes Status: Acute (11) Hyponatremia Current Visit: Yes Status: Acute - Plan Plan: 1. continue with amiodarone 2. monitor renal function 3. increase nutritional support 4. long-term prognosis is poor; patient with metastatic colorectal adenocarcinoma with peritoneal carcinomatosis. CEA level remains elevated. 5. Repeat thyroid studies 6. appreciate Renal consultation 7. Abdominal x-rays; repeat surgery consult 8. GI DVT prophylaxis - Advance Directives Does patient have a Living Will: No Does patient have a Durable POA for Healthcare: No - Code Status/Comfort Care Code Status: Full Code Physician Review: Patient Assessed, Agree with Above Assessment and Plan
--- NOTE | 2023-06-10 02:37 | P.PN ---
Date of Service: 06/09/23 Subjective Patient is doing a little bit better. Patient's rate was better controlled. However, this morning patient went back into atrial fibrillation with rapid ventricular response. Surgery consultation appreciated. CT with contrast performed which showed small bowel obstruction. Monitor electrolytes. Review of Systems 10-point ROS is otherwise unremarkable Physical Examination - Vital Signs reviewed - Physical Exam General: Alert, In no apparent distress, Oriented x1 Respiratory: Clear to auscultation bilaterally, Normal air movement Cardiovascular: Irregular heart rate/rhythm Gastrointestinal: No rebound, No guarding, Distended, Tenderness Musculoskeletal: No clubbing, No swelling, No tenderness Neurological: Other ( Generalized weakness. Gait ataxia.) Assessment & Plan - Problems (Diagnosis) (1) Atrial fibrillation with RVR Current Visit: Yes Status: Acute (2) Intractable nausea and vomiting Current Visit: Yes Status: Acute (3) Abdominal distension Current Visit: Yes Status: Acute (4) Partial small bowel obstruction Current Visit: Yes Status: Acute (5) Primary colorectal adenocarcinoma Current Visit: Yes Status: Acute (6) Peritoneal carcinomatosis Current Visit: Yes Status: Acute (7) Acute kidney injury superimposed on CKD Current Visit: Yes Status: Acute (8) [place] light chain disease Current Visit: Yes Status: Acute (9) Primary hyperthyroidism Current Visit: Yes Status: Acute (10) Hypoalbuminemia Current Visit: Yes Status: Acute (11) Hyponatremia Current Visit: Yes Status: Acute - Plan Continue with plan of care as mentioned below: 1. continue with amiodarone; drip started; maybe related to hyperthyroidism- order free T4 levels 2. monitor renal function; remains elevated; elevated kappa light chains 3. NPO 4. long-term prognosis is poor; patient with metastatic colorectal adenocarci noma with peritoneal carcinomatosis. CEA level remains elevated. Repeat pending 5. Antiemetics 6. Appreciate Renal consultation; poor prognosis with medical disease 7. Repeat CT showed SBO; will d/w surgery 8. GI DVT prophylaxis - Advance Directives Does patient have a Living Will: No Does patient have a Durable POA for Healthcare: No - Code Status/Comfort Care Code Status: Full Code Physician Review: Patient Assessed, Agree with Above Assessment and Plan
--- NOTE | 2023-06-10 02:38 | P.PN ---
Date of Service: 06/10/[address] scan reveals small bowel obstruction. NG tube placed. Spoke with family about prognosis. General surgery also spoke with patient regarding patient's prognosis. Family was not ready to proceed with comfort measures at this time. They wanted a 2nd opinion. Will consult Dr. eKene per family's request. Otherwise, patient's rate is controlled. Abdomen remains distended. Renal function is a little worse. Patient's prognosis is very poor. Discussed with family. CEA is significantly elevated. Physical Examination - Vital Signs reviewed - Physical Exam General: Alert, In no apparent distress, Oriented x1 ; NG tube to suction Respiratory: Clear to auscultation bilaterally, Normal air movement Cardiovascular: Irregular heart rate/rhythm Gastrointestinal: No rebound, No guarding, Distended, Tenderness Musculoskeletal: No clubbing, No swelling, No tenderness Neurological: Other ( Generalized weakness. Gait ataxia.) Assessment & Plan - Problems (Diagnosis) (1) Atrial fibrillation with RVR Current Visit: Yes Status: Acute (2) Intractable nausea and vomiting Current Visit: Yes Status: Acute (3) Abdominal distension Current Visit: Yes Status: Acute (4) Small bowel obstruction Current Visit: Yes Status: Acute (5) Primary colorectal adenocarcinoma Current Visit: Yes Status: Acute (6) Peritoneal carcinomatosis Current Visit: Yes Status: Acute (7) Acute kidney injury superimposed on CKD Current Visit: Yes Status: Acute (8) [place] light chain disease Current Visit: Yes Status: Acute (9) Primary hyperthyroidism Current Visit: Yes Status: Acute (10) Hypoalbuminemia Current Visit: Yes Status: Acute (11) Hyponatremia Current Visit: Yes Status: Acute - Plan Continue with plan of care as mentioned below: 1. continue with amiodarone; drip started; maybe related to hyperthyroidism- order free T4 levels; will continue with beta-elder therapy 2. monitor renal function; remains elevated; elevated kappa light chains 3. NPO; will place NG tube to suction 4. long-term prognosis is poor; patient with metastatic colorectal a denocarcinoma with peritoneal carcinomatosis. CEA level remains elevated. Repeat pending 5. Antiemetics 6. Appreciate Renal consultation; poor prognosis with medical disease 7. Repeat CT showed SBO; will d/w surgery 8. GI DVT prophylaxis - Advance Directives Does patient have a Living Will: No Does patient have a Durable POA for Healthcare: No - Code Status/Comfort Care Code Status: Full Code Physician Review: Patient Assessed, Agree with Above Assessment and Plan
[2023-06-10 04:35] LABS: Absolute Lymphocytes (CBC) 0.8 K/uL (0.7-4.9); Hematocrit 29.4 % (39.6-49.0); Lymphocytes % 12.1 % (15.3-44.8); MPV 8.2 fL (7.6-11.3); Platelets 305 thou/uL (152-406); RBC Red Blood Cell Count 3.97 M/uL (4.33-5.43)
[2023-06-10 04:54] LABS: Magnesium 2.8 mg/dL (1.6-2.4); Phosphorus 5.9 mg/dL (2.5-4.9)
[2023-06-10 05:01] LABS: Albumin 1.7 g/dL (3.4-5.0); Bilirubin Direct 0.2 mg/dL (0-0.2); Bilirubin Indirect, Calculated 0.2 mg/dL (0.2-0.8); Bilirubin Total 0.4 mg/dL (0.2-1.0); Protein, Total 6.6 g/dL (6.4-8.2); Thyroid Stimulating Hormone 2.13 uIU/mL (0.358-3.740)
[2023-06-10] MEDS ORDERED: METOPROLOL TARTRATE 5 MG/5 ML INJ IV ONE ×3 (06:08→06:35)
[2023-06-10] MEDS: AMIODARONE HCL 900 MG in Dextrose 5%-Water 482 ML IV SCH (08:48)
[2023-06-10] MEDS: PANTOPRAZOLE 40 MG INJ IVP SCH ×2 (08:48→21:07)
[2023-06-10] MEDS: DOCUSATE NA/SENNA CONC 1 TAB PO SCH (09:00)
[2023-06-10] MEDS: AMIODARONE HCL 200 MG TAB PO SCH (09:00)
[2023-06-10] MEDS: APIXABAN 2.5 MG TABLET PO SCH (10:05)
--- NOTE | 2023-06-10 12:53 | RAD REPORT ---
EXAM DESCRIPTION: RAD - Abdomen 1 View (KUB) - 06/10/2023 12:39 pm CLINICAL HISTORY: NG Tube placement COMPARISON: Abdomen 1 View (KUB) dated 03/09/2023; Abdomen 1 View (KUB) dated 03/08/2023; Abdomen 1 Vi ew (KUB) dated 03/07/2023; Abdomen 1 View (KUB) dated 03/06/2023; Abdomen Pelvis Wo Contrast dated ; Abdomen Pelvis Wo Contrast dated 03/09/2023 FINDINGS: Diffuse small bowel dilatation with modest improvement. NG tube overlies the stomach. No a cute osseous abnormality.Visualized lungs are unremarkable.No abnormal calcifications. IMPRESSION: NG tube overlies the stomach. Persistent small bowel dilatation.
--- NOTE | 2023-06-10 15:18 | P.PN ---
Subjective Date of Service: 06/10/23 Chief Complaint: Diarrhea, weakness 72M w/ PMHx of CKD2, schizophrenia, A-fib on Eliquis, colon cancer on chemotherapy( last course in January, Aborted due to decline in functional status) , hypertension, & hyperlipidemia, who p/w generalized weakness, diarrhea, & constipation. He is referred to Nephrology for BILLIE & hypoNa. SCr 3.2 on adm, Today No overnight events HR controlled Cr trending up , will increase IVF Physcial exam : General: Awake, alert, Looks chronically ill, frail Heart: tavhycardia, no murmur Chest: CTAB Abdomen: distended, tense, NT Extremities: no edema. A/P # BILLIE likley due to pre-renal + ischemic TN from rapid Afib Cr 3.2 on adm Renal US: no hydronephrosis will start Gnetle hydration Harvey po fluid intake HR control #Pleural effusion Cont IVF for now Hold on lasix for now, pt is npo # Afib w/ RVR Received amiodarone gtt Per Cardiology # Hyponatremia Cont Gentle hydration S/P Tolvaptan on 06/08 #SBO NPO for now will start gentle hydration Consider TPN if no improvement # Hx of advanced colon cancer Oncology follow up # Anemia Monitor CBC # Schizophrenia Per other services Prognosis : guarded to poor Physical Examination - Vital Signs Temperature: 96.7 F Blood Pressure: 146/88 Pulse: 150 Respirations: 25 Pulse Ox (%): 97 - Studies Medications List Reviewed: Yes Assessment And Plan Physician Review: Patient Assessed, Agree with Above Assessment and Plan
--- NOTE | 2023-06-10 16:26 | PN ---
Date of Progress Note: 06/10/2023 Subjective: Seen by bedside. Unfortunately, he has developed small bowel obstruction. His heart is in regular rhythm now. He goes back into atrial fibrillation on and off. No chest pain. Review of Systems: No chest pain or shortness of breath. No dysuria, polyuria, or urinary urgency. Objective: Vital Signs: Reviewed. Head and Neck: Pupils are equal, reactive to light. Intact eye movements. No JVD. No cervical lym phadenopathy. Neck is supple. Thyroid is not enlarged. Lungs: Clear to auscultation bilaterally. No rhonchi, wheezing, or crackles. No accessory muscle u se. Heart: Regular rate and rhythm. No extra sounds. Abdomen: Slightly distended. Bowel sounds are diminished. Extremities: No clubbing, cyanosis. Intact pulses. Skin: No rash or nodule. Neurologic: Alert, awake, oriented x3. No acute focal deficits appreciated. Lymph Nodes: No cervical or axillary lymphadenopathy. Investigations: BUN 62, creatinine 3.6. Assessment And Recommendations: 1.Atrial fibrillation. He is back in sinus rhythm now. If need be to use IV metoprolol 5 mg every 1 hour as needed, and he is n.p.o. and now he can take medications by mouth. If control t he heart rate with the IV metoprolol on as needed basis, then plan for reloading with amiodarone susanne cespedes this hospital stay. 2.Acute renal failure due to severe dehydration. 3.Hypertension. Blood pressure is acceptable. SR/MODL Voice ID: [id number] Report ID: [id number]
[2023-06-10] MEDS ORDERED: METOPROLOL TARTRATE 5 MG/5 ML INJ IV STA (17:14)
[2023-06-10] MEDS: D5 0.9 NS 1,000 ML IV SCH (18:15)
[2023-06-10] MEDS: METOPROLOL TARTRATE 5 MG/5 ML INJ IV SCH (20:55)
[2023-06-11] MEDS: METOPROLOL TARTRATE 5 MG/5 ML INJ IV SCH ×4 (02:55→20:41)
[2023-06-11] MEDS ORDERED: [UNRECOGNIZED DRUG - OTHER] IM SCH (05:00)
[2023-06-11] MEDS: D5 0.9 NS 1,000 ML IV SCH ×3 (05:09→21:03)
[2023-06-11 07:58] LABS: Absolute Lymphocytes (CBC) 1.1 K/uL (0.7-4.9); Hematocrit 26.9 % (39.6-49.0); Lymphocytes % 16.4 % (15.3-44.8); MCV 73.9 fL (80-100); MPV 7.9 fL (7.6-11.3); Platelets 257 thou/uL (152-406); RBC Red Blood Cell Count 3.63 M/uL (4.33-5.43)
[2023-06-11] MEDS: PANTOPRAZOLE 40 MG INJ IVP SCH ×2 (08:11→20:36)
[2023-06-11 08:12] LABS: Magnesium 2.8 mg/dL (1.6-2.4); Potassium 3.7 mEq/L (3.5-5.1)
[2023-06-11 08:49] LABS: Albumin 1.6 g/dL (3.4-5.0); Bilirubin Direct 0.2 mg/dL (0-0.2); Bilirubin Indirect, Calculated 0.2 mg/dL (0.2-0.8); Bilirubin Total 0.4 mg/dL (0.2-1.0); Protein, Total 6.1 g/dL (6.4-8.2)
--- NOTE | 2023-06-11 09:22 | P.PN ---
Subjective Date of Service: 06/11/23 Chief Complaint: Diarrhea, weakness No acute events overnight. He has had moderate gastric output from his NG tube. He denies any abdominal pain, nausea, vomiting. Appreciate Surgery recommendations. Review of Systems 10-point ROS is otherwise unremarkable Gastrointestinal: Abdominal Pain, Constipation Physical Examination - Vital Signs Temperature: 96.9 F Blood Pressure: 146/85 Pulse: 84 Respirations: 24 Pulse Ox (%): 99 - Physical Exam General: Alert, In no apparent distress, Oriented x3 HEENT: Atraumatic, Mucous membr. moist/pink, Other (NG tube in place, with moderate gastric output), Sclerae nonicteric Neck: JVD not distended Respiratory: Clear to auscultation bilaterally, Diminished Cardiovascular: No edema, Regular rate/rhythm, Normal S1 S2, No gallops, No rubs, No murmurs Gastrointestinal: Hypoactive, Soft and benign, Non-distended, No tenderness Musculoskeletal: No clubbing Integumentary: No rashes Neurological: Normal speech, Normal affect - Studies Medications List Reviewed: Yes Assessment And Plan - Plan # Small Bowel Obstruction # Metastatic Colon Cancer with Peritoneal Carcinomatosis s/p Surgery on Chemo therapy # SIRS Criteria due to above - resolved # Ascites with Scalloping of Liver - concern for Underlying Loculation # Sigmoid Colon Wall Thickening # Probable Anemia of Chronic Disease - Evaluation: - CEA = 148.8 - Abdomen x-ray = "stable degree of diffuse small bowel dilation, may suggest ileus or early obstruction." - CT abdomen/pelvis = "markedly dilated small bowel loops, with abrupt transition noted in the right lower quadrant. This is concerning for small bowel obstruction. Ylim-mz-eovxklym ascites with suggestion of locule a shepard with resulting scalloping of the margins of the liver. Possible right anterior abdominal peritoneal deposit process decompressed bowel. Improving bilateral pleural effusions. Underlying pulmonary nodules largest is subpleural on the right measuring 1.2 cm, probably stable, and were obscured by the larger effusions and adjacent atelectasis on the prior exam." - Management plan: - General Surgery consulted - recommendations appreciated - NG tube in place - with moderate gastric output - NPO - As needed symptom control - Will obtain liver ultrasound # Paroxysmal Atrial Fibrillation with Rapid Ventricular Response - resolved # Mild Hyperthyroidism His [id number] = 2 (HTN=1, Age 65-74=1). - Currently in normal sinus rhythm - TSH 2.130, Free T4 1.61 - Chest x-ray = "no acute cardiopulmonary process." - Consulted Cardiology and spoke with Dr. Tillman - While NPO, recommends PRN metoprolol and amiodarone to be given for 6 hours on-6 hours off - Will discuss anticoagulation with Dr. Tillman # KDIGO Stage I Acute Kidney Injury on Chronic Kidney Disease Stage III # Likely Hypovolemic Hyponatremia - resolved - Nephrology consulted - recommendations appreciated - Creatinine = 3.20 -> 2.91 -> 3.02 -> 3.36 -> 3.64 -> 3.35 (baseline creatinine ~ 1.9-2.2) - Sodium = 125 -> 131 -> 130 -> 131 -> 133 -> 138 - Urinalysis = 3+ protein - Renal ultrasound = "increased renal echotexture consistent with parenchymal disease. No hydronephrosis." - Monitor creatinine and urine output - Renally dose medications # Pulmonary Nodules (largest 1.2 cm in Right Lower Lobe) # Wall Thickening of Lower Esophagus # Right Anterior Abdominal Wall Soft Tissue Nodule (0.4 cm) # Cholelithiasis - Noted on radiology reports. Will require outpatient follow-up. Tomi Tracy M.D.
--- NOTE | 2023-06-11 12:18 | CON ---
Date of Consultation: 06/11/2023 Reason For Consultation: Consultation for a second opinion. History Of Present Illness: The patient is a 72-year-old male with history of colon cancer, wh o was on chemo, however, did not tolerate. Has not had chemo for the last 2 months and came in with symptoms of bowel obstruction, nausea, vomiting, bloating, distention, and he has not had a bowel mov ement for the last couple of days. He is passing a little bit of gas with the NG tube placed. He fe els much better. His distention is gone down. He had a CAT scan done without oral contrast that parth wed questionable omental disease, probable small bowel obstruction, partial in nature and then there appeared to be new nodules in the lung base, which appears to be metastatic disease. He is awake and alert, in no distress at this time. No sore throat, runny nose, cough, headaches, or dizziness. No chest pain. Review of Systems: Otherwise unremarkable. Past Medical History: Colon cancer, schizophrenia, atrial fibrillation on chronic anticoagulation, h ypertension, hyperlipidemia. Past Surgical History: Partial colectomy and port placement. Allergies: ASPIRIN. Social History: The patient does not smoke or drink alcohol. Family History: Noncontributory. Physical Examination: Vital Signs: Stable. He is afebrile. General: Awake, alert. Head and Neck: No masses. Chest: Clear. Heart: S1, S2. Abdomen: Soft, nontender, slightly distended. Hypoactive bowel sounds. Extremities: Adequately perfused, nontender. Neuro: Nonfocal. Laboratory Data: Shows a normal white count today. H and H are 8.6 and 26.9, platelets are 257. IN R is 1.49. Chemistry reviewed. BUN and creatinine are [address] of the abdomen and pelvis re viewed with the radiologist, shows markedly dilated small bowel loops with abrupt transition noted in the right lower quadrant, concerning for small bowel obstruction. Bxvl-yk-ibjhyeiy ascites, suggest ion of on the margins of the liver, possible right anterior abdominal peritoneal deposits process or decompressed bowel, underlying pulmonary nodules, appear to be possible metastatic disease . Assessment: A 72-year-old gentleman with likely advanced colon cancer. Recommendation: At this point, we will try to get a CT of the abdomen and pelvis with oral contrast, which will help delineate the extent of the peritoneal deposits and omental disease and based on tho se findings, the patient will be given the option for hospice or comfort care that will be done by Dr Melita Cardona. I discussed the case with Dr. Cardona. She agrees with the plan. We will notify her of the re sults of that and then she will talk to the family about the appropriate care going forward. At this point, the patient does appear to have a partial bowel obstruction at least. Therefore, conservativ e management with n.p.o., NG tube, IV fluids, and empiric antibiotics should continue until decisions are made. EUN/TRICIA Voice ID: [id number] Report ID: [id number]
--- NOTE | 2023-06-11 13:44 | RAD REPORT ---
EXAM DESCRIPTION: US - Liver Only - 06/11/2023 12:22 pm CLINICAL HISTORY: Abdominal pain. Abnormal CT scan COMPARISON: CT June 11, 2023 FINDINGS: Liver has a relatively homogeneous echotexture. Discrete lesion is not seen. Complex cystic mass abuts the anterior and right lobe of the liver exhibiting mass effect. It measure s approximately 15 x 4 centimeters. A portion colon also lies anterior to the liver. IMPRESSION: 15 x 4 centimeter complex cystic mass right upper quadrant pain probably carcinomatosis
--- NOTE | 2023-06-11 13:55 | RAD REPORT ---
EXAM DESCRIPTION: CT - Abdomen Pelvis Wo Contrast - 06/11/2023 12:04 pm CLINICAL HISTORY: Bowel obstruction COMPARISON: Abdomen Pelvis Wo Contrast dated 06/09/2023; Abdomen Pelvis Wo Contrast dated 023; Abdomen Pelvis Wo Contrast dated 03/05/2023; Abdomen Pelvis Wo Contrast dated 03/03/2023 TECHNIQUE: Thin cut axial CT imaging of the abdomen and pelvis was performed without IV contrast. Or al contrast was administered. Multiplanar reformats were generated and reviewed. All CT scans are performed using dose optimization technique as appropriate and may include automated exposure control or mA/KV adjustment according to patient size. FINDINGS: Layering small pleural effusions as well as right pleural nodules, largest measuring 12 mi llimeter, stable. The liver, spleen, adrenal glands, and pancreas show no suspicious findings. Gallbladder again shows gallstones. Symmetric renal contour, without suspicious parenchymal findings within limits of noncontrast techniq ue. No evidence of radiopaque calculi or hydroureteronephrosis. Probable exophytic left superior pole 4.4 cm cyst is stable Stable marked small bowel dilation. Oral contrast progresses just proximal to the level of the presum ed ileocolic anastomosis in the left upper quadrant on axial image 35 image series 3. A a short segme nt of small bowel thickening and mucosal nodularity is seen in the right lower quadrant, collectively measuring 6.5 cm in length, previously assumed to demonstrate focal transition, however orally admin istered contrast traverses this segment. There is subsequent small-bowel contrast dilution to the lev el of the ileocolic anastomosis. Segmental wall thickening along the sigmoid colon is stable. Moderat e to large ascites, with scalloping of the liver margin, as well as possible loculated areas of fluid versus omental deposits anterior to the pancreas, and along the adventitia of the first part of the duodenum. No other suspicious masses or bulky adenopathy. . The urinary bladder is without significan t finding. No suspicious bony findings. IMPRESSION: No evidence of high-grade obstruction. Presumed abrupt transition in the right lower quadrant is better demonstrated on this CT performed wi th oral contrast to represent a 6.5 cm segment of luminal attenuation and nodular small bowel wall th ickening. This could be of infectious/ inflammatory or malignant etiology. Oral contrast progresses to the level just proximal to the presumed ileocolic anastomosis in the left upper quadrant, with persistent marked small bowel dilation, favored to represent ileus or partial o bstruction. Other stable findings including moderate to large ascites, with scalloping of liver contour, suggesti ng loculation or malignancy.
[2023-06-11] MEDS ORDERED: LIDOCAINE JELLY 2%- 5 ML TUBE TOP PRN (19:04)
[2023-06-11] MEDS: ENOXAPARIN 60 MG/0.6 ML SQ SCH (20:35)
[2023-06-11] MEDS: D5W 1,000 ML with NA BICARB 8.4% 100 MEQ IV SCH ×2 (23:00)
[2023-06-11] MEDS ORDERED: SODIUM BICARB 50 MEQ/50ML VIAL ONE (23:14)
[2023-06-11] MEDS ORDERED: D5W 1,000 ML IV ONE (23:15)
[2023-06-12] MEDS: METOPROLOL TARTRATE 5 MG/5 ML INJ IV SCH ×4 (01:28→20:30)
--- NOTE | 2023-06-12 04:01 | PN ---
Date of Progress Note: 06/09/2023 Chief Complaint: Acute kidney injury on advanced chronic kidney disease. History Of Present Illness: The patient is in ICU. He was admitted for diarrhea, weakness. He was found to have bowel obstruction. He has multiple medical problems including history of chronic kidne y disease stage 2; schizophrenia; atrial fibrillation, on Eliquis; colon cancer, on chemotherapy. He was previously seen at [facility] and he was on chemotherapy, last course was in January and he aborte d chemotherapy due to decline in functional status. He has also underlying hypertension and hyperlip idemia. He presented with generalized weakness and constipation. Nephrology was consulted for acute kidney injury and hyponatremia. Serum creatinine level was 3.2 on admission. The patient has nonol iguric urine output overnight. He denied new complaint. Heart rate is controlled. Patient is on IV fluids. Physical Examination: General: Alert, oriented, conversant. Heart: S1, S2. Mild tachycardia. Chest: Clear to auscultation bilaterally. Abdomen: Not tense. Extremities: No edema. Impression And Plan: 1.Acute kidney injury secondary to prerenal azotemia, ischemic tubular necrosis from rapid atrial fi brillation and sepsis. Creatinine level on admission 3.2. Ultrasound of the kidney did not show hyd ronephrosis. The patient was started on mild hydration. Metabolic acidosis, mild. The patient is o n IV fluids and he has high output from NG tube. Monitor electrolytes closely. 2.Pleural effusion. Continue IV fluids. Hold Lasix. 3.Atrial fibrillation with a rapid ventricular response. The patient received amiodarone drip and C ardiology is consulted. 4.Hyponatremia, status post tolvaptan on June 16. Continue gentle hydration. 5.SBO. The patient is n.p.o. Consider TPN. EB/MODL Voice ID: [id number] Report ID: [id number]
[2023-06-12 04:59] LABS: Absolute Lymphocytes (CBC) 1.5 K/uL (0.7-4.9); Hematocrit 26.3 % (39.6-49.0); Lymphocytes % 15.6 % (15.3-44.8); MCV 73.9 fL (80-100); MPV 8.2 fL (7.6-11.3); Platelets 241 thou/uL (152-406); RBC Red Blood Cell Count 3.56 M/uL (4.33-5.43)
[2023-06-12 05:13] LABS: Albumin 1.5 g/dL (3.4-5.0); Bilirubin Total 0.4 mg/dL (0.2-1.0); Magnesium 2.4 mg/dL (1.6-2.4); Phosphorus 3.9 mg/dL (2.5-4.9); Potassium 3.2 mEq/L (3.5-5.1)
[2023-06-12] MEDS ORDERED: AMIODARONE IN DEXTROSE,ISO-OSM 360 MG/200 ML BAG IV ONE (06:02)
[2023-06-12] MEDS: KCL 20 MEQ/100 mL IVPB 20 MEQ/100 ML BAG IV SCH ×2 (06:33→09:08)
[2023-06-12] MEDS: PANTOPRAZOLE 40 MG INJ IVP SCH ×2 (09:07→20:30)
[2023-06-12] MEDS: ENOXAPARIN 60 MG/0.6 ML SQ SCH (09:07)
[2023-06-12 10:29] LABS: UR PROTEIN 294.8 mg/dL (<11.9); Urine Protein/Creatinine Ratio 4.91 ratio (<0.15)
--- NOTE | 2023-06-12 10:29 | P.PN ---
Subjective Date of Service: 06/12/23 Chief Complaint: Diarrhea, weakness No new events. His gastric output seems to be improving compared to yesterday. He reports passing flatus, but has not had a bowel movement yet. I held an extensive yywui-hs-hfcw discussion with him and his , Mrs. Ordonez, this morning. He would like to continue with the current plan of care and eventually resume chemotherapy. He states that he wishes to remain a Full Code. He denies any abdominal pain, nausea, vomiting. Review of Systems 10-point ROS is otherwise unremarkable General: Weakness (generalized) Physical Examination - Vital Signs Temperature: 98.2 F Blood Pressure: 147/87 Pulse: 79 Respirations: 19 Pulse Ox (%): 100 - Physical Exam General: Alert, In no apparent distress, Oriented x3 HEENT: Atraumatic, Mucous membr. moist/pink, Other (NG tube in place, with minimal gastric output), Sclerae nonicteric Neck: JVD not distended Respiratory: Clear to auscultation bilaterally, Normal air movement Cardiovascular: No edema, Regular rate/rhythm, Normal S1 S2, No gallops, No rubs, No murmurs Gastrointestinal: Hypoactive, No tenderness, No rebound, No guarding, Distended Musculoskeletal: No clubbing Integumentary: No rashes Neurological: Normal speech, Normal affect - Studies Medications List Reviewed: Yes Assessment And Plan - Plan # Small Bowel Obstruction # Metastatic Colon Cancer with Peritoneal Carcinomatosis s/p Surgery on Chemotherapy # SIRS Criteria due to above - resolved # Sigmoid Colon Wall Thickening # Probable Anemia of Chronic Disease - Evaluation: - CEA = 148.8 - Abdomen x-ray = "stable degree of diffuse small bowel dilation, may suggest ileus or early obstruction." - CT abdomen/pelvis = "markedly dilated small bowel loops, with abrupt phillip sition noted in the right lower quadrant. This is concerning for small bowel obstruction. Mvbu-vs-vgcvoxvp ascites with suggestion of locule a shepard with resulting scalloping of the margins of the liver. Possible right anterior abdominal peritoneal deposit process decompressed bowel. Improving bilateral pleural effusions. Underlying pulmonary nodules largest is subpleural on the right measuring 1.2 cm, probably stable, and were obscured by the larger effusions and adjacent atelectasis on the prior exam." - Liver US = "15 x 4 centimeter complex cystic mass right upper quadrant pain probably carcinomatosis" - Repeat CT abdomen/pelvis (06/11) = "no evidence of high-grade obstruction. Presumed abrupt transition in the right lower quadrant is better demonstrated on this CT performed with oral contrast to represent a 6.5 cm segment of luminal attenuation and nodular small bowel wall thickening. This could be of infectious/ inflammatory or malignant etiology. Oral contrast progresses to the level just proximal to the presumed ileocolic anastomosis in the left upper quadrant, with persistent marked small bowel dilation, favored to represent ileus or partial obstruction. Other stable findings including moderate to large ascites, with scalloping of liver contour, suggesting loculation or malignancy." - Management plan: - General Surgery consulted - recommendations appreciated - NG tube in place - with minimal gastric output - NPO - As needed symptom control # Paroxysmal Atrial Fibrillation with Rapid Ventricular Response - resolved # Mild Hyperthyroidism His [id number] = 2 (HTN=1, Age 65-74=1). - Currently in normal sinus rhythm - TSH 2.130, Free T4 1.61 - Chest x-ray = "no acute cardiopulmonary process." - Consulted Cardiology and spoke with Dr. Tillman - While NPO, recommends PRN metoprolol and amiodarone to be given for 6 hours on-6 hours off - Continue enoxaparin # KDIGO Stage I Acute Kidney Injury on Chronic Kidney Disease Stage III # Likely Hypovolemic Hyponatremia - resolved - Nephrology consulted - recommendations appreciated - Creatinine = 3.20 -> 2.91 -> 3.02 -> 3.36 -> 3.64 -> 3.35 -> 2.92 (baseline cr eatinine ~ 1.9-2.2) - Sodium = 125 -> 131 -> 130 -> 131 -> 133 -> 138 -> 141 - Urinalysis = 3+ protein - Renal ultrasound = "increased renal echotexture consistent with parenchymal disease. No hydronephrosis." - Monitor creatinine and urine output - Renally dose medications # Pulmonary Nodules (largest 1.2 cm in Right Lower Lobe) # Wall Thickening of Lower Esophagus # Right Anterior Abdominal Wall Soft Tissue Nodule (0.4 cm) # Cholelithiasis - Noted on radiology reports. Will require outpatient follow-up. Toim Tracy M.D.
--- NOTE | 2023-06-12 12:00 | EKG ---
Test Date: 2023-06-10 Test Time: 09:31:32 Receiving Teller: BRIEN MEASUREMENT RESULTS: Intervals: Rate: 151 MI: QRSD: 82 QT: 330 QTc: 523 [place]: P: MI: QRS: 73 T: -60 INTERPRETIVE STATEMENTS: Atrial fibrillation with RVR Low voltage QRS ST & T wave abnormality, consider inferior ischemia ST & T wave abnormality, consider anterolateral ischemia Abnormal ECG Compared to ECG 06/08/2023 07:06:02 Low QRS voltage now present ST (T wave) deviation now present Possible ischemia now present Sinus bradycardia no longer present Myocardial infarct finding no longer present Electronically Signed On 06-12-23 11:55:15 CDT by Roberto Tillman
[2023-06-12] MEDS: D5W 1,000 ML with NA BICARB 8.4% 100 MEQ IV SCH ×2 (13:40)
--- NOTE | 2023-06-12 14:01 | PN ---
Date of Progress Note: 06/12/2023 Subjective: Patient was admitted to the hospital with small bowel obstruction. Patient is doing bet ter. Still has NG tube. Still n.p.o. No fever or chills. Patient had a bowel movement. Physical Examination: Vital Signs: Blood pressure 147/87, pulse of 79, afebrile. Chest: Clear to auscultation. Heart: S1, S2. Regular. Abdomen: Soft, nontender. Bowel sound appreciated. Extremities: No edema. Neurologic: Alert. Pleasantly confused. Laboratory Data: Hemoglobin 8.3. Sodium 141, potassium 3.2, bicarb 20, BUN 43, creatinine 2.9, calc ium 9.2. Phosphorus 3.2, magnesium 2.4. Albumin 1.5. Current Medications: The patient on include: 1.Bicarb drip at 100 mEq at 75 per hour. 2.KCl. 3.Pantoprazole. 4.Amiodarone. 5.Metoprolol. Assessment And Plan: 1.Acute kidney injury secondary to prerenal, on the recovery phase. Patient is still on the dry mary e. I am going to change IV fluid to 1 amp of bicarb run at 75 per hour and we will monitor. 2.Hyponatremia secondary to depletional, resolved. 3.Hypokalemia. We will continue supplement. 4.Small bowel obstruction as by primary. Time spent examining the patient qatk-cc-wyft, reviewing data, lab and radiology discussing with the patient, discussing with the steam plant records clerk including hospitalist and nursing staff more than 35 minutes . HIRA Voice ID: [id number] Report ID: [id number]
[2023-06-12] MEDS: D5W 1,000 ML with NA BICARB 8.4% 50 MEQ IV SCH ×2 (15:17)
--- NOTE | 2023-06-12 19:14 | PN ---
Date of Progress Note: 06/12/2023 Subjective: Patient had a repeat CAT scan with oral contrast yesterday, which did confirm carcinomat osis, omental caking, peritoneal seeding of the tumor. Patient is awake, alert. Has a very small jamel wel movement, is passing gas. Objective: Vital Signs: Stable. He is afebrile. General: Patient is really not in much pain. Abdomen: Soft, slightly distended, but no peritonitis. Laboratory Data: Reviewed. Assessment: Advanced colon cancer with carcinomatosis, peritoneal seeding. Recommendation: The is going to talk with Dr. Cardona about hospice, which I agree with and comfor t care. We will clamp the NG tube and start sips of clear liquids today and see how the patient resp onds. Begin comfort care. At this time, it is important for the care of this patient and supportive care as well. We will follow this patient while in the hospital. EUN/TRICIA Voice ID: [id number] Report ID: [id number]
[2023-06-13] MEDS: METOPROLOL TARTRATE 5 MG/5 ML INJ IV SCH ×4 (02:34→20:32)
[2023-06-13 04:24] LABS: Hematocrit 27.7 % (39.6-49.0)
[2023-06-13 04:47] LABS: Potassium 3.2 mEq/L (3.5-5.1)
[2023-06-13] MEDS: D5W 1,000 ML with NA BICARB 8.4% 50 MEQ IV SCH ×2 (04:48)
[2023-06-13 05:37] LABS: Phosphorus 3.2 mg/dL (2.5-4.9)
[2023-06-13] MEDS ORDERED: POTASSIUM 25 MEQ EFFERV TAB PO ONE (08:00)
[2023-06-13] MEDS: AMIODARONE HCL 200 MG TAB PO SCH (09:10)
[2023-06-13] MEDS: ENOXAPARIN 60 MG/0.6 ML SQ SCH (09:10)
[2023-06-13] MEDS: PANTOPRAZOLE 40 MG INJ IVP SCH ×2 (09:10→20:32)
[2023-06-13] MEDS ORDERED: POTASSIUM CL SA 10 MEQ TAB PO ONE (10:30)
[2023-06-13] MEDS: D5W 1,000 ML IV SCH (11:00)
--- NOTE | 2023-06-13 13:46 | PN ---
Date of Progress Note: 06/13/2023 Subjective: Patient was admitted with small bowel obstruction. Patient had acute kidney injury on a dvanced chronic kidney disease. After hydration, kidney function started improving. Patient if poss ible to be converted to hospice today. Physical Examination: Vital Signs: When I saw the patient, blood pressure 137/87, pulse of 95, afebrile. Chest: Clear to auscultation. Heart: S1, S2. Systolic murmur. Abdomen: Mild distention, mild tenderness. No guarding or rebound. Bowel sound appreciated. Neuro: Pleasantly confused. No focality. Laboratory Data: Hemoglobin 8.7. Sodium 140, potassium 3.2, bicarb 24, BUN 32, creatinine 2.5. GFR 26. Calcium 7.9. Phosphorus 3.2, magnesium 2. Albumin 1.5. Current Medications: The patient is on include: 1.Amiodarone. 2.Lovenox. 3.Tylenol. 4.Bicarb drip at 75 mL/h. 5.Pantoprazole. Assessment And Plan: 1.Acute kidney injury on advanced chronic kidney disease secondary to prerenal. Poor intake. Recov ered close back to baseline. I am going to continue hydration given the improvement on the bicarb. Had resolution of acidosis. I will discontinue bicarb drip, place the patient on the D5 and will fol low up. 2.Hyponatremia, currently on the hypernatremia side. We will change to do D5. 3.Hypernatremia as above. 4.Hypokalemia. We will supplement. 5.Acidosis secondary to renal failure/GI loss, recovered, resolved. Discontinue bicarb drip. 6.Small bowel obstruction as by primary and Surgery. Plan possible for hospice. We will follow up. YONATHAN/TRICIA Voice ID: [id number] Report ID: [id number]
--- NOTE | 2023-06-13 14:08 | P.DS ---
Admission Date: 06/07/23 Discharge Date: 06/14/23 Disposition: HOSPICE-HOME Discharge Condition: GOOD Reason for Admission: Diarrhea, weakness Consultations: 1. Cardiology 2. Nephrology 3. General Surgery Hospital Course: DIAGNOSES: # Small Bowel Obstruction - resolved # Paroxysmal Atrial Fibrillation with Rapid Ventricular Response - resolved # KDIGO Stage I Acute Kidney Injury on Chronic Kidney Disease Stage III # Likely Hypovolemic Hyponatremia - resolved # Metastatic Colon Cancer with Peritoneal Carcinomatosis s/p Surgery on Chemotherapy # SIRS Criteria due to above - resolved # Sigmoid Colon Wall Thickening # Probable Anemia of Chronic Disease # Mild Hyperthyroidism # Pulmonary Nodules (largest 1.2 cm in Right Lower Lobe) # Wall Thickening of Lower Esophagus # Right Anterior Abdominal Wall Soft Tissue Nodule (0.4 cm) # Cholelithiasis HOSPITAL COURSE: Mr. Nir Spangler is a pleasant 72 year old male with a past medical history significant for metastatic colon cancer with peritoneal carcinomatosis s/p surgery on chemotherapy, paroxysmal atrial fibrillation, and chronic kidney disease stage III who was admitted to the [facility] on 06/07/2023 for generalized weakness, palpitations, and diarrhea. He was admitted to the Medicine service. Upon further evaluation, he was found to have atrial fibrillation with rapid ventricular response. Cardiology was consulted and he was sent to the ICU for an amiodarone drip. Shortly after admission, he began to experience abdominal pain. An abdominal x-ray revealed, "stable degree of diffuse small bowel dilation, may suggest ileus or early obstruction." General Surgery was consulted and he was evaluated by Dr. Keene. A nasogastric tube was placed, he was placed NPO, and provided with as needed pain medications. Over the course of his hospitalization, his symptoms improved significantly. During his stay, several [id number] conversations were held with him and his , Ms. Ordonez. After some contemplation and talks with Dr. Keene and Dr. Cardona, he stated that hospice/comfort care is most consistent with his wishes. He was able to verbalize what hospice care entails and stated that he would like to proceed with home hospice. With the assistance of case management, this was arranged. On 06/14/2023, he was seen on rounds and deemed medically stable for discharge. He and his were given the opportunity to ask questions and reported no further questions. Furthermore, all questions were answered to the best of my ability. Today, I personally spent 25 minutes on his case, of which greater than 50% of the time was spent in patient education, counseling, and coordination of care as described above. - Physical Exam General: Alert, In no apparent distress, Oriented x3 HEENT: Atraumatic, Mucous membr. moist/pink, Sclerae nonicteric Neck: JVD not distended Respiratory: Clear to auscultation bilaterally, Normal air movement Cardiovascular: No edema, Regular rate/rhythm, No murmurs Gastrointestinal: Normoactive, No tenderness, distended Integumentary: No rashes Neurological: Normal speech, Normal affect Vital Signs/Physical Exam: Temp Pulse Resp BP Pulse Ox 98.5 F 93 H 24 H 139/84 100 06/13/23 12:00 06/13/23 13:43 06/13/23 12:00 06/13/23 13:43 06/13/23 12:00 Laboratory Data at Discharge: WBC 9.40 thou/uL (4.3-10.9) 06/12/23 04:32 Hgb 8.7 g/dL (13.6-17.9) L 06/13/23 03:56 Hct 27.7 % (39.6-49.0) L 06/13/23 03:56 Plt Count 241 thou/uL (152-406) 06/12/23 04:32 PT 16.4 SECONDS (9.5-12.5) H 06/07/23 19:06 INR 1.49 06/07/23 19:06 Sodium 140 mEq/L (136-145) 06/13/23 03:56 Potassium 3.2 mEq/L (3.5-5.1) L 06/13/23 03:56 BUN 32 mg/dL (7-18) H 06/13/23 03:56 Creatinine 2.57 mg/dL (0.70-1.30) H 06/13/23 03:56 Glucose 102 mg/dL (74-106) 06/13/23 03:56 Phosphorus 3.2 mg/dL (2.5-4.9) 06/13/23 03:56 Magnesium 2.0 mg/dL (1.6-2.4) 06/13/23 03:56 Total Bilirubin 0.4 mg/dL (0.2-1.0) 06/12/23 04:32 AST 27 U/L (15-37) 06/12/23 04:32 ALT 29 U/L (16-61) 06/12/23 04:32 Alkaline Phosphatase 160 U/L (45-117) H 06/12/23 04:32 Triglycerides Cancelled 06/11/23 07:25 Cholesterol Cancelled 06/11/23 07:25 HDL Cholesterol Cancelled 06/11/23 07:25 Cholesterol/HDL Ratio Cancelled 06/11/23 07:25 Home Medications: Fluphenazide 25 mg IM ONCE 02/06/19 Docusate Sodium [Stool Softener] 1 tab PO DAILY 09/08/22 Esomeprazole Magnesium 1 tab PO DAILY 09/08/22 Potassium Chloride 1 tab PO DAILY 09/08/22 Apixaban [Eliquis *] 2.5 mg PO BID 30 Days #60 tab 09/10/22 Atorvastatin Calcium [Lipitor] 40 mg PO BEDTIME #30 tab 09/10/22 Metoprolol Tartrate [Lopressor*] 25 mg PO BID #60 tab 09/27/22 Ensure Enlive 237 ml PO BID #30 can 03/16/23 Furosemide [Lasix*] 20 mg PO BIDL #60 tab 03/16/23 Tamsulosin [Flomax] 0.4 mg PO BEDTIME #30 cap 03/16/23 Physician Discharge Instructions: - Continue care with Hospice Diet: AHA Activity: Ad jared Followup: Aster Monique DO, DO [Primary Care Provider] - Time spent managing pt's care (in minutes): 25
--- NOTE | 2023-06-13 15:04 | P.PN ---
Subjective Date of Service: 06/13/23 Chief Complaint: Diarrhea, weakness His NG tube was removed yesterday. This morning, he states that he is feeling much better. He has passed flatus and has had a bowel movement. He denies any abdominal pain, nausea, or vomiting. Following our discussion yesterday, he and his re-discussed [id number] with Dr. Keene and Dr. Cardona. They are now interested in home hospice. CM has been consulted. Review of Systems 10-point ROS is otherwise unremarkable Physical Examination - Vital Signs Temperature: 98.5 F Blood Pressure: 139/84 Pulse: 93 Respirations: 24 Pulse Ox (%): 100 - Physical Exam General: Alert, In no apparent distress, Oriented x3 HEENT: Atraumatic, Mucous membr. moist/pink, Sclerae nonicteric Neck: JVD not distended Respiratory: Clear to auscultation bilaterally, Normal air movement Cardiovascular: No edema, Regular rate/rhythm, Normal S1 S2, No gallops, No rubs, No murmurs Gastrointestinal: Hypoactive, Non-distended, No tenderness, No rebound, No guarding Musculoskeletal: No clubbing Integumentary: No rashes Neurological: Normal speech, Normal affect - Studies Medications List Reviewed: Yes Assessment And Plan - Plan # Small Bowel Obstruction # Metastatic Colon Cancer with Peritoneal Carcinomatosis s/p Surgery on Chemotherapy # SIRS Criteria due to above - resolved # Sigmoid Colon Wall Thickening # Probable Anemia of Chronic Disease - Evaluation: - CEA = 148.8 - Abdomen x-ray = "stable degree of diffuse small bowel dilation, may suggest ileus or early obstruction." - CT abdomen/pelvis = "markedly dilated small bowel loops, with abrupt transition noted in the right lower quadrant. This is concerning for small bowel obstruction. [id number] ascites with suggestion of locule a shepard with resulting scalloping of the margins of the liver. Possible right anterior abdominal peritoneal deposit process decompressed bowel. Improving bilateral pleural effusions. Underlying pulmonary nodules largest is subpleural on the right measuring 1.2 cm, probably stable, and were obscured by the larger effusions and adjacent atelectasis on the prior exam." - Liver US = "15 x 4 centimeter complex cystic mass right upper quadrant pain probably carcinomatosis" - Repeat CT abdomen/pelvis (06/11) = "no evidence of high-grade obstruction. Presumed abrupt transition in the right lower quadrant is better demonstrated on this CT performed with oral contrast to represent a 6.5 cm segment of luminal attenuation and nodular small bowel wall thickening. This could be of infectious/ inflammatory or malignant etiology. Oral contrast progresses to the level just proximal to the presumed ileocolic anastomosis in the left upper quadrant, with persistent marked small bowel dilation, favored to represent ileus or partial obstruction. Other stable findings including moderate to large ascites, with scalloping of liver contour, suggesting loculation or malignancy." - Management plan: - General Surgery consulted - recommendations appreciated - Diet per surgery - As needed symptom control # Paroxysmal Atrial Fibrillation with Rapid Ventricular Response - resolved # Mild Hyperthyroidism His [id number] = 2 (HTN=1, Age 65-74=1). - Currently in normal sinus rhythm - TSH 2.130, Free T4 1.61 - Chest x-ray = "no acute cardiopulmonary process." - Consulted Cardiology and spoke with Dr. Tillman - While NPO, recommends PRN metoprolol and amiodarone to be given for 6 hours on-6 hours off - Continue enoxaparin # KDIGO Stage I Acute Kidney Injury on Chronic Kidney Disease Stage III # Likely Hypovolemic Hyponatremia - resolved - Nephrology consulted - recommendations appreciated - Creatinine = 3.20 -> 2.91 -> 3.02 -> 3.36 -> 3.64 -> 3.35 -> 2.92 -> 2.57 (baseline creatinine ~ 1.9-2.2) - Sodium = 125 -> 131 -> 130 -> 131 -> 133 -> 138 -> 141 - Urinalysis = 3+ protein - Renal ultrasound = "increased renal echotexture consistent with parenchymal disease. No hydronephrosis." - Monitor creatinine and urine output - Renally dose medications # Pulmonary Nodules (largest 1.2 cm in Right Lower Lobe) # Wall Thickening of Lower Esophagus # Right Anterior Abdominal Wall Soft Tissue Nodule (0.4 cm) # Cholelithiasis - Noted on radiology reports. Will require outpatient follow-up. # Goals of Care - He and his are now interested in hospice. - CM consulted Tomi Tracy M.D.
[2023-06-14] MEDS: D5W 1,000 ML IV SCH ×2 (00:20→13:40)
[2023-06-14] MEDS: METOPROLOL TARTRATE 5 MG/5 ML INJ IV SCH ×3 (02:00→15:21)
[2023-06-14] MEDS ORDERED: MORPHINE 2 MG/ML SYR IV ONE ×2 (05:00→16:08)
[2023-06-14] MEDS: AMIODARONE HCL 200 MG TAB PO SCH (08:02)
[2023-06-14] MEDS: ENOXAPARIN 60 MG/0.6 ML SQ SCH (08:02)
[2023-06-14] MEDS: PANTOPRAZOLE 40 MG INJ IVP SCH (08:02)
[2023-06-14 13:09] VITALS: BMI 21.8
[2023-06-14 17:37] VITALS: TEMP 99
[2023-06-14 18:16] VITALS: BP 133/76
--- NOTE | 2023-06-15 01:25 | PN ---
Date of Progress Note: 06/14/2023 Chief Complaint: Acute on chronic kidney injury. History Of Present Illness: Patient was found to have small bowel obstruction. He developed acute k idney injury on advanced chronic kidney disease. After IV fluids were administered, kidney function improved. Patient is in ICU. Review of Systems: Patient denies chest pain, palpitation. Physical Examination: Lungs: Clear to auscultation bilaterally. Heart: S1, S2. Abdomen: Soft. Extremities: No edema. Impression And Plan: 1.Acute kidney injury on advanced chronic kidney disease secondary to prerenal azotemia in setting o f decreased p.o. intake. Patient was started on IV fluids and with hydration renal function has impr rajendra. Patient required IV bicarbonate drip. IV bicarbonate drip stopped due to the fact that metabo lic acidosis has stabilized and improved. Patient is on D5W to prevent hypernatremia. 2.Hypernatremia. Continue D5W. 3.Hypokalemia. Supplementation as needed. 4.Small bowel obstruction. Patient is being seen by primary team and Surgery. Family is deciding a bout hospice. EB/MODL Voice ID: [id number] Report ID: [id number]
[2023-06-15] MEDS ORDERED: [UNRECOGNIZED DRUG - OTHER] IM SCH (05:00)
[2023-06-15] MEDS ORDERED: ENOXAPARIN 60 MG/0.6 ML SQ SCH (09:00)
== END 2023-06-14 19:10 | disposition hospice, home (50) | DRG 388 ==
LOC: ER 17:45 → ERHOLD 20:45 → 3RD-ICU 06-08 14:38
PROVIDERS: ADMIT Hospitalist; ATTEND Internal Medicine
PROC: 3E0336Z Introduction of Nutritional Substance into Peripheral Vein, Percutaneous Approach (ICD-10-PCS; principal; 2023-06-07)
DX: K56.600 Partial intestinal obstruction, unspecified as to cause (principal); N17.0 Acute kidney failure with tubular necrosis; C18.9 Malignant neoplasm of colon, unspecified; E87.1 Hypo-osmolality and hyponatremia; I50.32 Chronic diastolic (congestive) heart failure; I13.0 Hypertensive heart and chronic kidney disease with heart failure and stage 1 through stage 4 chronic kidney disease, or unspecified chronic kidney disease; C78.6 Secondary malignant neoplasm of retroperitoneum and peritoneum; R65.10 Systemic inflammatory response syndrome (SIRS) of non-infectious origin without acute organ dysfunction; R18.8 Other ascites; E87.0 Hyperosmolality and hypernatremia; I48.0 Paroxysmal atrial fibrillation; K56.7 Ileus, unspecified; N18.30 Chronic kidney disease, stage 3 unspecified; D63.1 Anemia in chronic kidney disease; D50.9 Iron deficiency anemia, unspecified; N28.1 Cyst of kidney, acquired; F20.9 Schizophrenia, unspecified; E88.09 Other disorders of plasma-protein metabolism, not elsewhere classified; E86.0 Dehydration; E87.6 Hypokalemia; E78.00 Pure hypercholesterolemia, unspecified; E05.80 Other thyrotoxicosis without thyrotoxic crisis or storm; K59.00 Constipation, unspecified; D72.829 Elevated white blood cell count, unspecified; K80.20 Calculus of gallbladder without cholecystitis without obstruction; R91.8 Other nonspecific abnormal finding of lung field; Z51.5 Encounter for palliative care; Z88.6 Allergy status to analgesic agent; Z79.01 Long term (current) use of anticoagulants; Z79.82 Long term (current) use of aspirin; Z79.899 Other long term (current) drug therapy
CPT/HCPCS: 36415; 71045; 74018; 74019; 74176; 76705; 76770; 80048; 80053; 80076; 81001; 82306; 82378; 82533; 82550; 82570; 82947; 83605; 83735; 83880; 83930; 83935; 83970; 84100; 84132; 84156; 84300; 84439; 84443; 84484; 85014; 85018; 85025; 85610; 93005; 96361; 96374; 99285; C9113; J0282; J1650; J2270; J2405; J3480; J7030; J7042; J7060; J8499